=== PATIENT | male | born 1940 | race Caucasian/White ===

== ENCOUNTER → 2016-06-29 | Outpatient (CLI) | payer MEDICARE, OTHER ==
[~2016-06-29] MED LIST: /ADVA50050; /TAMS4CA; ACET65TA; ALBU17IN2; ALBUTEROL INH; ALBUTEROL INHALATION; ANTIV 25 PO; ANUSOLHCSU PR; ASPI81TA45; AVELOX PO; BACT400T OR; BIAXIN500 PO; CLAR5CHW; COLA100C2; COUMADIN5 PO; DARVOCET-N PO; DOXYCYC100 PO; DULCOLAX; FLOMAX 0.4 PO; FLON0.05; LOFIBRA PO; LOPID600 PO; LOVENOX SQ; MILKSUS; MOTRIN6 PO; MUCINEX PO; NEUR300C; NEURONTIN3 PO; NYSTAT100 PO; PERC7.5T8; PREDNISO10 PO; PREDNISO20 PO; PREDNISON5 PO; SING10TA31; SING10TA31 OR; SUDAFED30 PO; TOPI25TA2; VASO2.5T; VASOTEC25 PO; ZINC220T2; ZOCO80TA; ZOCOR80 PO
--- NOTE | 2016-06-29 11:11 | REP ---
Clinical: COPD . Comparison: 04/06/2015 . Technique: PA and lateral. Findings: The mediastinum and cardiac silhouette are normal. The lung nelson are clear and without acute consolidation, effusion, or pneumothorax. Surgical clips in the left apex are again identified. The skeletal structures are intact and normal. Impression: 1. No acute cardiopulmonary process. Signed by Manpreet Dennis MD 06/29/2016 11:02 A
== END ==
LOC: M SMT 10:44
PROVIDERS: ATTEND Internal Medicine Pulmonary Disease
DX: J44.9 Chronic obstructive pulmonary disease, unspecified (principal)

== ENCOUNTER → 2016-07-29 | Outpatient (CLI) | payer MEDICARE, OTHER ==
--- NOTE | 2016-07-29 16:42 | REP ---
Right shoulder: Three views. History: Anterior right shoulder pain. Comparison study April 28, 2005. Findings: There is osteoarthritic narrowing and spur formation at the AC joint. There is moderate to large inferior spurring of the acromion process. This is increased compared to the prior study. No acute erosive changes seen. Minimal glenohumeral spurring is seen. There is diffuse osteopenia. Impression: AC joint and glenohumeral joint osteoarthritis. Inferolateral acromion process spurring. No acute bony abnormality. Signed by Abelardo Wu MD 07/29/2016 04:50 P
== END ==
LOC: M SMT 14:39
PROVIDERS: ATTEND Nurse Practitioner Adult Health
DX: M19.011 Primary osteoarthritis, right shoulder (principal)

== ENCOUNTER 2016-09-26 12:20 | Inpatient (IN) | payer MEDICARE, OTHER ==
[~2016-09-26] VITALS: Ht 182.9 cm; Wt 92.5 kg
[~2016-09-26 12:20] MED LIST changes: +METOPROLOL TART 25 MG TABLET PO SCH
[2016-09-26 12:58] LABS: BASO % 0.4 % (0.0-1.0); EOS % 0.3 % (0.0-3.0); LARGE UNSTAINED CELL # 0.2 K/mm3 (0.0-0.4); LARGE UNSTAINED CELL % 1.3 % (0.0-4.0); LYMPH # 1.3 K/mm3 (1.5-4.5); LYMPH % 8.7 % (24.0-44.0); MEAN CORPUSCULAR HEMOGLOBIN 30.4 pg (27.0-33.0); MEAN CORPUSCULAR HGB CONC 32.1 g/dl (32.0-36.5); MONO # 0.7 K/mm3 (0.0-0.8); MONO % 5.5 % (0.0-5.0); NEUTROPHILS # 10.5 K/mm3 (1.8-7.7); NEUTROPHILS % 83.8 % (36.0-66.0); PLATELET COUNT, AUTOMATED 344 k/mm3 (150-450); RED CELL DISTRIBUTION WIDTH 12.5 % (11.5-14.5); WHITE BLOOD COUNT 12.5 K/mm3 (4.0-10.0)
[2016-09-26 13:21] LABS: ANION GAP 11 MEQ/L (8-16); BLOOD UREA NITROGEN 25 MG/DL (7-18); CALCIUM LEVEL 8.6 MG/DL (8.8-10.2); CARBON DIOXIDE LEVEL 22 MEQ/L (21-32); CHLORIDE LEVEL 102 MEQ/L (98-107); CREATININE FOR GFR 2.08 MG/DL (0.70-1.30); GLOMERULAR FILTRATION RATE 33.1 (>42); GLUCOSE, FASTING 122 MG/DL (83-110); POTASSIUM SERUM 3.8 MEQ/L (3.5-5.1); SODIUM LEVEL 135 MEQ/L (136-145)
[2016-09-26] MEDS ORDERED: LIPI20TA PO (13:38)
[2016-09-26] MEDS ORDERED: LISI10TA4 PO (13:38)
[2016-09-26] MEDS ORDERED: FLON1SPR ×2 (13:38→14:47)
[2016-09-26] MEDS ORDERED: DIGOXIN INJ 0.5 MG/2 ML AMP (J1160) IV ONE (13:45)
[2016-09-26] MEDS ORDERED: APIXABAN 5 MG TAB (ELIQUIS) PO ONE (13:45)
[2016-09-26 14:26] LABS: INR 1.2
--- NOTE | 2016-09-26 14:28 | REP ---
AP PORTABLE CHEST: 09/26/2016. Comparison: CT chest 08/19/2016, chest x-ray 06/29/2016. Clinical history: Chest pain in a 76-year-old male. Two AP portable views were obtained to encompass the entirety of the chest. Lungs are hyperinflated with some flattening of the diaphragms. There are some basilar fibrotic linear changes about both diaphragms. Pulmonary artery hypertension is noted. There is some infrahilar scarring on the right and left side. Bullous emphysematous changes mid and upper lung zones. There are apical clips on the left but not the right upper chest. No cardiomegaly. The aorta is without aneurysm. The heart and mediastinal contours intact. Bones intact without acute finding. There is a mild dextroconvex curvature of the lower thoracic spine. Impression: 1. Some basilar fibrotic change suggesting COPD with some linear fibrotic or atelectatic change above the diaphragms. 2. No cardiomegaly, edema or effusion. 3. No dense consolidation or parenchymal mass. No widening of the mediastinum. Some apical clips on the left. No pneumothorax. Signed by Yemi Farrell MD 09/26/2016 07:33 P
[2016-09-26] MEDS ORDERED: GABA-282 PO (14:47)
[2016-09-26] MEDS ORDERED: GLUC1CAP9 PO (14:47)
[2016-09-26] MEDS ORDERED: BENA25CA4 PO (14:47)
[2016-09-26] MEDS ORDERED: ADV500INH INH (14:47)
[2016-09-26] MEDS ORDERED: FLOM5CAP PO (14:47)
[2016-09-26] MEDS ORDERED: LISI-538 PO (14:47)
[2016-09-26] MEDS ORDERED: ASPI1TAB PO (14:47)
[2016-09-26] MEDS ORDERED: VITMTA PO (14:47)
[2016-09-26] MEDS ORDERED: ATOR40TA PO (14:47)
[2016-09-26] MEDS ORDERED: LORA10TA2 PO (14:47)
[2016-09-26] MEDS ORDERED: XOPEAER INH (14:47)
[2016-09-26] MEDS ORDERED: IPRASOL4 INH (14:47)
[2016-09-26] MEDS ORDERED: MONT10TA2 PO (14:47)
[2016-09-26] MEDS ORDERED: niCARdipine IV 40 MG in APPROPRIATE DILUENT 1 EA IV SCH (15:15)
[2016-09-26] MEDS ORDERED: LEVALBUTEROL 1.25 MG/0.5 ML CONCENTRATE NEB INH PRN (15:30)
[2016-09-26 15:52] VITALS: BP 142/69
[2016-09-26] MEDS ORDERED: diltiaZEM 125 MG in NS 100 ML IV SCH (16:00)
[2016-09-26] MEDS: LEVALBUTEROL 1.25 MG/0.5 ML CONCENTRATE NEB INH SCH ×2 (16:00→20:00)
--- NOTE | 2016-09-26 16:04 | HPE ---
DATE OF ADMISSION: 09/26/2016 PRIMARY CARE PHYSICIAN: Dr. Jonnie Galloway. INPATIENT HOSPITALIST ATTENDING: Dr. Artemio Nichols. CHIEF COMPLAINT: Shortness of breath. HISTORY OF PRESENTING ILLNESS: This is a 76-year-old male with a history of asthma, hypertension, hyperlipidemia, benign prostatic hypertrophy (BPH), allergies, nerve pain, back surgery fusion and laminectomy, knee surgery, elbow surgery, chronic kidney disease stage III, presents to the emergency room with three-week history of cough, cold symptoms, which have worsened in this past , Tuesday, and into Tuesday. The patient has been using [id number]-swepdgt medications, Shanelle-Hume Severe Cold and Flu, Mucinex, Robitussin, with some subjective fevers and chills at home, cough productive of white sputum, and green nasal discharge. He complains of occasional sinus headache without any nausea or vomiting but with some diarrhea 2-3 times a day, small amount, non-watery, non-bloody, non-mucosy, and has had several sick contacts at his restorationist the past three weeks. The patient had ongoing shortness of breath with a prior episode about a week ago, when he developed a feeling of almost passing out, feeling dizzy, and seeing jennings zones at [facility] today. He has had on-and-off episodes throughout the day today, which prompted him to come to the emergency room due to these episodes of feeling like he was going to pass out. He also complains of generalized weakness, but no palpitations. Some lightheadedness, no falls. No syncopal episode. The patient drove himself by car. In the emergency room (ER), he is found systolic pressure of 97, heart rate of 136. He was awake, alert, able to provide a full history. He did receive, due to low blood pressure, an intravenous (IV) dose of digoxin and one dose of apixaban 2.5 mg. Hospitalist service was called for admission for new-onset atrial fibrillation with rapid ventricular rate. The patient admits to drinking about 6-7 caffeinated beverages, at least 4-6 on a regular day, and even more at times. He denies using any other caffeinated beverages. No history of thyroid disease. PAST MEDICAL HISTORY: 1. Hypertension. 2. Asthma. 3. Hyperlipidemia. 4. BPH. 5. Allergies. 6. Nerve pain. 7. Chronic kidney disease stage III, baseline creatinine of 1.35, current creatinine of 2.08. 8. Chronic obstructive pulmonary disease (COPD). PAST SURGICAL HISTORY: 1. Elbow surgery. 2. Clavicular surgery. 3. Appendectomy. 4. Back surgery. 5. Discectomy 1979. 6. Fusion and laminectomy in 2008. 7. Knee surgery. ALLERGIES: 1. CIPRO causing rash. 2. NAPROXEN causing rash. 3. PENICILLIN causing rash and swelling. HOME MEDICATIONS: - ipratropium albuterol inhaled as needed - aspirin 81 daily every second day - atorvastatin 40 at bedtime - Benadryl 25 at bedtime as needed - Flonase one spray twice a day - gabapentin 300 mg twice a day - Xopenex four times a day two puffs inhaled - lisinopril 20 at bedtime - loratadine 10 daily - montelukast 10 at bedtime - multivitamin one tablet daily - salmeterol Advair Diskus one puff twice a day - Flomax 0.4 daily SOCIAL HISTORY: The patient lives with , four kids. History of smoking, quit in 1979, smoked a pack a day for 30 years. Denies alcohol or drug use. Very active in his restorationist. FAMILY HISTORY: Mother of colon cancer. Brother of coronary artery disease (CAD). Sister with diabetes. REVIEW OF SYSTEMS: Per history of present illness (HPI). 12- system otherwise negative. PHYSICAL EXAMINATION: VITAL SIGNS: Blood pressure 137/64, pulse 136 at the bedside, respiratory rate 18, temperature 97.7. Saturating 95% on room air. GENERAL: The patient is awake, alert, and oriented times three, answering questions appropriately. HEENT: The patient has no pallor, icterus or jaundice. Pupils are round, reactive. Extraocular muscles are intact. Normocephalic, atraumatic. NECK: No cervical lymphadenopathy or thyromegaly. LUNGS: Diminished breath sounds but clear to auscultation. Hospital wheezes, rales, or rhonchi. HEART: S1, S2, irregularly irregular. ABDOMEN: Soft, obese, nontender, nondistended. Positive bowel sounds times four quadrants. EXTREMITIES: Trace lower extremity edema. No cyanosis or clubbing. LABORATORY DATA: White count 12.5, hemoglobin 14, hematocrit 44, platelet count 344. Sodium 135, potassium 3.8, chloride 102, bicarbonate 22, BUN 25, creatinine 2.08, baseline creatinine 1.35. Glucose of 122. TSH is within normal limits at 3.15. Cardiac marker troponin less than 0.02, total CK of 120, MB fraction of 3. BNP of 115. IMAGING: Chest x-ray: No acute cardiopulmonary process. The patient has some basilar fibrotic change suggesting COPD with basilar fibrosis. Chest x-ray no cardiomegaly, edema or effusion. No dense consolidation. No widening of the mediastinum. Some apical clips on the left. No pneumothorax. ASSESSMENT AND PLAN: This is a 76-year-old male with a history of chronic obstructive pulmonary disease, asthma, prior history of smoking for 30 pack years, hypertension, hyperlipidemia, osteoarthritis knee, shoulder, ankle and spine, degenerative joint disease of spine, benign prostatic hypertrophy, peripheral vascular disease, allergies, chronic kidney disease stage III, vertigo, hearing loss, rotator tendinitis, presents to the emergency room with a three-week complaint of cough, cold symptoms, worsening since , with feeling of passing out and dizziness today at [facility]. Was found to be in atrial fibrillation with rapid ventricular rate (RVR). Hospitalist service was called for admission. The patient will be admitted to hospitalist service, Dr. Artemio Nichols, as an inpatient for two midnights for the following issues. 1. Atrial fibrillation with rapid ventricular rate. Initial blood pressure was in the 90s. The patient was given a dose of digoxin. Will continue with digoxin every six hours at 0.125 mg dose. Check a digoxin level in the morning. The patient's blood pressure has since improved to 130s currently. Will place on Cardizem drip due to persistent uncontrolled heart rate of 130s to 146 at the bedside during my clinical examination. He currently denies any palpitations or dizziness, lightheadedness. He has been given a dose of Eliquis for cerebrovascular accident (CVA) prophylaxis. Thyroid stimulating hormone (TSH) is within normal. Has had increased use of caffeinated beverages. Rule out acute infectious process as possible exacerbating factor. Therefore, we will check urinalysis (UA), urine culture and sensitivity (C and S), respiratory panel. No current fevers. No empiric antibiotics. 2. History of chronic obstructive pulmonary disease (COPD). Continue nebulizer treatments as needed. No active wheezing at the bedside. No empiric antibiotics. Continue on oxygen, nebulizer treatments. 3. Hypertension. Stable. Currently on Cardizem drip for now until rate is controlled. 4. Hyperlipidemia. Lipid profile in the morning. 5. Chronic kidney disease stage III, worsening creatinine. Hold off on patient's Vasotec for now until normal function. 6. History of benign prostatic hypertrophy (BPH). Continue on Flomax and Avodart. If persistent hypertension, may need to hold for now. 7. History of allergies. Continue on Claritin. 8. History of neuropathy. Continue on Neurontin. 9. Deep venous thrombosis (DVT) prophylaxis. Currently on Eliquis. The patient will be assigned to Dr. Artemio Nichols at 10 p.m. on 09/26/2016, hospitalist service.
[2016-09-26] MEDS: NS 1,000 ML IV SCH (16:21)
[2016-09-26 16:22] VITALS: BP 150/83
[2016-09-26 16:33] VITALS: BP 162/71
[2016-09-26] MEDS: METOPROLOL TART 25 MG TABLET PO SCH ×2 (17:00→22:25)
--- NOTE | 2016-09-26 20:36 | ECGEPIP ---
Stationary ECG Study [facility] Test Date: 2016-09-26 Pat Name: STEVE REID Department: Room: [place] [address] Gender: M Inspector Type: THI : 1940 Requested By: MIKEY Elizabeth Order Number: [id number] Reading MD: Marlene Aldana Measurements Intervals [place] Rate: 87 P: 66 [place]: 160 QRS: -24 QRSD: 100 T: 74 QT: 343 QTc: 415 Interpretive Statements SINUS RHYTHM BORDERLINE LEFT AXIS DEVIATION NONSPECIFIC T-WAVE ABNORMALITY SIMILAR 04/06/15 Electronically Signed On 09-26-2016 20:36:37 EDT by Marlene Aldana
[2016-09-26] MEDS ORDERED: DIGOXIN INJ 0.5 MG/2 ML AMP (J1160) IV SCH (21:00)
[2016-09-26 21:07] VITALS: BP 145/65
[2016-09-26] MEDS: ADVAIR DISKUS 500/50 INH PWD INH SCH (21:10)
[2016-09-26] MEDS: ATORVASTATIN 20 MG TAB PO SCH (22:24)
[2016-09-26] MEDS: MONTELUKAST 10 MG TAB PO SCH (22:25)
[2016-09-26] MEDS: FLUTICASONE PROP 0.05% NASAL SPRAY 16 GM (FLONASE) SCH (22:25)
[2016-09-26] MEDS: GABAPENTIN 300 MG CAP PO SCH (22:25)
[2016-09-26 23:35] VITALS: BP 141/61
[2016-09-27 05:14] LABS: MEAN CORPUSCULAR HEMOGLOBIN 30.4 pg (27.0-33.0); MEAN CORPUSCULAR HGB CONC 32.4 g/dl (32.0-36.5); MEAN CORPUSCULAR VOLUME 93.8 fl (80.0-96.0); RED CELL DISTRIBUTION WIDTH 12.5 % (11.5-14.5); WHITE BLOOD COUNT 13.5 K/mm3 (4.0-10.0)
[2016-09-27 05:15] VITALS: BP 117/54
[2016-09-27 05:34] LABS: CALCIUM LEVEL 7.8 MG/DL (8.8-10.2); CREATININE FOR GFR 1.48 MG/DL (0.70-1.30); GLOMERULAR FILTRATION RATE 49.1 (>42); MAGNESIUM LEVEL 2.2 MG/DL (1.8-2.4)
[2016-09-27 05:44] LABS: DIGOXIN LEVEL 0.6 NG/ML (0.5-2.0)
--- NOTE | 2016-09-27 05:45 | ECGEPIP ---
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
[2016-09-27 05:46] LABS: POTASSIUM SERUM 4.6 MEQ/L (3.5-5.1)
[2016-09-27] MEDS: ADVAIR DISKUS 500/50 INH PWD INH SCH ×2 (07:52→20:39)
[2016-09-27] MEDS: LEVALBUTEROL 1.25 MG/0.5 ML CONCENTRATE NEB INH SCH ×4 (07:52→20:00)
[2016-09-27 08:00] VITALS: BP 119/62
[2016-09-27] MEDS: TAMSULOSIN 0.4 MG CAP PO SCH (09:27)
[2016-09-27] MEDS: LORATADINE 10 MG TAB PO SCH (09:27)
[2016-09-27] MEDS: GABAPENTIN 300 MG CAP PO SCH ×2 (09:27→21:19)
[2016-09-27] MEDS: MULTIVITAMINS/MINERALS THERAP 1 TAB PO SCH (09:27)
[2016-09-27] MEDS: METOPROLOL TART 25 MG TABLET PO SCH ×2 (09:27→21:19)
[2016-09-27] MEDS: FLUTICASONE PROP 0.05% NASAL SPRAY 16 GM (FLONASE) SCH ×2 (09:27→21:18)
[2016-09-27] MEDS: APIXABAN 2.5 MG TAB (ELIQUIS) PO SCH ×2 (09:27→21:19)
[2016-09-27] MEDS: ASPIRIN 81 MG ENTERIC TAB PO SCH (09:27)
[2016-09-27] MEDS: NS 1,000 ML IV SCH (09:28)
[2016-09-27 12:00] VITALS: BP 154/62
[2016-09-27] MEDS ORDERED: ELIQ2.5T PO (14:19)
[2016-09-27] MEDS ORDERED: SLF 3 ML SYR IV PRN (14:30)
--- NOTE | 2016-09-27 14:32 | IPNPDOC ---
Subjective Date Seen The patient was seen on 09/27/16. Subjective Chief Complaint/HPI The patient is a 76-year-old male admitted with a reason for visit of Atrial Fibrillation W/Rapid Ventricular Response. General: Denies: Chills, Night Sweats Constitutional: Denies: Chills, Fever Eyes: Denies: Pain, Vision change ENT: Denies: Ear Pain, Head Aches Skin: Denies: Lesions, Rash Pulmonary: Denies: Cough, Dyspnea Cardiovascular: Denies: Chest Pain, Palpitations Gastrointestinal: Denies: Nausea, Vomiting Hematologic: Denies: Bleeding Excessively, Bruising Musculoskeletal: Denies: Back Pain, Neck Pain Objective Physical Examination General Exam: Positive: Alert, Cooperative, No Acute Distress ENT Exam: Positive: Atraumatic, Mucous membr. moist/pink Chest Exam: Positive: Clear to auscultation, Normal air movement Heart Exam: Positive: Normal S1, Normal S2, Rate Normal Telemetry: Positive: Sinus Abdomen Exam: Positive: Soft, Negative: Tenderness Extremity Exam: Negative: Swelling, Tenderness Assessment /Plan Plan/VTE VTE Prophylaxis Ordered?: Yes Plan New Onset Atrial fibrillation with rapid ventricular rate. Patient received doses of Cardizem, Digoxin in the ER and converted to Sinus Rhythm Repeat EKG noted to be in NSR Troponins within normal limits On Metoprolol 25mg BID On Eliquis for anticoagulation-->Script has been sent to Pharmacy for prior autho Patient remains hemodynamically stable today Possibly related to excessive Caffeine intake? (Drinks 6-7 cups of Coffee Daily) TSH wnl 2D ECHO pending Will continue to monitor on Telemetry History of Chronic Obstructive Pulmonary Disease (COPD) Continue nebulizer treatments. Hypertension, Stable Hyperlipidemia Cont statin Chronic kidney disease stage III Serum Creatinine at baseline Benign prostatic hypertrophy (BPH) Continue on Flomax and Avodart. History of allergies. Continue on Claritin History of neuropathy Continue on Neurontin. Deep venous thrombosis (DVT) prophylaxis On Eliquis at this time Dipso: Follow up on 2D ECHO study, D/C in 24-48hrs if remains stable. VS, I&O, 24H, Fishbone Vital Signs/I&O Vital Signs Date Time Temp Pulse Resp B/P Pulse Ox O2 Delivery O2 Flow Rate FiO2 09/27/16 12:00 97.5 82 18 154/62 95 Room Air I&O- Last 24 Hours up to 6 AM 09/27/16 06:00 Intake Total 1590 ml Output Total 1750 ml Balance -160 ml Laboratory Data 24H LABS Laboratory Tests 2 09/26/16 17:56: Creatine Kinase MB 3.6, Creatine Kinase MB Relative Index 2.95, Total Creatine Kinase 122, Troponin I 0.07# 09/26/16 23:12: Urine Amorphous Sediment , Urine Appearance CLEAR, Urine Color STRAW, Urine pH 6.0, Urine Specific Fifty Six 1.009, Urine Protein NEGATIVE, Urine Glucose (UA) NEGATIVE, Urine Ketones NEGATIVE, Urine Urobilinogen 0.2, Urine Bilirubin NEGATIVE, Urine Leukocyte Esterase NEGATIVE, Urine Bacteria (Auto) NEGATIVE, Urine Blood NEGATIVE, Urine Calcium Carbonate Cryst(Auto) , Urine Calcium Oxalate Cryst (Auto) , Urine Calcium Phosphate Rosalie (Auto) , Urine Cellular Casts , Urine Cystine Crystals , Urine Granular Casts (Auto) , Urine Hyaline Casts (Auto) 0, Urine Leucine Crystals , Urine Mucus (Auto) , Urine Nitrite NEGATIVE, Urine Oval Fat Bodies (Auto) , Urine RBC (Auto) 0, Urine Renal Epithelial Cells , Urine Sperm (Auto) , Urine Squamous Epithelial Cells 0, Urine Transitional Epithelial Cells , Urine Trichomonas (Auto) , Urine Triple Phosphate Cryst (Auto) , Urine Tyrosine Crystals , Urine Uric Acid Crystals ( Auto) , Urine WBC (Auto) 1, Urine Waxy Casts (Auto) , Urine Yeast-Like Cells ( Auto) 09/27/16 00:02: Creatine Kinase MB 2.1, Creatine Kinase MB Relative Index 1.89, Total Creatine Kinase 111, Troponin I 0.08 09/27/16 04:54: Creatine Kinase MB 1.7, Creatine Kinase MB Relative Index 1.80, Total Creatine Kinase 94, Troponin I 0.07, Anion Gap 8, Calcium Level 7.8L, Triglycerides Level 91, Cholesterol Level 99, HDL Cholesterol 42, LDL Cholesterol 38.8, Cholesterol/HDL Ratio 2.357, Digoxin Level 0.6, Glomerular Filtration Rate 49.1 , Magnesium Level 2.2, Non-HDL Cholesterol (LDL + VLDL) 57, Thyroid Stimulating Hormone (TSH) 1.040 CBC/BMP Laboratory Tests 09/27/16 04:54 Red Blood Count 4.13 L, Mean Corpuscular Volume 93.8, Mean Corpuscular Hemoglobin 30.4, Mean Corpuscular Hemoglobin Concent 32.4, Red Cell Distribution Width 12.5 Microbiology Microbiology 4/9/17 Respiratory Virus Panel (PCR) (CARLOS) - Final, Complete 09/26/16 Urine Culture, Received Pending FABIO EAGLE MD Sep 27, 2016 14:32
[2016-09-27 16:00] VITALS: BP 136/60
[2016-09-27] MEDS: ACETAMINOPHEN 500 MG TAB PO PRN ×2 (16:22→21:18)
[2016-09-27 19:31] VITALS: BP 148/67
[2016-09-27] MEDS: ATORVASTATIN 20 MG TAB PO SCH (21:18)
[2016-09-27] MEDS: MONTELUKAST 10 MG TAB PO SCH (21:19)
--- NOTE | 2016-09-27 21:22 | ECHO ---
DATE OF PROCEDURE: 09/27/2016 AGE: 76 GENDER: Female HEIGHT: 72 inches WEIGHT: 205 pounds BODY SURFACE AREA: 2.15 m2 PATIENT LOCATION: Inpatient, PCU, room 3217 REFERRING PHYSICIAN: Ana Cole MD INDICATION: New onset atrial fibrillation. 2-D MEASUREMENTS: RV: 4.2 cm LV: 3.7 cm Septum: 1.1 cm Posterior wall: 1.1 cm Aortic root: 3.6 cm LA: 3.9 cm LVEF: 75% DOPPLER MEASUREMENTS: AV: 1.6 m/s LVOT: 1.1 m/s LVOT diameter: 2.2 cm MV-E: 46, A: 78, EA ratio: 0.6 Early mitral deceleration: 158 ms E prime: 7.1, A prime: 8.5, E/E prime ratio: 6.5 PV: 0.8 m/s Pulmonary artery acceleration time: 67 ms RVSP: 59 mmHg IVC: 2.4 cm COMMENTS: Normal sinus rhythm without intraventricular conduction disturbance. Technically challenging study in light of the patient's body habitus, but diagnostically useful information was still obtained. Left atrial size was upper limits of normal to mildly dilated. Normal left ventricular size. Mildly dilated right heart chambers. LV wall thickness was upper limits of normal. Normal right ventricular free wall thickness. On real-time imaging from the parasternal and apical projections wall motion was symmetrical and normal to hyperkinetic. Slight mitral annular thickening, but normal leaflet thickness and excursion with no posterior systolic buckling. Three equal size aortic cusps with mildly thickened cusp edges, but adequate cusp separation. Aortic root diameter was upper limits of normal. No intracardiac mass or pericardial effusion. Color flow Doppler study taken from the parasternal and apical projections showed very mild mitral, mild tricuspid, but no aortic insufficiency. Guided continuous wave Doppler of his aortic valve showed a normal peak systolic velocity against LV outflow tract obstruction. Pulsed and continuous wave Doppler of his LV inflow tract taken from the apical four-chamber projection showed normal diastolic filling velocities against mitral stenosis. There was more prominent late diastolic atrial dependent filling pattern. A degree of diastolic dysfunction was further confirmed using tissue Doppler of his mitral annulus. However, his current estimated mean left atrial pressure was within normal limits. Pulsed and continuous wave Doppler of his pulmonary trunk showed a normal peak systolic velocity against RV outflow tract obstruction. Pulmonary artery acceleration time was abbreviated consistent with an elevated pulmonary vascular resistance. Guided continuous wave Doppler of his tricuspid valve allowed our estimation of the right ventricular systolic pressure (moderately severely increased). His inferior vena cava was dilated with markedly reduced respiratory collapse suggestive an elevated central venous pressure. CONCLUSIONS: Normal left ventricular size, wall thickness and hyperkinetic wall motion. Borderline left atrial enlargement with Doppler evidence of an impairment of LV diastolic function but currently normal estimated mean left atrial pressure. Mildly dilated right heart chambers and wall motion with Doppler evidence of moderately severe pulmonary hypertension. Mildly dilated IVC with reduced respiratory collapse consistent with an elevated central venous pressure. Mild degenerative changes of the mitral and aortic valvular apparatus without functional valvular abnormality.
[2016-09-27] MEDS: SLF 3 ML SYR IV SCH (22:00)
[2016-09-27] MEDS: diphenhydrAMINE 25 MG CAP PO PRN (23:26)
[2016-09-27 23:32] VITALS: BP 142/67
[2016-09-28 04:46] VITALS: BP 122/57
[2016-09-28] MEDS: SLF 3 ML SYR IV SCH ×3 (05:04→21:57)
[2016-09-28 07:30] VITALS: BP 136/64
[2016-09-28] MEDS: LEVALBUTEROL 1.25 MG/0.5 ML CONCENTRATE NEB INH SCH ×4 (08:00→19:40)
[2016-09-28] MEDS: ADVAIR DISKUS 500/50 INH PWD INH SCH ×2 (08:09→22:10)
[2016-09-28 08:33] LABS: BASO # 0.1 K/mm3 (0.0-0.2); BASO % 0.8 % (0.0-1.0); EOS # 0.2 K/mm3 (0.0-0.50); EOS % 1.9 % (0.0-3.0); LARGE UNSTAINED CELL # 0.2 K/mm3 (0.0-0.4); LARGE UNSTAINED CELL % 1.6 % (0.0-4.0); LYMPH # 1.4 K/mm3 (1.5-4.5); LYMPH % 13.5 % (24.0-44.0); MEAN CORPUSCULAR HEMOGLOBIN 30.8 pg (27.0-33.0); MEAN CORPUSCULAR HGB CONC 33.3 g/dl (32.0-36.5); MEAN CORPUSCULAR VOLUME 92.6 fl (80.0-96.0); MONO # 0.7 K/mm3 (0.0-0.8); MONO % 7.5 % (0.0-5.0); NEUTROPHILS # 6.8 K/mm3 (1.8-7.7); NEUTROPHILS % 74.7 % (36.0-66.0); PLATELET COUNT, AUTOMATED 295 k/mm3 (150-450); RED CELL DISTRIBUTION WIDTH 12.4 % (11.5-14.5); WHITE BLOOD COUNT 9.2 K/mm3 (4.0-10.0)
[2016-09-28 08:48] LABS: ALBUMIN 2.9 GM/DL (3.2-5.2); ALKALINE PHOSPHATASE 84 U/L (45-117); ALT/SGPT 39 U/L (12-78); ANION GAP 8 MEQ/L (8-16); AST/SGOT 27 U/L (15-37); BILIRUBIN,TOTAL 0.6 MG/DL (0.2-1.0); BLOOD UREA NITROGEN 20 MG/DL (7-18); CALCIUM LEVEL 8.3 MG/DL (8.8-10.2); CARBON DIOXIDE LEVEL 25 MEQ/L (21-32); CHLORIDE LEVEL 107 MEQ/L (98-107); CREATININE FOR GFR 1.24 MG/DL (0.70-1.30); GLOMERULAR FILTRATION RATE > 60.0 (>42); GLUCOSE, FASTING 91 MG/DL (83-110); MAGNESIUM LEVEL 2.2 MG/DL (1.8-2.4); POTASSIUM SERUM 4.3 MEQ/L (3.5-5.1); SODIUM LEVEL 140 MEQ/L (136-145); TOTAL PROTEIN 5.8 GM/DL (6.4-8.2)
[2016-09-28] MEDS: TAMSULOSIN 0.4 MG CAP PO SCH (09:16)
[2016-09-28] MEDS: FLUTICASONE PROP 0.05% NASAL SPRAY 16 GM (FLONASE) SCH ×2 (09:16→21:57)
[2016-09-28] MEDS: GABAPENTIN 300 MG CAP PO SCH ×2 (09:17→21:54)
[2016-09-28] MEDS: MULTIVITAMINS/MINERALS THERAP 1 TAB PO SCH (09:17)
[2016-09-28] MEDS: APIXABAN 2.5 MG TAB (ELIQUIS) PO SCH ×2 (09:17→21:54)
[2016-09-28] MEDS: LORATADINE 10 MG TAB PO SCH (09:17)
[2016-09-28] MEDS: METOPROLOL TART 25 MG TABLET PO SCH ×2 (09:17→21:55)
--- NOTE | 2016-09-28 09:36 | REP ---
PORTABLE CHEST: AP portable view of the chest is performed. Comparison is made with prior studies most recently 09/26/2016. There appears to be mild left basilar infiltrate in the retrocardiac region. There is underlying interstitial fibrosis in both lung bases. The heart is normal in size. The mediastinal silhouette is unremarkable and unchanged. Metallic clips are seen in the left apex. IMPRESSION: Mild left basilar infiltrate in the retrocardiac region. Signed by Edgar Garcia MD 09/28/2016 04:21 P
[2016-09-28] MEDS: ACETAMINOPHEN 500 MG TAB PO PRN ×2 (11:54→22:00)
[2016-09-28 12:00] VITALS: BP 152/77
[2016-09-28] MEDS: DOXYCYCLINE HYCLATE 100 MG TAB PO SCH ×2 (13:34→21:54)
--- NOTE | 2016-09-28 14:33 | IPNPDOC ---
Text Note Date of Service The patient was seen on 09/28/16. NOTE Subjective: Patient is a 76 year old male with a PMHx of Asthma, HTN, DLP, CKD3, BPH, Allergies, Nerve pain and back pain, who presented to the ER with cough / cold symptoms. He was found to have sinus congestions and possible pneumonia. In the ER he was found to have a.fib with RVR and he was given IV CCB and digoxin. He spontaneously reverted back to sinus rhythm. Patient was seen and examined at the bedside. He has no complaints today. Objective: Vitals (See below) General: Lying in bed, no acute distress, comfortable, AAOx3 HEENT: NC, AT CVS: RRR, +S1S2 Lungs: Fair air entry b/l, -w/r/r Abdomen: Soft, ND, NT, +BSx4 Extremities: +PPx4, - Edema, - Calf tenderness Assessment and plan: 1. New Onset Atrial fibrillation with rapid ventricular rate - likely 2/2 caffeine use - Clinically patient has been asymptomatic, no complaints - Physical reveals regular rhythm and rate - TSH normal, ECHO without any explanation of a.fib - s/p Cardizem and Digoxin in ER - c/w rate control with Metoprolol 25 BID - c/w anticoagulation with Eliquis 2. Possible pneumonia - Mild leukocytosis, resolving, - Low grade fevers - No evidence of rhonchi on physical - Will start Doxycycline given multiple allergies 3. Hx of COPD - no evidence of exacerbation - c/w inhaled therapy 4. HTN - BP well controlled 5. DLP - c/w atorvastatin 6. CKD3 - Cr at baseline 7. BPH - c/w Tamsulosin 8. Hx of allergies - c/w loratadine 9. 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 - on full anticoagulation with Elqiuis VS,Fishbone, I+O VS, Fishbone, I+O Laboratory Tests 09/28/16 08:07 Calcium Level 8.3 L, Aspartate Amino Transf (AST/SGOT) 27, Alanine Aminotransferase (ALT/SGPT) 39, Alkaline Phosphatase 84, Total Bilirubin 0.6, Total Protein 5.8 L, Albumin 2.9 L, Red Blood Count 4.27 L, Mean Corpuscular Volume 92.6, Mean Corpuscular Hemoglobin 30.8, Mean Corpuscular Hemoglobin Concent 33.3, Red Cell Distribution Width 12.4, Neutrophils (%) (Auto) 74.7 H, Lymphocytes (%) (Auto) 13.5 L, Monocytes (%) (Auto) 7.5 H, Eosinophils (%) (Auto ) 1.9, Basophils (%) (Auto) 0.8, Neutrophils # (Auto) 6.8, Lymphocytes # (Auto) 1.4 L, Monocytes # (Auto) 0.7, Eosinophils # (Auto) 0.2, Basophils # (Auto) 0.1 Vital Signs Date Time Temp Pulse Resp B/P Pulse Ox O2 Delivery O2 Flow Rate FiO2 09/28/16 12:00 98.9 79 20 152/77 94 Room Air I&O- Last 24 Hours up to 6 AM 09/28/16 05:59 Intake Total 1320 ml Output Total 1425 ml Balance -105 ml EH ZUNIGA MD Sep 28, 2016 14:33
[2016-09-28 15:50] VITALS: BP 133/66
[2016-09-28 20:29] VITALS: BP 158/83
[2016-09-28] MEDS: ATORVASTATIN 20 MG TAB PO SCH (21:54)
[2016-09-28] MEDS: MONTELUKAST 10 MG TAB PO SCH (21:55)
[2016-09-28 23:44] VITALS: BP 132/68
[2016-09-28] MEDS: diphenhydrAMINE 25 MG CAP PO PRN (23:48)
[2016-09-29] MEDS: SLF 3 ML SYR IV SCH (05:37)
[2016-09-29 06:05] VITALS: BP 129/62
[2016-09-29 06:27] LABS: BASO % 0.7 % (0.0-1.0); EOS # 0.2 K/mm3 (0.0-0.50); EOS % 3.1 % (0.0-3.0); LARGE UNSTAINED CELL # 0.1 K/mm3 (0.0-0.4); LARGE UNSTAINED CELL % 1.9 % (0.0-4.0); LYMPH # 1.4 K/mm3 (1.5-4.5); LYMPH % 16.7 % (24.0-44.0); MEAN CORPUSCULAR HEMOGLOBIN 30.8 pg (27.0-33.0); MEAN CORPUSCULAR HGB CONC 33.2 g/dl (32.0-36.5); MEAN CORPUSCULAR VOLUME 92.7 fl (80.0-96.0); MONO # 0.6 K/mm3 (0.0-0.8); MONO % 8.6 % (0.0-5.0); NEUTROPHILS # 5.1 K/mm3 (1.8-7.7); NEUTROPHILS % 69.1 % (36.0-66.0); PLATELET COUNT, AUTOMATED 301 k/mm3 (150-450); RED CELL DISTRIBUTION WIDTH 12.2 % (11.5-14.5); WHITE BLOOD COUNT 7.4 K/mm3 (4.0-10.0)
[2016-09-29 06:29] LABS: ALBUMIN 2.7 GM/DL (3.2-5.2); ALBUMIN/GLOBULIN RATIO 0.82 (1.00-1.93); BILIRUBIN,TOTAL 0.6 MG/DL (0.2-1.0); CALCIUM LEVEL 8.5 MG/DL (8.8-10.2); CREATININE FOR GFR 1.29 MG/DL (0.70-1.30); GLOMERULAR FILTRATION RATE 57.5 (>42); MAGNESIUM LEVEL 2.1 MG/DL (1.8-2.4); POTASSIUM SERUM 4.2 MEQ/L (3.5-5.1)
[2016-09-29 07:30] VITALS: BP 187/81
[2016-09-29] MEDS: LEVALBUTEROL 1.25 MG/0.5 ML CONCENTRATE NEB INH SCH (08:00)
[2016-09-29 08:45] VITALS: BP 187/81
[2016-09-29] MEDS: APIXABAN 2.5 MG TAB (ELIQUIS) PO SCH (08:45)
[2016-09-29] MEDS: DOXYCYCLINE HYCLATE 100 MG TAB PO SCH (08:45)
[2016-09-29] MEDS: TAMSULOSIN 0.4 MG CAP PO SCH (08:45)
[2016-09-29] MEDS: ASPIRIN 81 MG ENTERIC TAB PO SCH (08:45)
[2016-09-29] MEDS: METOPROLOL TART 25 MG TABLET PO SCH (08:45)
[2016-09-29] MEDS: MULTIVITAMINS/MINERALS THERAP 1 TAB PO SCH (08:45)
[2016-09-29] MEDS: GABAPENTIN 300 MG CAP PO SCH (08:46)
[2016-09-29] MEDS: FLUTICASONE PROP 0.05% NASAL SPRAY 16 GM (FLONASE) SCH (08:46)
[2016-09-29] MEDS: LORATADINE 10 MG TAB PO SCH (08:49)
[2016-09-29] MEDS: ADVAIR DISKUS 500/50 INH PWD INH SCH (09:00)
[2016-09-29] MEDS ORDERED: METO25TAB PO (09:48)
[2016-09-29] MEDS ORDERED: DOXY10CA PO (09:48)
--- NOTE | 2016-09-29 13:22 | DSES ---
DATE OF ADMISSION: 09/26/2016 DATE OF DISCHARGE: 09/29/2016 ATTENDING PHYSICIANS: MD Artemio Arnold MD DICTATED BY: Govind Short MD PRIMARY CARE PHYSICIAN: Jonnie Galloway MD REFERRING PHYSICIAN: None. CONSULTING PHYSICIAN: None. CONDITION ON DISCHARGE: Stable. FINAL DIAGNOSES: 1. New onset atrial fibrillation with a rapid ventricular rate likely secondary to caffeine use. 2. Possible pneumonia secondary to community acquired pneumonia. PROCEDURES: None. HISTORY OF PRESENT ILLNESS: Patient is a 76-year-old male with a past medical history of asthma, hypertension, dyslipidemia, chronic kidney disease stage III, benign prostatic hypertrophy (BPH), allergies, nerve pain and back pain, who presented to the emergency room with cough and cold symptoms. He was found to have a sinus congestion and possible pneumonia. In the emergency room he was found to have atrial fibrillation with RVR. He was given intravenous calcium channel blockers and digoxin, and he spontaneously reverted back to sinus rhythm. HOSPITAL COURSE: 1. New onset atrial fibrillation with RVR, likely secondary to excess caffeine use. Currently presented with shortness of breath and fatigue, however throughout his hospital course he has been asymptomatic and has no other complaints. Physical exam reveals a regular rate and rhythm. TSH is within normal limits. Echocardiogram revealed no explanation for his atrial fibrillation. He is status post Cardizem and digoxin in the emergency room. He has been rate controlled with metoprolol 25 mg twice a day. He is on anticoagulation with Eliquis. 2. Possible community acquired pneumonia and mild leukocytosis which has been resolving and low grade fever. No evidence on physical exam, but chest x-ray was consistent with a possible infiltrate in the retrocardiac region. He was started on doxycycline given his multiple allergies. 3. History of chronic obstructive pulmonary disease (COPD). No evidence of exacerbation. Continue with inhibitor therapy. 4. Hypertension. Blood pressure has remained well controlled. 5. Dyslipidemia. Continue with atorvastatin. 6. Chronic kidney disease. Creatinine is at baseline. 7. Benign prostatic hypertrophy (BPH). Continue with tamsulosin. 8. History of allergies. Continue with loratadine. 9. Neuropathy. Continue with Neurontin. 10. Deep vein thrombosis (DVT) prophylaxis. On full anticoagulation with Eliquis. DISCHARGE MEDICATIONS: The patient will be discharged home with the following medication list: - albuterol inhaled as needed shortness of breath - aspirin 81 mg by mouth every two days - atorvastatin 40 mg by mouth at bedtime - diphenhydramine 25 mg by mouth at bedtime as needed sleep - Flonase one spray in each nostril twice a day - gabapentin 300 mg by mouth twice a day - glucosamine/chondroitin one capsule by mouth at bedtime - levalbuterol two puffs inhaled four times a day as needed shortness of breath - lisinopril 20 mg by mouth at bedtime - loratadine 10 mg by mouth daily - montelukast 10 mg by mouth at bedtime - multivitamin one tablet by mouth daily - Advair Diskus 500/50 one puff inhaled twice a day - tamsulosin 0.4 mg by mouth daily New medications prescribed include: - Eliquis 2.5 mg by mouth twice a day - doxycycline 100 mg by mouth twice a day for the next six days - metoprolol 25 mg by mouth twice a day DISCHARGE INSTRUCTIONS: The patient has been advised to followup with his primary care provider and cardiology within the next seven days. He has been advised to remain compliant with treatment plan and medications and return to the emergency room if he experiences any problems. Time spent on discharge 35 minutes.
== END 2016-09-29 11:46 | disposition home or self-care (01) | DRG 308 ==
LOC: M ED 13:27 → M ED INP 14:10 → M PCU 15:39
PROVIDERS: ADMIT General Practice; ATTEND Internal Medicine
DX: I48.91 Unspecified atrial fibrillation (principal); J18.9 Pneumonia, unspecified organism; I12.9 Hypertensive chronic kidney disease with stage 1 through stage 4 chronic kidney disease, or unspecified chronic kidney disease; E78.5 Hyperlipidemia, unspecified; N18.3 Chronic kidney disease, stage 3 (moderate); N40.0 Benign prostatic hyperplasia without lower urinary tract symptoms; J44.9 Chronic obstructive pulmonary disease, unspecified; J30.9 Allergic rhinitis, unspecified; G62.9 Polyneuropathy, unspecified; Z79.82 Long term (current) use of aspirin; Z79.899 Other long term (current) drug therapy; Z98.1 Arthrodesis status; Z88.0 Allergy status to penicillin; Z88.1 Allergy status to other antibiotic agents; Z88.6 Allergy status to analgesic agent; Z87.891 Personal history of nicotine dependence; Z82.49 Family history of ischemic heart disease and other diseases of the circulatory system; Z83.3 Family history of diabetes mellitus; Z80.0 Family history of malignant neoplasm of digestive organs; Z79.01 Long term (current) use of anticoagulants

== ENCOUNTER 2016-10-25 10:40 | Inpatient (IN) | payer MEDICARE, OTHER ==
[~2016-10-25] VITALS: Ht 185.4 cm; Wt 94.5 kg
[~2016-10-25 10:40] MED LIST changes: +ADV500INH INH; +ASPI1TAB PO; +ATOR40TA PO; +BENA25CA4 PO; +DOXY10CA PO; +ELIQ2.5T PO; +FLOM5CAP PO; +FLON1SPR; +GABA-282 PO; +GLUC1CAP9 PO; +IPRASOL4 INH; +LIPI20TA PO; +LISI-538 PO; +LISI10TA4 PO; +LORA10TA2 PO; +METO25TAB PO; -METOPROLOL TART 25 MG TABLET PO SCH; +MONT10TA2 PO; +VITMTA PO; +XOPEAER INH
[2016-10-25] MEDS ORDERED: BISO10TA PO (10:52)
[2016-10-25] MEDS ORDERED: PHENAZOPYRIDINE 100 MG TAB PO ONE (11:45)
[2016-10-25] MEDS ORDERED: ACETAMINOPHEN 325 MG TAB PO ONE (11:45)
[2016-10-25] MEDS ORDERED: NITROFURANTOIN (MACROBID) 100 MG CAP PO ONE (11:45)
[2016-10-25] MEDS ORDERED: PYRI200T5 PO (12:21)
[2016-10-25] MEDS ORDERED: MACR100C3 PO (12:21)
[2016-10-25] MEDS ORDERED: ALBUTEROL SULFATE 2.5 MG/0.5 ML INH NEB SOLN NEB ONE (12:30)
[2016-10-25] MEDS ORDERED: IMIPENEM/CILASTATIN 500 MG in D5W MINI-BAG PLUS 100 ML IV ONE (13:30)
[2016-10-25] MEDS ORDERED: NS IV ONE (13:30)
[2016-10-25] MEDS ORDERED: DILUENT IV ONE (13:30)
--- NOTE | 2016-10-25 13:41 | REP ---
CHEST, TWO VIEWS: Two views of the chest are performed and compared to prior studies, the recent of which is 09/28/2016. There is interstitial fibrotic change in the lung bases which is stable. There is no acute infiltrate. The heart is normal in size. The mediastinal silhouette is unchanged. The visualized osseous structures appear unremarkable. IMPRESSION: No acute infiltrate. Mild stable chronic findings. Signed by Edgar Garcia MD 10/26/2016 04:03 P
[2016-10-25] MEDS ORDERED: ASPI81TA7 PO (13:50)
[2016-10-25 13:52] LABS: BASO % 0.2 % (0.0-1.0); EOS # 0.1 K/mm3 (0.0-0.50); EOS % 0.5 % (0.0-3.0); LARGE UNSTAINED CELL # 0.1 K/mm3 (0.0-0.4); LARGE UNSTAINED CELL % 0.5 % (0.0-4.0); LYMPH # 1.1 K/mm3 (1.5-4.5); LYMPH % 5.5 % (24.0-44.0); MEAN CORPUSCULAR HEMOGLOBIN 31.4 pg (27.0-33.0); MEAN CORPUSCULAR HGB CONC 33.2 g/dl (32.0-36.5); MEAN CORPUSCULAR VOLUME 94.8 fl (80.0-96.0); MONO # 0.3 K/mm3 (0.0-0.8); MONO % 1.6 % (0.0-5.0); NEUTROPHILS # 18.7 K/mm3 (1.8-7.7); NEUTROPHILS % 91.7 % (36.0-66.0); PLATELET COUNT, AUTOMATED 223 k/mm3 (150-450); RED CELL DISTRIBUTION WIDTH 12.7 % (11.5-14.5); WHITE BLOOD COUNT 20.3 K/mm3 (4.0-10.0)
[2016-10-25] MEDS ORDERED: BENA25CA4 PO (13:54)
[2016-10-25] MEDS ORDERED: ELIQ2.5T PO (13:54)
[2016-10-25] MEDS ORDERED: ALBU17IN INH (13:54)
[2016-10-25] MEDS ORDERED: BISO5TAB5 PO (13:54)
[2016-10-25 14:01] LABS: INR 1.58
[2016-10-25 14:16] LABS: ALBUMIN 3.3 GM/DL (3.2-5.2); ALBUMIN/GLOBULIN RATIO 1.03 (1.00-1.93); ALKALINE PHOSPHATASE 89 U/L (45-117); ALT/SGPT 25 U/L (12-78); ANION GAP 11 MEQ/L (8-16); AST/SGOT 14 U/L (15-37); BILIRUBIN,DIRECT 0.4 MG/DL (0.0-0.2); BILIRUBIN,TOTAL 1.8 MG/DL (0.2-1.0); BLOOD UREA NITROGEN 23 MG/DL (7-18); CALCIUM LEVEL 8.4 MG/DL (8.8-10.2); CARBON DIOXIDE LEVEL 23 MEQ/L (21-32); CHLORIDE LEVEL 100 MEQ/L (98-107); CREATININE FOR GFR 1.88 MG/DL (0.70-1.30); GLOMERULAR FILTRATION RATE 37.2 (>42); GLUCOSE, FASTING 118 MG/DL (83-110); POTASSIUM SERUM 3.8 MEQ/L (3.5-5.1); SODIUM LEVEL 134 MEQ/L (136-145); TOTAL PROTEIN 6.5 GM/DL (6.4-8.2)
[2016-10-25] MEDS ORDERED: BISACODYL 5 MG TAB PO PRN (15:30)
[2016-10-25] MEDS ORDERED: IPRATROPIUM 0.5MG/ALBUTEROL 2.5MG INH SOL UD 3ML (DUONEB)(J7620) NEB PRN (15:30)
[2016-10-25] MEDS ORDERED: ONDANSETRON 4 MG TAB (S0181) PO PRN (15:30)
[2016-10-25] MEDS ORDERED: HEPARIN SOD (PORCINE) 5000 UNITS/ML VIAL SC SCH (15:30)
[2016-10-25] MEDS ORDERED: ALBUTEROL SULFATE 2.5 MG/0.5 ML INH NEB SOLN NEB PRN (16:00)
--- NOTE | 2016-10-25 17:09 | HPE ---
DATE OF ADMISSION: 10/25/2016 PRIMARY CARE PHYSICIAN: Dr. Jonnie Galloway NETWORK MANAGER: Dr. Ej Ramos CHIEF COMPLAINT: Dysuria. HISTORY OF PRESENT ILLNESS: Mr. Gates is a 76-year-old male with a past medical history significant for hypertension, hyperlipidemia, atrial fibrillation, asthma, benign prostatic hypertrophy, chronic kidney disease stage III, chronic obstructive pulmonary disease (COPD), osteoarthritis, hearing loss, rotator tendonitis, and allergies who was recently admitted into the hospital from 09/26/2016 through 09/29/2016 with atrial fibrillation with rapid ventricular rate and possible pneumonia, who comes in again complaining of dysuria, decreased urinary frequency that started on Tuesday. The patient also admitted to fevers and chills yesterday as well as lightheadedness and dizziness with ambulation. He also reports that this morning he had an episode of diarrhea. He denies any hematuria. No chest pain or pressure. He does report increased shortness of breath especially after receiving IV fluids for his hypotension and acute renal failure. He admits to generalized weakness. No syncopal episode. No abdominal pain, nausea, vomiting, headache, or rash. When he presented to the emergency department, he was initially hypotensive with systolic blood pressure in the 60s that was fluid responsive. He started to complain of increased shortness of breath for which IV fluids were discontinued. He had a urinalysis done which showed cloudy urine, 3+ leukocyte esterase, too numerous to count white blood cell (WBC), 27 red blood cell (RBC), 1+ bacteria. He was given a dose of Primaxin, Pyridium, and nitrofurantoin in the emergency department. He also received albuterol nebulizer treatment. Hospitalist service was subsequently called to admit. PAST MEDICAL HISTORY: 1. Hypertension. 2. Hyperlipidemia. 3. Atrial fibrillation. 4. Chronic kidney disease, stage III, baseline creatinine of 1.3. 5. Benign prostatic hypertrophy. 6. Asthma. 7. Chronic obstructive pulmonary disease (COPD). 8. Osteoarthritis. 9. History of rotator tendonitis. 10. History of hearing loss. 11. Nerve pain. 12. Allergies. PAST SURGICAL HISTORY: 1. Transposition of ulnar nerve bilaterally. 2. Clavicular surgery. 3. Appendectomy. 4. Subclavian artery bypass. 5. L5-S1 discectomy. 6. Fusion and laminectomy of L3-4. 7. Bilateral cataract surgery. 8. Knee surgery. 9. Anterior cruciate ligament (ACL) repair. 10. Colonoscopy. 11. Tympanostomy. HOME MEDICATIONS: - Ventolin inhaler two puffs inhaled every four hours as needed - DuoNeb one solution inhaled as needed - Benadryl 25 mg by mouth at bedtime - Flonase one spray in each nares twice daily - gabapentin 300 mg by mouth twice daily - Xopenex inhaler two puffs inhaled four times a day as needed - lisinopril 20 mg at night - multivitamin one tablet by mouth daily - glucosamine chondroitin one capsule by mouth at night - Eliquis 2.5 mg by mouth twice daily - aspirin 81 mg daily - atorvastatin 40 mg at night - bisoprolol 5 mg by mouth daily - loratadine 10 mg by mouth daily - Singulair 10 mg by mouth at night - Advair Diskus one puff inhaled twice daily - Flomax 0.4 mg by mouth daily ALLERGIES: 1. CIPRO (rash). 2. NAPROXEN (rash). 3. PENICILLIN (rash, throat swelling). 4. CEPHALOSPORINS. 5. SULFA ANTIBIOTICS. SOCIAL HISTORY: The patient lives alone. He is a former smoker. He has a 30 pack-year smoking history. He quit many years ago. He drinks a couple of beers a week. No illicit drug use. No pets in the home. He has three living children. FAMILY HISTORY: Mother at 67, had history of colon cancer. Father at 57, had heart disease, hypertension and history of stroke. His sister has history of diabetes, hypertension, and arthritis. Brother from coronary artery disease, age unknown. REVIEW OF SYSTEMS: GENERAL: The patient admits to fevers and chills. He also admits to generalized weakness. No significant weight changes. HEENT: He reports lightheadedness and dizziness. No headache. No acute changes to vision or hearing. He does have chronic hearing loss. CARDIOVASCULAR: Denies any chest pain or palpitations. He has chronic shortness of breath. No chronic lower extremity edema. PULMONARY: Positive for shortness of breath. No cough or hemoptysis. The patient has a history of asthma. GASTROINTESTINAL: No nausea, vomiting, abdominal pain, or constipation. He did have episode of diarrhea this morning. No blood in the stool. GENITOURINARY: Positive for decreased urination, burning on urination, and dribbling of the urine. Positive for urgency. No hematuria. The patient has history of enlarged prostate. ENDOCRINE: No history of diabetes or thyroid disorder. INTEGUMENT: No unusual rashes or skin lesions. NEUROLOGIC: No paresthesias. No syncope. PHYSICAL EXAMINATION: VITAL SIGNS: Temperature 99.5, pulse 102, respiratory rate 22, blood pressure 127/67, pulse oximetry 97% on nasal cannula. GENERAL: The patient is alert and oriented, in no acute distress. Breathing is labored but he is still able to communicate. HEENT: Normocephalic, atraumatic. Extraocular muscles are intact. Pupils are equally round and reactive to light. No scleral icterus. Moist mucosa. NECK: Supple. No cervical lymphadenopathy. No thyromegaly. HEART: Normal S1, S2, regular, tachycardiac. LUNGS: Diminished breath sounds bilaterally. Occasional wheezing. No rales appreciated. ABDOMEN: Soft, nontender, nondistended. Positive bowel sounds. EXTREMITIES: Trace lower extremity edema. No cyanosis. Positive pedal pulses bilaterally. SKIN: Warm and dry. No rashes noted. NEUROLOGIC: No focal deficits. Cranial nerves II-XII are grossly intact. Motor and sensation intact. LABORATORY DATA: WBC 20.3, hemoglobin 14.9, hematocrit 45.0, platelet count 223. Sodium 134, potassium 3.8, chloride 100, carbon dioxide 23, anion gap 11, BUN 23 , creatinine 1.88, GFR 37.2, fasting glucose 118, lactic acid 3.0, calcium 8.4, total bilirubin 1.8, direct bilirubin 0.4, AST 14, ALT 25, alkaline phosphatase 89, total creatinine kinase 89, CK-MB 1.0, troponin less than 0.02, total protein 6.5, albumin 3.3, PT 19, INR 1.58, aPTT 45.1. Microbiology: Blood culture and urine culture pending. Imaging studies: The patient had a chest x-ray performed which showed chronic interstitial fibrotic changes. No acute infiltrate. ASSESSMENT AND PLAN: 1. Sepsis secondary to UTI. The patient was initially hypotensive which is now fluid responsive. He has a blood pressure of 127/67. We will continue to monitor this. He was given Primaxin in the emergency department. He will be changed over to meropenem for broader coverage including Pseudomonas. He did receive intravenous fluids in the emergency department. This has been discontinued secondary to increased respiratory distress. Lactic acid was elevated at 3.0. This will be repeated in four hours according to sepsis protocol. We will recheck a basic metabolic profile (BMP) later on this evening. 2. Acute kidney injury on chronic kidney disease, stage III. The patient has a baseline creatinine of 1.3. He received some fluids in the emergency department. We will obtain a basic metabolic profile this evening to assess improvement in renal function. We will not continue with fluids at this time given his increased respiratory distress. We will obtain a renal ultrasound. 3. Chronic obstructive pulmonary disease (COPD). This may be complicating his respiratory status. We will continue his home medications of Advair. He also takes Singulair with history of asthma. We will provide DuoNeb breathing treatment scheduled and albuterol nebulizer every two hours as needed. 4. Atrial fibrillation. The patient is currently in sinus rhythm. Continue with Eliquis twice a day. 5. Hypertension. The patient takes lisinopril and bisoprolol at home. Both of these are being held for the time being since he was hypotensive on initial arrival to the emergency department. This can be resumed tomorrow after reevaluation. 6. Benign prostatic hypertrophy. The patient is on Flomax. 7. Hyperlipidemia. The patient is on Lipitor. 8. History of allergies. Continue loratadine daily. 9. Deep vein thrombosis (DVT) prophylaxis. The patient is on Eliquis. 10. Code status. The patient is a full code. No official healthcare proxy but he would like it to be his daughter. The patient will be admitted to the progressive care unit (PCU) as inpatient and expected to stay at least two midnights. My preceptor for this patient encounter was Dr. Konrad Bhagat. The preceptor was physically present in the building during the encounter and was fully available as needed. All aspects of the patient interview, examination, medical decision making process, and medical care plan development were reviewed and approved by the preceptor. The preceptor is aware and concurs with the plan as stated in the body of this note and will attest to such by his/her co-signature. LAMBERT
[2016-10-25 17:30] VITALS: BP 92/50
--- NOTE | 2016-10-25 17:35 | REP ---
RENAL ULTRASOUND COMPLETE: 10/25/2016: Clinical history: Acute kidney injury, UTI. Findings: Sonographic evaluation of the kidneys shows the right 11.5 x 5.3 x 5.3 cm. The left is 11 x 4.6 x 6 cm. 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 I do not see that finding on CT in 2010 however. There is a below an interpolar region cyst 2.5 x 2 x 3 x 2.1 cm laterally in the left. Right kidney shows some calcified vessels. There is increased renal sinus fat or sinus lipomatosis. Cortical echogenicity is very mildly increased suggesting some medical renal disease. Bladder only partially filled. Prostate is somewhat enlarged. Impression: 1. Evidence of mild hyperechogenicity in the renal cortex bilaterally suggesting there may be early medical renal disease. No hydronephrosis, hydroureter, stone or solid mass. 2. There is a cortical cyst, exophytic, interpolar region left kidney and above that is an echogenic focus 7 x 6 x 5 mm. 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 This was present on the prior study and is stable. 3. The prostate is enlarged. Bladder grossly intact. Signed by Yemi Farrell MD 10/27/2016 05:09 P
[2016-10-25] MEDS ORDERED: NS 1,000 ML IV SCH (18:15)
--- NOTE | 2016-10-25 18:28 | ECGEPIP ---
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
[2016-10-25 18:45] LABS: CREATININE FOR GFR 1.87 MG/DL (0.70-1.30); GLOMERULAR FILTRATION RATE 37.5 (>42); POTASSIUM SERUM 3.8 MEQ/L (3.5-5.1)
[2016-10-25 19:41] VITALS: BP 105/51
[2016-10-25] MEDS: IPRATROPIUM 0.5MG/ALBUTEROL 2.5MG INH SOL UD 3ML (DUONEB)(J7620) NEB SCH ×2 (20:00→23:35)
[2016-10-25] MEDS: ATORVASTATIN 20 MG TAB PO SCH (20:44)
[2016-10-25] MEDS: MONTELUKAST 10 MG TAB PO SCH (20:44)
[2016-10-25] MEDS: APIXABAN 2.5 MG TAB (ELIQUIS) PO SCH (20:44)
[2016-10-25] MEDS: MEROPENEM INJ 1 GM in D5W MINI-BAG PLUS 100 ML IV SCH (20:44)
[2016-10-25] MEDS: ADVAIR DISKUS 500/50 INH PWD INH SCH (21:07)
[2016-10-25] MEDS: ACETAMINOPHEN TAB 650MG DOSE (2X325MG) PO PRN (21:57)
[2016-10-26] VITALS (10 sets, daily range): BP systolic 108–127; BP diastolic 55–72
[2016-10-26] MEDS: IPRATROPIUM 0.5MG/ALBUTEROL 2.5MG INH SOL UD 3ML (DUONEB)(J7620) NEB SCH ×5 (04:00→19:21)
[2016-10-26 05:52] LABS: BASO # 0.1 K/mm3 (0.0-0.2); BASO % 0.3 % (0.0-1.0); EOS % 0.1 % (0.0-3.0); LARGE UNSTAINED CELL # 0.4 K/mm3 (0.0-0.4); LARGE UNSTAINED CELL % 1.6 % (0.0-4.0); LYMPH # 1.5 K/mm3 (1.5-4.5); LYMPH % 6.1 % (24.0-44.0); MEAN CORPUSCULAR HEMOGLOBIN 31.1 pg (27.0-33.0); MEAN CORPUSCULAR HGB CONC 33.1 g/dl (32.0-36.5); MONO # 1.4 K/mm3 (0.0-0.8); NEUTROPHILS # 20.5 K/mm3 (1.8-7.7); NEUTROPHILS % 85.9 % (36.0-66.0); PLATELET COUNT, AUTOMATED 173 k/mm3 (150-450); RED CELL DISTRIBUTION WIDTH 12.6 % (11.5-14.5); WHITE BLOOD COUNT 23.9 K/mm3 (4.0-10.0)
[2016-10-26 06:13] LABS: CALCIUM LEVEL 7.4 MG/DL (8.8-10.2); CREATININE FOR GFR 1.75 MG/DL (0.70-1.30); GLOMERULAR FILTRATION RATE 40.4 (>42); POTASSIUM SERUM 3.9 MEQ/L (3.5-5.1)
[2016-10-26] MEDS: MEROPENEM INJ 1 GM in D5W MINI-BAG PLUS 100 ML IV SCH ×2 (08:22→20:35)
[2016-10-26] MEDS: APIXABAN 2.5 MG TAB (ELIQUIS) PO SCH ×2 (08:23→20:33)
[2016-10-26] MEDS: LORATADINE 10 MG TAB PO SCH (08:23)
[2016-10-26] MEDS: ASPIRIN 81 MG ENTERIC TAB PO SCH (08:23)
[2016-10-26] MEDS: ADVAIR DISKUS 500/50 INH PWD INH SCH ×2 (08:46→20:40)
[2016-10-26] MEDS ORDERED: TAMSULOSIN 0.4 MG CAP PO SCH (09:00)
[2016-10-26] MEDS ORDERED: BISOPROLOL FUMARATE 5 MG TAB PO SCH (09:00)
--- NOTE | 2016-10-26 16:10 | IPNPDOC ---
Text Note Date of Service The patient was seen on 10/26/16. NOTE Subjective: Patient is a 76 year old male with a PMHx of HTN, DLP, A.fib, Asthma, BPH, CKD3, COPD, and OA who presented to the ER with dysuria and urinary difficulty. He had a recent admission for new onset atrial fibrillation from 09/26 - 09/29/2016. He was found to be hypotesnive (SBP of 60s), elevated lactic acid and a UA consistent with infection. He was responsive to IV fluid hydration and he was admitted to telemetry for sepsis 2/2 UTI. Patient was seen and examined at the bedside. He notes that his difficulty with urination has resolved and that his dysuria no longer occurs. Objective: Vitals (See below) General: Lying in bed, no acute distress, comfortable, AAOx3 HEENT: NC, AT CVS: RRR, +S1S2 Lungs: Fair air entry b/l, -w/r/r Abdomen: Soft, ND, NT, +BSx4 Extremities: +PPx4, - Edema, - Calf tenderness Assessment and plan: 1. Sepsis - 2/2 Urinary tract infection - Clinically presented with burning with urination that has resolved - Physical unrevealing - Hypotensive in the ER, but has responded to IV fluid hydration - Elevated lactic acid has normalized - UA consistent with infection - Urine culture and blood cultures pending - c/w Meropenem (Day #2) 2. Acute kidney injury on CKD 3 - Baseline Cr of 1.3 - Cr on admission has been 1.87, has improved to 1.75 today - Renal US 10/25: no hydronephrosis, cortical cyst at left kidney, enlarged prostate - will c/w IV fluid hydration 3. BPH - c/w Tamsulosin - will increase to 0.8 4. COPD - no evidence of exacerbation - c/w Advair, Duoneb 5. Atrial fibrillation - Will restart bisoprolol now - c/w Eliquis 6. HTN - BP remains well controlled - c/w Lisinopril and Bisoprolol with holding parameters (restarting now) 7. DLP - c/w Atorvastatin 8. Allergies - c/w loratadine 9. DVT prophylaxis - on full anticoagulation with Eliquis VS,Fishbone, I+O VS, Fishbone, I+O Laboratory Tests 10/25/16 18:11 Calcium Level 8.0 L 10/26/16 05:26 Calcium Level 7.4 L, Red Blood Count 4.02 L, Mean Corpuscular Volume 94.0, Mean Corpuscular Hemoglobin 31.1, Mean Corpuscular Hemoglobin Concent 33.1, Red Cell Distribution Width 12.6, Neutrophils (%) (Auto) 85.9 H, Lymphocytes (%) (Auto) 6.1 L, Monocytes (%) (Auto) 6.0 H, Eosinophils (%) (Auto) 0.1, Basophils (%) ( Auto) 0.3, Neutrophils # (Auto) 20.5 H, Lymphocytes # (Auto) 1.5, Monocytes # ( Auto) 1.4 H, Eosinophils # (Auto) 0.0, Basophils # (Auto) 0.1 Vital Signs Date Time Temp Pulse Resp B/P (MAP) Pulse Ox O2 Delivery O2 Flow Rate FiO2 10/26/16 15:47 98.1 92 18 126/72 (90) 97 Nasal Cannula 2.0 I&O- Last 24 Hours up to 6 AM 10/26/16 06:00 Intake Total 1300 ml Output Total 90 ml Balance 1210 ml EH ZUNIGA MD October 26, 2016 16:10
[2016-10-26] MEDS ORDERED: NS 1,000 ML IV SCH (16:15)
[2016-10-26] MEDS: BISOPROLOL FUMARATE 5 MG TAB PO SCH (16:41)
[2016-10-26] MEDS: ACETAMINOPHEN TAB 650MG DOSE (2X325MG) PO PRN (16:45)
[2016-10-26] MEDS ORDERED: METOPROLOL 5 MG/5 ML VIAL IV STA ×2 (16:58→17:12)
[2016-10-26] MEDS ORDERED: SODIUM CHLORIDE 0.9% 1000 ML IV ONE (17:30)
--- NOTE | 2016-10-26 19:13 | ECGEPIP ---
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
[2016-10-26] MEDS: MONTELUKAST 10 MG TAB PO SCH (20:33)
[2016-10-26] MEDS: ATORVASTATIN 20 MG TAB PO SCH (20:33)
[2016-10-26] MEDS ORDERED: LISINOPRIL 20 MG TAB PO SCH (21:00)
[2016-10-27] VITALS (10 sets, daily range): BP systolic 101–142; BP diastolic 46–85
[2016-10-27] MEDS: IPRATROPIUM 0.5MG/ALBUTEROL 2.5MG INH SOL UD 3ML (DUONEB)(J7620) NEB SCH ×7 (00:22→23:22)
[2016-10-27] MEDS ORDERED: METOPROLOL 5 MG/5 ML VIAL IV ONE ×2 (00:45→02:00)
[2016-10-27] MEDS: BISOPROLOL FUMARATE 5 MG TAB PO SCH (05:51)
[2016-10-27 06:32] LABS: BASO % 0.3 % (0.0-1.0); EOS # 0.1 K/mm3 (0.0-0.50); EOS % 0.4 % (0.0-3.0); LARGE UNSTAINED CELL # 0.3 K/mm3 (0.0-0.4); LARGE UNSTAINED CELL % 1.5 % (0.0-4.0); LYMPH # 1.5 K/mm3 (1.5-4.5); LYMPH % 6.6 % (24.0-44.0); MEAN CORPUSCULAR HEMOGLOBIN 30.9 pg (27.0-33.0); MEAN CORPUSCULAR HGB CONC 33.5 g/dl (32.0-36.5); MEAN CORPUSCULAR VOLUME 92.1 fl (80.0-96.0); NEUTROPHILS # 16.3 K/mm3 (1.8-7.7); NEUTROPHILS % 86.2 % (36.0-66.0); PLATELET COUNT, AUTOMATED 187 k/mm3 (150-450); RED CELL DISTRIBUTION WIDTH 12.7 % (11.5-14.5); WHITE BLOOD COUNT 18.8 K/mm3 (4.0-10.0)
[2016-10-27 07:00] LABS: CREATININE FOR GFR 1.38 MG/DL (0.70-1.30); GLOMERULAR FILTRATION RATE 53.2 (>42); POTASSIUM SERUM 3.9 MEQ/L (3.5-5.1)
[2016-10-27] MEDS: ADVAIR DISKUS 500/50 INH PWD INH SCH ×2 (08:47→20:43)
[2016-10-27] MEDS: APIXABAN 2.5 MG TAB (ELIQUIS) PO SCH ×2 (08:52→21:34)
[2016-10-27] MEDS: TAMSULOSIN 0.4 MG CAP PO SCH (08:52)
[2016-10-27] MEDS: ASPIRIN 81 MG ENTERIC TAB PO SCH (08:52)
[2016-10-27] MEDS: LORATADINE 10 MG TAB PO SCH (08:52)
[2016-10-27] MEDS: NITROFURANTOIN (MACROBID) 100 MG CAP PO SCH ×2 (10:12→21:34)
[2016-10-27] MEDS ORDERED: METOPROLOL 5 MG/5 ML VIAL IV STA (12:31)
--- NOTE | 2016-10-27 12:55 | IPNPDOC ---
Text Note Date of Service The patient was seen on 10/27/16. NOTE Subjective: Patient is a 76 year old male with a PMHx of HTN, DLP, A.fib, Asthma, BPH, CKD3, COPD, and OA who presented to the ER with dysuria and urinary difficulty. He had a recent admission for new onset atrial fibrillation from 09/26 - 09/29/2016. He was found to be hypotesnive (SBP of 60s), elevated lactic acid and a UA consistent with infection. He was responsive to IV fluid hydration and he was admitted to telemetry for sepsis 2/2 UTI. Patient was seen and examined at the bedside. Yesterday patient had an episode of a.fib with RVR and had dizziness. He was given metoprolol 5mg IV and it resolved his symptoms, but his HR remains in 120s. He had another episode at night and was given an additional Metoprolol 5mg IV. Today he did not have any events this morning. Objective: Vitals (See below) General: Lying in bed, no acute distress, comfortable, AAOx3 HEENT: NC, AT CVS: RRR, +S1S2 Lungs: Fair air entry b/l, -w/r/r Abdomen: Soft, ND, NT, +BSx4 Extremities: +PPx4, - Edema, - Calf tenderness Assessment and plan: 1. Sepsis - 2/2 Urinary tract infection - Clinically presented with burning with urination that has resolved - Physical unrevealing - Hypotensive in the ER, but has responded to IV fluid hydration - Elevated lactic acid has normalized - UA consistent with infection; Urine culture positive for E. coli - Will change to Nitrofurantoin based on susceptibilities; s/p Meropenem ( Antibiotic day #3) 2. Acute kidney injury on CKD 3 - Baseline Cr of 1.3 - Cr on admission has been 1.87, continues to improve; currently at 1.38 ( approaching baseline) - Renal US 10/25: no hydronephrosis, cortical cyst at left kidney, enlarged prostate - will c/w IV fluid hydration 3. BPH - c/w adjusted dose Tamsulosin 4. COPD - no evidence of exacerbation - c/w Advair, Duoneb 5. Atrial fibrillation - Episode of a.fib with RVR - Will d/c Bisoprolol; will start Metoprolol succinate 50 BID - c/w Eliquis 6. HTN - BP remains well controlled - c/w Lisinopril and Metoprolol with holding parameters (restarting now) 7. DLP - c/w Atorvastatin 8. Allergies - c/w loratadine 9. DVT prophylaxis - on full anticoagulation with Eliquis VS,Fishbone, I+O VS, Fishbone, I+O Laboratory Tests 10/27/16 05:45 Red Blood Count 4.13 L, Mean Corpuscular Volume 92.1, Mean Corpuscular Hemoglobin 30.9, Mean Corpuscular Hemoglobin Concent 33.5, Red Cell Distribution Width 12.7, Neutrophils (%) (Auto) 86.2 H, Lymphocytes (%) (Auto) 6.6 L, Monocytes (%) (Auto) 5.0, Eosinophils (%) (Auto) 0.4, Basophils (%) (Auto ) 0.3, Neutrophils # (Auto) 16.3 H, Lymphocytes # (Auto) 1.5, Monocytes # (Auto ) 1.0 H, Eosinophils # (Auto) 0.1, Basophils # (Auto) 0.0, Calcium Level 8.0 L Vital Signs Date Time Temp Pulse Resp B/P (MAP) Pulse Ox O2 Delivery O2 Flow Rate FiO2 10/27/16 11:48 Nasal Cannula 2.0 10/27/16 08:00 98.6 75 18 115/69 (84) 96 I&O- Last 24 Hours up to 6 AM 10/27/16 06:00 Intake Total 2130 ml Output Total 1920 ml Balance 210 ml EH ZUNIGA MD October 27, 2016 12:55
[2016-10-27] MEDS: METOPROLOL SUCC (TopROL XL) 50MG **XL** TAB PO SCH ×2 (13:07→21:35)
[2016-10-27] MEDS ORDERED: METOPROLOL SUCC *XL* 25MG TAB (TopROL *XL*) PO SCH (21:00)
[2016-10-27] MEDS: MONTELUKAST 10 MG TAB PO SCH (21:34)
[2016-10-27] MEDS: ATORVASTATIN 20 MG TAB PO SCH (21:35)
[2016-10-28] VITALS (8 sets, daily range): BP systolic 108–136; BP diastolic 53–67
[2016-10-28] MEDS ORDERED: METOPROLOL 5 MG/5 ML VIAL IV STA (00:17)
[2016-10-28] MEDS: IPRATROPIUM 0.5MG/ALBUTEROL 2.5MG INH SOL UD 3ML (DUONEB)(J7620) NEB SCH ×3 (03:44→12:00)
[2016-10-28 06:03] LABS: BASO % 0.4 % (0.0-1.0); EOS # 0.1 K/mm3 (0.0-0.50); EOS % 0.9 % (0.0-3.0); LARGE UNSTAINED CELL # 0.3 K/mm3 (0.0-0.4); LARGE UNSTAINED CELL % 2.2 % (0.0-4.0); LYMPH # 1.2 K/mm3 (1.5-4.5); LYMPH % 9.2 % (24.0-44.0); MEAN CORPUSCULAR HEMOGLOBIN 31.4 pg (27.0-33.0); MEAN CORPUSCULAR VOLUME 95.1 fl (80.0-96.0); MONO # 0.8 K/mm3 (0.0-0.8); MONO % 6.7 % (0.0-5.0); NEUTROPHILS # 10.1 K/mm3 (1.8-7.7); NEUTROPHILS % 80.6 % (36.0-66.0); PLATELET COUNT, AUTOMATED 196 k/mm3 (150-450); RED CELL DISTRIBUTION WIDTH 12.8 % (11.5-14.5); WHITE BLOOD COUNT 12.5 K/mm3 (4.0-10.0)
[2016-10-28 06:28] LABS: ANION GAP 6 MEQ/L (8-16); BLOOD UREA NITROGEN 22 MG/DL (7-18); CALCIUM LEVEL 7.6 MG/DL (8.8-10.2); CARBON DIOXIDE LEVEL 23 MEQ/L (21-32); CHLORIDE LEVEL 109 MEQ/L (98-107); CREATININE FOR GFR 1.15 MG/DL (0.70-1.30); GLOMERULAR FILTRATION RATE > 60.0 (>42); GLUCOSE, FASTING 91 MG/DL (83-110); POTASSIUM SERUM 4.2 MEQ/L (3.5-5.1); SODIUM LEVEL 138 MEQ/L (136-145)
[2016-10-28] MEDS: ADVAIR DISKUS 500/50 INH PWD INH SCH (07:49)
[2016-10-28] MEDS: ASPIRIN 81 MG ENTERIC TAB PO SCH (08:43)
[2016-10-28] MEDS: TAMSULOSIN 0.4 MG CAP PO SCH (08:43)
[2016-10-28] MEDS: APIXABAN 2.5 MG TAB (ELIQUIS) PO SCH (08:44)
[2016-10-28] MEDS: METOPROLOL SUCC (TopROL XL) 50MG **XL** TAB PO SCH (08:44)
[2016-10-28] MEDS: LORATADINE 10 MG TAB PO SCH (08:44)
[2016-10-28] MEDS: NITROFURANTOIN (MACROBID) 100 MG CAP PO SCH (08:44)
[2016-10-28] MEDS ORDERED: METO-207 PO (11:04)
[2016-10-28] MEDS ORDERED: NITR100C2 PO (11:04)
--- NOTE | 2016-10-28 19:51 | ECGEPIP ---
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
--- NOTE | 2016-10-28 19:55 | ECGEPIP ---
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
--- NOTE | 2016-10-29 13:07 | DSES ---
DATE OF ADMISSION: 10/25/2016 DATE OF DISCHARGE: 10/28/2016 PRIMARY CARE PROVIDER: Dr. Jonnie Galloway REFERRING PHYSICIAN: None. CONSULTING PHYSICIAN: None. CONDITION ON DISCHARGE: Stable. FINAL DIAGNOSIS: Sepsis secondary to urinary tract infection. PROCEDURES: None. HISTORY OF PRESENT ILLNESS: The patient is a 76-year-old male with a past medical history of hypertension, dyslipidemia, atrial fibrillation, asthma, benign prostatic hypertrophy (BPH), chronic kidney disease (CKD) stage III, chronic obstructive pulmonary disease (COPD), and osteoarthritis who presented to the emergency room with dysuria and urinary difficulty. He had a recent admission for new onset atrial fibrillation from 09/26/2016 through 09/29/2016. He was found to be hypotensive in the emergency room with a sytolic blood pressure in the 60s. He had an elevated lactic acid and a urinalysis consistent with infection. He was responsive to IV fluid hydration and he was admitted to telemetry for sepsis secondary to urinary tract infection. HOSPITAL COURSE: 1. Sepsis secondary to urinary tract infection. He clinically presented with burning on urination that has resolved. Physical was unrevealing. Hypotensive in the emergency room but had responded to IV fluid hydration. Elevated lactic acid has normalized. Urinalysis was consistent with infection and urine culture was positive for Escherichia (E) coli. The patient was initially started on meropenem and then subsequently changed to nitrofurantoin based on susceptibilities. This has been day four of antibiotics and he will be discharged with a prescription for nitrofurantoin to complete the course of antibiotics. 2. Atrial fibrillation. He had an episode of atrial fibrillation with rapid ventricular response (RVR). The patient was initially put on bisoprolol as an outpatient, was stopped initially because he was hypotensive but was restarted during his hospital course. The patient had a few episodes of atrial fibrillation with RVR throughout the hospital course and his medication was changed to metoprolol succinate 50 twice a day. The patient was continued with anticoagulation with Eliquis. 3. Acute kidney injury on chronic kidney disease (CKD). Baseline creatinine of 1.3, creatinine on admission 1.87 and has trended down to baseline. Renal ultrasound on 10/25/2016 revealed no hydronephrosis, cortical cyst in the left kidney and enlarged prostate. He was continued with IV fluid hydration. 4. Benign prostatic hypertrophy (BPH). Continue with adjusted dose of tamsulosin. 5. Chronic obstructive pulmonary disease (COPD). No evidence of exacerbation. Continue with Advair and DuoNeb. 6. Hypertension. Blood pressure remains well-controlled. Continue with metoprolol with holding parameters. Lisinopril has been discontinued. 7. Dyslipidemia. Continue with atorvastatin. 8. Allergies. Continue with loratadine. 9. Deep vein thrombosis (DVT) prophylaxis. He has been continued on anticoagulation with Eliquis. DISCHARGE MEDICATIONS: The patient will be discharged home with the following medication list: - albuterol two puffs inhaled every four hours as needed for shortness of breath - Eliquis 2.5 mg by mouth twice a day - aspirin 81 mg by mouth daily - atorvastatin 40 mg by mouth at bedtime - Benadryl 25 mg by mouth at bedtime - Flonase one spray in each nostril twice a day - gabapentin 300 mg by mouth twice a day - glucosamine chondroitin one capsule by mouth at bedtime - levalbuterol two puffs inhaled four times a day as needed for shortness of breath - loratadine 10 mg by mouth daily - montelukast 10 mg by mouth at bedtime - multivitamin one tablet by mouth daily - Advair 500/50 one puff inhaled twice a day - tamsulosin 0.4 mg by mouth daily Medications which were stopped include: Bisoprolol 5 mg by mouth daily. Medications started include: - metoprolol 50 mg by mouth twice a day - nitrofurantoin 100 mg by mouth twice a day for six capsules DISCHARGE INSTRUCTIONS: The patient has been advised to followup with his primary care provider within the next seven days. He has been advised to remain compliant with treatment plan and medications and return to the emergency room if he experiences any problems. TIME SPENT ON DISCHARGE: 35 minutes.
== END 2016-10-28 13:06 | disposition home or self-care (01) | DRG 872 ==
LOC: M ED 11:18 → M ED INP 15:29 → M PCU 17:25
PROVIDERS: ADMIT Internal Medicine; ATTEND Internal Medicine
DX: A41.9 Sepsis, unspecified organism (principal); N39.0 Urinary tract infection, site not specified; N17.9 Acute kidney failure, unspecified; N18.3 Chronic kidney disease, stage 3 (moderate); I12.9 Hypertensive chronic kidney disease with stage 1 through stage 4 chronic kidney disease, or unspecified chronic kidney disease; E78.5 Hyperlipidemia, unspecified; I48.91 Unspecified atrial fibrillation; J45.909 Unspecified asthma, uncomplicated; N40.0 Benign prostatic hyperplasia without lower urinary tract symptoms; J44.9 Chronic obstructive pulmonary disease, unspecified; M19.90 Unspecified osteoarthritis, unspecified site; B96.20 Unspecified Escherichia coli [E. coli] as the cause of diseases classified elsewhere; Z79.01 Long term (current) use of anticoagulants; Z79.82 Long term (current) use of aspirin; Z95.9 Presence of cardiac and vascular implant and graft, unspecified; Z98.890 Other specified postprocedural states; Z88.0 Allergy status to penicillin; Z88.2 Allergy status to sulfonamides; Z88.1 Allergy status to other antibiotic agents; Z88.8 Allergy status to other drugs, medicaments and biological substances; Z87.891 Personal history of nicotine dependence; Z82.49 Family history of ischemic heart disease and other diseases of the circulatory system; Z82.3 Family history of stroke; Z83.3 Family history of diabetes mellitus; Z82.61 Family history of arthritis

== ENCOUNTER → 2016-11-09 | Outpatient (CLI) | payer MEDICARE, OTHER ==
[~2016-11-09] MED LIST changes: +ALBU17IN INH; +ASPI81TA7 PO; +BISO10TA PO; +BISO5TAB5 PO; +MACR100C3 PO; +METO-207 PO; +NITR100C2 PO; +PYRI200T5 PO
--- NOTE | 2016-11-09 15:02 | REP ---
Chest x-ray: Two views. History: Community-acquired pneumonia. Comparison study: October 25, 2016. Findings: There are surgical clips in the left apex. There is an orthopedic anchor in the left humeral head. No other postsurgical finding. The lungs are symmetrically aerated and clear. No infiltrate is seen. Pleural angles are sharp. Heart size is normal. Pulmonary vasculature is not increased. There is mild vascular calcification in the aorta. Impression: No infiltrate seen. Surgical clips in the left apex. Signed by Abelardo Wu MD 11/09/2016 05:08 P
== END ==
LOC: M SMT 13:12
PROVIDERS: ATTEND Internal Medicine
DX: J18.9 Pneumonia, unspecified organism (principal)

== ENCOUNTER → 2016-12-01 | Day surgery (SDC) | payer MEDICARE, OTHER ==
[~2016-12-01] VITALS: Ht 185.4 cm; Wt 91.6 kg
[~2016-12-01] MED LIST changes: +CLINDAMYCIN 600 MG in APPROPRIATE DILUENT 1 EA IV ONE; +EPINEPHrine 1MG/ML INJ 30ML MD-VIAL As Ordered ONE; +GLYCOPYRROLATE INJ 0.2 MG/ML 2 ML VIAL As Ordered ONE; +LIDOCAINE 1% MDV 20ML VIAL ONE; +LIDOCAINE 2% INJ 100 MG/5 ML SDV (FOR ANES.) As Ordered ONE; +LR 1,000 ML IV ONE; +LR 1,000 ML IV SCH; +MIDAZOLAM INJ 2 MG/2 ML VIAL (J2250) As Ordered ONE; +MIDAZOLAM INJ 2 MG/2 ML VIAL (J2250) IV PRN; +MORPHINE 4 MG/ML 1ML SYRINGE IV PRN; +NEOSTIGMINE 1MG/ML 5 ML SYRINGE (J2710) As Ordered ONE; +NORCO, ANEXSIA 5/325MG TABLET (HYDROcodone/ACETAMINOPHEN) PO PRN; +ONDANSETRON 4MG/2ML VIAL (J2405) As Ordered ONE; +ONDANSETRON 4MG/2ML VIAL (J2405) IV PRN; +PHENYLEPHRINE INJ 10MG/ML VIAL (J2370) As Ordered ONE; +PHENYLephrine HCL 500 MCG/5 ML (100MCG/ML) SYRINGE (J2370) As Ordered ONE; +PROPOFOL 200 MG/20 ML VIAL As Ordered ONE; +ROCURONIUM BROMIDE 50 MG/5 ML VIAL As Ordered ONE; +ROPIvacaine 0.5% 30 ML INJECTION (J2795) ONE; +dexameTHASONE 10 MG/1 ML VIAL PRES.FREE (J1100) ONE; +ePHEDrine SULFATE 25 MG/5 ML(5MG/ML) SYRINGE As Ordered ONE; +fentaNYL 100 MCG/2 ML INJECTION (J3010) As Ordered ONE; +fentaNYL 100 MCG/2 ML INJECTION (J3010) IV PRN
[2016-12-01 13:00] VITALS: BP 141/79
--- NOTE | 2016-12-02 17:41 | RO ---
DATE OF PROCEDURE: 12/01/2016 PREOPERATIVE DIAGNOSES: 1. Right shoulder rotator cuff tear. 2. Right shoulder biceps tendinitis. 3. Right shoulder acromioclavicular (AC) joint arthritis. POSTOPERATIVE DIAGNOSES: 1. Right shoulder rotator cuff tear. 2. Right shoulder biceps tendinitis. 3. Right shoulder acromioclavicular (AC) joint arthritis. PROCEDURE: 1. Right shoulder arthroscopic rotator cuff repair using a SpeedBridge double-row technique. 2. Right shoulder arthroscopic biceps tenotomy. 3. Right shoulder arthroscopic distal clavicle excision. SURGEON: Jacob Quinones MD HOSPITALITY COORDINATOR: MARTINEZ Palomino ANESTHESIA: General endotracheal tube anesthesia with right interscalene nerve block. COMPLICATIONS: None. ESTIMATED BLOOD LOSS: FINDINGS: He had a large supraspinatus rotator cuff tear; it was nonretracted, significant biceps tenosynovitis was noted, and AC joint was markedly arthritic. DESCRIPTION OF PROCEDURE: Antibiotics were given intravenously preoperatively and a successful general endotracheal tube and right interscalene nerve block was established, and he was placed in a semi beach chair position. A spider shoulder black was utilized. The right shoulder was then prepped and draped in the usual sterile fashion. Then, after appropriate time-out, routine diagnostic arthroscopy was performed through a posterior portal, revealing the hyperemia and tendinitis of the biceps tendon. The rotator cuff tear on the supraspinatus tendon above was readily apparent. The infraspinatus was intact. There was some glenohumeral degenerative arthritis in the posterior aspect of the glenohumeral articulation. We released the biceps tendon because of the tendinitis and then debrided the footprint of the supraspinatus tendon from the articular side, as well as debriding the torn and frayed edges of the supraspinatus rotator cuff tendon, and then we placed the scope in the subacromial space. We had excellent visualization. We performed a bursectomy from a lateral portal using the ablator wand and the shaver and then continued to debride the footprint of the supraspinatus tendon and debride the torn edges back to good healthy tissue. The ring curette and the shaver were used to make sure we had good bleeding bone for repair. The coracoacromial (CA) ligament anteriorly and laterally was thinned but not completely released. I was then able to dissect over to the distal clavicle, and it was noted to be very arthritic and highly unstable with large spurs and torn meniscoid tissue within the depths of the AC joint. So, we planned to do a distal clavicle excision at the end of the procedure. Once the footprint of the supraspinatus rotator cuff tendon tear had been debrided, a lateral cannula was established, 8.25 x 7 cm, and then I placed two medial row anchors, basically SwiveLock anchors with FiberTapes were placed medially using the punch to pre-drill. I then passed both limbs of the retention sutures up through the rotator cuff in a horizontal mattress fashion; and once those had been passed, I then passed the FiberTapes individually up just medial to the previously-passed retention sutures to use this such that the retention sutures were used ripstops. Once all the sutures had been passed, I tied the retention sutures with [place] slider knot backed up by several alternating post half hitches. This nicely brought the rotator cuff tendon down to the medial row anchors. The tails were left long for the lateral row fixation. I then docked all the sutures outside the joint and then grabbed one limb from each retention suture pair and then one limb from the FiberTapes from both the anterior and medial posterior row and then brought them up through the lateral cannula and loaded them onto a third SwiveLock to be used as the anterior lateral row. Once I established the position, I used the punch, then inserted the SwiveLock anchor after making sure all four limbs of the sutures were equally tensioned, providing nice watertight closure. The limbs were then cut short with the FiberTape cutter. I then grabbed the remaining four limbs and used those to load into a SwiveLock anchor outside the joint again to be used as the posterior lateral row. The punch was then used to make the hole, followed by the anchor. All limbs were tensioned appropriately, and then the SwiveLock anchor was inserted, and then the limbs cut short. This provided an excellent complete nice repair of the rotator cuff. I then addressed the distal clavicle by establishing a direct anterior portal to the AC joint using the combination of the ablator wand and a shaver and then the bur to debride the distal end of the clavicle back and remove all the bone spurs. Adequate decompression was noted and documented photographically. Finding no other pathology, I copiously irrigated out the shoulder. The biceps tendon was released the ablator wand initially. The arthroscopy wounds were closed with interrupted nylon sutures covered by Adaptic dry sterile bulky dressed. He was placed on abduction pillow, brace, and sling, and then awakened from general endotracheal anesthesia after having tolerated the procedure well and transferred to the recovery room in stable condition. There were no intraoperative complications. Mrs. Ana Rosa Neely, my PA, was the school psychologist assistant, helping with the surgery with helping to close the wound, helping to manipulate the shoulder, helping to hold the camera, and manipulate the instruments as needed so I could perform the operation smoothly and efficiently.
== END | disposition home or self-care (01) ==
LOC: M SDC 05:33
PROVIDERS: ATTEND Orthopaedic Surgery
DX: M75.101 Unspecified rotator cuff tear or rupture of right shoulder, not specified as traumatic (principal); M19.011 Primary osteoarthritis, right shoulder; M25.511 Pain in right shoulder; I48.91 Unspecified atrial fibrillation; Z79.02 Long term (current) use of antithrombotics/antiplatelets; I10 Essential (primary) hypertension; J45.909 Unspecified asthma, uncomplicated; E78.00 Pure hypercholesterolemia, unspecified; Z79.899 Other long term (current) drug therapy; Z79.82 Long term (current) use of aspirin; Z87.891 Personal history of nicotine dependence; Z88.0 Allergy status to penicillin; Z88.2 Allergy status to sulfonamides; Z88.8 Allergy status to other drugs, medicaments and biological substances; G47.30 Sleep apnea, unspecified; N40.0 Benign prostatic hyperplasia without lower urinary tract symptoms
CPT/HCPCS: 29824; 29827; 29828; 64415; A4649; J1100; J2250; J2370; J2405; J2710; J2795; J3010

== ENCOUNTER → 2017-02-22 | Outpatient (REF) | payer MEDICARE, OTHER ==
[~2017-02-22] MED LIST changes: +ASPI1TAB15 PO; -ASPI81TA7 PO; -ATOR40TA PO; +ATOR40TA75 PO; -CLINDAMYCIN 600 MG in APPROPRIATE DILUENT 1 EA IV ONE; +DOXY100T2 PO; -DOXY10CA PO; -EPINEPHrine 1MG/ML INJ 30ML MD-VIAL As Ordered ONE; -GLYCOPYRROLATE INJ 0.2 MG/ML 2 ML VIAL As Ordered ONE; +LEVAINH INH; -LIDOCAINE 1% MDV 20ML VIAL ONE; -LIDOCAINE 2% INJ 100 MG/5 ML SDV (FOR ANES.) As Ordered ONE; -LR 1,000 ML IV ONE; -LR 1,000 ML IV SCH; -MACR100C3 PO; +MACR100C43 PO; -METO-207 PO; +METO1TAB7 PO; +METO25TA4 PO; -METO25TAB PO; -MIDAZOLAM INJ 2 MG/2 ML VIAL (J2250) As Ordered ONE; -MIDAZOLAM INJ 2 MG/2 ML VIAL (J2250) IV PRN; -MORPHINE 4 MG/ML 1ML SYRINGE IV PRN; -NEOSTIGMINE 1MG/ML 5 ML SYRINGE (J2710) As Ordered ONE; -NORCO, ANEXSIA 5/325MG TABLET (HYDROcodone/ACETAMINOPHEN) PO PRN; -ONDANSETRON 4MG/2ML VIAL (J2405) As Ordered ONE; -ONDANSETRON 4MG/2ML VIAL (J2405) IV PRN; -PHENYLEPHRINE INJ 10MG/ML VIAL (J2370) As Ordered ONE; -PHENYLephrine HCL 500 MCG/5 ML (100MCG/ML) SYRINGE (J2370) As Ordered ONE; -PROPOFOL 200 MG/20 ML VIAL As Ordered ONE; +PYRI1TAB5 PO; -PYRI200T5 PO; -ROCURONIUM BROMIDE 50 MG/5 ML VIAL As Ordered ONE; -ROPIvacaine 0.5% 30 ML INJECTION (J2795) ONE; -XOPEAER INH; -dexameTHASONE 10 MG/1 ML VIAL PRES.FREE (J1100) ONE; -ePHEDrine SULFATE 25 MG/5 ML(5MG/ML) SYRINGE As Ordered ONE; -fentaNYL 100 MCG/2 ML INJECTION (J3010) As Ordered ONE; -fentaNYL 100 MCG/2 ML INJECTION (J3010) IV PRN
[2017-02-22 12:46] LABS: MEAN CORPUSCULAR HEMOGLOBIN 31.7 pg (27.0-33.0); MEAN CORPUSCULAR HGB CONC 34.5 g/dl (32.0-36.5); RED CELL DISTRIBUTION WIDTH 13.5 % (11.5-14.5); WHITE BLOOD COUNT 6.4 K/mm3 (4.0-10.0)
[2017-02-22 12:49] LABS: ALBUMIN 3.7 GM/DL (3.2-5.2); ALBUMIN/GLOBULIN RATIO 1.32 (1.00-1.93); BILIRUBIN,TOTAL 0.6 MG/DL (0.2-1.0); CALCIUM LEVEL 9.1 MG/DL (8.8-10.2); CREATININE FOR GFR 1.33 MG/DL (0.70-1.30); GLOMERULAR FILTRATION RATE 55.5 (>42); MAGNESIUM LEVEL 2.1 MG/DL (1.8-2.4); POTASSIUM SERUM 4.8 MEQ/L (3.5-5.1); TOTAL PROTEIN 6.5 GM/DL (6.4-8.2)
== END ==
LOC: M SFHCPLAZ 08:57
PROVIDERS: ATTEND Internal Medicine
DX: N18.3 Chronic kidney disease, stage 3 (moderate) (principal); I12.9 Hypertensive chronic kidney disease with stage 1 through stage 4 chronic kidney disease, or unspecified chronic kidney disease; E78.00 Pure hypercholesterolemia, unspecified

== ENCOUNTER 2017-03-11 06:31 | Outpatient (CLI) | payer MEDICARE, OTHER ==
[~2017-03-11] VITALS: Ht 185.4 cm; Wt 90.7 kg
[2017-03-11] MEDS ORDERED: NS 1,000 ML IV ONE (07:15)
[2017-03-11] MEDS ORDERED: LIDOCAINE 2% INJ 100 MG/5 ML SDV (FOR ANES.) As Ordered ONE (07:43)
[2017-03-11] MEDS ORDERED: PROPOFOL 200 MG/20 ML VIAL As Ordered ONE ×2 (07:43→07:49)
--- NOTE | 2017-03-11 08:07 | ROOR ---
Patient Name: Claire Gates Procedure Date: 03/11/2017 7:29 AM Date of : 1940 Age: 76 Room: [facility], [facility] Gender: Male Note Status: Finalized Procedure: Colonoscopy Indications: High risk colon cancer surveillance: Personal history of colonic polyps Providers: Jose CANAS MD Referring MD: Jonnie Galloway MD Requesting Provider: Medicines: Monitored Anesthesia Care Complications: No immediate complications. Procedure: Pre-Anesthesia Assessment: - The heart rate, respiratory rate, oxygen saturations, blood pressure, adequacy of pulmonary ventilation, and response to care were monitored throughout the procedure. The Colonoscope was introduced through the anus and advanced to the cecum, identified by appendiceal orifice and ileocecal valve. The colonoscopy was performed without difficulty. The patient tolerated the procedure well. The quality of the bowel preparation was good. Findings: The perianal and digital rectal examinations were normal. A 15 mm polyp was found in the proximal descending colon. The polyp was carpet-like. The polyp was removed with a hot snare. The polyp was removed with a piecemeal technique using a hot snare. Resection was complete, but the polyp tissue was only partially retrieved. To prevent bleeding after the polypectomy, seven hemostatic clips were successfully placed (MR conditional). There was no bleeding at the end of the procedure. Area was successfully injected with 5 mL Rachael ink for tattooing. A 4 mm polyp was found in the cecum. The polyp was sessile. The polyp was removed with a cold snare. Resection and retrieval were complete. Internal hemorrhoids were found during retroflexion. The hemorrhoids were medium-sized. The exam was otherwise without abnormality. Impression: - One 15 mm polyp in the proximal descending colon, removed with a hot snare and removed piecemeal using a hot snare. Complete resection. Partial retrieval. Clips (MR conditional) were placed. Injected. - One 4 mm polyp in the cecum, removed with a cold snare. Resected and retrieved. - Internal hemorrhoids. - The examination was otherwise normal. Recommendation: - Repeat colonoscopy in 3 years for surveillance. - Resume Baby Aspirin today. - Resume Eliquis (apixaban) at prior dose in 5 days. - No ibuprofen, naproxen, or other non-steroidal anti-inflammatory drugs for 10 days after polyp removal. - resume all other medications today. Jose Canas MD Jose CANAS MD 03/11/2017 8:07:48 AM This report has been signed electronically. Number of Addenda: 0 Note Initiated On: 03/11/2017 7:29 AM Estimated Blood Loss: Estimated blood loss: none.
[2017-03-11 08:34] VITALS: BP 121/57
== END 2017-03-11 08:39 | disposition home or self-care (01) ==
LOC: M OPP 06:31
PROVIDERS: ATTEND Internal Medicine Gastroenterology
DX: Z12.11 Encounter for screening for malignant neoplasm of colon (principal); Z86.010 Personal history of colon polyps; D12.4 Benign neoplasm of descending colon; D12.0 Benign neoplasm of cecum; K64.8 Other hemorrhoids; I48.91 Unspecified atrial fibrillation; I10 Essential (primary) hypertension; E78.5 Hyperlipidemia, unspecified; R23.3 Spontaneous ecchymoses; L30.9 Dermatitis, unspecified; J45.909 Unspecified asthma, uncomplicated; J44.9 Chronic obstructive pulmonary disease, unspecified; N40.1 Benign prostatic hyperplasia with lower urinary tract symptoms; Z87.440 Personal history of urinary (tract) infections; Z95.1 Presence of aortocoronary bypass graft; Z87.891 Personal history of nicotine dependence; Z88.8 Allergy status to other drugs, medicaments and biological substances; Z88.1 Allergy status to other antibiotic agents; Z91.011 Allergy to milk products; Z88.0 Allergy status to penicillin; Z88.2 Allergy status to sulfonamides; Z79.82 Long term (current) use of aspirin; Z79.01 Long term (current) use of anticoagulants; Z79.899 Other long term (current) drug therapy; Z80.0 Family history of malignant neoplasm of digestive organs; Z83.71 Family history of colonic polyps

== ENCOUNTER 2017-07-12 10:12 | Inpatient (IN) | payer MEDICARE, OTHER ==
[2017-07-12] MEDS: NS 1,000 ML IV ×2 (12:45→21:22)
[2017-07-12] MEDS: methylPREDNISolone INJ 125 MG/2 ML VIAL (J2930) IV (12:45)
[2017-07-12 13:09] LABS: BASO # 0.1 10^3/uL (0.0-0.2); BASO % 0.4 % (0.0-1.0); HEMATOCRIT 45.1 % (42.0-52.0); HEMOGLOBIN 14.8 g/dl (14.0-18.0); IMMATURE GRANULOCYTE # 0.3 10^3/uL (0-0); IMMATURE GRANULOCYTE % 1.1 % (0-0); LYMPH # 1.5 10^3/uL (1.5-4.5); LYMPH % 5.9 % (24.0-44.0); MEAN CORPUSCULAR HEMOGLOBIN 30.5 pg (27.0-33.0); MEAN CORPUSCULAR HGB CONC 32.8 g/dl (32.0-36.5); MONO # 1.9 10^3/uL (0.0-0.8); MONO % 7.7 % (0.0-5.0); NEUTROPHILS # 20.8 10^3/uL (1.8-7.7); NEUTROPHILS % 84.9 % (36.0-66.0); PLATELET COUNT, AUTOMATED 255 10^3/uL (150-450); RED BLOOD COUNT 4.85 10^6/uL (4.30-6.10); RED CELL DISTRIBUTION WIDTH 13.1 % (11.5-14.5); WHITE BLOOD COUNT 24.5 10^3/uL (4.0-10.0)
[2017-07-12] MEDS: IPRATROPIUM 0.5MG/ALBUTEROL 2.5MG INH SOL UD 3ML (DUONEB)(J7620) NEB ×2 (13:22→21:19)
[2017-07-12 13:28] LABS: LACTIC ACID SEPSIS PROTOCOL 2.9 MMOL/L (0.4-2.0)
[2017-07-12 16:18] LABS: ALBUMIN 3.2 GM/DL (3.2-5.2); ALBUMIN/GLOBULIN RATIO 1.03 (1.00-1.93); ALKALINE PHOSPHATASE 85 U/L (45-117); ALT/SGPT 62 U/L (12-78); ANION GAP 9 MEQ/L (8-16); AST/SGOT 34 U/L (7-37); BILIRUBIN,TOTAL 1.1 MG/DL (0.2-1.0); BLOOD UREA NITROGEN 32 MG/DL (7-18); CALCIUM LEVEL 8.5 MG/DL (8.8-10.2); CARBON DIOXIDE LEVEL 27 MEQ/L (21-32); CHLORIDE LEVEL 100 MEQ/L (98-107); CK-MB VALUE MASS 1.2 NG/ML (0.0-3.6); CPK CREATINE PHOSPHOKINASE 79 U/L (39-308); CREATININE FOR GFR 1.92 MG/DL (0.70-1.30); GLOMERULAR FILTRATION RATE 36.2 (>42); GLUCOSE, FASTING 126 MG/DL (70-100); MB/CK RELATIVE INDEX 1.51 (< OR =4); POTASSIUM SERUM 4.8 MEQ/L (3.5-5.1); SODIUM LEVEL 136 MEQ/L (136-145); TOTAL PROTEIN 6.3 GM/DL (6.4-8.2); TROPONIN I < 0.02 NG/ML (< 0.10)
[2017-07-12] MEDS ORDERED: ONDANSETRON 4MG/2ML VIAL (J2405) IV (16:30)
[2017-07-12] MEDS ORDERED: BISACODYL 10 MG SUPP PR (16:30)
[2017-07-12 16:35] LABS: INR 1.56; PROTHROMBIN TIME 19.1 SECONDS (12.4-14.5)
[2017-07-12 16:36] LABS: PARTIAL THROMBOPLASTIN TIME 45.4 SECONDS (26.8-37.9)
[2017-07-12] MEDS: CEFTRIAXONE SOD 1 GM in APPROPRIATE DILUENT 1 EA IV (17:30)
[2017-07-12] MEDS: SENOKOT S TAB PO (19:16)
[2017-07-12] MEDS: FORMOTEROL FUMARATE 20 MCG/2 ML INHALATION SOLUTION (PERFOROMIST) INH (20:00)
[2017-07-12] MEDS: BUDESONIDE 0.5 MG/2 ML INHALATION SUSPENSION INH (21:19)
[2017-07-12] MEDS: diphenhydrAMINE 25 MG CAP PO (21:22)
[2017-07-12] MEDS: GABAPENTIN 300 MG CAP PO (21:23)
[2017-07-12] MEDS: MONTELUKAST 10 MG TAB PO (21:24)
[2017-07-12] MEDS: APIXABAN 2.5 MG TAB (ELIQUIS) PO (21:24)
[2017-07-12] MEDS: ATORVASTATIN 20 MG TAB PO (21:24)
[2017-07-12 22:34] LABS: LACTIC ACID SEPSIS PROTOCOL 3.5 MMOL/L (0.4-2.0)
[2017-07-13] MEDS: IPRATROPIUM 0.5MG/ALBUTEROL 2.5MG INH SOL UD 3ML (DUONEB)(J7620) NEB ×4 (01:37→20:00)
[2017-07-13] MEDS: CEFTRIAXONE SOD 1 GM in APPROPRIATE DILUENT 1 EA IV ×2 (06:47→17:16)
[2017-07-13] MEDS: NS 1,000 ML IV (06:48)
[2017-07-13] MEDS: FORMOTEROL FUMARATE 20 MCG/2 ML INHALATION SOLUTION (PERFOROMIST) INH ×2 (08:00→20:22)
[2017-07-13] MEDS: GABAPENTIN 300 MG CAP PO ×3 (08:23→20:07)
[2017-07-13] MEDS: SENOKOT S TAB PO ×2 (08:23→20:07)
[2017-07-13] MEDS: TAMSULOSIN 0.4 MG CAP PO (08:23)
[2017-07-13] MEDS: ASPIRIN 81 MG ENTERIC TAB PO (08:23)
[2017-07-13] MEDS: predniSONE 20 MG TAB PO (08:23)
[2017-07-13] MEDS: BISOPROLOL FUMARATE 5 MG TAB PO (08:23)
[2017-07-13] MEDS: APIXABAN 2.5 MG TAB (ELIQUIS) PO ×2 (08:23→20:06)
[2017-07-13] MEDS: LORATADINE 10 MG TAB PO (08:24)
[2017-07-13] MEDS: BUDESONIDE 0.5 MG/2 ML INHALATION SUSPENSION INH ×2 (08:38→20:22)
[2017-07-13 12:19] LABS: HEMATOCRIT 39.2 % (42.0-52.0); HEMOGLOBIN 13.2 g/dl (14.0-18.0); MEAN CORPUSCULAR HEMOGLOBIN 30.7 pg (27.0-33.0); MEAN CORPUSCULAR HGB CONC 33.7 g/dl (32.0-36.5); MEAN CORPUSCULAR VOLUME 91.2 fl (80.0-96.0); PLATELET COUNT, AUTOMATED 237 10^3/uL (150-450); RED CELL DISTRIBUTION WIDTH 13.1 % (11.5-14.5); WHITE BLOOD COUNT 26.4 10^3/uL (4.0-10.0)
[2017-07-13 12:52] LABS: ANION GAP 9 MEQ/L (8-16); BLOOD UREA NITROGEN 29 MG/DL (7-18); CALCIUM LEVEL 8.2 MG/DL (8.8-10.2); CARBON DIOXIDE LEVEL 21 MEQ/L (21-32); CHLORIDE LEVEL 107 MEQ/L (98-107); CREATININE FOR GFR 1.36 MG/DL (0.70-1.30); GLUCOSE, FASTING 138 MG/DL (70-100); POTASSIUM SERUM 4.4 MEQ/L (3.5-5.1); SODIUM LEVEL 137 MEQ/L (136-145)
[2017-07-13] MEDS: ACETAMINOPHEN 500 MG TAB PO (16:28)
[2017-07-13] MEDS ORDERED: CEFTRIAXONE SOD 1 GM in APPROPRIATE DILUENT 1 EA IV (18:00)
[2017-07-13] MEDS: ATORVASTATIN 20 MG TAB PO (20:07)
[2017-07-13] MEDS: diphenhydrAMINE 25 MG CAP PO (20:07)
[2017-07-13] MEDS: MONTELUKAST 10 MG TAB PO (20:07)
[2017-07-14] MEDS: IPRATROPIUM 0.5MG/ALBUTEROL 2.5MG INH SOL UD 3ML (DUONEB)(J7620) NEB ×4 (00:38→20:00)
[2017-07-14] MEDS: CEFTRIAXONE SOD 1 GM in APPROPRIATE DILUENT 1 EA IV ×2 (05:27→18:09)
[2017-07-14 06:47] LABS: HEMATOCRIT 38.7 % (42.0-52.0); HEMOGLOBIN 12.8 g/dl (14.0-18.0); MEAN CORPUSCULAR HEMOGLOBIN 30.3 pg (27.0-33.0); MEAN CORPUSCULAR HGB CONC 33.1 g/dl (32.0-36.5); MEAN CORPUSCULAR VOLUME 91.5 fl (80.0-96.0); PLATELET COUNT, AUTOMATED 261 10^3/uL (150-450); RED BLOOD COUNT 4.23 10^6/uL (4.30-6.10); RED CELL DISTRIBUTION WIDTH 13.1 % (11.5-14.5); WHITE BLOOD COUNT 20.1 10^3/uL (4.0-10.0)
[2017-07-14 07:05] LABS: ANION GAP 8 MEQ/L (8-16); BLOOD UREA NITROGEN 27 MG/DL (7-18); CALCIUM LEVEL 8.2 MG/DL (8.8-10.2); CARBON DIOXIDE LEVEL 23 MEQ/L (21-32); CHLORIDE LEVEL 108 MEQ/L (98-107); CREATININE FOR GFR 1.28 MG/DL (0.70-1.30); GLOMERULAR FILTRATION RATE 57.9 (>42); GLUCOSE, FASTING 102 MG/DL (70-100); POTASSIUM SERUM 4.1 MEQ/L (3.5-5.1); SODIUM LEVEL 139 MEQ/L (136-145)
[2017-07-14] MEDS: LORATADINE 10 MG TAB PO (08:16)
[2017-07-14] MEDS: SENOKOT S TAB PO ×2 (08:16→20:39)
[2017-07-14] MEDS: predniSONE 20 MG TAB PO (08:16)
[2017-07-14] MEDS: APIXABAN 2.5 MG TAB (ELIQUIS) PO ×2 (08:17→20:38)
[2017-07-14] MEDS: TAMSULOSIN 0.4 MG CAP PO (08:17)
[2017-07-14] MEDS: BISOPROLOL FUMARATE 5 MG TAB PO (08:17)
[2017-07-14] MEDS: GABAPENTIN 300 MG CAP PO ×3 (08:17→20:38)
[2017-07-14] MEDS: PNEUMOCOCCAL VACCINE 0.5ML SYRINGE(90732) PNEUMOVAX 23 IM (08:18)
[2017-07-14] MEDS: BUDESONIDE 0.5 MG/2 ML INHALATION SUSPENSION INH ×2 (09:46→20:07)
[2017-07-14] MEDS: FORMOTEROL FUMARATE 20 MCG/2 ML INHALATION SOLUTION (PERFOROMIST) INH ×2 (09:46→20:07)
[2017-07-14] MEDS: guaiFENesin ER 600 MG TAB PO ×2 (10:44→20:38)
[2017-07-14] MEDS: ALBUTEROL SULFATE 2.5 MG/0.5 ML INH NEB SOLN NEB (16:45)
[2017-07-14] MEDS: BENZONATATE 100 MG CAP PO (18:13)
[2017-07-14] MEDS: MONTELUKAST 10 MG TAB PO (20:38)
[2017-07-14] MEDS: diphenhydrAMINE 25 MG CAP PO (20:38)
[2017-07-14] MEDS: ATORVASTATIN 20 MG TAB PO (20:38)
[2017-07-15] MEDS: IPRATROPIUM 0.5MG/ALBUTEROL 2.5MG INH SOL UD 3ML (DUONEB)(J7620) NEB ×2 (02:00→06:57)
[2017-07-15] MEDS: CEFTRIAXONE SOD 1 GM in APPROPRIATE DILUENT 1 EA IV (05:42)
[2017-07-15] MEDS: BUDESONIDE 0.5 MG/2 ML INHALATION SUSPENSION INH (06:56)
[2017-07-15] MEDS: FORMOTEROL FUMARATE 20 MCG/2 ML INHALATION SOLUTION (PERFOROMIST) INH (06:56)
[2017-07-15 07:04] LABS: HEMATOCRIT 37.8 % (42.0-52.0); HEMOGLOBIN 12.6 g/dl (14.0-18.0); MEAN CORPUSCULAR HEMOGLOBIN 30.6 pg (27.0-33.0); MEAN CORPUSCULAR HGB CONC 33.3 g/dl (32.0-36.5); MEAN CORPUSCULAR VOLUME 91.7 fl (80.0-96.0); PLATELET COUNT, AUTOMATED 255 10^3/uL (150-450); RED BLOOD COUNT 4.12 10^6/uL (4.30-6.10); RED CELL DISTRIBUTION WIDTH 13.1 % (11.5-14.5)
[2017-07-15 07:27] LABS: ANION GAP 5 MEQ/L (8-16); BLOOD UREA NITROGEN 28 MG/DL (7-18); CALCIUM LEVEL 8.3 MG/DL (8.8-10.2); CARBON DIOXIDE LEVEL 28 MEQ/L (21-32); CHLORIDE LEVEL 106 MEQ/L (98-107); CREATININE FOR GFR 1.26 MG/DL (0.70-1.30); GLOMERULAR FILTRATION RATE 58.9 (>42); GLUCOSE, FASTING 84 MG/DL (70-100); POTASSIUM SERUM 4.4 MEQ/L (3.5-5.1); SODIUM LEVEL 139 MEQ/L (136-145)
[2017-07-15] MEDS: SENOKOT S TAB PO (09:31)
[2017-07-15] MEDS: guaiFENesin ER 600 MG TAB PO (09:32)
[2017-07-15] MEDS: ASPIRIN 81 MG ENTERIC TAB PO (09:32)
[2017-07-15] MEDS: predniSONE 20 MG TAB PO (09:32)
[2017-07-15] MEDS: LORATADINE 10 MG TAB PO (09:32)
[2017-07-15] MEDS: BISOPROLOL FUMARATE 5 MG TAB PO (09:32)
[2017-07-15] MEDS: APIXABAN 2.5 MG TAB (ELIQUIS) PO (09:32)
[2017-07-15] MEDS: GABAPENTIN 300 MG CAP PO (09:32)
[2017-07-15] MEDS: TAMSULOSIN 0.4 MG CAP PO (09:32)
== END 2017-07-15 12:55 | disposition home or self-care (01) | DRG 190 ==
LOC: M MS5PR 07-13 14:15 → M ED 10:12 → M ED INP 16:37
DX: J44.1 Chronic obstructive pulmonary disease with (acute) exacerbation (principal); J12.1 Respiratory syncytial virus pneumonia; E87.2 Acidosis; J44.0 Chronic obstructive pulmonary disease with (acute) lower respiratory infection; E78.5 Hyperlipidemia, unspecified; N40.0 Benign prostatic hyperplasia without lower urinary tract symptoms; I12.9 Hypertensive chronic kidney disease with stage 1 through stage 4 chronic kidney disease, or unspecified chronic kidney disease; I48.91 Unspecified atrial fibrillation; I73.9 Peripheral vascular disease, unspecified; G89.29 Other chronic pain; Z79.52 Long term (current) use of systemic steroids; R91.1 Solitary pulmonary nodule; N18.3 Chronic kidney disease, stage 3 (moderate); M19.90 Unspecified osteoarthritis, unspecified site; Z88.0 Allergy status to penicillin; Z88.2 Allergy status to sulfonamides; Z88.8 Allergy status to other drugs, medicaments and biological substances; Z87.891 Personal history of nicotine dependence; Z79.82 Long term (current) use of aspirin; D72.829 Elevated white blood cell count, unspecified; I67.1 Cerebral aneurysm, nonruptured

== ENCOUNTER → 2017-08-02 | Outpatient (REF) | payer MEDICARE, OTHER | LOC: M LAB REF 14:40 | DX: D48.5 Neoplasm of uncertain behavior of skin (principal) | CPT/HCPCS: 88305 ==

== ENCOUNTER → 2017-08-22 | Outpatient (REF) | payer MEDICARE, OTHER ==
[2017-08-22 11:56] LABS: HEMATOCRIT 41.4 % (42.0-52.0); HEMOGLOBIN 13.8 g/dl (14.0-18.0); MEAN CORPUSCULAR HEMOGLOBIN 30.7 pg (27.0-33.0); MEAN CORPUSCULAR HGB CONC 33.3 g/dl (32.0-36.5); PLATELET COUNT, AUTOMATED 246 10^3/uL (150-450); RED CELL DISTRIBUTION WIDTH 13.1 % (11.5-14.5); WHITE BLOOD COUNT 7.3 10^3/uL (4.0-10.0)
[2017-08-22 12:21] LABS: ALBUMIN 3.5 GM/DL (3.2-5.2); ALBUMIN/GLOBULIN RATIO 1.25 (1.00-1.93); ALKALINE PHOSPHATASE 77 U/L (45-117); ALT/SGPT 24 U/L (12-78); ANION GAP 7 MEQ/L (8-16); AST/SGOT 13 U/L (7-37); BILIRUBIN,TOTAL 0.5 MG/DL (0.2-1.0); BLOOD UREA NITROGEN 21 MG/DL (7-18); CALCIUM LEVEL 8.8 MG/DL (8.8-10.2); CARBON DIOXIDE LEVEL 29 MEQ/L (21-32); CHLORIDE LEVEL 105 MEQ/L (98-107); CREATININE FOR GFR 1.45 MG/DL (0.70-1.30); GLOMERULAR FILTRATION RATE 50.1 (>42); GLUCOSE, FASTING 100 MG/DL (70-100); MAGNESIUM LEVEL 2.2 MG/DL (1.8-2.4); POTASSIUM SERUM 4.3 MEQ/L (3.5-5.1); SODIUM LEVEL 141 MEQ/L (136-145); TOTAL PROTEIN 6.3 GM/DL (6.4-8.2)
== END ==
LOC: M SFHCPLAZ 09:36
DX: I10 Essential (primary) hypertension (principal); N18.3 Chronic kidney disease, stage 3 (moderate); J44.9 Chronic obstructive pulmonary disease, unspecified
CPT/HCPCS: 83735

== ENCOUNTER 2017-09-30 06:29 | Day surgery (SDC) | payer MEDICARE, OTHER ==
[2017-09-30] MEDS ORDERED: LR 1,000 ML IV (06:45)
[2017-09-30] MEDS ORDERED: PROPOFOL 200 MG/20 ML VIAL As Ordered (07:04)
[2017-09-30] MEDS ORDERED: LIDOCAINE 2% INJ 100 MG/5 ML SDV (FOR ANES.) As Ordered (07:04)
[2017-09-30] MEDS ORDERED: ROCURONIUM BROMIDE 50 MG/5 ML VIAL As Ordered (07:04)
[2017-09-30] MEDS ORDERED: fentaNYL 100 MCG/2 ML INJECTION (J3010) As Ordered (07:06)
[2017-09-30] MEDS ORDERED: MIDAZOLAM INJ 2 MG/2 ML VIAL (J2250) As Ordered (07:06)
[2017-09-30] MEDS: LIDOCAINE 1% MDV 20ML VIAL As Ordered (07:14)
[2017-09-30] MEDS: CLINDAMYCIN 600 MG in APPROPRIATE DILUENT 1 EA IV (07:44)
[2017-09-30] MEDS: LIDOCAINE W/EPINEPHRINE 1% 20ML VIAL As Ordered (07:54)
[2017-09-30] MEDS: BUPIVACAINE HCL 0.25% 30 ML VIAL As Ordered (07:54)
== END 2017-09-30 09:05 | disposition home or self-care (01) ==
LOC: M SDC 06:29
DX: C44.619 Basal cell carcinoma of skin of left upper limb, including shoulder (principal); L82.1 Other seborrheic keratosis; I12.9 Hypertensive chronic kidney disease with stage 1 through stage 4 chronic kidney disease, or unspecified chronic kidney disease; N18.3 Chronic kidney disease, stage 3 (moderate); J44.9 Chronic obstructive pulmonary disease, unspecified; I73.9 Peripheral vascular disease, unspecified; E78.00 Pure hypercholesterolemia, unspecified; J45.909 Unspecified asthma, uncomplicated; G60.9 Hereditary and idiopathic neuropathy, unspecified; N40.0 Benign prostatic hyperplasia without lower urinary tract symptoms; R91.1 Solitary pulmonary nodule; R05 Cough; I48.91 Unspecified atrial fibrillation; Z86.718 Personal history of other venous thrombosis and embolism; M17.9 Osteoarthritis of knee, unspecified; M19.019 Primary osteoarthritis, unspecified shoulder; M19.079 Primary osteoarthritis, unspecified ankle and foot; M47.9 Spondylosis, unspecified; M51.9 Unspecified thoracic, thoracolumbar and lumbosacral intervertebral disc disorder; Z88.0 Allergy status to penicillin; Z88.1 Allergy status to other antibiotic agents; Z88.2 Allergy status to sulfonamides; Z91.011 Allergy to milk products; Z79.899 Other long term (current) drug therapy; Z79.82 Long term (current) use of aspirin; Z79.51 Long term (current) use of inhaled steroids; Z79.01 Long term (current) use of anticoagulants; Z87.891 Personal history of nicotine dependence
CPT/HCPCS: 11606

== ENCOUNTER 2017-10-09 09:07 | Emergency (ER) | payer MEDICARE, OTHER ==
[2017-10-09 10:23] LABS: BASO # 0.1 10^3/uL (0.0-0.2); BASO % 0.4 % (0.0-1.0); EOS # 0.1 10^3/uL (0.0-0.50); EOS % 0.5 % (0.0-3.0); HEMATOCRIT 39.1 % (42.0-52.0); HEMOGLOBIN 13.1 g/dl (13.5-17.5); IMMATURE GRANULOCYTE % 0.6 % (0-3.0); LYMPH # 0.7 10^3/uL (1.5-4.5); LYMPH % 4.3 % (24.0-44.0); MEAN CORPUSCULAR HEMOGLOBIN 30.8 pg (27.0-33.0); MEAN CORPUSCULAR HGB CONC 33.5 g/dl (32.0-36.5); MEAN CORPUSCULAR VOLUME 91.8 fl (80.0-96.0); MONO # 0.5 10^3/uL (0.0-0.8); MONO % 2.8 % (0.0-5.0); NEUTROPHILS # 14.5 10^3/uL (1.8-7.7); NEUTROPHILS % 91.4 % (36.0-66.0); PLATELET COUNT, AUTOMATED 229 10^3/uL (150-450); RED BLOOD COUNT 4.26 10^6/uL (4.30-6.10); RED CELL DISTRIBUTION WIDTH 13.1 % (11.5-14.5); WHITE BLOOD COUNT 15.8 10^3/uL (4.0-10.0)
[2017-10-09 10:49] LABS: ALBUMIN 3.3 GM/DL (3.2-5.2); ALBUMIN/GLOBULIN RATIO 1.03 (1.00-1.93); ALKALINE PHOSPHATASE 75 U/L (45-117); ALT/SGPT 21 U/L (12-78); ANION GAP 7 MEQ/L (8-16); AST/SGOT 15 U/L (7-37); BILIRUBIN,DIRECT 0.2 MG/DL (0.0-0.2); BILIRUBIN,TOTAL 0.9 MG/DL (0.2-1.0); BLOOD UREA NITROGEN 24 MG/DL (7-18); CALCIUM LEVEL 8.3 MG/DL (8.8-10.2); CARBON DIOXIDE LEVEL 26 MEQ/L (21-32); CHLORIDE LEVEL 103 MEQ/L (98-107); CK-MB VALUE MASS 2.3 NG/ML (<3.6); CPK CREATINE PHOSPHOKINASE 86 U/L (39-308); CREATININE FOR GFR 1.66 MG/DL (0.70-1.30); GLOMERULAR FILTRATION RATE 42.9 (>42); GLUCOSE, FASTING 113 MG/DL (70-100); MB/CK RELATIVE INDEX 2.67 (< OR =4); NT-PRO BNP 434 PG/ML (<450); SODIUM LEVEL 136 MEQ/L (136-145); TOTAL PROTEIN 6.5 GM/DL (6.4-8.2); TROPONIN I < 0.02 NG/ML (< 0.10)
[2017-10-09 10:58] LABS: LACTIC ACID SEPSIS PROTOCOL 2.4 MMOL/L (0.4-2.0)
[2017-10-09] MEDS ORDERED: ISOVUE-370 76% 100ML VIAL (Q9967) As Ordered (11:12)
[2017-10-09] MEDS: NS 500 ML IV ×2 (11:53→12:55)
[2017-10-09 11:54] LABS: APPEARANCE, URINE CLOUDY (CLEAR); BACTERIA, URINE AUTO 1+ (NEGATIVE); BILIRUBIN, URINE AUTO NEGATIVE (NEGATIVE); BLOOD, URINE BLOOD NEGATIVE (NEGATIVE); COLOR, URINE AMBER (YELLOW); GLUCOSE, URINE (UA) AUTO NEGATIVE (NEGATIVE); KETONE, URINE AUTO NEGATIVE (NEGATIVE); LEUKOCYTE ESTERASE, URINE AUTO 3+ (NEGATIVE); MUCUS, URINE SMALL (NEGATIVE); NITRITE, URINE AUTO NEGATIVE (NEGATIVE); PROTEIN, URINE AUTO 1+ mg/dL (NEGATIVE); RBC, URINE AUTO 8 /HPF (0-3); SPECIFIC GRAVITY URINE AUTO 1.015 (1.002-1.035); SQUAMOUS EPITHELIAL CELL UR AU 0 /HPF (0-6); UROBILINOGEN, URINE AUTO 0.2 mg/dL (0.0-2.0); WBC, URINE AUTO TNTC /HPF (0-3)
[2017-10-09] MEDS: methylPREDNISolone INJ 125 MG/2 ML VIAL (J2930) IV (12:18)
[2017-10-09] MEDS: IPRATROPIUM 0.5MG/ALBUTEROL 2.5MG INH SOL UD 3ML (DUONEB)(J7620) NEB (12:26)
[2017-10-09] MEDS: NITROFURANTOIN (MACROBID) 100 MG CAP PO (12:45)
[2017-10-09 14:33] LABS: LACTIC ACID SEPSIS PROTOCOL 1.7 MMOL/L (0.4-2.0)
== END 2017-10-09 15:12 | disposition home or self-care (01) ==
LOC: M ED 09:07
DX: N39.0 Urinary tract infection, site not specified (principal); R06.02 Shortness of breath; J44.9 Chronic obstructive pulmonary disease, unspecified; I48.91 Unspecified atrial fibrillation; I10 Essential (primary) hypertension; J45.909 Unspecified asthma, uncomplicated; E78.5 Hyperlipidemia, unspecified; Z79.01 Long term (current) use of anticoagulants; Z79.899 Other long term (current) drug therapy; Z79.82 Long term (current) use of aspirin; Z88.8 Allergy status to other drugs, medicaments and biological substances; Z88.1 Allergy status to other antibiotic agents; Z88.0 Allergy status to penicillin; Z88.2 Allergy status to sulfonamides; Z91.011 Allergy to milk products; Z87.891 Personal history of nicotine dependence; Z98.890 Other specified postprocedural states

== ENCOUNTER 2017-10-11 09:45 | Inpatient (IN) | payer MEDICARE, OTHER ==
[2017-10-11 11:04] LABS: BASO % 0.2 % (0.0-1.0); EOS # 0.1 10^3/uL (0.0-0.50); EOS % 0.3 % (0.0-3.0); HEMATOCRIT 39.1 % (42.0-52.0); HEMOGLOBIN 13.1 g/dl (13.5-17.5); IMMATURE GRANULOCYTE % 0.9 % (0-3.0); KETONE, URINE AUTO RFX NEGATIVE (NEGATIVE); LYMPH # 1.6 10^3/uL (1.5-4.5); LYMPH % 8.8 % (24.0-44.0); MEAN CORPUSCULAR HEMOGLOBIN 31.3 pg (27.0-33.0); MEAN CORPUSCULAR HGB CONC 33.5 g/dl (32.0-36.5); MEAN CORPUSCULAR VOLUME 93.5 fl (80.0-96.0); MONO # 1.3 10^3/uL (0.0-0.8); MONO % 6.9 % (0.0-5.0); NEUTROPHILS # 15.4 10^3/uL (1.8-7.7); NEUTROPHILS % 82.9 % (36.0-66.0); NITRITE, URINE AUTO RFX NEGATIVE (NEGATIVE); PLATELET COUNT, AUTOMATED 230 10^3/uL (150-450); RBC, URINE AUTO RFX 76 /HPF (0-3); RED BLOOD COUNT 4.18 10^6/uL (4.30-6.10); RED CELL DISTRIBUTION WIDTH 13.6 % (11.5-14.5); SPECIFIC GRAVITY UR AUTO RFX 1.014 (1.002-1.035); SQUAM EPITHELIAL CELL UR AURFX 0 /HPF (0-6); WHITE BLOOD COUNT 18.5 10^3/uL (4.0-10.0)
[2017-10-11 11:28] LABS: ANION GAP 8 MEQ/L (8-16); BLOOD UREA NITROGEN 24 MG/DL (7-18); CALCIUM LEVEL 8.7 MG/DL (8.8-10.2); CARBON DIOXIDE LEVEL 25 MEQ/L (21-32); CHLORIDE LEVEL 104 MEQ/L (98-107); CREATININE FOR GFR 1.59 MG/DL (0.70-1.30); GLOMERULAR FILTRATION RATE 45.1 (>42); GLUCOSE, FASTING 104 MG/DL (70-100); SODIUM LEVEL 137 MEQ/L (136-145)
[2017-10-11 11:29] LABS: LEUKOCYTE ESTERASE UR AUTO RFX 3+ (NEGATIVE); WBC, URINE AUTO RFX TNTC /HPF (0-3)
[2017-10-11] MEDS: cefTRIAXone SOD 1 GM in D5W MINI-BAG PLUS 50 ML IV (12:55)
[2017-10-11] MEDS ORDERED: IPRATROPIUM 0.5MG/ALBUTEROL 2.5MG INH SOL UD 3ML (DUONEB)(J7620) NEB (14:15)
[2017-10-11 15:53] LABS: FERRITIN 165 NG/ML (26-388); IRON (FE) 23 UG/DL (65-175); PERCENT SATURATION 9.1 % (19.7-50.0); TOTAL IRON BINDING CAPACITY 252 UG/DL (250-450)
[2017-10-11 16:02] LABS: FOLATE > 24.0 NG/ML (>5.4); VITAMIN B12 LEVEL 487 PG/ML (247-911)
[2017-10-11 16:36] LABS: LACTIC ACID SEPSIS PROTOCOL 1.5 MMOL/L (0.4-2.0)
[2017-10-11] MEDS: GABAPENTIN 300 MG CAP PO ×2 (17:14→20:40)
[2017-10-11] MEDS: MONTELUKAST 10 MG TAB PO (20:40)
[2017-10-11] MEDS: ATORVASTATIN 20 MG TAB PO (20:40)
[2017-10-11] MEDS: APIXABAN 2.5 MG TAB (ELIQUIS) PO (20:40)
[2017-10-11] MEDS: FLUTICASONE PROP 0.05% NASAL SPRAY 16 GM (FLONASE) (20:40)
[2017-10-11] MEDS: ADVAIR HFA 230/21MCG INHALER INH (21:00)
[2017-10-12 07:34] LABS: BASO # 0.1 10^3/uL (0.0-0.2); BASO % 0.4 % (0.0-1.0); EOS # 0.1 10^3/uL (0.0-0.50); EOS % 0.4 % (0.0-3.0); HEMATOCRIT 34.3 % (42.0-52.0); HEMOGLOBIN 11.6 g/dl (13.5-17.5); IMMATURE GRANULOCYTE % 0.7 % (0-3.0); LYMPH # 1.7 10^3/uL (1.5-4.5); MEAN CORPUSCULAR HEMOGLOBIN 30.7 pg (27.0-33.0); MEAN CORPUSCULAR HGB CONC 33.8 g/dl (32.0-36.5); MEAN CORPUSCULAR VOLUME 90.7 fl (80.0-96.0); MONO % 11.7 % (0.0-5.0); NEUTROPHILS # 12.8 10^3/uL (1.8-7.7); NEUTROPHILS % 76.8 % (36.0-66.0); PLATELET COUNT, AUTOMATED 235 10^3/uL (150-450); RED BLOOD COUNT 3.78 10^6/uL (4.30-6.10); RED CELL DISTRIBUTION WIDTH 13.4 % (11.5-14.5); WHITE BLOOD COUNT 16.7 10^3/uL (4.0-10.0)
[2017-10-12] MEDS: ADVAIR HFA 230/21MCG INHALER INH ×2 (07:48→21:22)
[2017-10-12 08:05] LABS: ALBUMIN 2.4 GM/DL (3.2-5.2); ALBUMIN/GLOBULIN RATIO 0.73 (1.00-1.93); ALKALINE PHOSPHATASE 67 U/L (45-117); ALT/SGPT 40 U/L (12-78); ANION GAP 6 MEQ/L (8-16); AST/SGOT 29 U/L (7-37); BILIRUBIN,TOTAL 0.6 MG/DL (0.2-1.0); BLOOD UREA NITROGEN 23 MG/DL (7-18); CALCIUM LEVEL 8.1 MG/DL (8.8-10.2); CARBON DIOXIDE LEVEL 24 MEQ/L (21-32); CHLORIDE LEVEL 107 MEQ/L (98-107); CREATININE FOR GFR 1.39 MG/DL (0.70-1.30); GLOMERULAR FILTRATION RATE 52.6 (>42); GLUCOSE, FASTING 106 MG/DL (70-100); POTASSIUM SERUM 4.2 MEQ/L (3.5-5.1); SODIUM LEVEL 137 MEQ/L (136-145); TOTAL PROTEIN 5.7 GM/DL (6.4-8.2)
[2017-10-12] MEDS ORDERED: FUROSEMIDE 40 MG TAB PO (09:00)
[2017-10-12] MEDS: BISOPROLOL FUMARATE 5 MG TAB PO (09:45)
[2017-10-12] MEDS: TAMSULOSIN 0.4 MG CAP PO (09:46)
[2017-10-12] MEDS: LORATADINE 10 MG TAB PO (09:46)
[2017-10-12] MEDS: APIXABAN 2.5 MG TAB (ELIQUIS) PO ×2 (09:46→22:10)
[2017-10-12] MEDS: ASPIRIN 81 MG ENTERIC TAB PO (09:46)
[2017-10-12] MEDS: GABAPENTIN 300 MG CAP PO ×3 (09:46→22:10)
[2017-10-12] MEDS: MULTIVITAMINS/MINERALS THERAP 1 TAB PO (09:46)
[2017-10-12] MEDS: FLUTICASONE PROP 0.05% NASAL SPRAY 16 GM (FLONASE) ×2 (09:47→22:12)
[2017-10-12] MEDS: cefTRIAXone SOD 1 GM in D5W MINI-BAG PLUS 50 ML IV (13:00)
[2017-10-12] MEDS: MONTELUKAST 10 MG TAB PO (22:10)
[2017-10-12] MEDS: ATORVASTATIN 20 MG TAB PO (22:11)
[2017-10-13 06:20] LABS: BASO # 0.1 10^3/uL (0.0-0.2); BASO % 0.8 % (0.0-1.0); EOS # 0.3 10^3/uL (0.0-0.50); EOS % 2.5 % (0.0-3.0); HEMATOCRIT 36.6 % (42.0-52.0); HEMOGLOBIN 12.2 g/dl (13.5-17.5); IMMATURE GRANULOCYTE % 2.2 % (0-3.0); LYMPH # 1.3 10^3/uL (1.5-4.5); LYMPH % 11.9 % (24.0-44.0); MEAN CORPUSCULAR HEMOGLOBIN 30.7 pg (27.0-33.0); MEAN CORPUSCULAR HGB CONC 33.3 g/dl (32.0-36.5); MONO # 1.1 10^3/uL (0.0-0.8); MONO % 9.9 % (0.0-5.0); NEUTROPHILS # 7.8 10^3/uL (1.8-7.7); NEUTROPHILS % 72.7 % (36.0-66.0); PLATELET COUNT, AUTOMATED 231 10^3/uL (150-450); RED BLOOD COUNT 3.98 10^6/uL (4.30-6.10); RED CELL DISTRIBUTION WIDTH 13.3 % (11.5-14.5); WHITE BLOOD COUNT 10.7 10^3/uL (4.0-10.0)
[2017-10-13 06:40] LABS: ALBUMIN 2.4 GM/DL (3.2-5.2); ALBUMIN/GLOBULIN RATIO 0.73 (1.00-1.93); ALKALINE PHOSPHATASE 68 U/L (45-117); ALT/SGPT 40 U/L (12-78); ANION GAP 4 MEQ/L (8-16); AST/SGOT 24 U/L (7-37); BILIRUBIN,TOTAL 0.4 MG/DL (0.2-1.0); BLOOD UREA NITROGEN 20 MG/DL (7-18); CALCIUM LEVEL 8.2 MG/DL (8.8-10.2); CARBON DIOXIDE LEVEL 25 MEQ/L (21-32); CHLORIDE LEVEL 109 MEQ/L (98-107); GLOMERULAR FILTRATION RATE 56.8 (>42); GLUCOSE, FASTING 105 MG/DL (70-100); POTASSIUM SERUM 4.1 MEQ/L (3.5-5.1); SODIUM LEVEL 138 MEQ/L (136-145); TOTAL PROTEIN 5.7 GM/DL (6.4-8.2)
[2017-10-13] MEDS: ADVAIR HFA 230/21MCG INHALER INH (07:40)
[2017-10-13] MEDS: BISOPROLOL FUMARATE 5 MG TAB PO (09:00)
[2017-10-13] MEDS: MULTIVITAMINS/MINERALS THERAP 1 TAB PO (09:26)
[2017-10-13] MEDS: GABAPENTIN 300 MG CAP PO (09:26)
[2017-10-13] MEDS: ASPIRIN 81 MG ENTERIC TAB PO (09:27)
[2017-10-13] MEDS: FLUTICASONE PROP 0.05% NASAL SPRAY 16 GM (FLONASE) (09:27)
[2017-10-13] MEDS: APIXABAN 2.5 MG TAB (ELIQUIS) PO (09:27)
[2017-10-13] MEDS: LORATADINE 10 MG TAB PO (09:27)
[2017-10-13] MEDS: TAMSULOSIN 0.4 MG CAP PO (09:31)
== END 2017-10-13 12:37 | disposition home or self-care (01) | DRG 690 ==
LOC: M ED 09:45 → M ED INP 14:39 → M MSPAV 16:17
DX: N39.0 Urinary tract infection, site not specified (principal); J96.11 Chronic respiratory failure with hypoxia; J44.9 Chronic obstructive pulmonary disease, unspecified; I48.2 Chronic atrial fibrillation; I13.10 Hypertensive heart and chronic kidney disease without heart failure, with stage 1 through stage 4 chronic kidney disease, or unspecified chronic kidney disease; N18.3 Chronic kidney disease, stage 3 (moderate); I71.4 Abdominal aortic aneurysm, without rupture; N40.0 Benign prostatic hyperplasia without lower urinary tract symptoms; E78.5 Hyperlipidemia, unspecified; Z79.01 Long term (current) use of anticoagulants; Z79.899 Other long term (current) drug therapy; Z79.82 Long term (current) use of aspirin; Z88.8 Allergy status to other drugs, medicaments and biological substances; Z88.1 Allergy status to other antibiotic agents; Z88.0 Allergy status to penicillin; Z88.2 Allergy status to sulfonamides; Z91.011 Allergy to milk products; Z95.5 Presence of coronary angioplasty implant and graft; Z98.1 Arthrodesis status; Z98.41 Cataract extraction status, right eye; Z98.42 Cataract extraction status, left eye; Z87.891 Personal history of nicotine dependence

== ENCOUNTER → 2017-10-24 | Outpatient (REF) | payer MEDICARE, OTHER ==
[2017-10-24 16:35] LABS: APPEARANCE, URINE CLEAR (CLEAR); BACTERIA, URINE AUTO NEGATIVE (NEGATIVE); BILIRUBIN, URINE AUTO NEGATIVE (NEGATIVE); BLOOD, URINE BLOOD NEGATIVE (NEGATIVE); COLOR, URINE YELLOW (YELLOW); GLUCOSE, URINE (UA) AUTO NEGATIVE (NEGATIVE); KETONE, URINE AUTO NEGATIVE (NEGATIVE); LEUKOCYTE ESTERASE, URINE AUTO TRACE (NEGATIVE); NITRITE, URINE AUTO NEGATIVE (NEGATIVE); PROTEIN, URINE AUTO NEGATIVE (NEGATIVE); RBC, URINE AUTO 1 /HPF (0-3); SPECIFIC GRAVITY URINE AUTO 1.015 (1.002-1.035); SQUAMOUS EPITHELIAL CELL UR AU 1 /HPF (0-6); UROBILINOGEN, URINE AUTO 0.2 mg/dL (0.0-2.0); WBC, URINE AUTO 2 /HPF (0-3)
== END ==
LOC: M SFHCPLAZ 13:50
DX: N40.0 Benign prostatic hyperplasia without lower urinary tract symptoms (principal); N18.3 Chronic kidney disease, stage 3 (moderate); Z87.440 Personal history of urinary (tract) infections
CPT/HCPCS: 81001

== ENCOUNTER → 2017-11-30 | Outpatient (CLI) | payer MEDICARE, OTHER | LOC: M RAD 10:30 | DX: J43.9 Emphysema, unspecified (principal) | CPT/HCPCS: 71250 ==

== ENCOUNTER 2017-12-07 09:17 | Emergency (ER) | payer MEDICARE, OTHER ==
[2017-12-07] MEDS: FAMOTIDINE IV BAG 20 MG in APPROPRIATE DILUENT 1 EA IV (09:49)
[2017-12-07] MEDS: methylPREDNISolone INJ 125 MG/2 ML VIAL (J2930) IV (09:49)
[2017-12-07] MEDS: diphenhydrAMINE INJ 50MG/ML VIAL (J1200) IV (10:21)
[2017-12-07] MEDS: DOXYCYCLINE HYCLATE 100 MG TAB PO (10:45)
[2017-12-07] MEDS: IPRATROPIUM 0.5MG/ALBUTEROL 2.5MG INH SOL UD 3ML (DUONEB)(J7620) NEB (10:47)
== END 2017-12-07 12:24 | disposition home or self-care (01) ==
LOC: M ED 09:17
DX: L50.0 Allergic urticaria (principal); R06.02 Shortness of breath; T36.1X5A Adverse effect of cephalosporins and other beta-lactam antibiotics, initial encounter; J06.9 Acute upper respiratory infection, unspecified; I10 Essential (primary) hypertension; J44.9 Chronic obstructive pulmonary disease, unspecified; E78.5 Hyperlipidemia, unspecified; K21.9 Gastro-esophageal reflux disease without esophagitis; N40.0 Benign prostatic hyperplasia without lower urinary tract symptoms; Z86.718 Personal history of other venous thrombosis and embolism; Z87.891 Personal history of nicotine dependence; Z88.1 Allergy status to other antibiotic agents; Z88.0 Allergy status to penicillin; Z88.2 Allergy status to sulfonamides; Z91.011 Allergy to milk products; Z88.8 Allergy status to other drugs, medicaments and biological substances; Z79.899 Other long term (current) drug therapy; Z79.01 Long term (current) use of anticoagulants; Z79.51 Long term (current) use of inhaled steroids; Z79.82 Long term (current) use of aspirin; Z79.2 Long term (current) use of antibiotics
CPT/HCPCS: J1200

== ENCOUNTER → 2018-06-02 | Outpatient (REF) | payer MEDICARE, OTHER ==
[~2018-06-02] MED LIST changes: +ANUSHCSU PR; +ATORVASTATIN; +CEFD1CAP8 PO; +CEFU1TAB20; +DOXY-350 PO; +DOXY100C37 PO; +FLOM0.4C39 PO; -FLOM5CAP PO; +FURO40TA2 PO; -GABA-282 PO; +GABA-843 PO; +INCR1INH; +IPRA0.00 INH; -IPRASOL4 INH; +LORA-243 PO; -LORA10TA2 PO; +MUCI600T37 PO; +PRED10TA2 PO; +PRED20TA PO; +PROAAER10 INH
--- NOTE | 2018-06-02 10:35 | REP ---
ULTRASOUND ABDOMINAL AORTA: Real-time sonographic evaluation of the abdominal aorta performed. Infrarenal abdominal aortic aneurysm is seen, fusiform in shape and extending for a length of about 10 cm. Maximum AP diameter is 4.7 cm and transverse 4.6 cm. There is intraluminal plaque. More proximally maximum AP diameter is 2.8 cm. Common iliac arteries are ectatic, right measuring 2.1 x 2.2 cm and left 2.2 x 2.2 cm. IMPRESSION: Fusiform aneurysmal dilatation of the infrarenal abdominal aorta as discussed above. Electronically Signed by Edgar Garcia MD 06/02/2018 12:16 P
== END ==
LOC: M RAD 08:00 → EDSTATUS 08:00
PROVIDERS: ATTEND Surgery Vascular Surgery
DX: I71.4 Abdominal aortic aneurysm, without rupture (principal)

== ENCOUNTER → 2018-08-22 | Outpatient (REF) | payer MEDICARE, OTHER ==
[2018-08-22 12:47] LABS: HEMATOCRIT 42.3 % (42.0-52.0); HEMOGLOBIN 13.8 g/dl (13.5-17.5); MEAN CORPUSCULAR HEMOGLOBIN 30.3 pg (27.0-33.0); MEAN CORPUSCULAR HGB CONC 32.6 g/dl (32.0-36.5); PLATELET COUNT, AUTOMATED 260 10^3/uL (150-450); RED BLOOD COUNT 4.55 10^6/uL (4.30-6.10); WHITE BLOOD COUNT 6.2 10^3/uL (4.0-10.0)
[2018-08-22 13:05] LABS: ALBUMIN 3.4 GM/DL (3.2-5.2); BILIRUBIN,TOTAL 0.5 MG/DL (0.2-1.0); CREATININE FOR GFR 1.47 MG/DL (0.70-1.30); GLOMERULAR FILTRATION RATE 49.2 (>42); POTASSIUM SERUM 4.5 MEQ/L (3.5-5.1); PTH INTACT 69.9 PG/ML (18.5-88.0); TOTAL PROTEIN 6.2 GM/DL (6.4-8.2)
== END ==
LOC: M SFHCPLAZ 09:53
PROVIDERS: ATTEND Internal Medicine
DX: N18.3 Chronic kidney disease, stage 3 (moderate) (principal); J44.9 Chronic obstructive pulmonary disease, unspecified; Z86.010 Personal history of colon polyps; I12.9 Hypertensive chronic kidney disease with stage 1 through stage 4 chronic kidney disease, or unspecified chronic kidney disease; N40.0 Benign prostatic hyperplasia without lower urinary tract symptoms; Z12.5 Encounter for screening for malignant neoplasm of prostate
CPT/HCPCS: 36415; 80053; 83970; 85027; G0103

== ENCOUNTER → 2019-03-05 | Outpatient (REF) | payer MEDICARE, OTHER ==
[~2019-03-05] MED LIST changes: -/ADVA50050; -/TAMS4CA; +ADVA1AER2; -ASPI1TAB PO; +ASPI81TA26 PO; -BISO10TA PO; +BISO10TA13 PO; -BISO5TAB5 PO; +BISO5TAB9 PO; +FLOM0.4C39
[2019-03-05 14:28] LABS: ALBUMIN 3.3 GM/DL (3.2-5.2); BILIRUBIN,TOTAL 0.4 MG/DL (0.2-1.0); CHOLESTEROL RISK RATIO 3.131 (<5); CREATININE FOR GFR 1.45 MG/DL (0.70-1.30); MAGNESIUM LEVEL 2.2 MG/DL (1.8-2.4); POTASSIUM SERUM 4.9 MEQ/L (3.5-5.1); TOTAL PROTEIN 6.2 GM/DL (6.4-8.2)
[2019-03-05 14:29] LABS: PTH INTACT 36.7 PG/ML (18.5-88.0)
== END ==
LOC: M SFHCPLAZ 11:27
PROVIDERS: ATTEND Internal Medicine
DX: I12.9 Hypertensive chronic kidney disease with stage 1 through stage 4 chronic kidney disease, or unspecified chronic kidney disease (principal); E78.00 Pure hypercholesterolemia, unspecified; N18.3 Chronic kidney disease, stage 3 (moderate)
CPT/HCPCS: 36415; 80053; 80061; 83735; 83970; G0463

== ENCOUNTER → 2019-09-04 | Outpatient (REF) | payer MEDICARE, OTHER ==
[~2019-09-04] MED LIST changes: +BISO5TAB14 PO; -BISO5TAB9 PO; -MONT10TA2 PO; +MONT10TA4 PO
[2019-09-04 14:02] LABS: HEMATOCRIT 43.5 % (42.0-52.0); HEMOGLOBIN 14.1 g/dl (13.5-17.5); MEAN CORPUSCULAR HEMOGLOBIN 31.1 pg (27.0-33.0); MEAN CORPUSCULAR HGB CONC 32.4 g/dl (32.0-36.5); PLATELET COUNT, AUTOMATED 247 10^3/uL (150-450); RED BLOOD COUNT 4.53 10^6/uL (4.30-6.10); WHITE BLOOD COUNT 8.1 10^3/uL (4.0-10.0)
[2019-09-04 14:04] LABS: ALBUMIN 3.1 GM/DL (3.2-5.2); BILIRUBIN,TOTAL 0.7 MG/DL (0.2-1.0); CALCIUM LEVEL 8.8 MG/DL (8.8-10.2); CREATININE FOR GFR 1.66 MG/DL (0.70-1.30); GLOMERULAR FILTRATION RATE 42.6 (>35); MAGNESIUM LEVEL 2.3 MG/DL (1.8-2.4); POTASSIUM SERUM 4.3 MEQ/L (3.5-5.1); TOTAL PROTEIN 6.1 GM/DL (6.4-8.2)
[2019-09-04 14:12] LABS: PTH INTACT 54.6 PG/ML (18.5-88.0)
== END ==
LOC: M SFHCPLAZ 10:53
PROVIDERS: ATTEND Internal Medicine
DX: J44.9 Chronic obstructive pulmonary disease, unspecified (principal); I12.9 Hypertensive chronic kidney disease with stage 1 through stage 4 chronic kidney disease, or unspecified chronic kidney disease; N18.3 Chronic kidney disease, stage 3 (moderate); Z23 Encounter for immunization
CPT/HCPCS: 36415; 80053; 83735; 83970; 85027; 90471; 90715; G0463

== ENCOUNTER → 2020-03-05 | Outpatient (CLI) | payer MEDICARE, OTHER ==
[~2020-03-05] MED LIST changes: +ASPI-546 PO; -ASPI1TAB15 PO
[2020-03-05 13:39] LABS: HEMOGLOBIN 12.8 g/dl (13.5-17.5); MEAN CORPUSCULAR HEMOGLOBIN 32.5 pg (27.0-33.0); MEAN CORPUSCULAR HGB CONC 33.7 g/dl (32.0-36.5); MEAN CORPUSCULAR VOLUME 96.4 fl (80.0-96.0); PLATELET COUNT, AUTOMATED 240 10^3/uL (150-450); RED BLOOD COUNT 3.94 10^6/uL (4.30-6.10); WHITE BLOOD COUNT 7.4 10^3/uL (4.0-10.0)
[2020-03-05 13:57] LABS: ALBUMIN 3.4 GM/DL (3.2-5.2); BILIRUBIN,TOTAL 0.3 MG/DL (0.2-1.0); CALCIUM LEVEL 9.2 MG/DL (8.8-10.2); CHOLESTEROL RISK RATIO 2.464 (<5); CREATININE FOR GFR 1.51 MG/DL (0.70-1.30); GLOMERULAR FILTRATION RATE 47.6 (>35); MAGNESIUM LEVEL 2.1 MG/DL (1.8-2.4); POTASSIUM SERUM 4.2 MEQ/L (3.5-5.1); PTH INTACT 52.6 PG/ML (18.5-88.0); TOTAL PROTEIN 6.4 GM/DL (6.4-8.2)
== END ==
LOC: M PLALAB 11:25
PROVIDERS: ATTEND Internal Medicine
DX: I12.9 Hypertensive chronic kidney disease with stage 1 through stage 4 chronic kidney disease, or unspecified chronic kidney disease (principal); N18.3 Chronic kidney disease, stage 3 (moderate); J44.9 Chronic obstructive pulmonary disease, unspecified; E78.00 Pure hypercholesterolemia, unspecified

== ENCOUNTER → 2020-03-19 | Outpatient (CLI) | payer MEDICARE, OTHER ==
--- NOTE | 2020-03-26 14:19 | REP ---
ABDOMINAL AORTIC SONOGRAPHY HISTORY: Abdominal aortic ultrasound. COMPARISON: Aortic sonography 06/02/2018. CT study 10/11/2017. SONOGRAPHIC FINDINGS: The abdominal aorta is ectatic at the diaphragmatic hiatus measuring 3.1 cm in AP dimension x 2.8 cm in right to left dimension. There is a proximal abdominal aortic aneurysm arising at or immediately inferiorly adjacent to the origin of the renal arteries as seen on CT. At the level of the renal artery origins, the aortic dimensions are 3.0 x 2.6 cm AP x transverse. The aortic aneurysm measures 4.2 x 5.6 cm in greatest AP x transverse dimension. The distal aorta tapers to a normal caliber 2.2 x 2.8 cm. Right and left common iliac arteries are normal in caliber, 0.9 and 0.8 cm respectively on the right and left. The aortic aneurysm measures approximately 4.3 cm in length as observed on CT. This feature of the aneurysm is best observed on CT and is felt to be unchanged. IMPRESSION: 4.2 x 5.6 cm abdominal aortic aneurysm arising at or immediately inferior to the origin of the renal artery. It is felt to be essentially unchanged in AP dimension. MTDD
== END ==
LOC: M RAD 09:06
PROVIDERS: ATTEND Internal Medicine
DX: I71.4 Abdominal aortic aneurysm, without rupture (principal)

== ENCOUNTER → 2020-05-06 | Outpatient (CLI) | payer MEDICARE, OTHER ==
--- NOTE | 2020-05-06 16:33 | REP ---
INDICATION: PAIN IN LEGS BILATERAL COMPARISON: None. TECHNIQUE: Real time garcia scale and Duplex Doppler evaluation of the bilateral lower extremity arterial vasculature using linear high frequency transducer. FINDINGS: Garcia scale and duplex doppler images demonstrate [id number] diffuse plaquing bilaterally. Incidental note is made of soft tissue edema at the ankles. There are diffuse triphasic and biphasic waveforms bilaterally, with monophasic waveform in the right popliteal artery and tibioperoneal trunk. There appears to be mild stenosis of the left tibioperoneal trunk. MARIZOL bilaterally is 1.0. Peak systolic velocities (cm/sec) Common femoral artery: Right 154; Left 123 Profunda femoris: Right 194; Left 145 SFA (proximal): Right 175; Left 155 SFA (mid): Right 139; Left in 112 SFA (distal): Right 189; Left in 100 Popliteal artery: Right 88; Left 68 ANAIS (prox.): Right 68; Left 64 Tibioperoneal trunk: Right 110; Left 140 MARKETING CONTENT COORDINATOR (prox.): Right 104; Left 77 MARKETING CONTENT COORDINATOR (distal): Right 66; Left is 104 ANAIS (distal): Right 65; Left 19 IMPRESSION: Mild to moderate scattered plaquing bilaterally. Mild stenosis left tibioperoneal trunk. No other evidence of significant stenosis or occlusion bilaterally. <Electronically signed by Edgar Garcia > 05/06/20 [id number]
== END ==
LOC: M RAD 12:50
PROVIDERS: ATTEND Physician Assistant
DX: M79.605 Pain in left leg (principal); M79.604 Pain in right leg; R09.89 Other specified symptoms and signs involving the circulatory and respiratory systems

== ENCOUNTER 2020-05-19 06:52 | Emergency (ER) | payer MEDICARE, OTHER ==
[~2020-05-19] VITALS: Ht 185.4 cm; Wt 96.9 kg
[~2020-05-19 06:52] MED LIST changes: -MONT10TA4 PO; +MONT5TAB2 PO
[2020-05-19] MEDS ORDERED: LIDOCAINE W/EPINEPHRINE 1% 20ML VIAL SC ONE (07:15)
[2020-05-19 08:35] VITALS: BP 135/72
[2020-05-27] MEDS ORDERED: FINA5TAB2 PO (14:04)
== END 2020-05-19 08:37 | disposition home or self-care (01) ==
LOC: M ED 06:52
DX: S81.012A Laceration without foreign body, left knee, initial encounter (principal); W01.198A Fall on same level from slipping, tripping and stumbling with subsequent striking against other object, initial encounter; Y92.099 Unspecified place in other non-institutional residence as the place of occurrence of the external cause; Y93.9 Activity, unspecified; Y99.9 Unspecified external cause status; I48.91 Unspecified atrial fibrillation; I10 Essential (primary) hypertension; J44.9 Chronic obstructive pulmonary disease, unspecified; E78.5 Hyperlipidemia, unspecified; K21.9 Gastro-esophageal reflux disease without esophagitis; N40.0 Benign prostatic hyperplasia without lower urinary tract symptoms

== ENCOUNTER → 2020-05-31 | Outpatient (CLI) | payer MEDICARE, OTHER ==
[~2020-05-31] MED LIST changes: +FINA5TAB2 PO
== END ==
LOC: M LABSMTC 09:23
PROVIDERS: ATTEND Anesthesiology
DX: Z01.818 Encounter for other preprocedural examination (principal); Z20.828 Contact with and (suspected) exposure to other viral communicable diseases

== ENCOUNTER 2020-06-05 09:05 | Day surgery (SDC) | payer MEDICARE, OTHER ==
[~2020-06-05] VITALS: Ht 185.4 cm; Wt 92.3 kg
[~2020-06-05 09:05] MED LIST changes: +NS 1,000 ML IV ONE
[2020-06-05] MEDS ORDERED: LIDOCAINE 2% 100MG/5ML SDV (FOR ANES.) As Ordered ONE (09:08)
[2020-06-05] MEDS ORDERED: propofoL 200 MG/20 ML VIAL As Ordered ONE ×2 (09:08→10:11)
--- NOTE | 2020-06-05 10:36 | ROOR ---
Patient Name: Claire Gates Procedure Date: 06/05/2020 9:56 AM Date of : 1940 Age: 80 Room: [facility] Gender: Male Note Status: Finalized Procedure: Colonoscopy Indications: High risk colon cancer surveillance: Personal history of colonic polyps Providers: Jose CANAS MD Referring MD: Jonnie Galloway MD Requesting Provider: Medicines: Monitored Anesthesia Care Complications: No immediate complications. Procedure: Pre-Anesthesia Assessment: - The heart rate, respiratory rate, oxygen saturations, blood pressure, adequacy of pulmonary ventilation, and response to care were monitored throughout the procedure. The Colonoscope was introduced through the anus and advanced to the terminal ileum, with identification of the appendiceal orifice and IC valve. The colonoscopy was performed without difficulty. The patient tolerated the procedure well. The quality of the bowel preparation was good. Findings: The perianal and digital rectal examinations were normal. A tattoo was seen in the proximal descending colon. The tattoo site appeared normal. A 10 mm polyp was found in the splenic flexure. The polyp was carpet-like. The polyp was removed with a piecemeal technique using a cold snare. Resection and retrieval were complete. To prevent bleeding after the polypectomy, four hemostatic clips were successfully placed. Three sessile polyps were found in the hepatic flexure. The polyps were diminutive in size. These polyps were removed with a cold snare. Resection and retrieval were complete. Mild sigmoid diverticulosis and small internal hemorrhoids. The exam was otherwise without abnormality on direct and retroflexion views. Impression: - A tattoo was seen in the proximal descending colon. The tattoo site appeared normal. - One 10 mm polyp at the splenic flexure, removed piecemeal using a cold snare. Resected and retrieved. Clips were placed. - Three diminutive polyps at the hepatic flexure, removed with a cold snare. Resected and retrieved. - Mild sigmoid diverticulosis and small internal hemorrhoids. - The examination was otherwise normal on direct and retroflexion views. Recommendation: - Repeat colonoscopy in 3 years for surveillance. - Resume Eliquis (apixaban) at prior dose in 2 days. (resume 06/07/20) Procedure Code(s): --- Professional --- 42275, Colonoscopy, flexible; with removal of tumor(s), polyp(s), or other lesion(s) by snare technique Diagnosis Code(s): --- Professional --- Z86.010, Personal history of colonic polyps K63.5, Polyp of colon CPT copyright 2019 [employer]. All rights reserved. The codes documented in this report are preliminary and upon pre coder review may be revised to meet current compliance requirements. Jose Canas MD Jose CANAS MD 06/05/2020 10:36:02 AM Electronically signed by Jose CANAS MD Number of Addenda: 0 Note Initiated On: 06/05/2020 9:56 AM Estimated Blood Loss: Estimated blood loss: none.
[2020-06-05 10:50] VITALS: BP 104/69
== END 2020-06-05 11:02 | disposition home or self-care (01) ==
LOC: M OPP 09:05
PROVIDERS: ATTEND Internal Medicine Gastroenterology
DX: Z12.11 Encounter for screening for malignant neoplasm of colon (principal); Z86.010 Personal history of colon polyps; K63.5 Polyp of colon; K57.30 Diverticulosis of large intestine without perforation or abscess without bleeding; K64.8 Other hemorrhoids

== ENCOUNTER 2020-07-13 12:52 | Inpatient (IN) | payer MEDICARE, OTHER ==
[~2020-07-13] VITALS: Ht 185.4 cm; Wt 92.0 kg
[2020-07-13] VITALS (10 sets, daily range): BP systolic 140–163; BP diastolic 67–107
[~2020-07-13 12:52] MED LIST changes: +GABA-282 PO; -GABA-843 PO; -LISI-538 PO; +LISI10TA22 PO; -LISI10TA4 PO; +LISI20TA33 PO; +MONT10TA10 PO; -MONT5TAB2 PO; -NS 1,000 ML IV ONE
[2020-07-13] MEDS ORDERED: DIGOXIN INJ 0.5 MG/2 ML AMP (J1160) IV STA (13:28)
[2020-07-13] MEDS: FUROSEMIDE 40MG/4ML VIAL (J1940) IV ONE ×2 (13:30→13:40)
[2020-07-13 13:31] LABS: BASO % 0.2 % (0.0-1.0); HEMATOCRIT 42.9 % (42.0-52.0); HEMOGLOBIN 13.8 g/dl (13.5-17.5); LYMPH # 0.8 10^3/uL (1.5-5.0); LYMPH % 8.9 % (24.0-44.0); MEAN CORPUSCULAR HEMOGLOBIN 30.5 pg (27.0-33.0); MEAN CORPUSCULAR HGB CONC 32.2 g/dl (32.0-36.5); MEAN CORPUSCULAR VOLUME 94.7 fl (80.0-96.0); MONO # 0.5 10^3/uL (0.0-0.8); MONO % 5.2 % (0.0-5.0); NEUTROPHILS # 7.3 10^3/uL (1.5-8.5); NEUTROPHILS % 84.4 % (36.0-66.0); PLATELET COUNT, AUTOMATED 294 10^3/uL (150-450); RED BLOOD COUNT 4.53 10^6/uL (4.30-6.10); WHITE BLOOD COUNT 8.6 10^3/uL (4.0-10.0)
[2020-07-13 13:42] LABS: INR 1.12; PROTHROMBIN TIME 14.6 SECONDS (12.5-14.3)
--- NOTE | 2020-07-13 13:52 | REP ---
INDICATION: CHEST PAIN. COMPARISON: 10/09/2017 the latest prior and a two view exam TECHNIQUE: Portable FINDINGS: The technique utilized in obtaining the radiograph has magnified the cardiac silhouette and accentuated the interstitial markings. The superior mediastinal structures are midline. The cardiac silhouette is unremarkable in size, shape, and position. The diaphragmatic surfaces of the lungs are regular, and the costophrenic angles are clear. The pulmonary nelson are unchanged allowing for the differences in technical factors between the exams. Fibrotic changes are noted status quo. The imaged osseous structures are intact. IMPRESSION: Stable appearing chronic changes <Electronically signed by Lawson Gates > 07/13/20 [id number]
[2020-07-13 13:59] LABS: ALBUMIN 3.2 GM/DL (3.2-5.2); ALT/SGPT 30 U/L (12-78); BILIRUBIN,DIRECT 0.1 MG/DL (0.0-0.2); BILIRUBIN,TOTAL 0.3 MG/DL (0.2-1.0); BLOOD UREA NITROGEN 39 MG/DL (7-18); CALCIUM LEVEL 8.6 MG/DL (8.8-10.2); CARBON DIOXIDE LEVEL 22 MEQ/L (21-32); CHLORIDE LEVEL 98 MEQ/L (98-107); CK-MB VALUE MASS 2.4 NG/ML (<3.6); CPK CREATINE PHOSPHOKINASE 79 U/L (39-308); CREATININE FOR GFR 2.31 MG/DL (0.70-1.30); GLOMERULAR FILTRATION RATE 29.1 (>35); GLUCOSE, FASTING 177 MG/DL (70-100); LIPASE 118 U/L (73-393); MB/CK RELATIVE INDEX 3.04 (< OR =4); NT-PRO BNP 8340 PG/ML (<450); POTASSIUM SERUM 4.5 MEQ/L (3.5-5.1); SODIUM LEVEL 132 MEQ/L (136-145); TOTAL PROTEIN 6.5 GM/DL (6.4-8.2); TROPONIN I < 0.02 NG/ML (< 0.10)
[2020-07-13] MEDS ORDERED: NS 500 ML IV ONE (15:15)
[2020-07-13] MEDS ORDERED: TAMS1CAP17 PO (15:37)
[2020-07-13] MEDS ORDERED: LISI10TA22 PO (15:37)
[2020-07-13 15:52] LABS: VENOUS BASE EXCESS -0.2 (-2.0-2.0); VENOUS HCO3 25.7 MEQ/L (23.0-27.0); VENOUS O2 SATURATION 72.5 % (60.0-80.0); VENOUS PARTIAL PRESSURE CO2 46.5 mmHg (38.0-50.0); VENOUS PARTIAL PRESSURE O2 38.8 mmHg (30.0-50.0); VENOUS STANDARD HCO3 23.7 MEQ/L; VENOUS TOTAL CO2 27.1 MEQ/L (24.0-28.0)
[2020-07-13 16:28] LABS: C REACTIVE PROTEIN QUANTITATIV 1.51 MG/DL (0.00-0.30)
[2020-07-13] MEDS ORDERED: IPRATROPIUM 0.5MG/ALBUTEROL 2.5MG INH SOL UD 3ML (DUONEB) NEB PRN (16:30)
[2020-07-13] MEDS ORDERED: AZIT500T5 PO (16:41)
[2020-07-13] MEDS ORDERED: GLUC500C37 PO (16:41)
[2020-07-13] MEDS ORDERED: PRED10TA2 PO (16:41)
--- NOTE | 2020-07-13 17:42 | REPVR ---
PROCEDURE INFORMATION: Exam: CT Chest Without Contrast; Diagnostic Exam date and time: 07/13/2020 5:13 PM Age: 80 years old Clinical indication: Shortness of breath; Additional info: SOB TECHNIQUE: Imaging protocol: Diagnostic computed tomography of the chest without contrast. 3D rendering (Not supervised by radiologist): MIP and/or 3D reconstructed images were created by the technologist. Radiation optimization: All CT scans at this facility use at least one of these dose optimization techniques: automated exposure control; mA and/or kV adjustment per patient size (includes targeted exams where dose is matched to clinical indication); or iterative reconstruction. COMPARISON: CT Chest without contrast 11/30/2017 10:35 AM FINDINGS: Lungs: Pulmonary vascular/interstitial pattern does not suggest active pulmonary edema. No focal air space process. No central endobronchial lesion. Apical predominant centrilobular emphysema, moderately severe. Right apical noncalcified 6 mm nodule, axial image 16. This was not present on the prior CT from 2018. No other focal lung lesion. Mild subpleural pulmonary fibrosis most significant in the posterior right lung base. Pleural space: No pleural effusion or pneumothorax. Heart: No overt cardiac enlargement or abnormal volume of pericardial fluid. Aorta: No abnormal dilatation of the thoracic aorta. Mild ectasia and atherosclerotic change Great vessels off aortic arch: Atherosclerotic calcifications in the coronary vessels. Lymph nodes: No enlarged mediastinal lymph nodes. Liver: 13 mm left lobe hepatic cyst with peripheral calcification, likely benign. Adrenals: Adrenal glands are normal in appearance. Bones/joints: Bony structures show no acute fracture or destructive process. Soft tissues: No asymmetric abnormality of the extrathoracic soft tissues. Other findings: Limited evaluation without IV contrast. IMPRESSION: 1. No explanation for acute shortness of breath in a patient with moderately severe diffuse centrilobular emphysema. 2. Noncalcified 6 mm right apical lung nodule not present in November 2017. This could represent an early neoplasm or a postinflammatory nodule. Fleischner society recommendations for followup and management of nodules smaller than 8 mm detected incidentally on screening CT: Less than or equal to 4 mm: Low risk patients- no followup needed. High risk patients- followup in 12 months. If no change, no further imaging needed. 4-6 mm nodule: Low risk patients- followup in 12 months. If no change, no further imaging needed. High risk patients- initial followup CT at 6-12 months and then at 18-24 months if no change. Electronically signed by: Danyel Perez On 07/13/2020 17:42:30 PM
[2020-07-13 18:12] LABS: PARTIAL THROMBOPLASTIN TIME 40.6 SECONDS (24.2-38.5)
[2020-07-13 18:15] LABS: D-DIMER QUANT 784.21 ng/ml (<500)
[2020-07-13] MEDS ORDERED: REMDESIVIR 200 MG in NS 250 ML IV ONE (19:00)
[2020-07-13] MEDS: dexameTHASONE 4 MG/ML 1ML VIAL (J1100 PER 1MG) IV SCH (19:03)
[2020-07-13] MEDS ORDERED: IPRATROPIUM 0.5MG/ALBUTEROL 2.5MG INH SOL UD 3ML (DUONEB) NEB SCH (20:00)
--- NOTE | 2020-07-13 20:01 | ECGEPIP ---
[facility] - ED Test Date: 2020-07-13 Pat Name: STEVE REID Department: Room: [place] [address] Gender: Male [employer]: tyrell : 1940 Requested By: JASWANT Gruebr Order Number: [id number] Reading MD: Benjamin Connelly Measurements Intervals [place] Rate: 125 P: [place]: 0 QRS: -59 QRSD: 109 T: 109 QT: 308 QTc: 445 Interpretive Statements ATRIAL FIBRILLATION WITH RAPID VENTRICULAR RESPONSE LEFT AXIS DEVIATION POOR R WAVE PROGRESSION LEFT ANTERIOR FASCICULAR BLOCK MINIMAL VOLTAGE CRITERIA FOR LVH, CONSIDER NORMAL VARIANT RHYTHM/RATE CHANGE COMPARED TO 12/07/17 Electronically Signed on 07-13-2020 20:01:22 EST by Benjamin Connelly
[2020-07-13] MEDS: COMBIVENT RESPIMAT 100-20MCG INHALER 4GM INH SCH (20:06)
[2020-07-13] MEDS ORDERED: COMBIVENT RESPIMAT 100-20MCG INHALER 4GM INH PRN (20:15)
[2020-07-13] MEDS: GABAPENTIN 300 MG CAP PO SCH (20:31)
[2020-07-13] MEDS: APIXABAN 2.5 MG TAB (ELIQUIS) PO SCH (20:32)
[2020-07-13] MEDS: TAMSULOSIN 0.4 MG CAP PO SCH (20:32)
[2020-07-13] MEDS ORDERED: ATORVASTATIN 20 MG TAB PO SCH (21:00)
[2020-07-13] MEDS ORDERED: MONTELUKAST 10 MG TAB PO SCH (21:00)
[2020-07-13] MEDS ORDERED: SODIUM CHLORIDE 0.9% INJ 10 ML SYR IV ONE (21:00)
[2020-07-14] VITALS: BP 150/65
[2020-07-14] MEDS: COMBIVENT RESPIMAT 100-20MCG INHALER 4GM INH SCH ×2 (01:48→07:47)
[2020-07-14 02:00] VITALS: BP 147/73
[2020-07-14 04:00] VITALS: BP 159/71
[2020-07-14 04:28] LABS: BASO % 0.5 % (0.0-1.0); HEMATOCRIT 37.6 % (42.0-52.0); HEMOGLOBIN 12.5 g/dl (13.5-17.5); LYMPH # 0.5 10^3/uL (1.5-5.0); LYMPH % 11.7 % (24.0-44.0); MEAN CORPUSCULAR HEMOGLOBIN 30.9 pg (27.0-33.0); MEAN CORPUSCULAR HGB CONC 33.2 g/dl (32.0-36.5); MEAN CORPUSCULAR VOLUME 93.1 fl (80.0-96.0); MONO # 0.4 10^3/uL (0.0-0.8); MONO % 10.3 % (0.0-5.0); NEUTROPHILS # 3.1 10^3/uL (1.5-8.5); NEUTROPHILS % 75.8 % (36.0-66.0); PLATELET COUNT, AUTOMATED 250 10^3/uL (150-450); RED BLOOD COUNT 4.04 10^6/uL (4.30-6.10); WHITE BLOOD COUNT 4.1 10^3/uL (4.0-10.0)
[2020-07-14 04:56] LABS: ALBUMIN 2.6 GM/DL (3.2-5.2); ALT/SGPT 31 U/L (12-78); BILIRUBIN,DIRECT 0.1 MG/DL (0.0-0.2); BILIRUBIN,TOTAL 0.1 MG/DL (0.2-1.0); BLOOD UREA NITROGEN 32 MG/DL (7-18); CALCIUM LEVEL 8.1 MG/DL (8.8-10.2); CARBON DIOXIDE LEVEL 25 MEQ/L (21-32); CHLORIDE LEVEL 104 MEQ/L (98-107); CREATININE FOR GFR 1.65 MG/DL (0.70-1.30); GLOMERULAR FILTRATION RATE 42.8 (>35); GLUCOSE, FASTING 151 MG/DL (70-100); MAGNESIUM LEVEL 2.4 MG/DL (1.8-2.4); SODIUM LEVEL 134 MEQ/L (136-145); TOTAL PROTEIN 5.7 GM/DL (6.4-8.2)
[2020-07-14 06:00] VITALS: BP 158/76
[2020-07-14 08:00] VITALS: BP 160/83
[2020-07-14] MEDS: dexameTHASONE 4 MG/ML 1ML VIAL (J1100 PER 1MG) IV SCH (08:39)
[2020-07-14] MEDS: APIXABAN 2.5 MG TAB (ELIQUIS) PO SCH (08:40)
[2020-07-14] MEDS: TAMSULOSIN 0.4 MG CAP PO SCH (08:40)
[2020-07-14] MEDS: GABAPENTIN 300 MG CAP PO SCH (08:40)
[2020-07-14] MEDS ORDERED: ASPIRIN 81 MG ENTERIC TAB PO SCH (09:00)
[2020-07-14] MEDS ORDERED: FINASTERIDE 5 MG TAB PO SCH (09:00)
[2020-07-14] MEDS ORDERED: MULTIVITAMINS/MINERALS THERAP 1 TAB PO SCH (09:00)
[2020-07-14] MEDS ORDERED: bisoproloL fumarate 5 MG TAB PO SCH (10:00)
[2020-07-14] MEDS ORDERED: PILL CUTTER 1 EACH XX PRN (10:00)
[2020-07-14 10:17] VITALS: BP 149/74
[2020-07-14] MEDS ORDERED: PRED20TA PO (10:25)
[2020-07-14] MEDS ORDERED: COMBAER6 INH (10:25)
[2020-07-14] MEDS ORDERED: BISO5TAB14 PO (10:25)
--- NOTE | 2020-07-14 10:37 | DS.PDOC ---
Discharge Summary General Date of Admission Jul 13, 2020 at 16:25 Date of Discharge 07/14/19 Discharge Summary PROCEDURES PERFORMED DURING STAY: [None]. ADMITTING DIAGNOSES: atrial fibrillation with RVR TOMMY on CKD III Covid-19 infection DISCHARGE DIAGNOSES: atrial fibrillation with RVR TOMMY on CKD III Covid-19 infection COMPLICATIONS/CHIEF COMPLAINT: Covid-19. HISTORY OF PRESENT ILLNESS: Claire Gates is an 80-year-old patient of Dr. España. He said he was treated by [facility] with erythromycin and prednisone this week for increasing shortness of breath, presented to the emergency room with worsening shortness of breath, was found to be COVID positive. He also was in atrial fibrillation with rapid ventricular response and [id number]-er-[id number] renal failure. He is being admitted for the treatment of this. He has COPD and is followed by [facility]. He also sees [facility] for paroxysmal atrial fibrillation. The last note from [facility] we have in our office chart is from 08/13/2019. At that time, he had an FEV of 101.72 and FEV1/FVC ratio of 58%, no change from previous spirometry noted. His other past medical history shows hypertensive heart disease, chronic kidney disease, stage 3, peripheral arterial disease, hyperlipidemia, history of carotid artery aneurysm for a history of neuropathy listed as "hereditary and idiopathic," history of adenomatous colon polyps, abdominal aortic aneurysm for which he is followed by cardiology. He had a pulmonary nodule that was being followed for a while as well. HOSPITAL COURSE: Patient converted to sinus rhythm after administration of digoxin. He continued to saturate above 95% on RA and did not drop below 93% on ambulation with RA by physical therapy. His bisoprolol was increased to 7.5 mg PO daily. TOMMY resolved with IVF and his Cr was at baseline. 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 A 7 day course of predisone was prescribed on DC. DISCHARGE MEDICATIONS: Please see below. ALLERGIES: Please see below. PHYSICAL EXAMINATION ON DISCHARGE: VITAL SIGNS: Please see below. General: NAD, comfortable HEENT: PERRLA, EOMI, sclerae clear Neck: supple, normal ROM, no JVD Respiratory: lungs CTAB, no wheeze, no rales, no crackles CVS: RRR, normal S1, S2, no murmurs Abdo: soft, no masses, no hepatosplenomegaly, BS+, no rebound tenderness Extremities: no edema, pulses 2+ MSK: no joint deformities, normal ROM Neuro: no focal neuro deficits, moving all 4 extremities, CN2-12 intact. Strength 5/5 in all 4 extremities. No nystagmus. Psych: calm, cooperative, AAO x 3 LABORATORY DATA: Please see below. IMAGING: CXR (07/13/20): The technique utilized in obtaining the radiograph has magnified the cardiac silhouette and accentuated the interstitial markings. The superior mediastinal structures are midline. The cardiac silhouette is unremarkable in size, shape, and position. The diaphragmatic surfaces of the lungs are regular, and the costophrenic angles are clear. The pulmonary nelson are unchanged allowing for the differences in technical factors between the exams. Fibrotic changes are noted status quo. The imaged osseous structures are intact. IMPRESSION: Stable appearing chronic changes CT chest wo contrast (07/13/20): Lungs: Pulmonary vascular/interstitial pattern does not suggest active pulmonary edema. No focal air space process. No central endobronchial lesion. Apical predominant centrilobular emphysema, moderately severe. Right apical noncalcified 6 mm nodule, axial image 16. This was not present on the prior CT from 2018. No other focal lung lesion. Mild subpleural pulmonary fibrosis most significant in the posterior right lung base. Pleural space: No pleural effusion or pneumothorax. Heart: No overt cardiac enlargement or abnormal volume of pericardial fluid. Aorta: No abnormal dilatation of the thoracic aorta. Mild ectasia and atherosclerotic change Great vessels off aortic arch: Atherosclerotic calcifications in the coronary vessels. Lymph nodes: No enlarged mediastinal lymph nodes. Liver: 13 mm left lobe hepatic cyst with peripheral calcification, likely benign. Adrenals: Adrenal glands are normal in appearance. Bones/joints: Bony structures show no acute fracture or destructive process. Soft tissues: No asymmetric abnormality of the extrathoracic soft tissues. Other findings: Limited evaluation without IV contrast. IMPRESSION: 1. No explanation for acute shortness of breath in a patient with moderately severe diffuse centrilobular emphysema. 2. Noncalcified 6 mm right apical lung nodule not present in November 2017. This could represent an early neoplasm or a postinflammatory nodule. Fleischner society recommendations for followup and management of nodules smaller than 8 mm detected incidentally on screening CT: Less than or equal to 4 mm: Low risk patients- no followup needed. High risk patients- followup in 12 months. If no change, no further imaging needed. 4-6 mm nodule: Low risk patients- followup in 12 months. If no change, no further imaging needed. High risk patients- initial followup CT at 6-12 months and then at 18-24 months if no change. PROGNOSIS: good ACTIVITY: [As tolerated]. DIET: 2g sodium DISCHARGE PLAN: DC home with 7 day course of prednisone. No abx as no co nsolidation seen on imaging, no fever, no WBC and no cough. Follow up with PCP 3-5 days. Follow up with cardiology 1-2 weeks. Increased bisoprolol to 7./5 mg daily. Hold lisinopril given TOMMY on admission. Resume inhalers, given Rx for combivent. Daughter lives nearby. DISPOSITION: Home DISCHARGE INSTRUCTIONS: . Please follow-up with your primary care doctor within 3-5 days . Please follow-up with cardiology within 1-2 weeks . Please follow-up with pulmonology within 1-2 weeks . Please taking medications as prescribed. . If you develop bleeding, chest pain, shortness of breath, seizures, nausea, fevers, or otherwise worsening of your symptoms, please call 911 or return to the nearest emergency room ITEMS TO FOLLOWUP ON ON OUTPATIENT: Repeat CT chest in 6-12 months to assess 6 mm R apical lung nodule, new from Nov 2017. Recommend repeat ECHO on outpatient basis. DISCHARGE CONDITION: [Stable]. TIME SPENT ON DISCHARGE: 35 minutes Vital Signs/I&Os Vital Signs Date Time Temp Pulse Resp B/P (MAP) Pulse Ox O2 Delivery O2 Flow Rate FiO2 07/14/20 10:17 77 149/74 07/14/20 08:00 97.3 20 98 Nasal Cannula 1.0 I&O- Last 24 Hours up to 6 AM 07/14/20 06:00 Intake Total 1970 ml Output Total 750 ml Balance 1220 ml Laboratory Data Labs 24H Laboratory Tests 2 07/13/20 13:06: Immature Granulocyte % (Auto) 1.3, Neutrophils (%) (Auto) 84.4H, Lymphocytes (%) (Auto) 8.9L, Monocytes (%) (Auto) 5.2H, Eosinophils (%) (Auto) 0.0, Basophils (%) (Auto) 0.2, Neutrophils # (Auto) 7.3, Lymphocytes # (Auto) 0.8L, Monocytes # (Auto) 0.5, Eosinophils # (Auto) 0.0, Basophils # (Auto) 0.0, Nucleated Red Blood Cells % (auto) 0.0, Prothrombin Time 14.6H, Prothromb Time International Ratio 1.12, Activated Partial Thromboplast Time 40.6H, Fibrinogen 394, D-Dimer, Quantitative 784.21H, Anion Gap 12, Glomerular Filtration Rate 29.1L, Calcium Level 8.6L, Total Bilirubin 0.3, Direct Bilirubin 0.1, Aspartate Amino Transf (AST/SGOT) 19, Alanine Aminotransferase (ALT/SGPT) 30, Alkaline Phosphatase 81, Total Creatine Kinase 79, Creatine Kinase MB 2.4, Creatine Kinase MB Relative Index 3.04, Troponin I < 0.02, IT-Leu-P-Type Natriuretic Peptide 8340H, Total Protein 6.5, Albumin 3.2, Albumin/Globulin Ratio 1.0, Lipase 118 07/13/20 15:39: Erythrocyte Sedimentation Rate 13, Lactic Acid Level 2.3*H, Ferritin 122, Lactate Dehydrogenase 156, C-Reactive Protein, Quantitative 1.51H 07/13/20 15:40: Blood Gas Bicarbonate Standard 23.7, Venous Blood pH 7.360, Venous Blood Partial Pressure CO2 46.5, Venous Blood Partial Pressure O2 38.8, Venous Blood Total Carbon Dioxide 27.1, Venous Blood HCO3 25.7, Venous Blood Oxygen Saturation 72.5, Venous Blood Base Excess -0.2 07/13/20 20:05: Lactic Acid Followup at 4 Hours 3.8*H 07/14/20 04:09: Immature Granulocyte % (Auto) 1.7, Neutrophils (%) (Auto) 75.8H, Lymphocytes (%) (Auto) 11.7L, Monocytes (%) (Auto) 10.3H, Eosinophils (%) (Auto) 0.0, Basophils (%) (Auto) 0.5, Neutrophils # (Auto) 3.1, Lymphocytes # (Auto) 0.5L, Monocytes # (Auto) 0.4, Eosinophils # (Auto) 0.0, Basophils # (Auto) 0.0, Nucleated Red Blood Cells % (auto) 0.0, Anion Gap 5L, Glomerular Filtration Rate 42.8, Calcium Level 8.1L, Magnesium Level 2.4, Total Bilirubin 0.1#L, Direct Bilirubin 0.1, Aspartate Amino Transf (AST/SGOT) 15, Alanine Aminotransferase (ALT/SGPT) 31, Alkaline Phosphatase 68, Total Protein 5.7L, Albumin 2.6L, Albumin/Globulin Ratio 0.8 07/14/20 08:27: Lactic Acid Level 1.8 CBC/BMP Laboratory Tests 07/13/20 13:06 07/14/20 04:09 Microbiology Microbiology 07/13/20 Blood Culture, Received Pending 07/13/20 Blood Culture, Received Pending 07/13/20 Respiratory Virus Panel (PCR) ([facility]) - Final, Complete SARS-CoV-2 (COVID 19) Discharge Medications Scheduled Apixaban (Eliquis) 2.5 Mg Tab, 2.5 MG PO BID, (Reported) Aspirin (Aspirin EC) 81 Mg Tab, 81 MG PO Q2D, (Reported) Atorvastatin Calcium (Atorvastatin Calcium) 40 Mg Tab, 40 MG PO QHS, (Reported) Bisoprolol Fumarate (Bisoprolol Fumarate) 5 Mg Tablet, 7.5 MG PO DAILY Finasteride (Finasteride) 5 Mg Tablet, 5 MG PO DAILY, (Reported) Furosemide (Furosemide) 40 Mg Tab, 40 MG PO DAILY, (Reported) TAKES @ 1400 Gabapentin (Gabapentin) 300 Mg Cap, 300 MG PO BID, (Reported) Glucosa Martinez 2Kcl/Chondroitin Martinez (Glucosamine & Chondroitin Cap) 1 Each Capsule, 1 EACH PO QHS, (Reported) Loratadine (Loratadine) 10 Mg Tab, 10 MG PO DAILY, (Reported) Montelukast Sodium (Montelukast Sodium) 10 Mg Tab, 10 MG PO QHS, (Reported) Multivitamins (Thera M Plus Tablet) 1 Tab Tab, 1 TAB PO DAILY, (Reported) Prednisone (Prednisone) 20 Mg Tablet, 1 TAB PO DAILY Salmeterol/Fluticasone (Advair 500-50 Diskus) 28 Puff/Inhaler Aerp, 1 PUFF INH BID, (Reported) Tamsulosin Hcl (Tamsulosin HCl) 0.4 Mg Capsule, 0.4 MG PO BID, (Reported) Scheduled PRN Diphenhydramine HCl (Benadryl) 25 Mg Cap, 25 MG PO QHS PRN for SLEEP, (Reported) Fluticasone Propionate (Flonase Allergy Relief) 50 Mcg/Act Spr, 1 SPRAY NA BID PRN for CONGESTION, (Reported) Ipratropium/Albuterol Sulfate (Iprat-Albut 0.5-3(2.5) mg/3 ml) 1 Elena Elena, 1 ELENA INH Q4H PRN for SHORTNESS OF BREATH, (Reported) Ipratropium/Albuterol Sulfate (Combivent Respimat 20-100 Mcg) 4 Gm Mist.inhal, 1 PUFF INH QID PRN for DYSPNEA Allergies Coded Allergies: Penicillins (Verified Allergy, Mild, RASH, THROAT CLOSES, 05/27/20) Sulfa (Sulfonamide Antibiotics) (Verified Allergy, Mild, HIVES, 05/27/20) cefoxitin (Verified Allergy, Mild, HIVES, 05/27/20) naproxen (Verified Allergy, Mild, RASH, 05/27/20) ciprofloxacin (Verified Allergy, Unknown, HIVES, 05/27/20) milk (Unverified Allergy, Unknown, 05/27/20) JAN GONSALEZ MD Jul 14, 2020 10:37
[2020-07-14] MEDS ORDERED: MIRALAX *UNIT DOSE* 17GM PACKET PO ONE (11:00)
[2020-07-14 11:15] LABS: TROPONIN I < 0.02 NG/ML (< 0.10)
--- NOTE | 2020-07-14 13:46 | HPE ---
HISTORY AND PHYSICAL DATE OF ADMISSION: 07/13/2020 PRIMARY CARE PROVIDER: Jonnie Galloway MD PLATE CUTTER: Parag Lu MD CHIEF COMPLAINT: Shortness of breath. HISTORY: Claire Gates is an 80-year-old patient of Dr. España. He said he was treated by [facility] with erythromycin and prednisone this week for increasing shortness of breath, presented to the emergency room with worsening shortness of breath, was found to be COVID positive. He also was in atrial fibrillation with rapid ventricular response and [id number] renal failure. He is being admitted for the treatment of this. He has COPD and is followed by [facility]. He also sees [facility] for paroxysmal atrial fibrillation. The last note from [facility] we have in our office chart is from 08/13/2019. At that time, he had an FEV of 101.72 and FEV1/FVC ratio of 58%, no change from previous spirometry noted. His other past medical history shows hypertensive heart disease, chronic kidney disease, stage 3, peripheral arterial disease, hyperlipidemia, history of carotid artery aneurysm for a history of neuropathy listed as "hereditary and idiopathic," history of adenomatous colon polyps, abdominal aortic aneurysm for which he is followed by cardiology. He had a pulmonary nodule that was being followed for a while as well. SURGICAL HISTORY: 1. Discectomy, L5-S1. 2. Appendectomy. 3. ACL repair. 4. Ulnar nerve transposition bilaterally. 5. Subclavian artery bypass. 6. L3-4 fusion, laminectomy. 7. Colonoscopy in 2009. 8. Rotator cuff surgery on the left. 9. Bilateral cataract extractions in 2014. 10. Myringotomy, 2014. 11. Right rotator cuff repair, 2016. FAMILY HISTORY: Father of heart disease and stroke. Mother had colon cancer. Sister has type 2 diabetes and hypertension. Son of alcoholism at 51. REVIEW OF SYSTEMS: No epistaxis, rectal bleeding or urinary bleeding. He is increasingly short of breath with cough, chest congestion and dyspnea on exertion. MEDICATIONS: Home medicines are: 1. Flonase spray. 2. Albuterol inhaler. 3. Aspirin 81 mg daily. 4. Advair 500/50 inhalation q.12 hours. 5. Claritin 10 mg daily. 6. Tylenol as needed. 7. DuoNeb as needed. 8. O2 two liters at bedtime. 9. Neurontin 300 mg t.i.d. 10. Bisoprolol 5 mg daily. 11. Eliquis 2.5 mg b.i.d. 12. Finasteride 5 mg daily. 13. Tamsulosin 0.4 mg daily. 14. Atorvastatin 40 mg daily. 15. Lisinopril 10 mg daily. 16. Singulair 10 mg daily. 17. Lasix 40 mg daily. ALLERGIES: PENICILLIN CAUSED RASH AND SHORTNESS OF BREATH, MEFOXIN CAUSED A RASH, CIPRO CAUSED A RASH, CEFTIN CAUSED A RASH, INCRUSE ELLIPTA CAUSED FULLNESS OF HIS UPPER CHEST LEADING TO ITS DISCONTINUATION. PHYSICAL EXAMINATION: Vital signs: Blood pressure 99/57, pulse of 120, O2 saturation 93% on two liters, afebrile, 97.2 degrees. General Appearance: Alert, conversant, no distress. He is complaining of dyspnea but looking in no distress. HEENT: Unremarkable. Lungs: Decreased breath sounds. Heart: Regular rate and rhythm, tachycardic. Abdomen: Soft, distended, good bowel sounds (no bowel movements for several days). No ascites. Extremities: 1+ peripheral edema, no clubbing or cyanosis. JVD is present. Decreased pulses, both feet but still palpable. He moves arms and legs with equal strength. Chest x-ray showed fibrosis, no acute changes. LABORATORY DATA: Sodium 132, potassium 4.5, BUN 39, creatinine 2.3 (baseline creatinine is around 1.5). Blood sugar was 177. Troponin undetectable. BNP 8340. White count 8.6, hemoglobin 13.8, platelets 294. IMPRESSION: 1. COVID infection with shortness of breath. He will be admitted to the ICU bed. Case was discussed with Dr. Angel, pulmonary consultation placed. Begin Decadron and remdesivir, supplemental oxygen as needed. 2. Atrial fibrillation, rapid ventricular response. His blood pressure is under 100 systolic. He has received on dose of digoxin and I have ordered another dose of digoxin. He received some gentle hydration in the emergency room which we will discontinue. 3. Hypertensive heart disease. His blood pressure is low and we are holding his antihypertensives. 4. Hyperlipidemia. He continues the current dose of atorvastatin. 5. BPH. Continue finasteride and tamsulosin, early ambulation to avoid urinary retention advised. 6. Neuropathy. Continue his Neurontin 300 mg t.i.d. 7. Peripheral arterial disease. Continue his statin and aspirin 81 mg daily. 8. DVT prophylaxis will be provided by the Eliquis which we will continue.
[2020-07-14] MEDS ORDERED: REMDESIVIR 100 MG in NS 250 ML IV SCH (18:00)
[2020-07-14] MEDS ORDERED: SODIUM CHLORIDE 0.9% INJ 10 ML SYR IV SCH (19:00)
== END 2020-07-14 13:27 | disposition home health service (06) | DRG 308 ==
LOC: M ED 12:52 → M ED INP 16:25 → M ICU 18:07
PROVIDERS: ADMIT Family Medicine; ATTEND Family Medicine
DX: I48.0 Paroxysmal atrial fibrillation (principal); U07.1 COVID-19; N17.9 Acute kidney failure, unspecified; N18.30 Chronic kidney disease, stage 3 unspecified; R91.1 Solitary pulmonary nodule; Z79.82 Long term (current) use of aspirin; Z79.899 Other long term (current) drug therapy; Z88.0 Allergy status to penicillin; Z88.2 Allergy status to sulfonamides; Z88.8 Allergy status to other drugs, medicaments and biological substances; Z91.011 Allergy to milk products; E11.40 Type 2 diabetes mellitus with diabetic neuropathy, unspecified; E78.5 Hyperlipidemia, unspecified; Z79.01 Long term (current) use of anticoagulants

== ENCOUNTER → 2020-07-29 | Outpatient (CLI) | payer MEDICARE, OTHER ==
[~2020-07-29] MED LIST changes: +AZIT500T5 PO; +COMBAER6 INH; +GLUC500C37 PO; +TAMS1CAP17 PO
--- NOTE | 2020-07-29 16:46 | REPPI ---
INDICATION: COPD COMPARISON: Radiographs 07/13/2020 and 10/09/2017. CT 07/13/2020. TECHNIQUE: PA/Lateral FINDINGS: Lungs: There is mild stable chronic fibrotic change in the lung bases. There is mild elevation of left hemidiaphragm. Vague subcentimeter nodular density in the right apex likely corresponds to the subcentimeter nodular density seen on the recent CT scan. Metallic clips again project over the left apex. Heart: Normal in size. Mediastinum: Mediastinal silhouette unremarkable. Pleural angles: Unremarkable.. Bones and soft tissues: Unremarkable. IMPRESSION: No acute pulmonary disease. Stable chronic changes. <Electronically signed by Edgar Garcia > 07/29/20 [id number]
== END ==
LOC: M PLAIMG 13:55
PROVIDERS: ATTEND Internal Medicine
DX: J44.9 Chronic obstructive pulmonary disease, unspecified (principal)
CPT/HCPCS: 71046; G0463

== ENCOUNTER → 2020-08-06 | Outpatient (REF) | payer MEDICARE, OTHER ==
[2020-08-06 11:29] LABS: CALCIUM LEVEL 8.4 MG/DL (8.8-10.2); CREATININE FOR GFR 1.67 MG/DL (0.70-1.30); GLOMERULAR FILTRATION RATE 42.2 (>35); POTASSIUM SERUM 4.2 MEQ/L (3.5-5.1)
== END ==
LOC: M SHH 09:51
PROVIDERS: ATTEND Physician Assistant
DX: R06.02 Shortness of breath (principal)

== ENCOUNTER → 2020-09-04 | Outpatient (CLI) | payer MEDICARE, OTHER ==
--- NOTE | 2020-09-04 17:59 | REP ---
INDICATION: AAA W/O RUPTURE COMPARISON: Comparison CT study abdomen and pelvis October 11, 2017. TECHNIQUE: Helical scanning is acquired in 4 mm axial images were reformatted. Coronal and sagittal MPR images were generated and reviewed. 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 Bowel gas pattern is unremarkable. On axial CT images, the lung bases are essentially clear. Mild linear fibrosis is noted in the left lower lobe. There is no evidence of pleural effusion or upper abdominal ascites. The liver and the spleen are normal in size homogeneous in texture. There is no abnormality noted in the gallbladder. There is a partially calcified cyst in the left lobe of the liver. This is unchanged although the calcification is new. No hepatic mass lesion is seen. Normal adrenal glands are observed. No abnormality is noted in the pancreas. Kidneys are somewhat atrophic as before without hydronephrosis or mass. Vascular calcifications noted. The distal thoracic descending aorta measures 3.2 cm AP x 3.3 cm right to left. Just below the takeoff of the SMA, aortic dimensions are 2.4 x 2.7 cm AP by transverse respectively. There is an abdominal aortic aneurysm arising at the takeoff of the renal arteries. This measures 4.2 cm in anteroposterior dimension by 5.1 cm right to left. It has a somewhat saccular configuration and 4.2 cm craniocaudal length. Vascular calcification is seen in the normal caliber distal aorta. The common iliac arteries and internal and external iliac arteries are not aneurysmal. There are fairly heavily calcified. No evidence of retroperitoneal hematoma. There is left colonic diverticulosis without CT evidence of diverticulitis. No abdominal wall defect is seen. Bone window settings show no bony destructive lesion. Screw linh fixation is seen bilaterally in place at L4-5. IMPRESSION: Abdominal aortic aneurysm arising at the takeoff of the renal arteries measuring 5.1 cm in greatest transverse by 4.2 cm in greatest anteroposterior dimension. The aneurysm is felt to be unchanged from the October 11, 2017 prior study <Electronically signed by Michael Wu > 09/04/20 [id number]
== END ==
LOC: M RAD 17:00
PROVIDERS: ATTEND Surgery Vascular Surgery
DX: I71.4 Abdominal aortic aneurysm, without rupture (principal)

== ENCOUNTER 2020-09-21 14:02 | Emergency (ER) | payer MEDICARE, OTHER ==
[~2020-09-21] VITALS: Ht 185.4 cm; Wt 97.3 kg
[2020-09-21 15:28] LABS: HEMATOCRIT 37.8 % (42.0-52.0); HEMOGLOBIN 12.3 g/dl (13.5-17.5); MEAN CORPUSCULAR HEMOGLOBIN 31.6 pg (27.0-33.0); MEAN CORPUSCULAR HGB CONC 32.5 g/dl (32.0-36.5); MEAN CORPUSCULAR VOLUME 97.2 fl (80.0-96.0); PLATELET COUNT, AUTOMATED 233 10^3/uL (150-450); RED BLOOD COUNT 3.89 10^6/uL (4.30-6.10); WHITE BLOOD COUNT 12.2 10^3/uL (4.0-10.0)
[2020-09-21 15:51] LABS: CALCIUM LEVEL 8.2 MG/DL (8.8-10.2); CREATININE FOR GFR 1.98 MG/DL (0.70-1.30); GLOMERULAR FILTRATION RATE 34.7 (>35); POTASSIUM SERUM 4.6 MEQ/L (3.5-5.1)
[2020-09-21] MEDS ORDERED: cefTRIAXone SOD 1 GM in D5W MINI-BAG PLUS 50 ML IV ONE (16:20)
[2020-09-21] MEDS ORDERED: LIDOCAINE 1% SDV 5ML VIAL DILUENT ONE (16:25)
[2020-09-21] MEDS ORDERED: cefTRIAXone SOD 1GM VIAL (J0696 PER 250MG) IM ONE (16:25)
[2020-09-21] MEDS ORDERED: CEPH500C PO (16:35)
[2020-09-21 17:16] VITALS: BP 160/82
== END 2020-09-21 17:24 | disposition home or self-care (01) ==
LOC: M ED 14:02
DX: N39.0 Urinary tract infection, site not specified (principal); H66.90 Otitis media, unspecified, unspecified ear; I51.9 Heart disease, unspecified; I10 Essential (primary) hypertension; Z79.01 Long term (current) use of anticoagulants; Z79.82 Long term (current) use of aspirin; Z79.899 Other long term (current) drug therapy; Z91.011 Allergy to milk products; Z88.0 Allergy status to penicillin; Z88.2 Allergy status to sulfonamides; Z88.1 Allergy status to other antibiotic agents; Z88.6 Allergy status to analgesic agent
CPT/HCPCS: 36415; 80048; 81001; 85027; 87088; 87186; 96372; 99284; J0696

== ENCOUNTER → 2020-11-26 | Outpatient (REF) | payer MEDICARE, OTHER ==
[~2020-11-26] MED LIST changes: +CEPH500C PO
[2020-11-26 15:27] LABS: BASO # 0.1 10^3/uL (0.0-0.2); EOS # 0.1 10^3/uL (0.0-0.5); LYMPH # 1.6 10^3/uL (1.5-5.0); LYMPH % 19.7 % (24.0-44.0); MEAN CORPUSCULAR HEMOGLOBIN 30.4 pg (27.0-33.0); MEAN CORPUSCULAR HGB CONC 32.6 g/dl (32.0-36.5); MEAN CORPUSCULAR VOLUME 93.3 fl (80.0-96.0); MONO # 0.9 10^3/uL (0.0-0.8); MONO % 11.2 % (2.0-8.0); NEUTROPHILS # 5.2 10^3/uL (1.5-8.5); NEUTROPHILS % 66.7 % (36.0-66.0); PLATELET COUNT, AUTOMATED 249 10^3/uL (150-450); RED BLOOD COUNT 4.61 10^6/uL (4.30-6.10); WHITE BLOOD COUNT 7.9 10^3/uL (4.0-10.0)
[2020-11-26 19:01] LABS: ALBUMIN 3.3 GM/DL (3.2-5.2); ALT/SGPT 29 U/L (12-78); BILIRUBIN,TOTAL 0.3 MG/DL (0.2-1.0); BLOOD UREA NITROGEN 26 MG/DL (7-18); CALCIUM LEVEL 9.2 MG/DL (8.8-10.2); CARBON DIOXIDE LEVEL 28 MEQ/L (21-32); CHLORIDE LEVEL 104 MEQ/L (98-107); CHOLESTEROL LEVEL 142 MG/DL (<200); CHOLESTEROL RISK RATIO 2.679 (<5); CREATININE FOR GFR 1.64 MG/DL (0.70-1.30); GLOMERULAR FILTRATION RATE 43.1 (>35); GLUCOSE, FASTING 105 MG/DL (70-100); HDL CHOLESTEROL 53 MG/DL (>40); LDL CHOLESTEROL 62 MG/DL (<100); MAGNESIUM LEVEL 2.4 MG/DL (1.8-2.4); NON-HDL-C 89 MG/DL; POTASSIUM SERUM 4.1 MEQ/L (3.5-5.1); PTH INTACT 55.4 PG/ML (18.5-88.0); SODIUM LEVEL 142 MEQ/L (136-145); TOTAL PROTEIN 6.3 GM/DL (6.4-8.2); TRIGLYCERIDES LEVEL 135 MG/DL (<150)
== END ==
LOC: M PLALAB 12:35
PROVIDERS: ATTEND Internal Medicine
DX: J44.9 Chronic obstructive pulmonary disease, unspecified (principal); I12.9 Hypertensive chronic kidney disease with stage 1 through stage 4 chronic kidney disease, or unspecified chronic kidney disease; E78.00 Pure hypercholesterolemia, unspecified; N18.30 Chronic kidney disease, stage 3 unspecified; Z11.59 Encounter for screening for other viral diseases
CPT/HCPCS: 36415; 80053; 80061; 83735; 83970; 85025; G0472

== ENCOUNTER → 2021-03-14 | Outpatient (CLI) | payer MEDICARE, OTHER ==
[~2021-03-14] MED LIST changes: -DOXY100C37 PO; +DOXY1CAP62 PO
== END ==
LOC: M LABSMTC 09:46
PROVIDERS: ATTEND Pediatrics
DX: Z20.822 Contact with and (suspected) exposure to COVID-19 (principal)
CPT/HCPCS: C9803; U0003

== ENCOUNTER → 2021-05-12 | Outpatient (CLI) | payer MEDICARE, OTHER ==
[~2021-05-12] MED LIST changes: +DOXY-443 PO; -DOXY1CAP62 PO
[2021-05-12 13:47] LABS: BASO # 0.1 10^3/uL (0.0-0.2); BASO % 1.1 % (0.0-1.0); EOS # 0.1 10^3/uL (0.0-0.5); EOS % 1.6 % (0.0-3.0); HEMATOCRIT 42.7 % (42.0-52.0); HEMOGLOBIN 13.9 g/dl (13.5-17.5); LYMPH # 1.4 10^3/uL (1.5-5.0); LYMPH % 21.9 % (24.0-44.0); MEAN CORPUSCULAR HGB CONC 32.6 g/dl (32.0-36.5); MEAN CORPUSCULAR VOLUME 95.3 fl (80.0-96.0); MONO # 0.8 10^3/uL (0.0-0.8); MONO % 13.3 % (2.0-8.0); NEUTROPHILS # 3.8 10^3/uL (1.5-8.5); NEUTROPHILS % 61.5 % (36.0-66.0); PLATELET COUNT, AUTOMATED 222 10^3/uL (150-450); RED BLOOD COUNT 4.48 10^6/uL (4.30-6.10); WHITE BLOOD COUNT 6.2 10^3/uL (4.0-10.0)
[2021-05-12 14:13] LABS: ALBUMIN 3.4 GM/DL (3.2-5.2); BILIRUBIN,TOTAL 0.6 MG/DL (0.2-1.0); CALCIUM LEVEL 8.8 MG/DL (8.8-10.2); CREATININE FOR GFR 1.67 MG/DL (0.70-1.30); GLOMERULAR FILTRATION RATE 42.1 (>35); MAGNESIUM LEVEL 2.5 MG/DL (1.8-2.4); POTASSIUM SERUM 4.4 MEQ/L (3.5-5.1); TOTAL PROTEIN 6.5 GM/DL (6.4-8.2)
[2021-05-12 14:33] LABS: PTH INTACT 127.5 PG/ML (18.5-88.0)
== END ==
LOC: M PLALAB 09:58
PROVIDERS: ATTEND Internal Medicine
DX: I12.9 Hypertensive chronic kidney disease with stage 1 through stage 4 chronic kidney disease, or unspecified chronic kidney disease (principal); J45.909 Unspecified asthma, uncomplicated

== ENCOUNTER → 2021-05-28 | Outpatient (CLI) | payer MEDICARE, OTHER ==
--- NOTE | 2021-05-28 09:57 | REP ---
INDICATION: AAA COMPARISON: None. TECHNIQUE: Real time jennings scale ultrasound examination using curved array transducer. FINDINGS: Evaluation is limited by body habitus as well as overlying bowel gas and associated technical factors. There appears to be a mid to distal abdominal aortic aneurysm measuring roughly 4.8 x 5.8 cm diameter and approximately 6 cm in craniocaudal length. Proximal aorta: 3.0 x 3.0 cm Aorta at renal arteries: Incompletely visualized Mid aorta: 4.8 x 5.8 cm Distal aorta: Incompletely visualized Right common iliac artery: Not visualized Left common iliac artery: Not visualized IMPRESSION: Limited examination incompletely demonstrating abdominal aortic aneurysm. Consider contrast-enhanced CT of the abdomen and pelvis for further more definitive evaluation if necessary. <Electronically signed by Manpreet Dennis > 05/28/21 [id number]
== END ==
LOC: M RAD 09:00
PROVIDERS: ATTEND Internal Medicine
DX: I71.4 Abdominal aortic aneurysm, without rupture (principal)

== ENCOUNTER → 2021-11-18 | Outpatient (CLI) | payer MEDICARE, OTHER ==
[~2021-11-18] MED LIST changes: -CEFD1CAP8 PO; +CEFD300C41 PO; -MONT10TA10 PO; +MONT10TA97 PO
[2021-11-18 13:40] LABS: BASO # 0.1 10^3/uL (0.0-0.2); EOS # 0.1 10^3/uL (0.0-0.5); EOS % 1.2 % (0.0-3.0); HEMATOCRIT 43.9 % (42.0-52.0); HEMOGLOBIN 14.1 g/dl (13.5-17.5); LYMPH # 1.5 10^3/uL (1.5-5.0); LYMPH % 24.5 % (24.0-44.0); MEAN CORPUSCULAR HEMOGLOBIN 30.9 pg (27.0-33.0); MEAN CORPUSCULAR HGB CONC 32.1 g/dl (32.0-36.5); MEAN CORPUSCULAR VOLUME 96.3 fl (80.0-96.0); MONO # 0.8 10^3/uL (0.0-0.8); MONO % 13.2 % (2.0-8.0); NEUTROPHILS # 3.6 10^3/uL (1.5-8.5); NEUTROPHILS % 59.4 % (36.0-66.0); PLATELET COUNT, AUTOMATED 231 10^3/uL (150-450); RED BLOOD COUNT 4.56 10^6/uL (4.30-6.10); WHITE BLOOD COUNT 6.1 10^3/uL (4.0-10.0)
[2021-11-18 14:09] LABS: ALBUMIN 3.3 GM/DL (3.2-5.2); BILIRUBIN,TOTAL 0.6 MG/DL (0.2-1.0); CALCIUM LEVEL 8.7 MG/DL (8.8-10.2); CHOLESTEROL RISK RATIO 2.72 (<5); CREATININE FOR GFR 1.83 MG/DL (0.70-1.30); GLOMERULAR FILTRATION RATE 37.9 (>35); MAGNESIUM LEVEL 3.1 MG/DL (1.8-2.4); POTASSIUM SERUM 4.3 MEQ/L (3.5-5.1); PTH INTACT 80.1 PG/ML (18.5-88.0); TOTAL PROTEIN 6.1 GM/DL (6.4-8.2)
== END ==
LOC: M PLALAB 09:59
PROVIDERS: ATTEND Internal Medicine
DX: E78.00 Pure hypercholesterolemia, unspecified (principal); Z86.2 Personal history of diseases of the blood and blood-forming organs and certain disorders involving the immune mechanism; N18.30 Chronic kidney disease, stage 3 unspecified; I12.9 Hypertensive chronic kidney disease with stage 1 through stage 4 chronic kidney disease, or unspecified chronic kidney disease

== ENCOUNTER 2022-01-20 21:38 | Emergency (ER) | payer MEDICARE, OTHER ==
[~2022-01-20] VITALS: Ht 188 cm; Wt 93.2 kg
[2022-01-20] MEDS ORDERED: BUPIVACAINE HCL 0.5% 30ML VIAL SC ONE (22:10)
[2022-01-20] MEDS ORDERED: LIDOCAINE W/EPINEPHRINE 1% 20ML VIAL SC ONE (22:10)
[2022-01-20] MEDS ORDERED: DERMABOND TOPICAL SKIN ADHESIVE TOP ONE (22:35)
[2022-01-20 22:38] LABS: INR 1.04
[2022-01-20 22:39] LABS: PARTIAL THROMBOPLASTIN TIME 48.5 SECONDS (25.9-37.0)
[2022-01-20 22:55] LABS: BASO # 0.1 10^3/uL (0.0-0.2); BASO % 0.6 % (0.0-1.0); EOS # 0.2 10^3/uL (0.0-0.5); HEMATOCRIT 40.7 % (42.0-52.0); HEMOGLOBIN 13.5 g/dl (13.5-17.5); LYMPH # 1.8 10^3/uL (1.5-5.0); MEAN CORPUSCULAR HEMOGLOBIN 32.1 pg (27.0-33.0); MEAN CORPUSCULAR HGB CONC 33.2 g/dl (32.0-36.5); MEAN CORPUSCULAR VOLUME 96.7 fl (80.0-96.0); MONO # 1.2 10^3/uL (0.0-0.8); NEUTROPHILS # 6.6 10^3/uL (1.5-8.5); NEUTROPHILS % 66.6 % (36.0-66.0); PLATELET COUNT, AUTOMATED 205 10^3/uL (150-450); RED BLOOD COUNT 4.21 10^6/uL (4.30-6.10); WHITE BLOOD COUNT 9.8 10^3/uL (4.0-10.0)
[2022-01-20 22:56] LABS: CALCIUM LEVEL 8.7 MG/DL (8.8-10.2); CREATININE FOR GFR 1.73 MG/DL (0.70-1.30); ETHYL ALCOHOL (ETHANOL) 0.147 % (0.000-0.010); GLOMERULAR FILTRATION RATE 40.5 (>35); POTASSIUM SERUM 3.6 MEQ/L (3.5-5.1)
[2022-01-21] VITALS: BP 140/74
[2022-01-21] MEDS ORDERED: DERMABOND TOPICAL SKIN ADHESIVE TOP ONE
[2022-01-21] MEDS ORDERED: BOOSTRIX/ADACEL VACCINE (DIPHTH/PERTUSS/ACELL/TETANUS) 0.5ML SYR IM ONE (00:10)
== END 2022-01-21 01:09 | disposition home or self-care (01) ==
LOC: M ED 21:38
DX: S01.112A Laceration without foreign body of left eyelid and periocular area, initial encounter (principal); S81.012A Laceration without foreign body, left knee, initial encounter; S51.019A Laceration without foreign body of unspecified elbow, initial encounter; S61.411A Laceration without foreign body of right hand, initial encounter; W19.XXXA Unspecified fall, initial encounter; F10.10 Alcohol abuse, uncomplicated; I48.91 Unspecified atrial fibrillation; I10 Essential (primary) hypertension; J44.9 Chronic obstructive pulmonary disease, unspecified; R91.1 Solitary pulmonary nodule; M48.02 Spinal stenosis, cervical region; Z79.82 Long term (current) use of aspirin; Z79.01 Long term (current) use of anticoagulants; Z79.899 Other long term (current) drug therapy; Z88.0 Allergy status to penicillin; Z88.2 Allergy status to sulfonamides; Z88.1 Allergy status to other antibiotic agents; Z88.6 Allergy status to analgesic agent; Z88.8 Allergy status to other drugs, medicaments and biological substances

== ENCOUNTER → 2022-02-18 | Outpatient (CLI) | payer MEDICARE, OTHER | LOC: M RAD 10:48 | PROVIDERS: ATTEND Physician Assistant | DX: R55 Syncope and collapse (principal) ==

== ENCOUNTER → 2022-03-09 | Outpatient (CLI) | payer MEDICARE, OTHER | LOC: M CARPUL 12:10 | PROVIDERS: ATTEND Physician Assistant | DX: R55 Syncope and collapse (principal); I08.3 Combined rheumatic disorders of mitral, aortic and tricuspid valves ==

== ENCOUNTER 2022-06-05 23:14 | Inpatient (IN) | payer MEDICARE, OTHER ==
[~2022-06-05] VITALS: Ht 188 cm; Wt 90.9 kg
[~2022-06-05 23:14] MED LIST changes: -DOXY-350 PO; +DOXY-444 PO
[2022-06-05] MEDS ORDERED: IPRATROPIUM 0.5MG/ALBUTEROL 2.5MG INH SOL UD 3ML (DUONEB) NEB ONE (23:50)
[2022-06-06 00:31] LABS: BASO # 0.1 10^3/uL (0.0-0.2); BASO % 0.7 % (0.0-1.0); EOS # 0.1 10^3/uL (0.0-0.5); EOS % 1.1 % (0.0-3.0); HEMATOCRIT 40.5 % (42.0-52.0); HEMOGLOBIN 13.2 g/dl (13.5-17.5); LYMPH # 2.2 10^3/uL (1.5-5.0); LYMPH % 21.5 % (24.0-44.0); MEAN CORPUSCULAR HEMOGLOBIN 30.6 pg (27.0-33.0); MEAN CORPUSCULAR HGB CONC 32.6 g/dl (32.0-36.5); MEAN CORPUSCULAR VOLUME 93.8 fl (80.0-96.0); NEUTROPHILS # 6.8 10^3/uL (1.5-8.5); NEUTROPHILS % 65.7 % (36.0-66.0); PLATELET COUNT, AUTOMATED 233 10^3/uL (150-450); RED BLOOD COUNT 4.32 10^6/uL (4.30-6.10); WHITE BLOOD COUNT 10.4 10^3/uL (4.0-10.0)
[2022-06-06 00:35] LABS: CALCIUM LEVEL 8.2 MG/DL (8.3-10.6); CK-MB VALUE MASS 1.5 NG/ML (<3.6); CREATININE FOR GFR 1.68 MG/DL (0.70-1.30); GLOMERULAR FILTRATION RATE 41.7 (>35); MB/CK RELATIVE INDEX 1.87 (< OR =4); POTASSIUM SERUM 3.5 MMOL/L (3.5-5.1)
[2022-06-06 00:39] LABS: FREE T4 1.45 NG/DL (0.89-1.76); THYROID STIMULATING HORMONE 10.175 uIU/ML (0.55-4.78)
[2022-06-06] MEDS ORDERED: BISO5TAB14 PO (02:06)
[2022-06-06] MEDS ORDERED: HOME MED LIST COMPLETE! XX SCH (02:10)
[2022-06-06 02:35] LABS: RSV AMPLIFICATION NEGATIVE (NEGATIVE)
[2022-06-06] MEDS ORDERED: COMBIVENT RESPIMAT 100-20MCG INHALER 4GM INH PRN (03:00)
[2022-06-06] MEDS ORDERED: FLUTICASONE PROP 0.05% NASAL SPRAY 16 GM (FLONASE) PRN (03:00)
[2022-06-06 03:12] LABS: ETHYL ALCOHOL (ETHANOL) 0.255 % (0.000-0.010)
[2022-06-06] MEDS: ADVAIR HFA 230/21MCG INHALER INH SCH ×2 (08:00→19:44)
[2022-06-06] MEDS: FINASTERIDE 5MG TAB PO SCH (09:27)
[2022-06-06] MEDS: MULTIVITAMINS/MINERALS THERAP 1 TAB PO SCH (09:27)
[2022-06-06] MEDS: LORATADINE 10 MG TAB PO SCH (09:27)
[2022-06-06] MEDS: TAMSULOSIN 0.4 MG CAP PO SCH ×2 (09:27→20:59)
[2022-06-06] MEDS: APIXABAN 2.5 MG TAB (ELIQUIS) PO SCH ×2 (09:27→20:59)
[2022-06-06 10:38] LABS: BASO # 0.1 10^3/uL (0.0-0.2); BASO % 0.6 % (0.0-1.0); EOS # 0.1 10^3/uL (0.0-0.5); HEMATOCRIT 42.9 % (42.0-52.0); HEMOGLOBIN 14.2 g/dl (13.5-17.5); LYMPH # 1.2 10^3/uL (1.5-5.0); LYMPH % 14.4 % (24.0-44.0); MEAN CORPUSCULAR HEMOGLOBIN 30.5 pg (27.0-33.0); MEAN CORPUSCULAR HGB CONC 33.1 g/dl (32.0-36.5); MEAN CORPUSCULAR VOLUME 92.3 fl (80.0-96.0); MONO # 0.7 10^3/uL (0.0-0.8); MONO % 8.9 % (2.0-8.0); NEUTROPHILS % 74.6 % (36.0-66.0); PLATELET COUNT, AUTOMATED 223 10^3/uL (150-450); RED BLOOD COUNT 4.65 10^6/uL (4.30-6.10); WHITE BLOOD COUNT 8.1 10^3/uL (4.0-10.0)
[2022-06-06 11:05] LABS: MAGNESIUM LEVEL 1.8 MG/DL (1.8-2.4)
[2022-06-06 11:07] LABS: CALCIUM LEVEL 8.7 MG/DL (8.3-10.6); CREATININE FOR GFR 1.44 MG/DL (0.70-1.30); GLOMERULAR FILTRATION RATE 49.9 (>35); POTASSIUM SERUM 3.4 MMOL/L (3.5-5.1)
[2022-06-06] MEDS: ATORVASTATIN 20 MG TAB PO SCH (11:57)
[2022-06-06] MEDS: BISOPROLOL FUM 2.5 MG PER 1/2TAB PO SCH (11:58)
[2022-06-06 16:24] LABS: CK-MB VALUE MASS 5.5 NG/ML (<3.6)
[2022-06-06 16:27] LABS: MB/CK RELATIVE INDEX 1.91 (< OR =4)
[2022-06-06] MEDS ORDERED: MONTELUKAST 10 MG TAB PO SCH (21:00)
[2022-06-06 23:37] LABS: MB/CK RELATIVE INDEX 1.59 (< OR =4)
[2022-06-07 06:20] LABS: HEMATOCRIT 39.8 % (42.0-52.0); HEMOGLOBIN 13.6 g/dl (13.5-17.5); MEAN CORPUSCULAR HEMOGLOBIN 31.3 pg (27.0-33.0); MEAN CORPUSCULAR HGB CONC 34.2 g/dl (32.0-36.5); MEAN CORPUSCULAR VOLUME 91.7 fl (80.0-96.0); PLATELET COUNT, AUTOMATED 212 10^3/uL (150-450); RED BLOOD COUNT 4.34 10^6/uL (4.30-6.10); WHITE BLOOD COUNT 7.9 10^3/uL (4.0-10.0)
[2022-06-07 06:55] LABS: FREE T4 1.4 NG/DL (0.89-1.76); THYROID STIMULATING HORMONE 6.058 uIU/ML (0.55-4.78)
[2022-06-07 07:02] LABS: CALCIUM LEVEL 8.4 MG/DL (8.3-10.6); CREATININE FOR GFR 1.31 MG/DL (0.70-1.30); GLOMERULAR FILTRATION RATE 55.6 (>35)
[2022-06-07 07:05] LABS: CK-MB VALUE MASS 2.1 NG/ML (<3.6)
[2022-06-07 07:37] LABS: MB/CK RELATIVE INDEX 1.07 (< OR =4)
[2022-06-07 07:57] VITALS: BP 127/60
[2022-06-07] MEDS: ADVAIR HFA 230/21MCG INHALER INH SCH (08:20)
[2022-06-07] MEDS: FINASTERIDE 5MG TAB PO SCH (09:15)
[2022-06-07] MEDS: TAMSULOSIN 0.4 MG CAP PO SCH (09:15)
[2022-06-07] MEDS: LORATADINE 10 MG TAB PO SCH (09:15)
[2022-06-07] MEDS: APIXABAN 2.5 MG TAB (ELIQUIS) PO SCH (09:15)
[2022-06-07] MEDS: ATORVASTATIN 20 MG TAB PO SCH (09:15)
[2022-06-07] MEDS: MULTIVITAMINS/MINERALS THERAP 1 TAB PO SCH (09:15)
[2022-06-07 09:20] VITALS: BP_SYST 137; BP_SYST 147; BP_SYST 154; BP_DIAS 62; BP_DIAS 63; BP_DIAS 72
[2022-06-07 11:24] VITALS: BP 154/90
[2022-06-07] MEDS: BISOPROLOL FUM 2.5 MG PER 1/2TAB PO SCH (11:24)
[2022-06-07] MEDS ORDERED: ATOR1TAB21 PO (11:46)
== END 2022-06-07 12:31 | disposition home or self-care (01) | DRG 309 ==
LOC: EDBD 23:14 → M ED 23:14 → M ED INP 06-06 09:41
PROVIDERS: ADMIT Family Medicine; ATTEND Family Medicine
DX: I48.0 Paroxysmal atrial fibrillation (principal); E87.1 Hypo-osmolality and hyponatremia; I13.10 Hypertensive heart and chronic kidney disease without heart failure, with stage 1 through stage 4 chronic kidney disease, or unspecified chronic kidney disease; J44.9 Chronic obstructive pulmonary disease, unspecified; N40.0 Benign prostatic hyperplasia without lower urinary tract symptoms; N18.30 Chronic kidney disease, stage 3 unspecified; I73.9 Peripheral vascular disease, unspecified; E78.5 Hyperlipidemia, unspecified; R91.1 Solitary pulmonary nodule; E04.1 Nontoxic single thyroid nodule; I71.40 Abdominal aortic aneurysm, without rupture, unspecified; Z90.49 Acquired absence of other specified parts of digestive tract; Z98.41 Cataract extraction status, right eye; Z98.42 Cataract extraction status, left eye; Z79.01 Long term (current) use of anticoagulants; Z79.899 Other long term (current) drug therapy; Z88.0 Allergy status to penicillin; Z88.1 Allergy status to other antibiotic agents; Z88.2 Allergy status to sulfonamides; Z91.011 Allergy to milk products; S00.03XA Contusion of scalp, initial encounter; W01.0XXA Fall on same level from slipping, tripping and stumbling without subsequent striking against object, initial encounter; Y92.9 Unspecified place or not applicable; I27.20 Pulmonary hypertension, unspecified; Z20.822 Contact with and (suspected) exposure to COVID-19

== ENCOUNTER → 2022-10-25 | Outpatient (CLI) | payer MEDICARE, OTHER ==
[~2022-10-25] MED LIST changes: +ATOR1TAB21 PO
[2022-10-25 18:00] LABS: HEMATOCRIT 42.8 % (42.0-52.0); HEMOGLOBIN 13.9 g/dl (13.5-17.5); MEAN CORPUSCULAR HEMOGLOBIN 30.5 pg (27.0-33.0); MEAN CORPUSCULAR HGB CONC 32.5 g/dl (32.0-36.5); MEAN CORPUSCULAR VOLUME 93.9 fl (80.0-96.0); PLATELET COUNT, AUTOMATED 223 10^3/uL (150-450); RED BLOOD COUNT 4.56 10^6/uL (4.30-6.10); WHITE BLOOD COUNT 6.3 10^3/uL (4.0-10.0)
[2022-10-25 18:25] LABS: CREATININE, URINE 21.4 MG/DL
[2022-10-25 18:31] LABS: FREE T4 1.25 NG/DL (0.89-1.76); HEMOGLOBIN A1c 5.6 % (4.0-6.0); THYROID STIMULATING HORMONE 3.023 uIU/ML (0.55-4.78); TOTAL 25(OH) VITAMIN D 37.5 NG/ML (20.0-100.0)
[2022-10-25 18:32] LABS: ALBUMIN 3.2 G/DL (3.2-5.2); BILIRUBIN,TOTAL 0.5 MG/DL (0.3-1.2); CALCIUM LEVEL 8.5 MG/DL (8.3-10.6); CHOLESTEROL RISK RATIO 2.6 (<5); CREATININE FOR GFR 1.77 MG/DL (0.70-1.30); GLOMERULAR FILTRATION RATE 39.3 (>35); HDL CHOLESTEROL 46.1 MG/DL (>40); LDL CHOLESTEROL 48.9 MG/DL (<100); NON-HDL-C 73.9 MG/DL; PERCENT SATURATION 10.3 % (19.7-50.0); POTASSIUM SERUM 4.9 MMOL/L (3.5-5.1)
[2022-10-25 18:37] LABS: C REACTIVE PROTEIN QUANTITATIV 2.1 MG/DL (<1.0)
== END ==
LOC: M PLAIMG 15:08
PROVIDERS: ATTEND Internal Medicine Hematology
DX: I48.0 Paroxysmal atrial fibrillation (principal); M89.8X1 Other specified disorders of bone, shoulder; Z86.2 Personal history of diseases of the blood and blood-forming organs and certain disorders involving the immune mechanism; Z79.899 Other long term (current) drug therapy

== ENCOUNTER → 2022-10-29 | Outpatient (CLI) | payer MEDICARE, OTHER ==
[~2022-10-29] MED LIST changes: +ISOVUE-370 76% 100ML VIAL As Ordered ONE
== END ==
LOC: M RAD 07:48
PROVIDERS: ATTEND Internal Medicine Hematology
DX: I71.40 Abdominal aortic aneurysm, without rupture, unspecified (principal); I70.0 Atherosclerosis of aorta; K76.89 Other specified diseases of liver; N28.1 Cyst of kidney, acquired; N40.0 Benign prostatic hyperplasia without lower urinary tract symptoms
CPT/HCPCS: 74160; Q9967

== ENCOUNTER 2023-01-11 13:40 | Inpatient (IN) | payer MEDICARE, OTHER ==
[~2023-01-11] VITALS: Ht 185.4 cm; Wt 91.5 kg
[~2023-01-11 13:40] MED LIST changes: -ISOVUE-370 76% 100ML VIAL As Ordered ONE
[2023-01-11] MEDS ORDERED: BOOSTRIX VACCINE (TETANUS/DIPHTH/ACEL. PERTUSSIS) 0.5ML SYR IM.IMMUN ONE (14:25)
[2023-01-11] MEDS ORDERED: FERR325T3 PO (14:28)
[2023-01-11] MEDS ORDERED: BENA25CA4 PO (14:28)
[2023-01-11] MEDS ORDERED: NEUR300C PO (14:28)
[2023-01-11] MEDS ORDERED: MONT-5 PO (14:28)
[2023-01-11] MEDS ORDERED: TORS20TA2 PO (14:28)
[2023-01-11] MEDS ORDERED: CIDA500T2 PO (14:28)
[2023-01-11] MEDS ORDERED: CLAR10CA3 PO (14:28)
[2023-01-11] MEDS ORDERED: VITA500C24 PO (14:28)
[2023-01-11 15:07] LABS: BASO # 0.1 10^3/uL (0.0-0.2); BASO % 0.6 % (0.0-1.0); EOS # 0.1 10^3/uL (0.0-0.5); EOS % 0.7 % (0.0-3.0); HEMATOCRIT 41.5 % (42.0-52.0); HEMOGLOBIN 13.5 g/dl (13.5-17.5); LYMPH # 0.9 10^3/uL (1.5-5.0); LYMPH % 10.5 % (24.0-44.0); MEAN CORPUSCULAR HEMOGLOBIN 31.3 pg (27.0-33.0); MEAN CORPUSCULAR HGB CONC 32.5 g/dl (32.0-36.5); MEAN CORPUSCULAR VOLUME 96.1 fl (80.0-96.0); MONO # 0.8 10^3/uL (0.0-0.8); MONO % 9.7 % (2.0-8.0); NEUTROPHILS # 6.5 10^3/uL (1.5-8.5); NEUTROPHILS % 77.9 % (36.0-66.0); PLATELET COUNT, AUTOMATED 292 10^3/uL (150-450); RED BLOOD COUNT 4.32 10^6/uL (4.30-6.10); WHITE BLOOD COUNT 8.3 10^3/uL (4.0-10.0)
[2023-01-11 15:21] LABS: INR 1.32; PARTIAL THROMBOPLASTIN TIME 38.3 SECONDS (24.8-34.2); PROTHROMBIN TIME 16.6 SECONDS (12.5-14.5)
[2023-01-11 15:28] LABS: AMPHETAMINES LEVEL URINE NEGATIVE (NEGATIVE); BARBITURATES URINE NEGATIVE (NEGATIVE); BENZODIAZEPINES URINE NEGATIVE (NEGATIVE); COCAINE METABOLITE URINE NEGATIVE (NEGATIVE); METHADONE URINE NEGATIVE (NEGATIVE)
[2023-01-11 15:29] LABS: CANNABINOIDS URINE NEGATIVE (NEGATIVE); OPIATES URINE NEGATIVE (NEGATIVE); PHENCYCLIDINE URINE NEGATIVE (NEGATIVE)
[2023-01-11 15:38] LABS: ETHYL ALCOHOL (ETHANOL) 0.004 % (0.000-0.010)
[2023-01-11 15:39] LABS: MB/CK RELATIVE INDEX 2.77 (< OR =4)
[2023-01-11 15:42] LABS: FREE T4 1.27 NG/DL (0.89-1.76)
[2023-01-11 15:49] LABS: CALCIUM LEVEL 8.8 MG/DL (8.3-10.6); CREATININE FOR GFR 1.59 MG/DL (0.70-1.30); GLOMERULAR FILTRATION RATE 44.5 (>35); MAGNESIUM LEVEL 2.2 MG/DL (1.8-2.4); POTASSIUM SERUM 4.5 MMOL/L (3.5-5.1); THYROID STIMULATING HORMONE 4.217 uIU/ML (0.55-4.78)
[2023-01-11 17:29] LABS: CK-MB VALUE MASS 1.9 NG/ML (<3.6); MB/CK RELATIVE INDEX 2.26 (< OR =4)
[2023-01-11] MEDS ORDERED: ACETAMINOPHEN 500 MG TAB PO SCH (18:00)
[2023-01-11] MEDS ORDERED: DERMABOND TOPICAL SKIN ADHESIVE TOP ONE (18:05)
[2023-01-11] MEDS ORDERED: traMADol 50 MG TAB PO PRN (18:10)
[2023-01-11] MEDS ORDERED: NORCO, ANEXSIA 5/325MG TABLET (HYDROcodone/ACETAMINOPHEN) PO PRN (18:35)
[2023-01-11] MEDS ORDERED: SENOKOT S TAB PO PRN (18:35)
[2023-01-11] MEDS ORDERED: MIRALAX *UNIT DOSE* 17GM PACKET PO PRN (18:35)
[2023-01-11] MEDS ORDERED: MOM 30ML SUSPENSION UDC PO PRN (18:35)
[2023-01-11] MEDS ORDERED: NORCO, ANEXSIA 5/325MG TABLET (HYDROcodone/ACETAMINOPHEN) PO ONE (18:35)
[2023-01-11] MEDS ORDERED: MED REC IN PROGRESS XX SCH (19:05)
[2023-01-11] MEDS ORDERED: ATOR80TA59 PO (19:35)
[2023-01-11] MEDS ORDERED: HOME MED LIST COMPLETE! XX SCH (19:40)
[2023-01-11] MEDS ORDERED: diphenhydrAMINE 25MG CAP PO PRN (20:00)
[2023-01-11] MEDS ORDERED: FLUTICASONE PROP 0.05% NASAL SPRAY 16 GM (FLONASE) PRN (20:00)
[2023-01-11] MEDS ORDERED: COMBIVENT RESPIMAT 100-20MCG INHALER 4GM INH PRN (20:00)
[2023-01-11 20:21] VITALS: BP 143/81; TEMP 97.7; O2SAT 93
[2023-01-11] MEDS: TAMSULOSIN 0.4 MG CAP PO SCH (20:54)
[2023-01-11] MEDS: APIXABAN 2.5 MG TAB (ELIQUIS) PO SCH (20:55)
[2023-01-11] MEDS: GABAPENTIN 300 MG CAP PO SCH (20:55)
[2023-01-11] MEDS ORDERED: ATORVASTATIN 20 MG TAB PO SCH (21:00)
[2023-01-12 04:00] VITALS: BP 138/77; TEMP 98.1; O2SAT 96
[2023-01-12 05:54] LABS: HEMATOCRIT 37.8 % (42.0-52.0); HEMOGLOBIN 12.4 g/dl (13.5-17.5); MEAN CORPUSCULAR HEMOGLOBIN 30.9 pg (27.0-33.0); MEAN CORPUSCULAR HGB CONC 32.8 g/dl (32.0-36.5); MEAN CORPUSCULAR VOLUME 94.3 fl (80.0-96.0); PLATELET COUNT, AUTOMATED 267 10^3/uL (150-450); RED BLOOD COUNT 4.01 10^6/uL (4.30-6.10); WHITE BLOOD COUNT 8.1 10^3/uL (4.0-10.0)
[2023-01-12 06:15] LABS: CALCIUM LEVEL 8.2 MG/DL (8.3-10.6); CREATININE FOR GFR 1.46 MG/DL (0.70-1.30); GLOMERULAR FILTRATION RATE 49.1 (>35); POTASSIUM SERUM 4.2 MMOL/L (3.5-5.1)
[2023-01-12] MEDS ORDERED: ACETAMINOPHEN 500 MG TAB PO ONE (07:00)
[2023-01-12] MEDS ORDERED: MULTIVITAMINS/MINERALS THERAP 1 TAB PO SCH (09:00)
[2023-01-12] MEDS ORDERED: LORATADINE 10 MG TAB PO SCH (09:00)
[2023-01-12] MEDS ORDERED: MONTELUKAST 10 MG TAB PO SCH (09:00)
[2023-01-12] MEDS ORDERED: FERROUS SULFATE 325MG TAB PO SCH (09:00)
[2023-01-12] MEDS ORDERED: ASCORBIC ACID 500 MG TAB PO SCH (09:00)
[2023-01-12] MEDS ORDERED: bisoproloL fumarate 5 MG TAB PO SCH (09:00)
[2023-01-12] MEDS ORDERED: FINASTERIDE 5MG TAB PO SCH (09:00)
[2023-01-12] MEDS ORDERED: TORSEMIDE 20 MG TAB PO SCH (09:00)
[2023-01-12] MEDS: GABAPENTIN 300 MG CAP PO SCH (09:32)
[2023-01-12] MEDS: APIXABAN 2.5 MG TAB (ELIQUIS) PO SCH (09:32)
[2023-01-12] MEDS: TAMSULOSIN 0.4 MG CAP PO SCH (09:32)
[2023-01-12 09:33] VITALS: BP 138/82
[2023-01-12] MEDS ORDERED: MIRA1POW3 PO (10:54)
[2023-01-12] MEDS ORDERED: HYDR-3715 PO (10:54)
[2023-01-12] MEDS ORDERED: SENN-52 PO (10:54)
[2023-01-12 14:00] VITALS: BP 128/62; TEMP 97.9; O2SAT 96
== END 2023-01-12 14:30 | DRG 563 ==
LOC: M ED 13:40 → EDBD 13:40 → M ED INP 18:06 → M MSPAV 20:22
PROVIDERS: ADMIT General Practice; ATTEND General Practice
PROC: 2W3QX1Z Immobilization of Right Lower Leg using Splint (ICD-10-PCS; principal; 2023-01-11)
DX: S82.831A Other fracture of upper and lower end of right fibula, initial encounter for closed fracture (principal); R55 Syncope and collapse; J44.9 Chronic obstructive pulmonary disease, unspecified; I12.9 Hypertensive chronic kidney disease with stage 1 through stage 4 chronic kidney disease, or unspecified chronic kidney disease; I48.0 Paroxysmal atrial fibrillation; I27.20 Pulmonary hypertension, unspecified; S51.011A Laceration without foreign body of right elbow, initial encounter; R91.8 Other nonspecific abnormal finding of lung field; I71.40 Abdominal aortic aneurysm, without rupture, unspecified; E78.00 Pure hypercholesterolemia, unspecified; I73.9 Peripheral vascular disease, unspecified; N18.9 Chronic kidney disease, unspecified; N40.0 Benign prostatic hyperplasia without lower urinary tract symptoms; E04.1 Nontoxic single thyroid nodule; W01.0XXA Fall on same level from slipping, tripping and stumbling without subsequent striking against object, initial encounter; Y92.512 Supermarket, store or market as the place of occurrence of the external cause; Z79.01 Long term (current) use of anticoagulants; Z79.899 Other long term (current) drug therapy; Z88.0 Allergy status to penicillin; Z88.1 Allergy status to other antibiotic agents; Z88.2 Allergy status to sulfonamides; Z91.011 Allergy to milk products; Z20.822 Contact with and (suspected) exposure to COVID-19; Z99.81 Dependence on supplemental oxygen; Z90.49 Acquired absence of other specified parts of digestive tract; Z87.891 Personal history of nicotine dependence

== ENCOUNTER 2023-01-12 12:24 | Inpatient (IN) | payer MEDICARE, OTHER ==
[~2023-01-12] VITALS: Ht 185.4 cm; Wt 94.7 kg
[~2023-01-12 12:24] MED LIST changes: +ATOR80TA59 PO; +CIDA500T2 PO; +CLAR10CA3 PO; +FERR325T3 PO; +HYDR-3715 PO; +MIRA1POW3 PO; +MONT-5 PO; +NEUR300C PO; +SENN-52 PO; +TORS20TA2 PO; +VITA500C24 PO
[2023-01-12 14:00] VITALS: BP 133/63; TEMP 97.4; O2SAT 90
[2023-01-12] MEDS ORDERED: BISACODYL 10MG SUPP PR PRN (16:50)
[2023-01-12] MEDS ORDERED: ONDANSETRON 4MG TAB PO PRN (16:50)
[2023-01-12] MEDS ORDERED: PILL CUTTER 1 EACH XX PRN (17:15)
[2023-01-12] MEDS: oxyCODONE 5MG TAB PO PRN (18:29)
[2023-01-12 20:00] VITALS: BP 137/58; TEMP 98.3; O2SAT 96
[2023-01-12] MEDS: COMBIVENT RESPIMAT 100-20MCG INHALER 4GM INH SCH (20:25)
[2023-01-12] MEDS: GABAPENTIN 300 MG CAP PO SCH (20:41)
[2023-01-12] MEDS: ATORVASTATIN 20 MG TAB PO SCH (20:41)
[2023-01-12] MEDS: PANTOPRAZOLE 40MG TAB (PROTONIX) PO SCH (20:41)
[2023-01-12] MEDS: REMEDY PHYTOPLEX Z-GUARD PASTE 113GM TUBE (FROM STOREROOM PRODUCT) TOP SCH (20:42)
[2023-01-12] MEDS: DOCUSATE SODIUM 100MG CAPSULE PO SCH (20:42)
[2023-01-12] MEDS: ACETAMINOPHEN 500 MG TAB PO SCH (20:42)
[2023-01-12] MEDS: SENNA 8.6 MG TAB (SENOKOT) PO SCH (20:42)
[2023-01-12] MEDS: APIXABAN 2.5 MG TAB (ELIQUIS) PO SCH (20:42)
[2023-01-12] MEDS: TAMSULOSIN 0.4 MG CAP PO SCH (20:42)
[2023-01-12 22:00] VITALS: BP 134/74; TEMP 98.3; O2SAT 95
[2023-01-13 06:00] VITALS: BP_SYST 125; BP_SYST 142; BP_DIAS 57; BP_DIAS 72; TEMP 96.2; TEMP 97.6; O2SAT 95; O2SAT 97
[2023-01-13 06:38] LABS: BASO # 0.1 10^3/uL (0.0-0.2); BASO % 0.8 % (0.0-1.0); EOS # 0.3 10^3/uL (0.0-0.5); EOS % 4.6 % (0.0-3.0); HEMATOCRIT 37.8 % (42.0-52.0); HEMOGLOBIN 12.4 g/dl (13.5-17.5); LYMPH # 1.3 10^3/uL (1.5-5.0); LYMPH % 18.4 % (24.0-44.0); MEAN CORPUSCULAR HEMOGLOBIN 31.1 pg (27.0-33.0); MEAN CORPUSCULAR HGB CONC 32.8 g/dl (32.0-36.5); MEAN CORPUSCULAR VOLUME 94.7 fl (80.0-96.0); MONO # 0.9 10^3/uL (0.0-0.8); MONO % 13.1 % (2.0-8.0); NEUTROPHILS # 4.5 10^3/uL (1.5-8.5); NEUTROPHILS % 62.5 % (36.0-66.0); PLATELET COUNT, AUTOMATED 256 10^3/uL (150-450); RED BLOOD COUNT 3.99 10^6/uL (4.30-6.10); WHITE BLOOD COUNT 7.2 10^3/uL (4.0-10.0)
[2023-01-13] MEDS: COMBIVENT RESPIMAT 100-20MCG INHALER 4GM INH SCH ×3 (07:05→19:37)
[2023-01-13 07:06] LABS: ALBUMIN 2.6 G/DL (3.2-5.2); CALCIUM LEVEL 8.2 MG/DL (8.3-10.6); CREATININE FOR GFR 1.58 MG/DL (0.70-1.30); GLOMERULAR FILTRATION RATE 44.8 (>35); TOTAL PROTEIN 5.3 G/DL (5.7-8.2)
[2023-01-13] MEDS ORDERED: HOME MED LIST COMPLETE! XX SCH (07:25)
[2023-01-13] MEDS: oxyCODONE 5MG TAB PO PRN (07:37)
[2023-01-13] MEDS: BUDESONIDE 0.25 MG/2 ML INHALATION SUSPENSION INH SCH ×2 (08:00→19:37)
[2023-01-13] MEDS ORDERED: FINASTERIDE 5MG TAB PO SCH (09:00)
[2023-01-13] MEDS: ACETAMINOPHEN 500 MG TAB PO SCH ×3 (09:00→20:53)
[2023-01-13] MEDS: bisoproloL fumarate 5 MG TAB PO SCH (09:00)
[2023-01-13] MEDS: REMEDY PHYTOPLEX Z-GUARD PASTE 113GM TUBE (FROM STOREROOM PRODUCT) TOP SCH ×3 (09:00→20:54)
[2023-01-13] MEDS: TORSEMIDE 20 MG TAB PO SCH (09:00)
[2023-01-13] MEDS: GABAPENTIN 300 MG CAP PO SCH (09:21)
[2023-01-13] MEDS: ASCORBIC ACID 500 MG TAB PO SCH (09:21)
[2023-01-13] MEDS: FERROUS SULFATE 325MG TAB PO SCH (09:21)
[2023-01-13] MEDS: MONTELUKAST 10 MG TAB PO SCH (09:21)
[2023-01-13] MEDS: MULTIVITAMINS/MINERALS THERAP 1 TAB PO SCH (09:21)
[2023-01-13] MEDS: PANTOPRAZOLE 40MG TAB (PROTONIX) PO SCH ×2 (09:21→20:53)
[2023-01-13] MEDS: LORATADINE 10 MG TAB PO SCH (09:22)
[2023-01-13] MEDS: APIXABAN 2.5 MG TAB (ELIQUIS) PO SCH ×2 (09:22→20:53)
[2023-01-13] MEDS: TAMSULOSIN 0.4 MG CAP PO SCH ×2 (09:22→20:52)
[2023-01-13] MEDS: DOCUSATE SODIUM 100MG CAPSULE PO SCH ×2 (09:22→20:53)
[2023-01-13] MEDS ORDERED: oxyCODONE 5MG TAB PO PRN (11:35)
[2023-01-13] MEDS: LIDOCAINE 5% (LIDODERM) PATCH TD SCH (12:45)
[2023-01-13 14:40] VITALS: BP 98/62; TEMP 97.1; O2SAT 98
[2023-01-13] MEDS: GABAPENTIN 100 MG CAP PO SCH ×2 (17:21→20:53)
[2023-01-13] MEDS: guaiFENesin 200 MG TAB PO SCH ×2 (17:22→20:53)
[2023-01-13 20:00] VITALS: BP 114/55; TEMP 97.3; O2SAT 93
[2023-01-13] MEDS: ATORVASTATIN 20 MG TAB PO SCH (20:52)
[2023-01-13] MEDS: SENNA 8.6 MG TAB (SENOKOT) PO SCH (20:53)
[2023-01-14 06:00] VITALS: BP 118/68; TEMP 97.2; O2SAT 95
[2023-01-14] MEDS: BUDESONIDE 0.25 MG/2 ML INHALATION SUSPENSION INH SCH ×2 (06:50→19:01)
[2023-01-14] MEDS: COMBIVENT RESPIMAT 100-20MCG INHALER 4GM INH SCH ×3 (06:50→19:01)
[2023-01-14] MEDS: TORSEMIDE 20 MG TAB PO SCH (07:41)
[2023-01-14 07:42] VITALS: BP 105/66
[2023-01-14] MEDS: bisoproloL fumarate 5 MG TAB PO SCH (08:53)
[2023-01-14] MEDS: REMEDY PHYTOPLEX Z-GUARD PASTE 113GM TUBE (FROM STOREROOM PRODUCT) TOP SCH ×3 (09:00→19:16)
[2023-01-14] MEDS: LIDOCAINE 5% (LIDODERM) PATCH TD SCH (09:02)
[2023-01-14] MEDS: guaiFENesin 200 MG TAB PO SCH ×3 (09:15→20:42)
[2023-01-14] MEDS: MULTIVITAMINS/MINERALS THERAP 1 TAB PO SCH (09:15)
[2023-01-14] MEDS: APIXABAN 2.5 MG TAB (ELIQUIS) PO SCH ×2 (09:16→20:43)
[2023-01-14] MEDS: GABAPENTIN 100 MG CAP PO SCH ×3 (09:16→20:43)
[2023-01-14] MEDS: FERROUS SULFATE 325MG TAB PO SCH (09:16)
[2023-01-14] MEDS: LORATADINE 10 MG TAB PO SCH (09:16)
[2023-01-14] MEDS: DOCUSATE SODIUM 100MG CAPSULE PO SCH ×2 (09:16→20:42)
[2023-01-14] MEDS: ACETAMINOPHEN 500 MG TAB PO SCH ×3 (09:16→20:43)
[2023-01-14] MEDS: PANTOPRAZOLE 40MG TAB (PROTONIX) PO SCH ×2 (09:16→20:43)
[2023-01-14] MEDS: MONTELUKAST 10 MG TAB PO SCH (09:16)
[2023-01-14] MEDS: ASCORBIC ACID 500 MG TAB PO SCH (09:21)
[2023-01-14 14:00] VITALS: BP 129/59; TEMP 96.2; O2SAT 95
[2023-01-14 20:00] VITALS: BP 132/62; TEMP 97.9; O2SAT 96
[2023-01-14] MEDS: TAMSULOSIN 0.4 MG CAP PO SCH (20:42)
[2023-01-14] MEDS: SENNA 8.6 MG TAB (SENOKOT) PO SCH (20:43)
[2023-01-14] MEDS: ATORVASTATIN 20 MG TAB PO SCH (20:43)
[2023-01-14] MEDS: FINASTERIDE 5MG TAB PO SCH (20:43)
[2023-01-15 06:00] VITALS: BP 126/66; TEMP 97.6; O2SAT 96
[2023-01-15 08:00] VITALS: BP 108/68
[2023-01-15] MEDS: REMEDY PHYTOPLEX Z-GUARD PASTE 113GM TUBE (FROM STOREROOM PRODUCT) TOP SCH ×3 (08:42→18:56)
[2023-01-15] MEDS: bisoproloL fumarate 5 MG TAB PO SCH (08:42)
[2023-01-15] MEDS: TORSEMIDE 20 MG TAB PO SCH (08:42)
[2023-01-15] MEDS: GABAPENTIN 100 MG CAP PO SCH ×3 (08:50→20:20)
[2023-01-15] MEDS: ASCORBIC ACID 500 MG TAB PO SCH (08:50)
[2023-01-15] MEDS: FERROUS SULFATE 325MG TAB PO SCH (08:50)
[2023-01-15] MEDS: DOCUSATE SODIUM 100MG CAPSULE PO SCH ×2 (08:50→20:20)
[2023-01-15] MEDS: PANTOPRAZOLE 40MG TAB (PROTONIX) PO SCH ×2 (08:50→20:21)
[2023-01-15] MEDS: MULTIVITAMINS/MINERALS THERAP 1 TAB PO SCH (08:50)
[2023-01-15] MEDS: ACETAMINOPHEN 500 MG TAB PO SCH ×3 (08:50→20:21)
[2023-01-15] MEDS: APIXABAN 2.5 MG TAB (ELIQUIS) PO SCH ×2 (08:50→20:21)
[2023-01-15] MEDS: LORATADINE 10 MG TAB PO SCH (08:50)
[2023-01-15] MEDS: MONTELUKAST 10 MG TAB PO SCH (08:50)
[2023-01-15] MEDS: guaiFENesin 200 MG TAB PO SCH ×3 (08:50→20:21)
[2023-01-15] MEDS: LIDOCAINE 5% (LIDODERM) PATCH TD SCH (08:51)
[2023-01-15] MEDS: COMBIVENT RESPIMAT 100-20MCG INHALER 4GM INH SCH ×3 (09:34→21:16)
[2023-01-15] MEDS: BUDESONIDE 0.25 MG/2 ML INHALATION SUSPENSION INH SCH ×2 (09:34→21:16)
[2023-01-15 14:00] VITALS: BP 139/63; TEMP 97; O2SAT 97
[2023-01-15 20:00] VITALS: TEMP 98; O2SAT 95
[2023-01-15] MEDS: FINASTERIDE 5MG TAB PO SCH (20:20)
[2023-01-15] MEDS: SENNA 8.6 MG TAB (SENOKOT) PO SCH (20:21)
[2023-01-15] MEDS: TAMSULOSIN 0.4 MG CAP PO SCH (20:21)
[2023-01-15] MEDS: ATORVASTATIN 20 MG TAB PO SCH (20:21)
[2023-01-16 06:00] VITALS: BP 144/66; TEMP 98; O2SAT 98
[2023-01-16] MEDS: BUDESONIDE 0.25 MG/2 ML INHALATION SUSPENSION INH SCH ×2 (07:21→20:02)
[2023-01-16] MEDS: COMBIVENT RESPIMAT 100-20MCG INHALER 4GM INH SCH ×3 (07:21→20:02)
[2023-01-16 08:33] VITALS: BP 114/62
[2023-01-16] MEDS: MULTIVITAMINS/MINERALS THERAP 1 TAB PO SCH (08:34)
[2023-01-16] MEDS: GABAPENTIN 100 MG CAP PO SCH ×3 (08:34→20:42)
[2023-01-16] MEDS: guaiFENesin 200 MG TAB PO SCH ×3 (08:34→20:42)
[2023-01-16] MEDS: ACETAMINOPHEN 500 MG TAB PO SCH ×3 (08:34→20:43)
[2023-01-16] MEDS: FERROUS SULFATE 325MG TAB PO SCH (08:34)
[2023-01-16] MEDS: LIDOCAINE 5% (LIDODERM) PATCH TD SCH (08:34)
[2023-01-16] MEDS: DOCUSATE SODIUM 100MG CAPSULE PO SCH ×2 (08:35→20:42)
[2023-01-16] MEDS: bisoproloL fumarate 5 MG TAB PO SCH (08:35)
[2023-01-16] MEDS: PANTOPRAZOLE 40MG TAB (PROTONIX) PO SCH ×2 (08:35→20:42)
[2023-01-16] MEDS: ASCORBIC ACID 500 MG TAB PO SCH (08:35)
[2023-01-16] MEDS: LORATADINE 10 MG TAB PO SCH (08:35)
[2023-01-16] MEDS: TORSEMIDE 20 MG TAB PO SCH (08:35)
[2023-01-16] MEDS: MONTELUKAST 10 MG TAB PO SCH (08:35)
[2023-01-16] MEDS: APIXABAN 2.5 MG TAB (ELIQUIS) PO SCH ×2 (08:35→20:42)
[2023-01-16] MEDS: REMEDY PHYTOPLEX Z-GUARD PASTE 113GM TUBE (FROM STOREROOM PRODUCT) TOP SCH ×3 (08:47→20:43)
[2023-01-16 14:00] VITALS: BP 132/60; TEMP 97.7; O2SAT 97
[2023-01-16] MEDS: SENNA 8.6 MG TAB (SENOKOT) PO SCH (20:42)
[2023-01-16] MEDS: ATORVASTATIN 20 MG TAB PO SCH (20:42)
[2023-01-16] MEDS: TAMSULOSIN 0.4 MG CAP PO SCH (20:42)
[2023-01-16] MEDS: FINASTERIDE 5MG TAB PO SCH (20:42)
[2023-01-16 20:48] VITALS: BP 146/69; TEMP 98.1
[2023-01-16 20:59] VITALS: O2SAT 95
[2023-01-17 06:00] VITALS: BP 115/56; TEMP 97.3; O2SAT 96
[2023-01-17] MEDS: COMBIVENT RESPIMAT 100-20MCG INHALER 4GM INH SCH ×3 (07:29→20:19)
[2023-01-17] MEDS: BUDESONIDE 0.25 MG/2 ML INHALATION SUSPENSION INH SCH ×2 (07:29→20:19)
[2023-01-17] MEDS: PANTOPRAZOLE 40MG TAB (PROTONIX) PO SCH ×2 (07:40→21:01)
[2023-01-17] MEDS: GABAPENTIN 100 MG CAP PO SCH ×3 (07:40→21:00)
[2023-01-17] MEDS: APIXABAN 2.5 MG TAB (ELIQUIS) PO SCH ×2 (07:40→21:01)
[2023-01-17] MEDS: FERROUS SULFATE 325MG TAB PO SCH (07:40)
[2023-01-17] MEDS: ACETAMINOPHEN 500 MG TAB PO SCH ×3 (07:40→21:00)
[2023-01-17] MEDS: MULTIVITAMINS/MINERALS THERAP 1 TAB PO SCH (07:40)
[2023-01-17] MEDS: guaiFENesin 200 MG TAB PO SCH ×3 (07:40→20:59)
[2023-01-17] MEDS: ASCORBIC ACID 500 MG TAB PO SCH (07:40)
[2023-01-17] MEDS: MONTELUKAST 10 MG TAB PO SCH (07:41)
[2023-01-17] MEDS: LORATADINE 10 MG TAB PO SCH (07:41)
[2023-01-17] MEDS: DOCUSATE SODIUM 100MG CAPSULE PO SCH ×2 (07:41→21:00)
[2023-01-17] MEDS: TORSEMIDE 20 MG TAB PO SCH (07:41)
[2023-01-17] MEDS: bisoproloL fumarate 5 MG TAB PO SCH (07:42)
[2023-01-17] MEDS: LIDOCAINE 5% (LIDODERM) PATCH TD SCH (07:42)
[2023-01-17] MEDS: REMEDY PHYTOPLEX Z-GUARD PASTE 113GM TUBE (FROM STOREROOM PRODUCT) TOP SCH ×3 (07:43→21:00)
[2023-01-17 07:58] LABS: BASO # 0.1 10^3/uL (0.0-0.2); BASO % 1.1 % (0.0-1.0); EOS # 0.2 10^3/uL (0.0-0.5); HEMATOCRIT 40.8 % (42.0-52.0); HEMOGLOBIN 13.1 g/dl (13.5-17.5); LYMPH % 16.4 % (24.0-44.0); MEAN CORPUSCULAR HGB CONC 32.1 g/dl (32.0-36.5); MEAN CORPUSCULAR VOLUME 96.7 fl (80.0-96.0); MONO # 0.6 10^3/uL (0.0-0.8); NEUTROPHILS # 4.4 10^3/uL (1.5-8.5); NEUTROPHILS % 70.2 % (36.0-66.0); PLATELET COUNT, AUTOMATED 292 10^3/uL (150-450); RED BLOOD COUNT 4.22 10^6/uL (4.30-6.10); WHITE BLOOD COUNT 6.3 10^3/uL (4.0-10.0)
[2023-01-17 08:29] LABS: CALCIUM LEVEL 8.4 MG/DL (8.3-10.6); CREATININE FOR GFR 1.59 MG/DL (0.70-1.30); GLOMERULAR FILTRATION RATE 44.5 (>35); POTASSIUM SERUM 4.5 MMOL/L (3.5-5.1)
[2023-01-17 14:00] VITALS: BP 136/64; TEMP 96.8; O2SAT 99
[2023-01-17 20:00] VITALS: BP 162/74; TEMP 96.3; O2SAT 94
[2023-01-17] MEDS: TAMSULOSIN 0.4 MG CAP PO SCH (21:00)
[2023-01-17] MEDS: ATORVASTATIN 20 MG TAB PO SCH (21:00)
[2023-01-17] MEDS: FINASTERIDE 5MG TAB PO SCH (21:00)
[2023-01-17] MEDS: SENNA 8.6 MG TAB (SENOKOT) PO SCH (21:00)
[2023-01-18 06:00] VITALS: BP 130/61; TEMP 97.4; O2SAT 97
[2023-01-18] MEDS: COMBIVENT RESPIMAT 100-20MCG INHALER 4GM INH SCH ×3 (07:30→19:56)
[2023-01-18] MEDS: BUDESONIDE 0.25 MG/2 ML INHALATION SUSPENSION INH SCH ×2 (07:30→19:56)
[2023-01-18] MEDS: FERROUS SULFATE 325MG TAB PO SCH (07:35)
[2023-01-18] MEDS: GABAPENTIN 100 MG CAP PO SCH ×3 (07:36→20:40)
[2023-01-18] MEDS: LORATADINE 10 MG TAB PO SCH (07:36)
[2023-01-18] MEDS: ASCORBIC ACID 500 MG TAB PO SCH (07:36)
[2023-01-18] MEDS: APIXABAN 2.5 MG TAB (ELIQUIS) PO SCH ×2 (07:36→20:40)
[2023-01-18] MEDS: PANTOPRAZOLE 40MG TAB (PROTONIX) PO SCH ×2 (07:36→20:40)
[2023-01-18] MEDS: TORSEMIDE 20 MG TAB PO SCH (07:36)
[2023-01-18] MEDS: MULTIVITAMINS/MINERALS THERAP 1 TAB PO SCH (07:36)
[2023-01-18] MEDS: DOCUSATE SODIUM 100MG CAPSULE PO SCH ×2 (07:36→20:40)
[2023-01-18] MEDS: guaiFENesin 200 MG TAB PO SCH ×3 (07:36→20:40)
[2023-01-18] MEDS: MONTELUKAST 10 MG TAB PO SCH (07:37)
[2023-01-18] MEDS: bisoproloL fumarate 5 MG TAB PO SCH (07:37)
[2023-01-18] MEDS: ACETAMINOPHEN 500 MG TAB PO SCH ×3 (07:37→20:40)
[2023-01-18] MEDS: LIDOCAINE 5% (LIDODERM) PATCH TD SCH (07:37)
[2023-01-18] MEDS: REMEDY PHYTOPLEX Z-GUARD PASTE 113GM TUBE (FROM STOREROOM PRODUCT) TOP SCH ×3 (07:38→20:41)
[2023-01-18 13:13] VITALS: BP 160/78; TEMP 97.1; O2SAT 96
[2023-01-18 16:08] VITALS: BP 143/67; TEMP 97; O2SAT 94
[2023-01-18 20:25] VITALS: BP 112/64; TEMP 97.7; O2SAT 94
[2023-01-18] MEDS: SENNA 8.6 MG TAB (SENOKOT) PO SCH (20:40)
[2023-01-18] MEDS: ATORVASTATIN 20 MG TAB PO SCH (20:40)
[2023-01-18] MEDS: FINASTERIDE 5MG TAB PO SCH (20:40)
[2023-01-18] MEDS: TAMSULOSIN 0.4 MG CAP PO SCH (20:40)
[2023-01-19 06:00] VITALS: BP 122/56; TEMP 97.2; O2SAT 98
[2023-01-19] MEDS: BUDESONIDE 0.25 MG/2 ML INHALATION SUSPENSION INH SCH ×2 (07:35→19:26)
[2023-01-19] MEDS: COMBIVENT RESPIMAT 100-20MCG INHALER 4GM INH SCH ×3 (07:35→19:26)
[2023-01-19] MEDS: MONTELUKAST 10 MG TAB PO SCH (07:51)
[2023-01-19] MEDS: TORSEMIDE 20 MG TAB PO SCH (07:51)
[2023-01-19] MEDS: PANTOPRAZOLE 40MG TAB (PROTONIX) PO SCH ×2 (07:51→20:27)
[2023-01-19] MEDS: APIXABAN 2.5 MG TAB (ELIQUIS) PO SCH ×2 (07:51→20:28)
[2023-01-19] MEDS: MULTIVITAMINS/MINERALS THERAP 1 TAB PO SCH (07:52)
[2023-01-19] MEDS: GABAPENTIN 100 MG CAP PO SCH ×3 (07:52→20:27)
[2023-01-19] MEDS: DOCUSATE SODIUM 100MG CAPSULE PO SCH ×2 (07:52→20:28)
[2023-01-19] MEDS: bisoproloL fumarate 5 MG TAB PO SCH (07:52)
[2023-01-19] MEDS: FERROUS SULFATE 325MG TAB PO SCH (07:52)
[2023-01-19] MEDS: ASCORBIC ACID 500 MG TAB PO SCH (07:52)
[2023-01-19] MEDS: LORATADINE 10 MG TAB PO SCH (07:52)
[2023-01-19] MEDS: guaiFENesin 200 MG TAB PO SCH ×3 (07:53→20:28)
[2023-01-19] MEDS: REMEDY PHYTOPLEX Z-GUARD PASTE 113GM TUBE (FROM STOREROOM PRODUCT) TOP SCH ×3 (07:53→20:09)
[2023-01-19] MEDS: LIDOCAINE 5% (LIDODERM) PATCH TD SCH ×2 (07:53→07:57)
[2023-01-19] MEDS: ACETAMINOPHEN 500 MG TAB PO SCH ×3 (07:53→20:28)
[2023-01-19 14:00] VITALS: BP 103/69; TEMP 98.2; O2SAT 94
[2023-01-19 20:00] VITALS: BP 122/59; TEMP 97.2; O2SAT 93
[2023-01-19] MEDS: SENNA 8.6 MG TAB (SENOKOT) PO SCH (20:28)
[2023-01-19] MEDS: FINASTERIDE 5MG TAB PO SCH (20:28)
[2023-01-19] MEDS: ATORVASTATIN 20 MG TAB PO SCH (20:28)
[2023-01-19] MEDS: TAMSULOSIN 0.4 MG CAP PO SCH (20:28)
[2023-01-20 06:00] VITALS: BP 108/56; TEMP 97.7; O2SAT 97
[2023-01-20] MEDS: FERROUS SULFATE 325MG TAB PO SCH (07:13)
[2023-01-20] MEDS: PANTOPRAZOLE 40MG TAB (PROTONIX) PO SCH (07:13)
[2023-01-20] MEDS: MULTIVITAMINS/MINERALS THERAP 1 TAB PO SCH (07:13)
[2023-01-20] MEDS: ASCORBIC ACID 500 MG TAB PO SCH (07:13)
[2023-01-20] MEDS: guaiFENesin 200 MG TAB PO SCH (07:13)
[2023-01-20] MEDS: GABAPENTIN 100 MG CAP PO SCH (07:13)
[2023-01-20] MEDS: TORSEMIDE 20 MG TAB PO SCH (07:13)
[2023-01-20] MEDS: DOCUSATE SODIUM 100MG CAPSULE PO SCH (07:14)
[2023-01-20] MEDS: ACETAMINOPHEN 500 MG TAB PO SCH (07:14)
[2023-01-20] MEDS: LORATADINE 10 MG TAB PO SCH (07:14)
[2023-01-20] MEDS: APIXABAN 2.5 MG TAB (ELIQUIS) PO SCH (07:14)
[2023-01-20] MEDS: MONTELUKAST 10 MG TAB PO SCH (07:14)
[2023-01-20 07:17] VITALS: BP 113/66
[2023-01-20] MEDS: LIDOCAINE 5% (LIDODERM) PATCH TD SCH (07:17)
[2023-01-20] MEDS: bisoproloL fumarate 5 MG TAB PO SCH (07:17)
[2023-01-20] MEDS: REMEDY PHYTOPLEX Z-GUARD PASTE 113GM TUBE (FROM STOREROOM PRODUCT) TOP SCH (07:18)
[2023-01-20] MEDS: BUDESONIDE 0.25 MG/2 ML INHALATION SUSPENSION INH SCH (07:38)
[2023-01-20] MEDS: COMBIVENT RESPIMAT 100-20MCG INHALER 4GM INH SCH (07:38)
[2023-01-20] MEDS ORDERED: TAMS1CAP17 PO (09:34)
[2023-01-20] MEDS ORDERED: ADV500INH INH (09:34)
[2023-01-20] MEDS ORDERED: FINA5TAB2 PO (09:34)
[2023-01-20] MEDS ORDERED: ELIQ2.5T PO (09:34)
[2023-01-20] MEDS ORDERED: NEUR300C PO (09:35)
[2023-01-20] MEDS ORDERED: BISO5TAB14 PO (09:35)
[2023-01-20] MEDS ORDERED: ATRO0.063 INH ×2 (09:35→09:48)
[2023-01-20] MEDS ORDERED: MONT-5 PO (09:35)
[2023-01-20] MEDS ORDERED: ATOR80TA59 PO (09:35)
[2023-01-20] MEDS ORDERED: ALBU6.7H6 INH (09:35)
[2023-01-20] MEDS ORDERED: TORS20TA2 PO (09:35)
[2023-01-20] MEDS ORDERED: CLAR10CA3 PO (09:35)
== END 2023-01-20 12:30 | disposition home health service (06) | DRG 560 ==
LOC: M PM&R 15:00
PROVIDERS: ADMIT Physical Medicine & Rehabilitation; ATTEND Physical Medicine & Rehabilitation
DX: S82.831D Other fracture of upper and lower end of right fibula, subsequent encounter for closed fracture with routine healing (principal); I50.32 Chronic diastolic (congestive) heart failure; N18.9 Chronic kidney disease, unspecified; J44.9 Chronic obstructive pulmonary disease, unspecified; I73.9 Peripheral vascular disease, unspecified; I48.91 Unspecified atrial fibrillation; I71.40 Abdominal aortic aneurysm, without rupture, unspecified; E04.1 Nontoxic single thyroid nodule; Z74.09 Other reduced mobility; Z74.1 Need for assistance with personal care; K59.00 Constipation, unspecified; R53.1 Weakness; Z87.891 Personal history of nicotine dependence; Z79.01 Long term (current) use of anticoagulants; Z79.899 Other long term (current) drug therapy; Z88.0 Allergy status to penicillin; Z88.2 Allergy status to sulfonamides; Z88.1 Allergy status to other antibiotic agents; Z88.6 Allergy status to analgesic agent; Z91.011 Allergy to milk products; R91.1 Solitary pulmonary nodule; E04.2 Nontoxic multinodular goiter; I48.0 Paroxysmal atrial fibrillation; E78.00 Pure hypercholesterolemia, unspecified; Z98.41 Cataract extraction status, right eye; Z98.42 Cataract extraction status, left eye

== ENCOUNTER → 2023-01-25 | Outpatient (CLI) | payer MEDICARE, OTHER ==
[~2023-01-25] MED LIST changes: +ALBU6.7H6 INH; +ATRO0.063 INH
[2023-01-25 14:12] LABS: HEMATOCRIT 41.3 % (42.0-52.0); HEMOGLOBIN 13.2 g/dl (13.5-17.5); MEAN CORPUSCULAR HEMOGLOBIN 30.8 pg (27.0-33.0); MEAN CORPUSCULAR VOLUME 96.5 fl (80.0-96.0); PLATELET COUNT, AUTOMATED 290 10^3/uL (150-450); RED BLOOD COUNT 4.28 10^6/uL (4.30-6.10); WHITE BLOOD COUNT 8.6 10^3/uL (4.0-10.0)
[2023-01-25 14:24] LABS: FERRITIN 171.3 NG/ML (10.5-307.3)
[2023-01-25 14:26] LABS: TOTAL IRON BINDING CAPACITY 252 UG/DL (250-425); VITAMIN B12 LEVEL 504 PG/ML (211-911)
[2023-01-25 14:27] LABS: FOLATE > 24.00 NG/ML (>5.4); IRON (FE) 53 UG/DL (65-175)
[2023-01-25 14:29] LABS: FREE T4 1.27 NG/DL (0.89-1.76)
== END ==
LOC: M PLALAB 10:26
PROVIDERS: ATTEND Nurse Practitioner Family
DX: Z86.2 Personal history of diseases of the blood and blood-forming organs and certain disorders involving the immune mechanism (principal)

== ENCOUNTER → 2023-01-28 | Outpatient (CLI) | payer MEDICARE, OTHER | LOC: M SOG 01-27 10:56 | PROVIDERS: ATTEND Orthopaedic Surgery | DX: S82.434A Nondisplaced oblique fracture of shaft of right fibula, initial encounter for closed fracture (principal); Y93.9 Activity, unspecified; Y92.9 Unspecified place or not applicable ==

== ENCOUNTER → 2023-02-11 | Outpatient (CLI) | payer MEDICARE, OTHER ==
[~2023-02-11] MED LIST changes: +METO1TAB32 PO
== END ==
LOC: M SOG 07:52
PROVIDERS: ATTEND Orthopaedic Surgery
DX: S82.831D Other fracture of upper and lower end of right fibula, subsequent encounter for closed fracture with routine healing (principal)

== ENCOUNTER 2023-02-14 12:52 | Emergency (ER) | payer MEDICARE, OTHER ==
[~2023-02-14] VITALS: Ht 185.4 cm; Wt 92.0 kg
[~2023-02-14 12:52] MED LIST changes: -METO1TAB32 PO
[2023-02-14 13:41] LABS: BASO # 0.1 10^3/uL (0.0-0.2); BASO % 0.6 % (0.0-1.0); EOS # 0.1 10^3/uL (0.0-0.5); EOS % 0.8 % (0.0-3.0); HEMATOCRIT 39.6 % (42.0-52.0); HEMOGLOBIN 12.9 g/dl (13.5-17.5); LYMPH # 1.2 10^3/uL (1.5-5.0); LYMPH % 12.6 % (24.0-44.0); MEAN CORPUSCULAR HEMOGLOBIN 30.6 pg (27.0-33.0); MEAN CORPUSCULAR HGB CONC 32.6 g/dl (32.0-36.5); MEAN CORPUSCULAR VOLUME 94.1 fl (80.0-96.0); MONO # 1.1 10^3/uL (0.0-0.8); NEUTROPHILS # 7.3 10^3/uL (1.5-8.5); NEUTROPHILS % 74.7 % (36.0-66.0); PLATELET COUNT, AUTOMATED 319 10^3/uL (150-450); RED BLOOD COUNT 4.21 10^6/uL (4.30-6.10); WHITE BLOOD COUNT 9.7 10^3/uL (4.0-10.0)
[2023-02-14 13:55] LABS: INR 1.44; PROTHROMBIN TIME 17.1 SECONDS (12.5-14.5)
[2023-02-14 13:56] LABS: PARTIAL THROMBOPLASTIN TIME 42.2 SECONDS (24.8-34.2)
[2023-02-14 14:08] LABS: CK-MB VALUE MASS 1.2 NG/ML (<3.6)
[2023-02-14 14:09] LABS: ALBUMIN 2.9 G/DL (3.2-5.2); BILIRUBIN,DIRECT 0.3 MG/DL (<0.4); BILIRUBIN,TOTAL 0.7 MG/DL (0.3-1.2); CALCIUM LEVEL 8.6 MG/DL (8.3-10.6); CREATININE FOR GFR 1.49 MG/DL (0.70-1.30); GLOMERULAR FILTRATION RATE 47.9 (>35); MB/CK RELATIVE INDEX 3.15 (< OR =4); POTASSIUM SERUM 4.1 MMOL/L (3.5-5.1); TOTAL PROTEIN 5.8 G/DL (5.7-8.2)
[2023-02-14 14:11] LABS: THYROID STIMULATING HORMONE 3.779 uIU/ML (0.55-4.78)
[2023-02-14 14:12] LABS: FREE T4 1.26 NG/DL (0.89-1.76)
[2023-02-14 14:13] LABS: RSV AMPLIFICATION NEGATIVE (NEGATIVE)
[2023-02-14] MEDS ORDERED: METOPROLOL 5 MG/5 ML VIAL IV STA (15:17)
[2023-02-14] MEDS ORDERED: METOPROLOL TART 25 MG TABLET PO ONE (15:20)
[2023-02-14 15:25] LABS: MB/CK RELATIVE INDEX 2.5 (< OR =4)
[2023-02-14 15:48] VITALS: BP 150/64
[2023-02-14] MEDS ORDERED: METO1TAB32 PO (18:30)
[2023-02-14 18:42] VITALS: BP 139/82; TEMP 97.2; O2SAT 96
== END 2023-02-14 19:02 | disposition home or self-care (01) ==
LOC: EDBD 12:52 → M ED 12:52
DX: R42 Dizziness and giddiness (principal); R53.1 Weakness; I48.91 Unspecified atrial fibrillation; I44.5 Left posterior fascicular block; I10 Essential (primary) hypertension; E78.5 Hyperlipidemia, unspecified; J44.9 Chronic obstructive pulmonary disease, unspecified; F41.9 Anxiety disorder, unspecified; G47.30 Sleep apnea, unspecified; F17.200 Nicotine dependence, unspecified, uncomplicated; F10.10 Alcohol abuse, uncomplicated; Z88.0 Allergy status to penicillin; Z88.2 Allergy status to sulfonamides; Z88.8 Allergy status to other drugs, medicaments and biological substances; Z91.011 Allergy to milk products; Z79.52 Long term (current) use of systemic steroids; Z79.01 Long term (current) use of anticoagulants; Z79.899 Other long term (current) drug therapy

== ENCOUNTER → 2023-02-25 | Outpatient (CLI) | payer MEDICARE, OTHER ==
[~2023-02-25] MED LIST changes: +METO1TAB32 PO
== END ==
LOC: M SOG 07:57
PROVIDERS: ATTEND Orthopaedic Surgery
DX: S82.831D Other fracture of upper and lower end of right fibula, subsequent encounter for closed fracture with routine healing (principal); X58.XXXD Exposure to other specified factors, subsequent encounter

== ENCOUNTER → 2023-03-09 | Outpatient (REF) | payer MEDICARE, OTHER | LOC: M LAB REF 08:54 | PROVIDERS: ATTEND Surgery | DX: L72.0 Epidermal cyst (principal) ==

== ENCOUNTER → 2023-04-05 | Outpatient (CLI) | payer MEDICARE, OTHER ==
[~2023-04-05] MED LIST changes: -CEFD300C41 PO; +CEFD300C42 PO
[2023-04-05 16:09] LABS: HEMATOCRIT 41.8 % (42.0-52.0); HEMOGLOBIN 13.8 g/dl (13.5-17.5); MEAN CORPUSCULAR HEMOGLOBIN 30.8 pg (27.0-33.0); MEAN CORPUSCULAR VOLUME 93.3 fl (80.0-96.0); PLATELET COUNT, AUTOMATED 225 10^3/uL (150-450); RED BLOOD COUNT 4.48 10^6/uL (4.30-6.10); WHITE BLOOD COUNT 5.5 10^3/uL (4.0-10.0)
[2023-04-05 16:34] LABS: ALBUMIN 3.2 G/DL (3.2-5.2); BILIRUBIN,TOTAL 0.5 MG/DL (0.3-1.2); CALCIUM LEVEL 8.7 MG/DL (8.3-10.6); CREATININE FOR GFR 1.37 MG/DL (0.70-1.30); DIGOXIN LEVEL 1.1 NG/ML (0.8-2.0); GLOMERULAR FILTRATION RATE 52.7 (>35); POTASSIUM SERUM 3.8 MMOL/L (3.5-5.1)
== END ==
LOC: M PLALAB 11:06
PROVIDERS: ATTEND Internal Medicine Hematology
DX: I48.19 Other persistent atrial fibrillation (principal); N40.0 Benign prostatic hyperplasia without lower urinary tract symptoms; J44.9 Chronic obstructive pulmonary disease, unspecified

== ENCOUNTER → 2023-04-26 | Outpatient (CLI) | payer MEDICARE, OTHER | LOC: M SLEEP HO 10:50 | PROVIDERS: ATTEND Internal Medicine Cardiovascular Disease | DX: I27.81 Cor pulmonale (chronic) (principal); R06.83 Snoring ==

== ENCOUNTER → 2023-07-25 | Outpatient (CLI) | payer MEDICARE, OTHER ==
[~2023-07-25] MED LIST changes: +CEFD1CAP9 PO; -CEFD300C42 PO
[2023-07-25 13:25] LABS: HEMATOCRIT 41.1 % (42.0-52.0); HEMOGLOBIN 13.2 g/dl (13.5-17.5); MEAN CORPUSCULAR HEMOGLOBIN 30.5 pg (27.0-33.0); MEAN CORPUSCULAR HGB CONC 32.1 g/dl (32.0-36.5); MEAN CORPUSCULAR VOLUME 94.9 fl (80.0-96.0); PLATELET COUNT, AUTOMATED 321 10^3/uL (150-450); RED BLOOD COUNT 4.33 10^6/uL (4.30-6.10); WHITE BLOOD COUNT 7.2 10^3/uL (4.0-10.0)
[2023-07-25 13:40] LABS: HEMOGLOBIN A1c 5.7 % (4.0-6.0)
[2023-07-25 14:02] LABS: CREATININE, URINE 57.9 MG/DL; MAU/CREAT RATIO 91.5 MCG/MG (0.0-30.0)
[2023-07-25 14:05] LABS: C REACTIVE PROTEIN QUANTITATIV 2.7 MG/DL (<1.0); THYROID STIMULATING HORMONE 6.377 uIU/ML (0.55-4.78); TOTAL 25(OH) VITAMIN D 40.2 NG/ML (20.0-100.0)
[2023-07-25 14:07] LABS: ALBUMIN 2.9 G/DL (3.2-5.2); CALCIUM LEVEL 8.8 MG/DL (8.3-10.6); CHOLESTEROL RISK RATIO 3.25 (<5); CREATININE FOR GFR 1.37 MG/DL (0.70-1.30); DIGOXIN LEVEL 1.3 NG/ML (0.8-2.0); FREE T4 1.18 NG/DL (0.89-1.76); GLOMERULAR FILTRATION RATE 52.7 (>35); HDL CHOLESTEROL 33.5 MG/DL (>40); LDL CHOLESTEROL 49.9 MG/DL (<100); NON-HDL-C 75.5 MG/DL; POTASSIUM SERUM 4.5 MMOL/L (3.5-5.1); TOTAL PROTEIN 5.8 G/DL (5.7-8.2)
== END ==
LOC: M PLALAB 10:37
PROVIDERS: ATTEND Internal Medicine Hematology
DX: I12.9 Hypertensive chronic kidney disease with stage 1 through stage 4 chronic kidney disease, or unspecified chronic kidney disease (principal); I48.0 Paroxysmal atrial fibrillation; N18.30 Chronic kidney disease, stage 3 unspecified; Z79.899 Other long term (current) drug therapy

== ENCOUNTER 2023-08-17 12:39 | Emergency (ER) | payer MEDICARE, OTHER ==
[~2023-08-17] VITALS: Ht 185.4 cm; Wt 83.6 kg
[~2023-08-17 12:39] MED LIST changes: -MIRA1POW3 PO; +MIRA33506 PO
[2023-08-17] MEDS ORDERED: DIGO0.123 PO (12:51)
[2023-08-17 14:42] LABS: BASO # 0.1 10^3/uL (0.0-0.2); BASO % 0.7 % (0.0-1.0); EOS # 0.2 10^3/uL (0.0-0.5); EOS % 2.4 % (0.0-3.0); HEMATOCRIT 42.8 % (42.0-52.0); HEMOGLOBIN 14.1 g/dl (13.5-17.5); LYMPH % 11.3 % (24.0-44.0); MEAN CORPUSCULAR HGB CONC 32.9 g/dl (32.0-36.5); MEAN CORPUSCULAR VOLUME 94.1 fl (80.0-96.0); MONO # 1.1 10^3/uL (0.0-0.8); MONO % 11.7 % (2.0-8.0); NEUTROPHILS # 6.7 10^3/uL (1.5-8.5); NEUTROPHILS % 73.4 % (36.0-66.0); PLATELET COUNT, AUTOMATED 255 10^3/uL (150-450); RED BLOOD COUNT 4.55 10^6/uL (4.30-6.10); WHITE BLOOD COUNT 9.1 10^3/uL (4.0-10.0)
[2023-08-17 14:50] LABS: CK-MB VALUE MASS 1.9 NG/ML (<3.6)
[2023-08-17 14:53] LABS: CALCIUM LEVEL 8.5 MG/DL (8.3-10.6); THYROID STIMULATING HORMONE 4.257 uIU/ML (0.55-4.78); THYROXINE (T4) 8.5 UG/DL (4.5-10.9)
[2023-08-17 14:54] LABS: MB/CK RELATIVE INDEX 1.61 (< OR =4)
[2023-08-17 14:55] LABS: BILIRUBIN,DIRECT 0.3 MG/DL (<0.4); BILIRUBIN,TOTAL 0.8 MG/DL (0.3-1.2); CREATININE FOR GFR 1.59 MG/DL (0.70-1.30); DIGOXIN LEVEL 1.4 NG/ML (0.8-2.0); GLOMERULAR FILTRATION RATE 44.4 (>35); TOTAL PROTEIN 6.1 G/DL (5.7-8.2)
[2023-08-17] MEDS: NS 500 ML IV ONE (15:24)
[2023-08-17 16:41] LABS: MB/CK RELATIVE INDEX 1.72 (< OR =4)
[2023-08-17] MEDS: NS 1,000 ML IV SCH (16:49)
[2023-08-17] MEDS ORDERED: GUAI400T9 PO (17:24)
[2023-08-17 17:43] VITALS: O2SAT 94
[2023-08-17 17:44] VITALS: BP 121/74; TEMP 97.6; O2SAT 96
== END 2023-08-17 17:56 | disposition home or self-care (01) ==
LOC: M ED 12:39
DX: E86.0 Dehydration (principal); R09.89 Other specified symptoms and signs involving the circulatory and respiratory systems; I48.91 Unspecified atrial fibrillation; I10 Essential (primary) hypertension; J45.909 Unspecified asthma, uncomplicated; J44.9 Chronic obstructive pulmonary disease, unspecified; E78.5 Hyperlipidemia, unspecified; N40.0 Benign prostatic hyperplasia without lower urinary tract symptoms; E04.1 Nontoxic single thyroid nodule; Z79.899 Other long term (current) drug therapy; Z87.891 Personal history of nicotine dependence; Z88.0 Allergy status to penicillin; Z88.2 Allergy status to sulfonamides; Z88.1 Allergy status to other antibiotic agents; Z88.6 Allergy status to analgesic agent; Z91.011 Allergy to milk products

== ENCOUNTER 2023-10-24 06:40 | Day surgery (SDC) | payer MEDICARE, OTHER ==
[~2023-10-24] VITALS: Ht 185.4 cm; Wt 60.3 kg
[~2023-10-24 06:40] MED LIST changes: +ASPI-531 PO; +COMBAER6; +DIGO0.123 PO; +DOXY-323 PO; +DOXY-440 PO; -DOXY-443 PO; -DOXY-444 PO; +FERR325T19 PO; +FLUT1BLS3; +FLUTISP; +GUAI400T9 PO; +LORA-930 PO; +THERTAB52 PO; +TOPR25TA PO
[2023-10-24] MEDS: NS 1,000 ML IV ONE (07:17)
[2023-10-24] MEDS ORDERED: GLUCAGON INJ 1MG VIAL As Ordered ONE (08:07)
[2023-10-24] MEDS ORDERED: propofoL 500 MG/50 ML VIAL As Ordered ONE (08:30)
[2023-10-24 08:37] VITALS: TEMP 96.8
[2023-10-24 09:00] VITALS: BP 133/66; O2SAT 93
== END 2023-10-24 09:10 | disposition home or self-care (01) ==
LOC: M OPP 06:40
PROVIDERS: ATTEND Internal Medicine Gastroenterology
DX: Z12.11 Encounter for screening for malignant neoplasm of colon (principal); D12.3 Benign neoplasm of transverse colon; D12.4 Benign neoplasm of descending colon; D12.5 Benign neoplasm of sigmoid colon; D12.0 Benign neoplasm of cecum; D12.2 Benign neoplasm of ascending colon; Z86.010 Personal history of colon polyps; Z80.0 Family history of malignant neoplasm of digestive organs; Z90.49 Acquired absence of other specified parts of digestive tract; I48.91 Unspecified atrial fibrillation; I12.9 Hypertensive chronic kidney disease with stage 1 through stage 4 chronic kidney disease, or unspecified chronic kidney disease; I71.40 Abdominal aortic aneurysm, without rupture, unspecified; E78.00 Pure hypercholesterolemia, unspecified; Z79.899 Other long term (current) drug therapy; Z79.01 Long term (current) use of anticoagulants; Z79.51 Long term (current) use of inhaled steroids; J44.9 Chronic obstructive pulmonary disease, unspecified; N40.0 Benign prostatic hyperplasia without lower urinary tract symptoms; N18.9 Chronic kidney disease, unspecified; Z88.2 Allergy status to sulfonamides; Z88.1 Allergy status to other antibiotic agents; Z88.0 Allergy status to penicillin; Z91.011 Allergy to milk products
CPT/HCPCS: 45385; 88305; J1610

== ENCOUNTER 2023-11-18 01:18 | Inpatient (IN) | payer MEDICARE, OTHER ==
[~2023-11-18] VITALS: Ht 185.4 cm; Wt 87.0 kg
[~2023-11-18 01:18] MED LIST changes: -COMBAER6; -FLUTISP; +FLUTISP INH
[2023-11-18 01:43] LABS: BASO # 0.1 10^3/uL (0.0-0.2); BASO % 0.5 % (0.0-1.0); EOS # 0.1 10^3/uL (0.0-0.5); EOS % 0.5 % (0.0-3.0); HEMOGLOBIN 14.7 g/dl (13.5-17.5); LYMPH # 1.4 10^3/uL (1.5-5.0); LYMPH % 8.2 % (24.0-44.0); MEAN CORPUSCULAR HEMOGLOBIN 30.6 pg (27.0-33.0); MEAN CORPUSCULAR HGB CONC 32.7 g/dl (32.0-36.5); MEAN CORPUSCULAR VOLUME 93.6 fl (80.0-96.0); MONO # 1.6 10^3/uL (0.0-0.8); MONO % 9.1 % (2.0-8.0); NEUTROPHILS # 13.8 10^3/uL (1.5-8.5); NEUTROPHILS % 81.1 % (36.0-66.0); PLATELET COUNT, AUTOMATED 276 10^3/uL (150-450); RED BLOOD COUNT 4.81 10^6/uL (4.30-6.10)
[2023-11-18 02:13] LABS: ALBUMIN 3.4 G/DL (3.2-5.2); BILIRUBIN,DIRECT 0.3 MG/DL (<0.4); BILIRUBIN,TOTAL 0.9 MG/DL (0.3-1.2); CK-MB VALUE MASS 2.8 NG/ML (<3.6); CREATININE FOR GFR 1.43 MG/DL (0.70-1.30); GLOMERULAR FILTRATION RATE 50.2 (>35); MB/CK RELATIVE INDEX 4.59 (< OR =4); POTASSIUM SERUM 3.7 MMOL/L (3.5-5.1); TOTAL PROTEIN 6.4 G/DL (5.7-8.2)
[2023-11-18] MEDS ORDERED: ISOVUE-370 76% 100ML VIAL As Ordered ONE (03:38)
[2023-11-18 03:52] LABS: CK-MB VALUE MASS 2.1 NG/ML (<3.6)
[2023-11-18 03:54] LABS: MB/CK RELATIVE INDEX 4.2 (< OR =4)
[2023-11-18 04:05] LABS: BILIRUBIN,DIRECT 0.4 MG/DL (<0.4); BILIRUBIN,TOTAL 0.9 MG/DL (0.3-1.2)
[2023-11-18] MEDS: ONDANSETRON 4MG 2ML VIAL IV ONE (04:22)
[2023-11-18] MEDS: MORPHINE 4 MG/ML 1ML VIAL IV PRN (04:22)
[2023-11-18] MEDS: ADVAIR HFA 230/21MCG INHALER INH SCH (08:00)
[2023-11-18] MEDS: TIOTROPIUM INHALER/CAPSULE (SPIRIVA) INH SCH (08:00)
[2023-11-18 08:46] LABS: C REACTIVE PROTEIN QUANTITATIV 2.7 MG/DL (<1.0)
[2023-11-18] MEDS: IPRATROPIUM 0.5MG/ALBUTEROL 2.5MG INH SOL UD 3ML (DUONEB) NEB ONE ×2 (08:50)
[2023-11-18 08:59] LABS: PROCALCITONIN 0.22 ng/ml
[2023-11-18] MEDS: methylPREDNISolone 125MG 2ML VIAL IV ONE (09:01)
[2023-11-18] MEDS: MEROPENEM INJ 1 GM in IV 1 EA IV ONE (09:02)
[2023-11-18] MEDS ORDERED: ACET-683 PO (10:15)
[2023-11-18] MEDS ORDERED: IPRA0.00 INH (10:16)
[2023-11-18] MEDS ORDERED: HOME MED LIST COMPLETE! XX SCH (10:20)
[2023-11-18] MEDS: IPRATROPIUM 0.02% SOLN 0.5MG 2.5ML NEB INH SCH (11:28)
[2023-11-18] MEDS: LEVALBUTEROL 1.25MG 0.5ML CONCENTRATE NEB INH SCH (11:28)
[2023-11-18] MEDS ORDERED: diphenhydrAMINE 25MG CAP PO PRN (11:35)
[2023-11-18] MEDS ORDERED: COMBIVENT RESPIMAT 100-20MCG INHALER 4GM INH PRN (11:35)
[2023-11-18 12:15] VITALS: BP 150/89; TEMP 97.3; O2SAT 100
[2023-11-18] MEDS: APIXABAN 2.5 MG TAB (ELIQUIS) PO SCH (12:28)
[2023-11-18] MEDS: ATORVASTATIN 20 MG TAB PO SCH (12:28)
[2023-11-18] MEDS: FINASTERIDE 5MG TAB PO SCH (12:28)
[2023-11-18] MEDS: TORSEMIDE 20 MG TAB PO SCH (12:28)
[2023-11-18] MEDS: DOXYCYCLINE HYCLATE 100MG TABLET PO SCH (12:28)
[2023-11-18] MEDS: METOPROLOL SUCC *XL* 25MG TAB (TopROL *XL*) PO SCH (12:29)
[2023-11-18] MEDS: LORATADINE 10 MG TAB PO SCH (12:29)
[2023-11-18] MEDS: DIGOXIN 0.125 MG TAB PO SCH (12:29)
[2023-11-18] MEDS: methylPREDNISolone 125MG 2ML VIAL IV SCH (12:30)
[2023-11-18] MEDS: MONTELUKAST 10 MG TAB PO SCH (12:30)
[2023-11-18] MEDS: GABAPENTIN 300 MG CAP PO SCH (12:30)
[2023-11-18] MEDS: guaiFENesin ER TABLET 600 MG TAB PO SCH (12:30)
[2023-11-18 14:00] VITALS: BP 131/91; TEMP 97.7; O2SAT 95
[2023-11-18] MEDS: FLUTICASONE PROP 0.05% NASAL SPRAY 16 GM (FLONASE) SCH (17:10)
[2023-11-18 20:11] LABS: MB/CK RELATIVE INDEX 0.93 (< OR =4)
[2023-11-18] MEDS: TAMSULOSIN 0.4 MG CAP PO SCH (20:57)
[2023-11-18 21:00] VITALS: BP 135/83; TEMP 97.5; O2SAT 94
[2023-11-19 01:02] LABS: CK-MB VALUE MASS 3.8 NG/ML (<3.6)
[2023-11-19 01:03] LABS: ALBUMIN 3.5 G/DL (3.2-5.2); BILIRUBIN,TOTAL 1.1 MG/DL (0.3-1.2); CALCIUM LEVEL 9.1 MG/DL (8.3-10.6); CREATININE FOR GFR 1.67 MG/DL (0.70-1.30); GLOMERULAR FILTRATION RATE 41.9 (>35); MAGNESIUM LEVEL 2.3 MG/DL (1.8-2.4); MB/CK RELATIVE INDEX 0.91 (< OR =4); POTASSIUM SERUM 4.9 MMOL/L (3.5-5.1); TOTAL PROTEIN 7.2 G/DL (5.7-8.2)
[2023-11-19 04:50] VITALS: BP 130/63; TEMP 98.1; O2SAT 94
[2023-11-19 06:08] LABS: BASO % 0.1 % (0.0-1.0); HEMATOCRIT 42.4 % (42.0-52.0); HEMOGLOBIN 14.3 g/dl (13.5-17.5); LYMPH # 0.4 10^3/uL (1.5-5.0); LYMPH % 2.4 % (24.0-44.0); MEAN CORPUSCULAR HEMOGLOBIN 31.2 pg (27.0-33.0); MEAN CORPUSCULAR HGB CONC 33.7 g/dl (32.0-36.5); MEAN CORPUSCULAR VOLUME 92.6 fl (80.0-96.0); MONO # 1.1 10^3/uL (0.0-0.8); MONO % 6.7 % (2.0-8.0); NEUTROPHILS # 15.2 10^3/uL (1.5-8.5); NEUTROPHILS % 90.1 % (36.0-66.0); PLATELET COUNT, AUTOMATED 228 10^3/uL (150-450); RED BLOOD COUNT 4.58 10^6/uL (4.30-6.10); WHITE BLOOD COUNT 16.8 10^3/uL (4.0-10.0)
[2023-11-19 06:36] LABS: CREATININE FOR GFR 1.63 MG/DL (0.70-1.30); GLOMERULAR FILTRATION RATE 43.1 (>35); POTASSIUM SERUM 4.6 MMOL/L (3.5-5.1)
[2023-11-19] MEDS: MIRALAX *UNIT DOSE* 17GM PACKET PO SCH (09:00)
[2023-11-19] MEDS ORDERED: METOPROLOL 5 MG/5 ML VIAL IV SCH (09:10)
[2023-11-19 09:27] LABS: DIGOXIN LEVEL 1.7 NG/ML (0.8-2.0)
[2023-11-19 10:00] VITALS: BP 143/72; TEMP 97.3; O2SAT 98
[2023-11-19] MEDS: DIGOXIN INJ 0.5 MG/2 ML AMP IV STA (10:06)
[2023-11-19] MEDS ORDERED: METOPROLOL 5 MG/5 ML VIAL IV PRN (10:20)
[2023-11-19 11:55] VITALS: BP 138/74; TEMP 97.8; O2SAT 96
[2023-11-19] MEDS: METOPROLOL TART 25 MG TABLET PO SCH (12:26)
[2023-11-19] MEDS: methylPREDNISolone 40MG 1ML VIAL IV SCH (15:01)
[2023-11-19 15:28] VITALS: BP 134/78; TEMP 97.2; O2SAT 95
[2023-11-19] MEDS ORDERED: DIGOXIN INJ 0.5 MG/2 ML AMP IV ONE (16:00)
[2023-11-19] MEDS: ACETAMINOPHEN 500 MG TAB PO ONE (16:56)
[2023-11-19 19:50] VITALS: BP 120/63; TEMP 97.3; O2SAT 95
[2023-11-19 23:26] VITALS: BP 126/61; TEMP 97.1; O2SAT 97
[2023-11-20] VITALS (8 sets, daily range): BP systolic 103–128; BP diastolic 53–78; TEMP 97–97.7; O2SAT 91–97
[2023-11-20 05:36] LABS: BASO % 0.1 % (0.0-1.0); HEMATOCRIT 37.3 % (42.0-52.0); HEMOGLOBIN 12.9 g/dl (13.5-17.5); LYMPH # 0.3 10^3/uL (1.5-5.0); LYMPH % 1.6 % (24.0-44.0); MEAN CORPUSCULAR HEMOGLOBIN 30.9 pg (27.0-33.0); MEAN CORPUSCULAR HGB CONC 34.6 g/dl (32.0-36.5); MEAN CORPUSCULAR VOLUME 89.2 fl (80.0-96.0); MONO # 1.2 10^3/uL (0.0-0.8); NEUTROPHILS # 15.3 10^3/uL (1.5-8.5); NEUTROPHILS % 90.4 % (36.0-66.0); PLATELET COUNT, AUTOMATED 222 10^3/uL (150-450); RED BLOOD COUNT 4.18 10^6/uL (4.30-6.10)
[2023-11-20 05:58] LABS: CALCIUM LEVEL 8.6 MG/DL (8.3-10.6); CREATININE FOR GFR 1.62 MG/DL (0.70-1.30); GLOMERULAR FILTRATION RATE 43.4 (>35)
[2023-11-20] MEDS: MOM 30ML SUSPENSION UDC PO PRN (09:05)
[2023-11-20] MEDS: SENOKOT S TAB PO ONE (11:14)
[2023-11-20] MEDS: MIDODRINE 5 MG TAB PO ONE (11:14)
[2023-11-20] MEDS: METOPROLOL TART 50 MG TAB PO SCH (11:15)
[2023-11-20] MEDS: FLEET ENEMA PR ONE (11:17)
[2023-11-20 16:27] LABS: HEMOGLOBIN A1c 6.1 % (4.0-6.0)
[2023-11-20] MEDS ORDERED: GLUCAGON INJ 1MG VIAL SC PRN (16:35)
[2023-11-20] MEDS ORDERED: GLUCOSE 4 GM CHEW PO PRN (16:35)
[2023-11-20] MEDS ORDERED: DEXTROSE 50% 50ML SYRINGE IV PRN (16:35)
[2023-11-20] MEDS: LEVEMIR (INSULIN DETEMIR) 1 UNITS/0.01ML SC ONE (18:00)
[2023-11-20] MEDS: INSULIN LISPRO (NovoLOG) PER UNIT SC SCH ×2 (18:01→21:33)
[2023-11-21 04:25] VITALS: BP 103/55; TEMP 97.3; O2SAT 96
[2023-11-21 05:49] LABS: BASO % 0.1 % (0.0-1.0); HEMATOCRIT 37.6 % (42.0-52.0); HEMOGLOBIN 12.8 g/dl (13.5-17.5); LYMPH # 0.3 10^3/uL (1.5-5.0); MEAN CORPUSCULAR HEMOGLOBIN 30.2 pg (27.0-33.0); MEAN CORPUSCULAR VOLUME 88.7 fl (80.0-96.0); MONO # 0.8 10^3/uL (0.0-0.8); MONO % 5.8 % (2.0-8.0); NEUTROPHILS % 91.3 % (36.0-66.0); PLATELET COUNT, AUTOMATED 238 10^3/uL (150-450); RED BLOOD COUNT 4.24 10^6/uL (4.30-6.10); WHITE BLOOD COUNT 14.2 10^3/uL (4.0-10.0)
[2023-11-21 06:15] LABS: CALCIUM LEVEL 8.3 MG/DL (8.3-10.6); CREATININE FOR GFR 1.88 MG/DL (0.70-1.30); DIGOXIN LEVEL 2.3 NG/ML (0.8-2.0); GLOMERULAR FILTRATION RATE 36.6 (>35); POTASSIUM SERUM 4.6 MMOL/L (3.5-5.1)
[2023-11-21 07:23] VITALS: O2SAT 98
[2023-11-21 07:49] VITALS: BP 145/70; TEMP 97.1; O2SAT 97
[2023-11-21] MEDS: SENOKOT S TAB PO ONE (09:43)
[2023-11-21] MEDS: LEVEMIR (INSULIN DETEMIR) 1 UNITS/0.01ML SC ONE (09:44)
[2023-11-21] MEDS: BISACODYL 10MG SUPP PR ONE (09:46)
[2023-11-21] MEDS: METOPROLOL TART 25 MG TABLET PO SCH (09:46)
[2023-11-21 11:33] VITALS: BP 135/60; TEMP 97; O2SAT 94
[2023-11-21] MEDS: FUROSEMIDE 100MG/10ML VIAL IV ONE ×2 (12:41→23:11)
[2023-11-21 16:30] VITALS: BP 128/58; TEMP 97.1; O2SAT 96
[2023-11-21] MEDS: CEPACOL LOZENGE PO ONE (16:59)
[2023-11-21] MEDS: SALIVA SUBSTITUTE(MOUTHKOTE) BTL MT ONE (17:08)
[2023-11-21] MEDS ORDERED: CEPACOL LOZENGE PO PRN (18:00)
[2023-11-21 20:00] VITALS: BP 145/61; TEMP 96.7; O2SAT 95
[2023-11-21] MEDS: SALIVA SUBSTITUTE(MOUTHKOTE) BTL MT SCH (21:01)
[2023-11-22] VITALS (8 sets, daily range): BP systolic 120–164; BP diastolic 61–84; TEMP 97.1–97.8; O2SAT 95–98
[2023-11-22 06:03] LABS: BASO % 0.1 % (0.0-1.0); HEMOGLOBIN 13.1 g/dl (13.5-17.5); LYMPH # 0.7 10^3/uL (1.5-5.0); MEAN CORPUSCULAR HGB CONC 34.5 g/dl (32.0-36.5); MONO # 1.5 10^3/uL (0.0-0.8); MONO % 12.8 % (2.0-8.0); NEUTROPHILS # 9.3 10^3/uL (1.5-8.5); NEUTROPHILS % 80.3 % (36.0-66.0); PLATELET COUNT, AUTOMATED 227 10^3/uL (150-450); RED BLOOD COUNT 4.22 10^6/uL (4.30-6.10); WHITE BLOOD COUNT 11.6 10^3/uL (4.0-10.0)
[2023-11-22 06:27] LABS: CALCIUM LEVEL 8.6 MG/DL (8.3-10.6); CREATININE FOR GFR 1.86 MG/DL (0.70-1.30); DIGOXIN LEVEL 1.8 NG/ML (0.8-2.0); POTASSIUM SERUM 4.4 MMOL/L (3.5-5.1)
[2023-11-22] MEDS: predniSONE 20 MG TAB PO SCH (09:26)
[2023-11-22] MEDS: SENOKOT S TAB PO PRN (09:39)
[2023-11-22] MEDS ORDERED: NITROGLYCERIN 0.4MG SUBL TABLET SL PRN (18:00)
[2023-11-22 18:03] LABS: CK-MB VALUE MASS 3.8 NG/ML (<3.6); MB/CK RELATIVE INDEX 1.98 (< OR =4)
[2023-11-22 19:20] LABS: CK-MB VALUE MASS 4.1 NG/ML (<3.6)
[2023-11-22 19:29] LABS: MB/CK RELATIVE INDEX 1.88 (< OR =4)
[2023-11-23] VITALS (9 sets, daily range): BP systolic 111–172; BP diastolic 56–89; TEMP 96–97.9; O2SAT 92–98
[2023-11-23 00:23] LABS: CK-MB VALUE MASS 3.6 NG/ML (<3.6)
[2023-11-23 00:28] LABS: MB/CK RELATIVE INDEX 1.93 (< OR =4)
[2023-11-23 05:44] LABS: BASO % 0.2 % (0.0-1.0); HEMOGLOBIN 13.2 g/dl (13.5-17.5); LYMPH # 0.9 10^3/uL (1.5-5.0); LYMPH % 8.4 % (24.0-44.0); MEAN CORPUSCULAR HEMOGLOBIN 30.2 pg (27.0-33.0); MEAN CORPUSCULAR HGB CONC 33.8 g/dl (32.0-36.5); MEAN CORPUSCULAR VOLUME 89.2 fl (80.0-96.0); MONO # 1.7 10^3/uL (0.0-0.8); MONO % 15.3 % (2.0-8.0); NEUTROPHILS # 8.1 10^3/uL (1.5-8.5); PLATELET COUNT, AUTOMATED 211 10^3/uL (150-450); RED BLOOD COUNT 4.37 10^6/uL (4.30-6.10); WHITE BLOOD COUNT 10.8 10^3/uL (4.0-10.0)
[2023-11-23 06:14] LABS: CK-MB VALUE MASS 3.7 NG/ML (<3.6)
[2023-11-23 06:15] LABS: CALCIUM LEVEL 8.4 MG/DL (8.3-10.6); CREATININE FOR GFR 1.42 MG/DL (0.70-1.30); DIGOXIN LEVEL 1.2 NG/ML (0.8-2.0); GLOMERULAR FILTRATION RATE 50.6 (>35); MB/CK RELATIVE INDEX 2.24 (< OR =4)
[2023-11-23] MEDS: METOPROLOL TARTRATE 100MG TAB PO SCH (09:49)
[2023-11-23] MEDS: DIGOXIN INJ 0.5 MG/2 ML AMP IV STA (09:52)
[2023-11-23] MEDS: dilTIAZem 30 MG TAB PO SCH (14:00)
[2023-11-23] MEDS: TORSEMIDE 20 MG TAB PO SCH (14:04)
[2023-11-23] MEDS ORDERED: ALBU8.5H INH (14:27)
[2023-11-23] MEDS ORDERED: PRED10TA2 PO (14:27)
[2023-11-23] MEDS ORDERED: PRED20TA PO (14:27)
[2023-11-23] MEDS ORDERED: DOXY100C3 PO (14:27)
[2023-11-23] MEDS ORDERED: LOPR1TAB7 PO (14:27)
[2023-11-24 04:32] VITALS: BP 170/84; TEMP 97.7; O2SAT 97
[2023-11-24 05:59] LABS: BASO # 0.1 10^3/uL (0.0-0.2); BASO % 0.4 % (0.0-1.0); EOS % 0.2 % (0.0-3.0); HEMATOCRIT 41.3 % (42.0-52.0); HEMOGLOBIN 13.7 g/dl (13.5-17.5); LYMPH # 1.1 10^3/uL (1.5-5.0); LYMPH % 8.6 % (24.0-44.0); MEAN CORPUSCULAR HEMOGLOBIN 30.2 pg (27.0-33.0); MEAN CORPUSCULAR HGB CONC 33.2 g/dl (32.0-36.5); MONO # 1.4 10^3/uL (0.0-0.8); MONO % 11.2 % (2.0-8.0); NEUTROPHILS # 9.5 10^3/uL (1.5-8.5); NEUTROPHILS % 77.8 % (36.0-66.0); PLATELET COUNT, AUTOMATED 217 10^3/uL (150-450); RED BLOOD COUNT 4.54 10^6/uL (4.30-6.10); WHITE BLOOD COUNT 12.2 10^3/uL (4.0-10.0)
[2023-11-24 06:24] LABS: CALCIUM LEVEL 8.6 MG/DL (8.3-10.6); CREATININE FOR GFR 1.37 MG/DL (0.70-1.30); DIGOXIN LEVEL 1.4 NG/ML (0.8-2.0); GLOMERULAR FILTRATION RATE 52.7 (>35); POTASSIUM SERUM 4.6 MMOL/L (3.5-5.1)
[2023-11-24] MEDS: TORSEMIDE 20 MG TAB PO STA (07:43)
[2023-11-24 07:45] VITALS: BP 158/96
[2023-11-24] MEDS: METOPROLOL TARTRATE 100MG TAB PO ONE (07:45)
[2023-11-24 09:04] VITALS: BP 120/58
[2023-11-24] MEDS: DIGOXIN 0.125 MG TAB PO SCH (09:22)
[2023-11-24] MEDS ORDERED: METOPROLOL TARTRATE 100MG TAB PO SCH (17:00)
[2023-11-25] MEDS ORDERED: TORSEMIDE 20 MG TAB PO SCH (09:00)
== END 2023-11-24 10:46 | disposition home health service (06) | DRG 191 ==
LOC: EDBD 01:18 → M ED 01:18 → M ED INP 09:28 → M MSPAV 12:02 → M PCU 11-19 09:44 → M MSPAV 11-23 21:16
PROVIDERS: ADMIT General Practice; ATTEND General Practice
DX: J44.1 Chronic obstructive pulmonary disease with (acute) exacerbation (principal); J96.11 Chronic respiratory failure with hypoxia; J98.11 Atelectasis; I48.19 Other persistent atrial fibrillation; E87.1 Hypo-osmolality and hyponatremia; N17.9 Acute kidney failure, unspecified; N18.9 Chronic kidney disease, unspecified; I71.40 Abdominal aortic aneurysm, without rupture, unspecified; I48.0 Paroxysmal atrial fibrillation; I73.9 Peripheral vascular disease, unspecified; R33.9 Retention of urine, unspecified; K59.09 Other constipation; R73.9 Hyperglycemia, unspecified; Z79.01 Long term (current) use of anticoagulants; Z79.899 Other long term (current) drug therapy; Z88.0 Allergy status to penicillin; Z88.2 Allergy status to sulfonamides; Z88.8 Allergy status to other drugs, medicaments and biological substances; Z91.011 Allergy to milk products; Z99.81 Dependence on supplemental oxygen; R91.8 Other nonspecific abnormal finding of lung field; Z87.891 Personal history of nicotine dependence

== ENCOUNTER → 2023-11-28 | Outpatient (CLI) | payer MEDICARE, OTHER ==
[~2023-11-28] MED LIST changes: +ACET-683 PO; +ALBU8.5H INH; +DOXY100C3 PO; +LOPR1TAB7 PO
== END ==
LOC: M RAD 08:44
PROVIDERS: ATTEND Physician Assistant
DX: I71.40 Abdominal aortic aneurysm, without rupture, unspecified (principal); I72.3 Aneurysm of iliac artery

== ENCOUNTER 2023-12-15 15:39 | Emergency (ER) | payer MEDICARE, OTHER ==
[~2023-12-15] VITALS: Ht 185.4 cm; Wt 79.5 kg
[2023-12-15 16:31] LABS: BASO # 0.1 10^3/uL (0.0-0.2); BASO % 0.8 % (0.0-1.0); EOS # 0.2 10^3/uL (0.0-0.5); EOS % 3.3 % (0.0-3.0); HEMATOCRIT 45.9 % (42.0-52.0); LYMPH # 1.2 10^3/uL (1.5-5.0); LYMPH % 17.8 % (24.0-44.0); MEAN CORPUSCULAR HEMOGLOBIN 29.5 pg (27.0-33.0); MEAN CORPUSCULAR HGB CONC 32.7 g/dl (32.0-36.5); MEAN CORPUSCULAR VOLUME 90.4 fl (80.0-96.0); MONO # 0.9 10^3/uL (0.0-0.8); MONO % 13.2 % (2.0-8.0); NEUTROPHILS # 4.2 10^3/uL (1.5-8.5); NEUTROPHILS % 63.7 % (36.0-66.0); PLATELET COUNT, AUTOMATED 307 10^3/uL (150-450); RED BLOOD COUNT 5.08 10^6/uL (4.30-6.10); WHITE BLOOD COUNT 6.6 10^3/uL (4.0-10.0)
[2023-12-15 16:49] LABS: ALBUMIN 3.2 G/DL (3.2-5.2); BILIRUBIN,DIRECT 0.5 MG/DL (<0.4); BILIRUBIN,TOTAL 1.5 MG/DL (0.3-1.2); CALCIUM LEVEL 9.6 MG/DL (8.3-10.6); CREATININE FOR GFR 1.53 MG/DL (0.70-1.30); GLOMERULAR FILTRATION RATE 46.4 (>35); TOTAL PROTEIN 6.4 G/DL (5.7-8.2)
[2023-12-15 16:52] LABS: THYROID STIMULATING HORMONE 4.232 uIU/ML (0.55-4.78)
[2023-12-15 17:53] LABS: DIGOXIN LEVEL 1.6 NG/ML (0.8-2.0)
[2023-12-15 18:01] VITALS: BP 159/72; TEMP 97.1; O2SAT 93
[2023-12-15] MEDS ORDERED: LOPR1TAB6 PO (18:15)
== END 2023-12-15 18:23 | disposition home or self-care (01) ==
LOC: M ED 15:39
DX: R42 Dizziness and giddiness (principal); I49.1 Atrial premature depolarization; I44.4 Left anterior fascicular block; I10 Essential (primary) hypertension; J45.909 Unspecified asthma, uncomplicated; E78.5 Hyperlipidemia, unspecified; N18.9 Chronic kidney disease, unspecified; J44.9 Chronic obstructive pulmonary disease, unspecified; I71.40 Abdominal aortic aneurysm, without rupture, unspecified; Z87.891 Personal history of nicotine dependence; Z88.0 Allergy status to penicillin; Z88.1 Allergy status to other antibiotic agents; Z88.2 Allergy status to sulfonamides; Z88.6 Allergy status to analgesic agent; Z86.718 Personal history of other venous thrombosis and embolism; Z79.52 Long term (current) use of systemic steroids; Z79.01 Long term (current) use of anticoagulants; Z79.02 Long term (current) use of antithrombotics/antiplatelets; Z79.811 Long term (current) use of aromatase inhibitors; Z79.899 Other long term (current) drug therapy

== ENCOUNTER 2024-01-26 11:04 | Inpatient (IN) | payer MEDICARE, OTHER ==
[~2024-01-26] VITALS: Ht 185.4 cm; Wt 77.3 kg
[~2024-01-26 11:04] MED LIST changes: +LOPR1TAB6 PO
[2024-01-26 11:44] LABS: BASO # 0.1 10^3/uL (0.0-0.2); BASO % 0.4 % (0.0-1.0); HEMOGLOBIN 13.8 g/dl (13.5-17.5); LYMPH # 1.1 10^3/uL (1.5-5.0); LYMPH % 4.8 % (24.0-44.0); MEAN CORPUSCULAR HEMOGLOBIN 30.3 pg (27.0-33.0); MEAN CORPUSCULAR HGB CONC 32.9 g/dl (32.0-36.5); MEAN CORPUSCULAR VOLUME 92.1 fl (80.0-96.0); MONO # 1.9 10^3/uL (0.0-0.8); MONO % 8.2 % (2.0-8.0); NEUTROPHILS % 85.7 % (36.0-66.0); PLATELET COUNT, AUTOMATED 286 10^3/uL (150-450); RED BLOOD COUNT 4.56 10^6/uL (4.30-6.10); WHITE BLOOD COUNT 23.4 10^3/uL (4.0-10.0)
[2024-01-26 11:45] LABS: VENOUS BASE EXCESS -2.8 (-2.0-2.0); VENOUS HCO3 23.6 MMOL/L (23.0-27.0); VENOUS O2 SATURATION 40.6 % (60.0-80.0); VENOUS PARTIAL PRESSURE CO2 46.7 mmHg (38.0-50.0); VENOUS PARTIAL PRESSURE O2 24.2 mmHg (30.0-50.0); VENOUS PH 7.321 UNITS (7.330-7.430); VENOUS STANDARD HCO3 20.8 MMOL/L
[2024-01-26 12:24] LABS: PROCALCITONIN 0.24 ng/ml
[2024-01-26 12:27] LABS: ALBUMIN 2.9 G/DL (3.2-5.2); BILIRUBIN,TOTAL 2.5 MG/DL (0.3-1.2); CALCIUM LEVEL 8.5 MG/DL (8.3-10.6); CREATININE FOR GFR 1.5 MG/DL (0.70-1.30); GLOMERULAR FILTRATION RATE 47.5 (>35)
[2024-01-26 12:43] LABS: INR 1.94; PARTIAL THROMBOPLASTIN TIME 45.5 SECONDS (24.8-34.2); PROTHROMBIN TIME 21.5 SECONDS (12.5-14.5)
[2024-01-26] MEDS ORDERED: ISOVUE-370 76% 100ML VIAL As Ordered ONE (14:04)
[2024-01-26 14:50] LABS: APPEARANCE, URINE CLOUDY (CLEAR); BACTERIA, URINE AUTO 3+ (NEGATIVE); BILIRUBIN, URINE AUTO NEGATIVE (NEGATIVE); BLOOD, URINE BLOOD NEGATIVE (NEGATIVE); COLOR, URINE AMBER (YELLOW); GLUCOSE, URINE (UA) AUTO NEGATIVE (NEGATIVE); KETONE, URINE AUTO NEGATIVE (NEGATIVE); LEUKOCYTE ESTERASE, URINE AUTO 3+ (NEGATIVE); NITRITE, URINE AUTO NEGATIVE (NEGATIVE); PROTEIN, URINE AUTO 1+ mg/dL (NEGATIVE); RBC, URINE AUTO 2 /HPF (0-3); SQUAMOUS EPITHELIAL CELL UR AU 1 /HPF (0-6); UROBILINOGEN, URINE AUTO 0.2 mg/dL (0.0-2.0); WBC, URINE AUTO TNTC /HPF (0-3)
[2024-01-26] MEDS: CEFEPIME HCL 2 GM in D5W MINI-BAG PLUS 50 ML IV ONE (15:57)
[2024-01-26] MEDS ORDERED: ACETAMINOPHEN TAB 650MG DOSE (2X325MG) PO PRN (16:50)
[2024-01-26 18:29] LABS: DIGOXIN LEVEL 1.5 NG/ML (0.8-2.0)
[2024-01-26] MEDS ORDERED: VENTAER INH (18:31)
[2024-01-26] MEDS ORDERED: FLON1SPR NARES (18:31)
[2024-01-26] MEDS ORDERED: METO1TAB32 PO (18:31)
[2024-01-26] MEDS ORDERED: CENT1TAB PO (18:31)
[2024-01-26] MEDS ORDERED: HOME MED LIST COMPLETE! XX SCH (18:35)
[2024-01-26] MEDS ORDERED: COMBIVENT RESPIMAT 100-20MCG INHALER 4GM INH PRN (18:45)
[2024-01-26] MEDS ORDERED: IPRATROPIUM 0.5MG/ALBUTEROL 2.5MG INH SOL UD 3ML (DUONEB) INH PRN (18:45)
[2024-01-26] MEDS ORDERED: ALBUTEROL 90 MCG/ACT 8GM HFA INHALER INH PRN (18:45)
[2024-01-26] MEDS: TAMSULOSIN 0.4 MG CAP PO SCH (20:52)
[2024-01-26] MEDS: ATORVASTATIN 20 MG TAB PO SCH (20:53)
[2024-01-26] MEDS: MONTELUKAST 10 MG TAB PO SCH (20:53)
[2024-01-26] MEDS: APIXABAN 2.5 MG TAB (ELIQUIS) PO SCH (20:53)
[2024-01-26] MEDS: DOXYCYCLINE HYCLATE 100MG TABLET PO SCH (20:53)
[2024-01-26] MEDS: FINASTERIDE 5MG TAB PO SCH (20:53)
[2024-01-26] MEDS: diphenhydrAMINE 25MG CAP PO SCH (20:53)
[2024-01-26] MEDS ORDERED: APIXABAN 2.5 MG TAB (ELIQUIS) PO SCH (21:00)
[2024-01-26] MEDS: ADVAIR HFA 230/21MCG INHALER INH SCH (21:10)
[2024-01-26 22:51] VITALS: BP 122/78; TEMP 97.8; O2SAT 94
[2024-01-27 04:00] VITALS: BP 113/56; TEMP 97.1; O2SAT 93
[2024-01-27] MEDS: CEFEPIME HCL 2 GM in D5W MINI-BAG PLUS 50 ML IV SCH (04:28)
[2024-01-27 06:55] LABS: HEMATOCRIT 39.9 % (42.0-52.0); HEMOGLOBIN 13.2 g/dl (13.5-17.5); MEAN CORPUSCULAR HEMOGLOBIN 30.1 pg (27.0-33.0); MEAN CORPUSCULAR HGB CONC 33.1 g/dl (32.0-36.5); MEAN CORPUSCULAR VOLUME 90.9 fl (80.0-96.0); PLATELET COUNT, AUTOMATED 274 10^3/uL (150-450); RED BLOOD COUNT 4.39 10^6/uL (4.30-6.10); WHITE BLOOD COUNT 15.6 10^3/uL (4.0-10.0)
[2024-01-27 07:29] LABS: ALBUMIN 2.5 G/DL (3.2-5.2); BILIRUBIN,TOTAL 1.6 MG/DL (0.3-1.2); CALCIUM LEVEL 8.5 MG/DL (8.3-10.6); CREATININE FOR GFR 1.54 MG/DL (0.70-1.30); POTASSIUM SERUM 4.1 MMOL/L (3.5-5.1); TOTAL PROTEIN 5.5 G/DL (5.7-8.2)
[2024-01-27 07:59] VITALS: BP 109/58; TEMP 97.6; O2SAT 97
[2024-01-27] MEDS: TORSEMIDE 20 MG TAB PO SCH (08:47)
[2024-01-27] MEDS: MULTIVITAMINS/MINERALS THERAP 1 TAB PO SCH (08:47)
[2024-01-27] MEDS: FLUTICASONE PROP 0.05% NASAL SPRAY 16 GM (FLONASE) NARES SCH (08:48)
[2024-01-27] MEDS: DIGOXIN 0.125 MG TAB PO SCH (08:48)
[2024-01-27] MEDS: LORATADINE 10 MG TAB PO SCH (08:48)
[2024-01-27] MEDS: METOPROLOL SUCC *XL* 25MG TAB (TopROL *XL*) PO SCH (08:48)
[2024-01-27 12:55] VITALS: BP 124/56; TEMP 97.3; O2SAT 97
[2024-01-27 16:08] VITALS: BP 113/56; TEMP 98; O2SAT 96
[2024-01-27 19:25] VITALS: BP 122/59; TEMP 98; O2SAT 95
[2024-01-28 03:21] VITALS: BP 116/54; TEMP 98.1; O2SAT 96
[2024-01-28 04:23] LABS: BASO # 0.1 10^3/uL (0.0-0.2); BASO % 0.6 % (0.0-1.0); EOS # 0.2 10^3/uL (0.0-0.5); EOS % 1.3 % (0.0-3.0); HEMATOCRIT 37.6 % (42.0-52.0); HEMOGLOBIN 12.5 g/dl (13.5-17.5); LYMPH # 1.1 10^3/uL (1.5-5.0); LYMPH % 9.6 % (24.0-44.0); MEAN CORPUSCULAR HEMOGLOBIN 30.2 pg (27.0-33.0); MEAN CORPUSCULAR HGB CONC 33.2 g/dl (32.0-36.5); MEAN CORPUSCULAR VOLUME 90.8 fl (80.0-96.0); MONO # 0.9 10^3/uL (0.0-0.8); MONO % 7.4 % (2.0-8.0); NEUTROPHILS # 9.4 10^3/uL (1.5-8.5); NEUTROPHILS % 80.4 % (36.0-66.0); PLATELET COUNT, AUTOMATED 289 10^3/uL (150-450); RED BLOOD COUNT 4.14 10^6/uL (4.30-6.10); WHITE BLOOD COUNT 11.7 10^3/uL (4.0-10.0)
[2024-01-28 04:45] LABS: C REACTIVE PROTEIN QUANTITATIV 10.5 MG/DL (<1.0)
[2024-01-28 04:48] LABS: ALBUMIN 2.4 G/DL (3.2-5.2); BILIRUBIN,TOTAL 0.7 MG/DL (0.3-1.2); CALCIUM LEVEL 8.5 MG/DL (8.3-10.6); CREATININE FOR GFR 1.5 MG/DL (0.70-1.30); GLOMERULAR FILTRATION RATE 47.5 (>35); POTASSIUM SERUM 3.9 MMOL/L (3.5-5.1); TOTAL PROTEIN 5.5 G/DL (5.7-8.2)
[2024-01-28 08:16] VITALS: BP 119/60; TEMP 97; O2SAT 97
[2024-01-28 09:17] VITALS: BP 119/60
[2024-01-28] MEDS ORDERED: DOXY-440 PO (11:32)
[2024-01-28] MEDS ORDERED: CEFD1CAP9 PO (11:32)
[2024-01-28 12:00] VITALS: BP 134/67; TEMP 96.5; O2SAT 97
== END 2024-01-28 13:37 | disposition home health service (06) | DRG 872 ==
LOC: M ED 11:04 → EDBD 11:04 → M ED INP 16:46 → M PCU 22:51
PROVIDERS: ADMIT Hospitalist; ATTEND Hospitalist
DX: A41.9 Sepsis, unspecified organism (principal); N39.0 Urinary tract infection, site not specified; I13.0 Hypertensive heart and chronic kidney disease with heart failure and stage 1 through stage 4 chronic kidney disease, or unspecified chronic kidney disease; I48.91 Unspecified atrial fibrillation; N18.9 Chronic kidney disease, unspecified; J44.9 Chronic obstructive pulmonary disease, unspecified; I50.9 Heart failure, unspecified; E78.5 Hyperlipidemia, unspecified; Z79.01 Long term (current) use of anticoagulants; Z79.899 Other long term (current) drug therapy; Z88.0 Allergy status to penicillin; Z88.1 Allergy status to other antibiotic agents; Z88.2 Allergy status to sulfonamides; Z88.8 Allergy status to other drugs, medicaments and biological substances; Z91.011 Allergy to milk products; Z99.81 Dependence on supplemental oxygen; B96.1 Klebsiella pneumoniae [K. pneumoniae] as the cause of diseases classified elsewhere; R91.1 Solitary pulmonary nodule; R59.0 Localized enlarged lymph nodes

== ENCOUNTER → 2024-02-27 | Outpatient (CLI) | payer MEDICARE, OTHER ==
[~2024-02-27] MED LIST changes: +CENT1TAB PO; +FLON1SPR NARES; +VENTAER INH
== END ==
LOC: M PLARAD 14:04
PROVIDERS: ATTEND Internal Medicine Pulmonary Disease
DX: R91.1 Solitary pulmonary nodule (principal)
CPT/HCPCS: 78815; A9552

== ENCOUNTER → 2024-03-08 | Outpatient (CLI) | payer MEDICARE, OTHER ==
[~2024-03-08] MED LIST changes: +AZIT-10 GT; +FLUT1BLS3 INH; +METO50TA7 PO
== END ==
LOC: M PLAIMG 07:37
PROVIDERS: ATTEND Internal Medicine Cardiovascular Disease
DX: I50.32 Chronic diastolic (congestive) heart failure (principal); I27.29 Other secondary pulmonary hypertension; R94.31 Abnormal electrocardiogram [ECG] [EKG]; I08.3 Combined rheumatic disorders of mitral, aortic and tricuspid valves

== ENCOUNTER → 2024-03-08 | Outpatient (CLI) | payer MEDICARE, OTHER | LOC: M EKG 13:51 | PROVIDERS: ATTEND Internal Medicine Cardiovascular Disease | DX: I48.21 Permanent atrial fibrillation (principal) ==

== ENCOUNTER → 2024-03-08 | Outpatient (CLI) | payer MEDICARE, OTHER | LOC: M PLAIMG 07:42 | PROVIDERS: ATTEND Internal Medicine Pulmonary Disease | DX: R91.1 Solitary pulmonary nodule (principal); I70.0 Atherosclerosis of aorta; I25.10 Atherosclerotic heart disease of native coronary artery without angina pectoris; J44.9 Chronic obstructive pulmonary disease, unspecified; R91.8 Other nonspecific abnormal finding of lung field; R59.0 Localized enlarged lymph nodes; I48.21 Permanent atrial fibrillation; I50.32 Chronic diastolic (congestive) heart failure; I27.29 Other secondary pulmonary hypertension; R94.31 Abnormal electrocardiogram [ECG] [EKG]; I08.3 Combined rheumatic disorders of mitral, aortic and tricuspid valves ==

== ENCOUNTER 2024-03-12 22:57 | Inpatient (IN) | payer MEDICARE, OTHER ==
[~2024-03-12] VITALS: Ht 185.4 cm; Wt 81.2 kg
[~2024-03-12 22:57] MED LIST changes: -AZIT-10 GT; -FLUT1BLS3 INH; -METO50TA7 PO
[2024-03-12] MEDS: methylPREDNISolone 125MG 2ML VIAL IV ONE (23:39)
[2024-03-12] MEDS: ACETAMINOPHEN *IV* 1,000 MG in IV 1 EA IV ONE (23:40)
[2024-03-13 00:11] LABS: BASO # 0.1 10^3/uL (0.0-0.2); BASO % 0.4 % (0.0-1.0); EOS % 0.3 % (0.0-3.0); HEMATOCRIT 44.7 % (42.0-52.0); LYMPH # 1.2 10^3/uL (1.5-5.0); LYMPH % 7.9 % (24.0-44.0); MEAN CORPUSCULAR HGB CONC 33.6 g/dl (32.0-36.5); MEAN CORPUSCULAR VOLUME 92.4 fl (80.0-96.0); MONO # 0.8 10^3/uL (0.0-0.8); MONO % 5.2 % (2.0-8.0); NEUTROPHILS # 12.7 10^3/uL (1.5-8.5); NEUTROPHILS % 83.5 % (36.0-66.0); PLATELET COUNT, AUTOMATED 269 10^3/uL (150-450); RED BLOOD COUNT 4.84 10^6/uL (4.30-6.10); WHITE BLOOD COUNT 15.2 10^3/uL (4.0-10.0)
[2024-03-13] MEDS: LEVALBUTEROL 1.25MG 0.5ML CONCENTRATE NEB NEB ONE ×3 (00:16→00:17)
[2024-03-13 00:17] LABS: ALBUMIN 3.5 G/DL (3.2-5.2); ALKALINE PHOSPHATASE 133 U/L (46-116); ALT/SGPT 29 U/L (7.0-40); AST/SGOT 15 U/L (<34); BILIRUBIN,TOTAL 0.8 MG/DL (0.3-1.2); BLOOD UREA NITROGEN 31 MG/DL (9-23); CALCIUM LEVEL 8.8 MG/DL (8.3-10.6); CARBON DIOXIDE LEVEL 26 MMOL/L (20-31); CHLORIDE LEVEL 100 MMOL/L (98-107); CREATININE FOR GFR 1.59 MG/DL (0.70-1.30); GLOMERULAR FILTRATION RATE 44.4 (>35); GLUCOSE, FASTING 147 MG/DL (74-106); MAGNESIUM LEVEL 1.9 MG/DL (1.8-2.4); POTASSIUM SERUM 4.1 MMOL/L (3.5-5.1); SODIUM LEVEL 134 MMOL/L (136-145); TOTAL PROTEIN 6.9 G/DL (5.7-8.2)
[2024-03-13 01:06] LABS: PROCALCITONIN 0.16 ng/ml
[2024-03-13 01:16] LABS: CK-MB VALUE MASS < 1.0 NG/ML (<3.6)
[2024-03-13 01:17] LABS: CPK CREATINE PHOSPHOKINASE 46 U/L (46-171); MB/CK RELATIVE INDEX 2.17 (< OR =4)
[2024-03-13] MEDS: METOPROLOL 5 MG/5 ML VIAL IV STA (01:21)
[2024-03-13] MEDS ORDERED: ACETAMINOPHEN TAB 650MG DOSE (2X325MG) PO PRN (02:10)
[2024-03-13] MEDS: AZITHROMYCIN INJ 500 MG, VIAL MATE ADAPTER 1 EACH in NS 250 ML IV SCH (03:10)
[2024-03-13] MEDS: MEROPENEM INJ 1 GM in IV 1 EA IV SCH (04:17)
[2024-03-13 07:07] LABS: HEMATOCRIT 41.6 % (42.0-52.0); HEMOGLOBIN 13.9 g/dl (13.5-17.5); MEAN CORPUSCULAR HEMOGLOBIN 30.8 pg (27.0-33.0); MEAN CORPUSCULAR HGB CONC 33.4 g/dl (32.0-36.5); PLATELET COUNT, AUTOMATED 211 10^3/uL (150-450); RED BLOOD COUNT 4.52 10^6/uL (4.30-6.10); WHITE BLOOD COUNT 19.2 10^3/uL (4.0-10.0)
[2024-03-13 07:36] LABS: CALCIUM LEVEL 8.4 MG/DL (8.3-10.6); CREATININE FOR GFR 1.53 MG/DL (0.70-1.30); GLOMERULAR FILTRATION RATE 46.4 (>35); POTASSIUM SERUM 4.1 MMOL/L (3.5-5.1)
[2024-03-13] MEDS: methylPREDNISolone 40MG 1ML VIAL IV SCH (07:37)
[2024-03-13] MEDS: IPRATROPIUM 0.5MG/ALBUTEROL 2.5MG INH SOL UD 3ML (DUONEB) NEB SCH (07:45)
[2024-03-13] MEDS ORDERED: FLUT1BLS3 INH (08:22)
[2024-03-13] MEDS ORDERED: HOME MED LIST COMPLETE! XX SCH (08:25)
[2024-03-13] MEDS: PANTOPRAZOLE 40MG TAB (PROTONIX) PO SCH (10:36)
[2024-03-13] MEDS: APIXABAN 2.5 MG TAB (ELIQUIS) PO SCH (10:37)
[2024-03-13] MEDS: guaiFENesin ER TABLET 600 MG TAB PO SCH (10:37)
[2024-03-13] MEDS: METOPROLOL SUCC *XL* 25MG TAB (TopROL *XL*) PO SCH (10:42)
[2024-03-13] MEDS ORDERED: METOPROLOL TART 25 MG TABLET PO ONE (11:20)
[2024-03-13] MEDS: METOPROLOL TART 25 MG TABLET PO SCH (12:00)
[2024-03-13] MEDS: DIGOXIN INJ 0.5 MG/2 ML AMP IV ONE (14:29)
[2024-03-13 15:30] VITALS: BP 120/72; TEMP 97.3; O2SAT 98
[2024-03-13 16:00] VITALS: BP 125/69; TEMP 97.2; O2SAT 97
[2024-03-13 18:28] VITALS: BP 130/80
[2024-03-13] MEDS: cefTRIAXone SOD 2 GM in D5W MINI-BAG PLUS 50 ML IV SCH (18:49)
[2024-03-13 19:36] VITALS: BP 135/75; TEMP 97.5; O2SAT 96
[2024-03-13] MEDS: FLUTICASONE PROP 0.05% NASAL SPRAY 16 GM (FLONASE) NARES SCH (20:00)
[2024-03-13] MEDS: ADVAIR HFA 230/21MCG INHALER INH SCH (20:23)
[2024-03-13] MEDS: TAMSULOSIN 0.4 MG CAP PO SCH (20:55)
[2024-03-13] MEDS: FINASTERIDE 5MG TAB PO SCH (20:55)
[2024-03-13] MEDS: MONTELUKAST 10 MG TAB PO SCH (20:55)
[2024-03-13] MEDS: ATORVASTATIN 20 MG TAB PO SCH (20:56)
[2024-03-14 00:02] VITALS: BP 140/63; TEMP 98; O2SAT 99
[2024-03-14 04:42] VITALS: BP 131/62; TEMP 97.4; O2SAT 97
[2024-03-14] MEDS: TIOTROPIUM INHALER/CAPSULE (SPIRIVA) INH SCH (08:14)
[2024-03-14 08:29] VITALS: BP 123/76; TEMP 97.7; O2SAT 99
[2024-03-14] MEDS: AZITHROMYCIN 250MG TABLET PO SCH (08:43)
[2024-03-14] MEDS: LORATADINE 10 MG TAB PO SCH (08:44)
[2024-03-14] MEDS: TORSEMIDE 20 MG TAB PO SCH (08:44)
[2024-03-14] MEDS: predniSONE 20 MG TAB PO SCH (08:44)
[2024-03-14 12:10] VITALS: BP 130/60; TEMP 96.6; O2SAT 96
[2024-03-14 13:54] LABS: HEMATOCRIT 41.2 % (42.0-52.0); HEMOGLOBIN 13.4 g/dl (13.5-17.5); MEAN CORPUSCULAR HEMOGLOBIN 30.2 pg (27.0-33.0); MEAN CORPUSCULAR HGB CONC 32.5 g/dl (32.0-36.5); MEAN CORPUSCULAR VOLUME 92.8 fl (80.0-96.0); PLATELET COUNT, AUTOMATED 249 10^3/uL (150-450); RED BLOOD COUNT 4.44 10^6/uL (4.30-6.10); WHITE BLOOD COUNT 15.5 10^3/uL (4.0-10.0)
[2024-03-14 14:32] LABS: CREATININE FOR GFR 1.43 MG/DL (0.70-1.30); GLOMERULAR FILTRATION RATE 50.2 (>35); POTASSIUM SERUM 4.5 MMOL/L (3.5-5.1)
[2024-03-14 16:15] VITALS: BP 147/95; TEMP 97.1; O2SAT 96
[2024-03-14 19:28] VITALS: BP 148/74; O2SAT 94
[2024-03-14] MEDS: traZODone 25MG PER 1/2 TABLET PO ONE (21:51)
[2024-03-15 00:10] VITALS: BP 143/81; TEMP 97.4; O2SAT 97
[2024-03-15 04:55] VITALS: BP 131/72; TEMP 99.1; O2SAT 97
[2024-03-15 08:26] VITALS: BP 149/80; TEMP 97.3; O2SAT 96
[2024-03-15] MEDS: MOM 30ML SUSPENSION UDC PO PRN (08:58)
[2024-03-15] MEDS: SODIUM CHLORIDE HYPERTONIC 3% 4ML NEB SOL INH SCH (11:11)
[2024-03-15 13:53] VITALS: BP 110/57; TEMP 97.1; O2SAT 96
[2024-03-15] MEDS: CEPACOL LOZENGE PO PRN (14:12)
[2024-03-15] MEDS: IPRATROPIUM 0.5MG/ALBUTEROL 2.5MG INH SOL UD 3ML (DUONEB) NEB SCH (16:03)
[2024-03-15 17:27] VITALS: BP 158/80; TEMP 97.3; O2SAT 95
[2024-03-15 20:28] VITALS: BP 162/77; TEMP 97.1; O2SAT 99
[2024-03-16 00:17] VITALS: BP 164/84; TEMP 97.1; O2SAT 98
[2024-03-16 04:43] VITALS: BP 120/60; TEMP 98.1; O2SAT 97
[2024-03-16 08:27] VITALS: BP 168/76; TEMP 97.2; O2SAT 97
[2024-03-16] MEDS ORDERED: PRED10TA2 PO (12:13)
[2024-03-16] MEDS ORDERED: AZIT-10 GT (12:13)
[2024-03-16] MEDS ORDERED: CEFD1CAP9 PO (12:13)
[2024-03-16] MEDS ORDERED: METO50TA7 PO (12:13)
[2024-03-16 12:25] VITALS: BP 119/81; TEMP 97.6; O2SAT 97
[2024-03-16 12:37] VITALS: BP 119/81
[2024-03-17 18:13] LABS: URINE STREP PNEUMONIAE ANTIGEN NOT DETECTED (NOT DETECT)
== END 2024-03-16 14:33 | disposition home health service (06) | DRG 177 ==
LOC: M ED 22:57 → M ED INP 03-13 02:06 → M PCU 03-13 15:24
PROVIDERS: ADMIT Preventive Medicine Undersea and Hyperbaric Medicine; ATTEND Preventive Medicine Undersea and Hyperbaric Medicine
DX: J15.69 Pneumonia due to other Gram-negative bacteria (principal); J96.21 Acute and chronic respiratory failure with hypoxia; J44.1 Chronic obstructive pulmonary disease with (acute) exacerbation; I48.20 Chronic atrial fibrillation, unspecified; J44.0 Chronic obstructive pulmonary disease with (acute) lower respiratory infection; I50.30 Unspecified diastolic (congestive) heart failure; I13.0 Hypertensive heart and chronic kidney disease with heart failure and stage 1 through stage 4 chronic kidney disease, or unspecified chronic kidney disease; E78.5 Hyperlipidemia, unspecified; N18.30 Chronic kidney disease, stage 3 unspecified; Z87.891 Personal history of nicotine dependence; Z79.01 Long term (current) use of anticoagulants; N40.0 Benign prostatic hyperplasia without lower urinary tract symptoms; Z79.899 Other long term (current) drug therapy; R91.1 Solitary pulmonary nodule

== ENCOUNTER 2024-04-04 07:11 | Day surgery (SDC) | payer MEDICARE, OTHER ==
[~2024-04-04] VITALS: Ht 185.4 cm; Wt 83.0 kg
[~2024-04-04 07:11] MED LIST changes: +AZIT-10 GT; -DOXY-323 PO; +DOXY-441 PO; +FLUT1BLS3 INH; +GABA-1172 PO; -GABA-282 PO; +METO50TA7 PO
[2024-04-04] MEDS ORDERED: LR 1,000 ML IV SCH ×2 (07:50→10:45)
[2024-04-04] MEDS ORDERED: propofoL 200 MG/20 ML VIAL As Ordered ONE (08:09)
[2024-04-04] MEDS ORDERED: fentaNYL 100 MCG/2 ML INJECTION As Ordered ONE (08:09)
[2024-04-04] MEDS ORDERED: ROCURONIUM BROMIDE 50MG/5ML VIAL As Ordered ONE (08:09)
[2024-04-04] MEDS ORDERED: ONDANSETRON 4MG 2ML VIAL As Ordered ONE (08:09)
[2024-04-04] MEDS ORDERED: LIDOCAINE 2% 100MG/5ML SDV (FOR ANES.) As Ordered ONE (08:09)
[2024-04-04] MEDS ORDERED: dexmedeTOMIDine (4MCG/ML)200MCG/50ML BTL (PRECEDEX) As Ordered ONE (08:40)
[2024-04-04] MEDS: CETACAINE SPRAY 5GM As Ordered ONE (10:00)
[2024-04-04] MEDS: EPINEPHrine 1MG/10ML SYRINGE 1.5IN As Ordered ONE (10:00)
[2024-04-04] MEDS ORDERED: SUGAMMADEX SODIUM 500 MG/5 ML VIAL (BRIDION) As Ordered ONE (10:06)
[2024-04-04] MEDS ORDERED: PHENYLephrine 500MCG 5ML (100MCG/ML) SYRINGE As Ordered ONE (10:10)
[2024-04-04] MEDS ORDERED: HYDROMORPHONE HCL 0.5 MG/ 0.5 ML SYRINGE IV PRN (10:45)
[2024-04-04] MEDS ORDERED: fentaNYL 100 MCG/2 ML INJECTION IV PRN (10:45)
[2024-04-04] MEDS ORDERED: ONDANSETRON 4MG 2ML VIAL IV PRN (10:45)
[2024-04-04] MEDS ORDERED: oxyCODONE 5MG TAB PO PRN (10:45)
[2024-04-04 11:15] VITALS: BP 138/82; TEMP 97.2; O2SAT 97
== END 2024-04-04 11:40 | disposition home or self-care (01) ==
LOC: M SDC 07:11
PROVIDERS: ATTEND Internal Medicine Pulmonary Disease
DX: C34.32 Malignant neoplasm of lower lobe, left bronchus or lung (principal); I10 Essential (primary) hypertension; E78.5 Hyperlipidemia, unspecified; J44.9 Chronic obstructive pulmonary disease, unspecified; N18.9 Chronic kidney disease, unspecified; I71.40 Abdominal aortic aneurysm, without rupture, unspecified; I48.91 Unspecified atrial fibrillation; I73.9 Peripheral vascular disease, unspecified; Z79.01 Long term (current) use of anticoagulants; N40.0 Benign prostatic hyperplasia without lower urinary tract symptoms; Z87.891 Personal history of nicotine dependence; Z91.011 Allergy to milk products; Z88.0 Allergy status to penicillin; Z88.2 Allergy status to sulfonamides; Z88.1 Allergy status to other antibiotic agents
CPT/HCPCS: 31652; 71045; 88173; 88305; C1601; J0171; J1100; J2371; J2405; J3010

== ENCOUNTER → 2024-04-09 | Outpatient (CLI) | payer MEDICARE, OTHER ==
[2024-04-09 13:39] LABS: BASO # 0.1 10^3/uL (0.0-0.2); BASO % 0.8 % (0.0-1.0); EOS # 0.1 10^3/uL (0.0-0.5); EOS % 1.7 % (0.0-3.0); HEMATOCRIT 41.7 % (42.0-52.0); HEMOGLOBIN 13.8 g/dl (13.5-17.5); LYMPH # 1.4 10^3/uL (1.5-5.0); MEAN CORPUSCULAR HEMOGLOBIN 31.2 pg (27.0-33.0); MEAN CORPUSCULAR HGB CONC 33.1 g/dl (32.0-36.5); MEAN CORPUSCULAR VOLUME 94.1 fl (80.0-96.0); MONO % 12.6 % (2.0-8.0); NEUTROPHILS # 4.9 10^3/uL (1.5-8.5); NEUTROPHILS % 64.7 % (36.0-66.0); PLATELET COUNT, AUTOMATED 200 10^3/uL (150-450); RED BLOOD COUNT 4.43 10^6/uL (4.30-6.10); WHITE BLOOD COUNT 7.6 10^3/uL (4.0-10.0)
[2024-04-09 14:06] LABS: THYROID STIMULATING HORMONE 6.448 uIU/ML (0.55-4.78)
[2024-04-09 14:15] LABS: ALBUMIN 2.9 G/DL (3.2-5.2); BILIRUBIN,TOTAL 0.5 MG/DL (0.3-1.2); CALCIUM LEVEL 9.2 MG/DL (8.3-10.6); CREATININE FOR GFR 1.49 MG/DL (0.70-1.30); GLOMERULAR FILTRATION RATE 47.7 (>35); POTASSIUM SERUM 4.1 MMOL/L (3.5-5.1); TOTAL PROTEIN 6.1 G/DL (5.7-8.2)
== END ==
LOC: M PLALAB 09:45
PROVIDERS: ATTEND Internal Medicine Cardiovascular Disease
DX: I48.0 Paroxysmal atrial fibrillation (principal); I50.32 Chronic diastolic (congestive) heart failure; I11.0 Hypertensive heart disease with heart failure

== ENCOUNTER → 2024-05-04 | Outpatient (CLI) | payer MEDICARE, OTHER ==
[~2024-05-04] MED LIST changes: +LEVA15HF2 INH; -LEVAINH INH; +POTA10CA70 PO
== END ==
LOC: M ONCR 14:09
PROVIDERS: ATTEND General Practice
DX: C34.32 Malignant neoplasm of lower lobe, left bronchus or lung (principal); Z87.891 Personal history of nicotine dependence; Z79.01 Long term (current) use of anticoagulants; Z79.51 Long term (current) use of inhaled steroids; Z79.899 Other long term (current) drug therapy; Z88.0 Allergy status to penicillin; Z88.1 Allergy status to other antibiotic agents; Z88.2 Allergy status to sulfonamides; Z88.6 Allergy status to analgesic agent; Z91.011 Allergy to milk products

== ENCOUNTER 2024-06-18 14:56 | Outpatient (RCR) | payer MEDICARE, OTHER ==
[~2024-06-18 14:56] MED LIST changes: -ADV500INH INH; +ADVA1AER10 INH
== END 2024-06-19 ==
LOC: M ONCR 14:56
PROVIDERS: ATTEND General Practice
DX: Z51.0 Encounter for antineoplastic radiation therapy (principal); C34.32 Malignant neoplasm of lower lobe, left bronchus or lung

== ENCOUNTER → 2024-07-11 | Outpatient (CLI) | payer MEDICARE, OTHER ==
[~2024-07-11] MED LIST changes: +AZIT-10 PO; +PRED50TA PO
[2024-07-11 18:51] LABS: HEMATOCRIT 43.8 % (42.0-52.0); HEMOGLOBIN 14.2 g/dl (13.5-17.5); MEAN CORPUSCULAR HEMOGLOBIN 30.7 pg (27.0-33.0); MEAN CORPUSCULAR HGB CONC 32.4 g/dl (32.0-36.5); MEAN CORPUSCULAR VOLUME 94.8 fl (80.0-96.0); PLATELET COUNT, AUTOMATED 319 10^3/uL (150-450); RED BLOOD COUNT 4.62 10^6/uL (4.30-6.10); WHITE BLOOD COUNT 13.5 10^3/uL (4.0-10.0)
[2024-07-11 18:57] LABS: BILIRUBIN,TOTAL 0.4 MG/DL (0.3-1.2); CALCIUM LEVEL 9.1 MG/DL (8.3-10.6); CREATININE FOR GFR 1.28 MG/DL (0.70-1.30); GLOMERULAR FILTRATION RATE 56.9 (>35); MAGNESIUM LEVEL 2.2 MG/DL (1.8-2.4); POTASSIUM SERUM 4.9 MMOL/L (3.5-5.1); TOTAL PROTEIN 6.5 G/DL (5.7-8.2)
== END ==
LOC: M PLALAB 15:29
PROVIDERS: ATTEND Registered Nurse
DX: I50.32 Chronic diastolic (congestive) heart failure (principal)

== ENCOUNTER → 2024-07-13 | Outpatient (CLI) | payer MEDICARE, OTHER | LOC: M EKG 12:17 | PROVIDERS: ATTEND Registered Nurse | DX: I48.0 Paroxysmal atrial fibrillation (principal) ==

== ENCOUNTER → 2024-07-17 | Outpatient (CLI) | payer MEDICARE, OTHER | LOC: M PLALAB 15:22 → M PLAIMG 15:22 | PROVIDERS: ATTEND Internal Medicine Pulmonary Disease | DX: R06.02 Shortness of breath (principal) ==

== ENCOUNTER → 2024-08-16 | Outpatient (CLI) | payer MEDICARE, OTHER | LOC: M ONCR 11:15 | PROVIDERS: ATTEND General Practice | DX: C34.32 Malignant neoplasm of lower lobe, left bronchus or lung (principal); Z92.3 Personal history of irradiation ==

== ENCOUNTER → 2024-08-27 | Outpatient (CLI) | payer MEDICARE, OTHER ==
[2024-08-27 14:30] LABS: ALBUMIN 3.2 G/DL (3.2-5.2); BILIRUBIN,TOTAL 0.7 MG/DL (0.3-1.2); CALCIUM LEVEL 9.6 MG/DL (8.3-10.6); CREATININE FOR GFR 1.48 MG/DL (0.70-1.30); GLOMERULAR FILTRATION RATE 48.1 (>35); POTASSIUM SERUM 4.2 MMOL/L (3.5-5.1); TOTAL PROTEIN 6.6 G/DL (5.7-8.2)
== END ==
LOC: M ONCM 13:12
PROVIDERS: ATTEND General Practice
DX: C34.32 Malignant neoplasm of lower lobe, left bronchus or lung (principal)

== ENCOUNTER → 2024-09-03 | Outpatient (CLI) | payer MEDICARE, OTHER ==
[~2024-09-03] MED LIST changes: +ISOVUE-370 76% 100ML VIAL As Ordered ONE; +PRED5TA PO
== END ==
LOC: M RAD 08:19
PROVIDERS: ATTEND General Practice
DX: C34.32 Malignant neoplasm of lower lobe, left bronchus or lung (principal)

== ENCOUNTER → 2024-09-04 | Outpatient (CLI) | payer MEDICARE, OTHER ==
[~2024-09-04] MED LIST changes: -ISOVUE-370 76% 100ML VIAL As Ordered ONE
== END ==
LOC: M ONCR 08:25
PROVIDERS: ATTEND General Practice
DX: C34.32 Malignant neoplasm of lower lobe, left bronchus or lung (principal); Z87.891 Personal history of nicotine dependence; Z92.3 Personal history of irradiation; Z88.0 Allergy status to penicillin; Z88.1 Allergy status to other antibiotic agents; Z88.2 Allergy status to sulfonamides; Z88.6 Allergy status to analgesic agent; Z91.011 Allergy to milk products; Z79.51 Long term (current) use of inhaled steroids; Z79.01 Long term (current) use of anticoagulants; Z79.52 Long term (current) use of systemic steroids; Z79.899 Other long term (current) drug therapy

== ENCOUNTER → 2024-09-27 | Outpatient (CLI) | payer MEDICARE, OTHER ==
[2024-09-27 15:55] LABS: BASO # 0.1 10^3/uL (0.0-0.2); BASO % 0.5 % (0.0-1.0); EOS # 0.1 10^3/uL (0.0-0.5); EOS % 0.9 % (0.0-3.0); HEMOGLOBIN 14.3 g/dl (13.5-17.5); LYMPH # 0.6 10^3/uL (1.5-5.0); MEAN CORPUSCULAR HEMOGLOBIN 28.9 pg (27.0-33.0); MEAN CORPUSCULAR HGB CONC 31.8 g/dl (32.0-36.5); MEAN CORPUSCULAR VOLUME 91.1 fl (80.0-96.0); MONO # 0.5 10^3/uL (0.0-0.8); MONO % 3.8 % (2.0-8.0); NEUTROPHILS # 11.3 10^3/uL (1.5-8.5); NEUTROPHILS % 88.3 % (36.0-66.0); PLATELET COUNT, AUTOMATED 299 10^3/uL (150-450); RED BLOOD COUNT 4.94 10^6/uL (4.30-6.10); WHITE BLOOD COUNT 12.8 10^3/uL (4.0-10.0)
[2024-09-27 16:17] LABS: C REACTIVE PROTEIN QUANTITATIV 2.84 MG/DL (<1.0)
[2024-09-27 16:19] LABS: BILIRUBIN,TOTAL 0.8 MG/DL (0.3-1.2); CHOLESTEROL RISK RATIO 3.56 (<5); CREATININE FOR GFR 1.43 MG/DL (0.70-1.30); DIGOXIN LEVEL 1.1 NG/ML (0.8-2.0); HDL CHOLESTEROL 35.3 MG/DL (>40); LDL CHOLESTEROL 46.1 MG/DL (<100); NON-HDL-C 90.7 MG/DL; POTASSIUM SERUM 3.9 MMOL/L (3.5-5.1); TOTAL PROTEIN 6.1 G/DL (5.7-8.2)
[2024-09-27 16:22] LABS: THYROID STIMULATING HORMONE 4.592 uIU/ML (0.55-4.78)
[2024-09-27 16:24] LABS: FREE T4 1.31 NG/DL (0.89-1.76)
[2024-09-27 16:36] LABS: HEMOGLOBIN A1c 5.6 % (4.0-6.0)
== END ==
LOC: M PLALAB 13:04
PROVIDERS: ATTEND Student in an Organized Health Care Education/Training Program
DX: I48.0 Paroxysmal atrial fibrillation (principal); I71.43 Infrarenal abdominal aortic aneurysm, without rupture; I73.9 Peripheral vascular disease, unspecified; J45.909 Unspecified asthma, uncomplicated; I10 Essential (primary) hypertension; J44.9 Chronic obstructive pulmonary disease, unspecified; D17.30 Benign lipomatous neoplasm of skin and subcutaneous tissue of unspecified sites; R60.0 Localized edema; Z87.01 Personal history of pneumonia (recurrent); C34.92 Malignant neoplasm of unspecified part of left bronchus or lung; Z79.899 Other long term (current) drug therapy

== ENCOUNTER → 2024-10-29 | Outpatient (CLI) | payer MEDICARE, OTHER ==
[~2024-10-29] MED LIST changes: -FLOM0.4C39 PO; -PRED50TA PO; +PRED50TA57 PO; +TAMS-18 PO
== END ==
LOC: M RAD 12:57
PROVIDERS: ATTEND Internal Medicine Pulmonary Disease
DX: R91.8 Other nonspecific abnormal finding of lung field (principal); J90 Pleural effusion, not elsewhere classified; J18.9 Pneumonia, unspecified organism

== ENCOUNTER 2025-02-07 10:55 | Inpatient (IN) | payer MEDICARE, OTHER ==
[~2025-02-07] VITALS: Ht 185.4 cm; Wt 88.4 kg
[2025-02-07] MEDS: IPRATROPIUM 0.5 MG/ALBUTEROL 2.5 MG INH SOL UD 3 ML NEB PRN (11:29)
[2025-02-07 11:30] LABS: VENOUS BASE EXCESS -2.2 (-2.0-2.0); VENOUS HCO3 23.3 MMOL/L (23.0-27.0); VENOUS O2 SATURATION 57.1 % (60.0-80.0); VENOUS PARTIAL PRESSURE CO2 42.6 mmHg (38.0-50.0); VENOUS PARTIAL PRESSURE O2 31.2 mmHg (30.0-50.0); VENOUS PH 7.356 UNITS (7.330-7.430); VENOUS STANDARD HCO3 21.5 MMOL/L; VENOUS TOTAL CO2 24.6 MMOL/L (24.0-28.0)
[2025-02-07 11:38] LABS: PLATELET COUNT, AUTOMATED 244 10^3/uL (150-450)
[2025-02-07 12:45] LABS: ATYPICAL LYMPH 1 % (0-5); BASOPHILS 2 % (0-1); EOSINOPHILS 5 % (0-3); LYMPHOCYTES 10 % (16-44); MONOCYTES 3 % (0-5); NEUTROPHILS 77 % (28-66); PLATELET ESTIMATE NORMAL (NORMAL)
[2025-02-07 12:55] LABS: ALT/SGPT 52.0 U/L (7.0-40); AST/SGOT 27.0 U/L (<34); CALCIUM LEVEL 8.7 MG/DL (8.3-10.6); CARBON DIOXIDE LEVEL 23.0 MMOL/L (20-31); CHLORIDE LEVEL 106.0 MMOL/L (98-107); CREATININE FOR GFR 1.44 MG/DL (0.70-1.30); GLOMERULAR FILTRATION RATE 47.6 (>35); POTASSIUM SERUM 4.7 MMOL/L (3.5-5.1); SODIUM LEVEL 144.0 MMOL/L (136-145)
[2025-02-07 13:21] LABS: DIGOXIN LEVEL 1.2 NG/ML (0.8-2.0)
[2025-02-07] MEDS ORDERED: ISOVUE-370 76% 100 ML VIAL As Ordered ONE (13:27)
[2025-02-07] MEDS ORDERED: [UNRECOGNIZED DRUG - OTHER] PO (14:55)
[2025-02-07] MEDS ORDERED: MONT10TA97 PO (14:55)
[2025-02-07] MEDS ORDERED: MUCI1TAB16 PO (14:55)
[2025-02-07] MEDS ORDERED: HOME MED LIST COMPLETE! XX SCH (15:00)
[2025-02-07] MEDS: MEROPENEM 1 GM in IV 1 EA IV ONE (16:33)
[2025-02-07] MEDS: NS 0.9% IV ONE (16:33)
[2025-02-07] MEDS: [UNRECOGNIZED DRUG - OTHER] IV ONE (16:33)
[2025-02-07] MEDS ORDERED: ACETAMINOPHEN 500 MG TAB PO PRN (17:40)
[2025-02-07] MEDS ORDERED: TORSEMIDE 20 MG TAB PO PRN (17:40)
[2025-02-07 19:20] VITALS: BP 182/80; TEMP 97.9; O2SAT 95
[2025-02-07 20:00] VITALS: BP 152/80; TEMP 96.8; O2SAT 95
[2025-02-07] MEDS: CEFEPIME HCL 2 GM in DEXTROSE 5% (D5W) ADV/MINI-BAG 50 ML IV SCH (20:43)
[2025-02-07] MEDS: ATORVASTATIN 20 MG TAB PO SCH (20:44)
[2025-02-07] MEDS: APIXABAN 2.5 MG TAB PO SCH (20:44)
[2025-02-07] MEDS: TAMSULOSIN 0.4 MG CAP PO SCH (20:44)
[2025-02-07] MEDS: FINASTERIDE 5 MG TAB PO SCH (20:44)
[2025-02-07] MEDS: NS (Normal Saline) 0.9% 1,000 ML IV ONE (21:52)
[2025-02-07] MEDS: FLUTICASONE PROPIONATE 0.05% NASAL SPRAY 16 GM NARES SCH (23:00)
[2025-02-08 04:00] VITALS: BP 152/72; TEMP 96.8; O2SAT 96
[2025-02-08 06:29] LABS: PLATELET COUNT, AUTOMATED 238 10^3/uL (150-450)
[2025-02-08 06:56] LABS: ALT/SGPT 40.0 U/L (7.0-40); AST/SGOT 19.0 U/L (<34); CALCIUM LEVEL 8.5 MG/DL (8.3-10.6); CARBON DIOXIDE LEVEL 20.0 MMOL/L (20-31); CHLORIDE LEVEL 110.0 MMOL/L (98-107); CREATININE FOR GFR 1.23 MG/DL (0.70-1.30); GLOMERULAR FILTRATION RATE 57.5 (>35); MAGNESIUM LEVEL 2.2 MG/DL (1.8-2.4); POTASSIUM SERUM 4.9 MMOL/L (3.5-5.1); SODIUM LEVEL 144.0 MMOL/L (136-145)
[2025-02-08] MEDS ORDERED: LEVALBUTEROL 1.25 MG 0.5ML CONCENTRATE NEB INH PRN (08:00)
[2025-02-08] MEDS ORDERED: IPRATROPIUM 0.5 MG/2.5 ML (0.02%) SOLN NEB INH PRN (08:00)
[2025-02-08] MEDS: guaiFENesin ER TABLET 600 MG TAB PO SCH (08:32)
[2025-02-08] MEDS: LORATADINE 10 MG TAB PO SCH (08:32)
[2025-02-08] MEDS: MONTELUKAST 10 MG TAB PO SCH (08:32)
[2025-02-08] MEDS: PANTOPRAZOLE 40MG VIAL IV SCH (08:33)
[2025-02-08] MEDS: MULTIVITAMINS/MINERALS THERAP 1 TAB PO SCH (08:33)
[2025-02-08] MEDS: DIGOXIN 0.125 MG TAB PO SCH (08:33)
[2025-02-08] MEDS: METOPROLOL SUCC. 25 MG *XL* TAB PO SCH (08:34)
[2025-02-08] MEDS ORDERED: ENOXAPARIN 40 MG/0.4 ML SYRINGE (J1650 PER 10MG) SC SCH (09:00)
[2025-02-08 09:16] LABS: C REACTIVE PROTEIN QUANTITATIV 4.46 MG/DL (<1.0)
[2025-02-08 12:17] VITALS: BP 155/87; TEMP 96.6; O2SAT 94
[2025-02-08 20:34] VITALS: BP 162/90; TEMP 96.8; O2SAT 94
[2025-02-09 03:39] VITALS: BP 154/85; TEMP 97.2; O2SAT 96
[2025-02-09] MEDS ORDERED: LEVALBUTEROL 1.25 MG 0.5ML CONCENTRATE NEB INH PRN (08:50)
[2025-02-09 09:46] LABS: BASO # 0.0 10^3/uL (0.0-0.2); BASO % 0.2 % (0.0-1.0); EOS # 0.0 10^3/uL (0.0-0.5); EOS % 0.0 % (0.0-3.0); LYMPH # 0.5 10^3/uL (1.5-5.0); LYMPH % 2.5 % (24.0-44.0); MONO # 0.5 10^3/uL (0.0-0.8); MONO % 2.8 % (2.0-8.0); NEUTROPHILS # 17.6 10^3/uL (1.5-8.5); NEUTROPHILS % 92.5 % (36.0-66.0); PLATELET COUNT, AUTOMATED 274 10^3/uL (150-450)
[2025-02-09] MEDS: ADVAIR HFA 230/21 MCG INHALER INH SCH (09:51)
[2025-02-09] MEDS: IPRATROPIUM 0.5 MG/ALBUTEROL 2.5 MG INH SOL UD 3 ML NEB SCH (09:51)
[2025-02-09 10:13] LABS: CALCIUM LEVEL 8.7 MG/DL (8.3-10.6); CARBON DIOXIDE LEVEL 17.0 MMOL/L (20-31); CHLORIDE LEVEL 110.0 MMOL/L (98-107); CREATININE FOR GFR 1.25 MG/DL (0.70-1.30); GLOMERULAR FILTRATION RATE 56.4 (>35); POTASSIUM SERUM 4.4 MMOL/L (3.5-5.1); SODIUM LEVEL 142.0 MMOL/L (136-145)
[2025-02-09] MEDS: TORSEMIDE 20 MG TAB PO SCH (10:51)
[2025-02-09 12:01] VITALS: BP 155/79; TEMP 96.8; O2SAT 97
[2025-02-09 20:26] VITALS: BP 130/74; TEMP 98; O2SAT 94
[2025-02-10 03:45] VITALS: BP 136/75; TEMP 98.6; O2SAT 95
[2025-02-10 06:21] LABS: BASO # 0.0 10^3/uL (0.0-0.2); BASO % 0.2 % (0.0-1.0); EOS # 0.0 10^3/uL (0.0-0.5); EOS % 0.0 % (0.0-3.0); LYMPH # 0.2 10^3/uL (1.5-5.0); LYMPH % 1.3 % (24.0-44.0); MONO # 0.9 10^3/uL (0.0-0.8); MONO % 5.1 % (2.0-8.0); NEUTROPHILS # 15.5 10^3/uL (1.5-8.5); NEUTROPHILS % 91.5 % (36.0-66.0); PLATELET COUNT, AUTOMATED 259 10^3/uL (150-450)
[2025-02-10 06:47] LABS: CALCIUM LEVEL 8.3 MG/DL (8.3-10.6); CARBON DIOXIDE LEVEL 20.0 MMOL/L (20-31); CHLORIDE LEVEL 104.0 MMOL/L (98-107); CREATININE FOR GFR 1.6 MG/DL (0.70-1.30); GLOMERULAR FILTRATION RATE 42.0 (>35); POTASSIUM SERUM 4.2 MMOL/L (3.5-5.1); SODIUM LEVEL 140.0 MMOL/L (136-145)
[2025-02-10] MEDS: PANTOPRAZOLE 40MG TAB PO SCH (08:05)
[2025-02-10] MEDS: NS 500 ML IV ONE (11:12)
[2025-02-10] MEDS: DOCUSATE SODIUM 100 MG CAPSULE PO SCH (11:20)
[2025-02-10] MEDS: IPRATROPIUM 0.5 MG/ALBUTEROL 2.5 MG INH SOL UD 3 ML NEB SCH (11:24)
[2025-02-10 12:03] VITALS: BP 139/76; TEMP 96.5; O2SAT 97
[2025-02-10 12:56] VITALS: TEMP 96.9
[2025-02-10 20:02] VITALS: BP 144/82; TEMP 97.9; O2SAT 95
[2025-02-11] VITALS (7 sets, daily range): BP systolic 147–152; BP diastolic 56–72; TEMP 96.8–97.7; O2SAT 94–97
[2025-02-11 06:27] LABS: BASO # 0.1 10^3/uL (0.0-0.2); BASO % 0.3 % (0.0-1.0); EOS # 0.0 10^3/uL (0.0-0.5); EOS % 0.0 % (0.0-3.0); LYMPH # 0.2 10^3/uL (1.5-5.0); LYMPH % 1.3 % (24.0-44.0); MONO # 0.9 10^3/uL (0.0-0.8); MONO % 5.6 % (2.0-8.0); NEUTROPHILS # 14.5 10^3/uL (1.5-8.5); NEUTROPHILS % 90.1 % (36.0-66.0); PLATELET COUNT, AUTOMATED 256 10^3/uL (150-450)
[2025-02-11 06:52] LABS: CALCIUM LEVEL 8.3 MG/DL (8.3-10.6); CARBON DIOXIDE LEVEL 19.0 MMOL/L (20-31); CHLORIDE LEVEL 103.0 MMOL/L (98-107); CREATININE FOR GFR 1.79 MG/DL (0.70-1.30); GLOMERULAR FILTRATION RATE 36.7 (>35); POTASSIUM SERUM 4.0 MMOL/L (3.5-5.1); SODIUM LEVEL 139.0 MMOL/L (136-145)
[2025-02-12 03:41] VITALS: BP 148/72; TEMP 97.5; O2SAT 95
[2025-02-12 06:20] LABS: BASO # 0.1 10^3/uL (0.0-0.2); BASO % 0.5 % (0.0-1.0); EOS # 0.0 10^3/uL (0.0-0.5); EOS % 0.0 % (0.0-3.0); LYMPH # 0.2 10^3/uL (1.5-5.0); LYMPH % 1.4 % (24.0-44.0); MONO # 0.9 10^3/uL (0.0-0.8); MONO % 5.8 % (2.0-8.0); NEUTROPHILS # 13.4 10^3/uL (1.5-8.5); NEUTROPHILS % 88.0 % (36.0-66.0); PLATELET COUNT, AUTOMATED 228 10^3/uL (150-450)
[2025-02-12 06:46] LABS: CALCIUM LEVEL 8.6 MG/DL (8.3-10.6); CARBON DIOXIDE LEVEL 22.0 MMOL/L (20-31); CHLORIDE LEVEL 104.0 MMOL/L (98-107); CREATININE FOR GFR 1.59 MG/DL (0.70-1.30); GLOMERULAR FILTRATION RATE 42.3 (>35); POTASSIUM SERUM 4.3 MMOL/L (3.5-5.1); SODIUM LEVEL 140.0 MMOL/L (136-145)
[2025-02-12 08:31] VITALS: BP 153/74
[2025-02-12 08:33] VITALS: O2SAT 92
[2025-02-12] MEDS: DOXYCYCLINE HYCLATE 100 MG TABLET PO SCH (08:36)
[2025-02-12] MEDS ORDERED: TORSEMIDE 20 MG TAB PO SCH (09:00)
[2025-02-12 11:49] VITALS: BP 143/92; TEMP 96.6; O2SAT 95
[2025-02-12] MEDS ORDERED: OMEP-173 PO (12:42)
[2025-02-12] MEDS ORDERED: CEFD300CAP PO (12:42)
[2025-02-12] MEDS ORDERED: DOXY100T PO (12:42)
[2025-02-12] MEDS ORDERED: PRED10TA2 PO (12:42)
[2025-02-12] MEDS ORDERED: CEFDINIR 300 MG CAP PO SCH (21:00)
[2025-02-14 00:17] LABS: MYCOPLASMA PNEUMONIAE IGG 1.47 (<=0.90); MYCOPLASMA PNEUMONIAE IGM 90.0 U/mL (<770)
== END 2025-02-12 14:15 | disposition home health service (06) | DRG 871 ==
LOC: EDBD 10:55 → M ED 10:55 → M ED INP 17:28 → M MSPAV 18:56
PROVIDERS: ADMIT Student in an Organized Health Care Education/Training Program; ATTEND Internal Medicine Nephrology
DX: A41.9 Sepsis, unspecified organism (principal); J96.21 Acute and chronic respiratory failure with hypoxia; J18.9 Pneumonia, unspecified organism; C34.90 Malignant neoplasm of unspecified part of unspecified bronchus or lung; J44.0 Chronic obstructive pulmonary disease with (acute) lower respiratory infection; D84.9 Immunodeficiency, unspecified; I24.89 Other forms of acute ischemic heart disease; E87.20 Acidosis, unspecified; I12.9 Hypertensive chronic kidney disease with stage 1 through stage 4 chronic kidney disease, or unspecified chronic kidney disease; I27.20 Pulmonary hypertension, unspecified; N18.30 Chronic kidney disease, stage 3 unspecified; I48.91 Unspecified atrial fibrillation; I25.10 Atherosclerotic heart disease of native coronary artery without angina pectoris; N40.0 Benign prostatic hyperplasia without lower urinary tract symptoms; I08.0 Rheumatic disorders of both mitral and aortic valves; I27.81 Cor pulmonale (chronic); Z79.01 Long term (current) use of anticoagulants; J45.909 Unspecified asthma, uncomplicated; R73.9 Hyperglycemia, unspecified; Z88.0 Allergy status to penicillin; Z88.2 Allergy status to sulfonamides; Z88.8 Allergy status to other drugs, medicaments and biological substances; Z91.011 Allergy to milk products; Z79.899 Other long term (current) drug therapy; Z79.52 Long term (current) use of systemic steroids; Z92.3 Personal history of irradiation; Z95.1 Presence of aortocoronary bypass graft; Z87.891 Personal history of nicotine dependence

== ENCOUNTER 2025-02-21 10:49 | Inpatient (IN) | payer MEDICARE, OTHER ==
[~2025-02-21] VITALS: Ht 185.4 cm; Wt 86.0 kg
[~2025-02-21 10:49] MED LIST changes: +CEFD300CAP PO; +DOXY100T PO; +MUCI1TAB16 PO; +OMEP-173 PO; +[UNRECOGNIZED DRUG - OTHER] PO
[2025-02-21] MEDS ORDERED: IPRATROPIUM 0.5 MG/ALBUTEROL 2.5 MG INH SOL UD 3 ML NEB PRN (11:40)
[2025-02-21 11:50] LABS: BASO # 0.0 10^3/uL (0.0-0.2); BASO % 0.3 % (0.0-1.0); EOS # 0.3 10^3/uL (0.0-0.5); EOS % 2.2 % (0.0-3.0); LYMPH # 0.4 10^3/uL (1.5-5.0); LYMPH % 2.8 % (24.0-44.0); MONO # 0.7 10^3/uL (0.0-0.8); MONO % 5.2 % (2.0-8.0); NEUTROPHILS # 12.4 10^3/uL (1.5-8.5); NEUTROPHILS % 87.2 % (36.0-66.0); PLATELET COUNT, AUTOMATED 164 10^3/uL (150-450)
[2025-02-21] MEDS ORDERED: DOXY100C3 PO (11:58)
[2025-02-21] MEDS ORDERED: OMEP-173 PO (11:58)
[2025-02-21] MEDS ORDERED: CEFD1CAP9 PO (11:58)
[2025-02-21] MEDS ORDERED: HOME MED LIST COMPLETE! XX SCH (12:00)
[2025-02-21 12:07] LABS: VENOUS BASE EXCESS 1.3 (-2.0-2.0); VENOUS HCO3 26.0 MMOL/L (23.0-27.0); VENOUS O2 SATURATION 43.9 % (60.0-80.0); VENOUS PARTIAL PRESSURE CO2 41.6 mmHg (38.0-50.0); VENOUS PARTIAL PRESSURE O2 23.2 mmHg (30.0-50.0); VENOUS PH 7.414 UNITS (7.330-7.430); VENOUS STANDARD HCO3 24.2 MMOL/L; VENOUS TOTAL CO2 27.3 MMOL/L (24.0-28.0)
[2025-02-21 12:10] LABS: CK-MB VALUE MASS 4.0 NG/ML (<3.6)
[2025-02-21 12:13] LABS: ALT/SGPT 47.0 U/L (7.0-40); AST/SGOT 23.0 U/L (<34); CALCIUM LEVEL 8.8 MG/DL (8.3-10.6); CARBON DIOXIDE LEVEL 27.0 MMOL/L (20-31); CHLORIDE LEVEL 101.0 MMOL/L (98-107); CREATININE FOR GFR 1.67 MG/DL (0.70-1.30); DIGOXIN LEVEL 1.1 NG/ML (0.8-2.0); GLOMERULAR FILTRATION RATE 39.9 (>35); POTASSIUM SERUM 4.1 MMOL/L (3.5-5.1); SODIUM LEVEL 142.0 MMOL/L (136-145)
[2025-02-21 12:18] LABS: CPK CREATINE PHOSPHOKINASE 41.0 U/L (46-171); MB/CK RELATIVE INDEX 9.75 (< OR =4)
[2025-02-21 12:23] LABS: INR 1.08
[2025-02-21 13:14] LABS: CK-MB VALUE MASS 4.5 NG/ML (<3.6)
[2025-02-21 13:18] LABS: CPK CREATINE PHOSPHOKINASE 40.0 U/L (46-171); MB/CK RELATIVE INDEX 11.25 (< OR =4)
[2025-02-21] MEDS ORDERED: ISOVUE-370 76% 100 ML VIAL As Ordered ONE (14:17)
[2025-02-21] MEDS: NS 0.9% IV STA (14:24)
[2025-02-21] MEDS: [UNRECOGNIZED DRUG - OTHER] IV STA (14:24)
[2025-02-21] MEDS: CEFEPIME HCL 2 GM in DEXTROSE 5% (D5W) ADV/MINI-BAG 50 ML IV ONE (14:29)
[2025-02-21] MEDS: NS (Normal Saline) 0.9% 2,450 ML in IV 1 EA IV ONE (17:47)
[2025-02-21] MEDS: BUDESONIDE 0.5 MG/2 ML INHALATION SUSPENSION NEB SCH (20:29)
[2025-02-21] MEDS: GLYCOPYRROLATE INJ 0.2 MG/ML 2 ML VIAL NEB SCH (20:29)
[2025-02-21] MEDS: ALBUTEROL SULFATE 2.5 MG/0.5 ML INH CONCENTRATE NEB SOLN NEB SCH (20:29)
[2025-02-21] MEDS: SODIUM CHLORIDE HYPERTONIC 3% 4ML NEB SOL INH SCH (20:30)
[2025-02-21] MEDS ORDERED: CEFDINIR 300 MG CAP PO SCH (21:00)
[2025-02-21] MEDS: ATORVASTATIN 20 MG TAB PO SCH (21:17)
[2025-02-21] MEDS: OMEPRAZOLE 20MG CAP PO SCH (21:17)
[2025-02-21] MEDS: guaiFENesin ER TABLET 600 MG TAB PO SCH (21:18)
[2025-02-21] MEDS: TAMSULOSIN 0.4 MG CAP PO SCH (21:18)
[2025-02-21] MEDS: DOXYCYCLINE HYCLATE 100 MG TABLET PO SCH (21:18)
[2025-02-21] MEDS: FINASTERIDE 5 MG TAB PO SCH (21:18)
[2025-02-21] MEDS: APIXABAN 2.5 MG TAB PO SCH (21:18)
[2025-02-21] MEDS: CEFPODOXIME PROXETIL 200 MG TABLET PO SCH (21:18)
[2025-02-21] MEDS: FLUTICASONE PROPIONATE 0.05% NASAL SPRAY 16 GM NARES SCH (21:18)
[2025-02-21] MEDS: **hydrALAZINE HCL** 25 MG TAB PO SCH (23:50)
[2025-02-22 03:02] VITALS: BP 170/84; TEMP 97.7; O2SAT 95
[2025-02-22 04:47] VITALS: BP 150/70; TEMP 98.1; O2SAT 94
[2025-02-22 08:55] LABS: BASO # 0.0 10^3/uL (0.0-0.2); BASO % 0.2 % (0.0-1.0); EOS # 0.0 10^3/uL (0.0-0.5); EOS % 0.0 % (0.0-3.0); LYMPH # 0.3 10^3/uL (1.5-5.0); LYMPH % 2.5 % (24.0-44.0); MONO # 0.4 10^3/uL (0.0-0.8); MONO % 3.8 % (2.0-8.0); NEUTROPHILS # 9.1 10^3/uL (1.5-8.5); NEUTROPHILS % 91.9 % (36.0-66.0); PLATELET COUNT, AUTOMATED 145 10^3/uL (150-450)
[2025-02-22 09:11] LABS: CALCIUM LEVEL 8.9 MG/DL (8.3-10.6); CARBON DIOXIDE LEVEL 21.0 MMOL/L (20-31); CHLORIDE LEVEL 105.0 MMOL/L (98-107); CREATININE FOR GFR 1.64 MG/DL (0.70-1.30); GLOMERULAR FILTRATION RATE 40.7 (>35); POTASSIUM SERUM 3.9 MMOL/L (3.5-5.1); SODIUM LEVEL 141.0 MMOL/L (136-145)
[2025-02-22] MEDS: METOPROLOL SUCC. 25 MG *XL* TAB PO SCH (09:16)
[2025-02-22] MEDS: amLODIPine 10 MG TAB PO SCH (09:16)
[2025-02-22] MEDS: DIGOXIN 0.125 MG TAB PO SCH (09:17)
[2025-02-22] MEDS: LORATADINE 10 MG TAB PO SCH (09:17)
[2025-02-22] MEDS: MONTELUKAST 10 MG TAB PO SCH (09:17)
[2025-02-22 12:18] VITALS: BP 140/68; TEMP 98.2; O2SAT 98
[2025-02-22] MEDS: ALBUTEROL SULFATE 2.5 MG/0.5 ML INH CONCENTRATE NEB SOLN NEB SCH (19:10)
[2025-02-22] MEDS: SODIUM CHLORIDE HYPERTONIC 3% 4ML NEB SOL INH SCH (19:10)
[2025-02-22 19:46] VITALS: BP 153/80; TEMP 98.4; O2SAT 93
[2025-02-23 04:24] VITALS: BP 132/52; TEMP 97.9; O2SAT 95
[2025-02-23 06:39] LABS: BASO # 0.0 10^3/uL (0.0-0.2); BASO % 0.1 % (0.0-1.0); EOS # 0.0 10^3/uL (0.0-0.5); EOS % 0.0 % (0.0-3.0); LYMPH # 0.2 10^3/uL (1.5-5.0); LYMPH % 1.5 % (24.0-44.0); MONO # 0.6 10^3/uL (0.0-0.8); MONO % 4.2 % (2.0-8.0); NEUTROPHILS # 13.3 10^3/uL (1.5-8.5); NEUTROPHILS % 92.5 % (36.0-66.0); PLATELET COUNT, AUTOMATED 154 10^3/uL (150-450)
[2025-02-23 07:15] LABS: CALCIUM LEVEL 8.8 MG/DL (8.3-10.6); CARBON DIOXIDE LEVEL 22.0 MMOL/L (20-31); CHLORIDE LEVEL 105.0 MMOL/L (98-107); CREATININE FOR GFR 1.67 MG/DL (0.70-1.30); GLOMERULAR FILTRATION RATE 39.9 (>35); POTASSIUM SERUM 4.4 MMOL/L (3.5-5.1); SODIUM LEVEL 140.0 MMOL/L (136-145)
[2025-02-23 09:39] VITALS: O2SAT 94
[2025-02-23 12:45] VITALS: BP 132/70; TEMP 97.9; O2SAT 93
[2025-02-23 18:34] VITALS: BP 154/79
[2025-02-23 19:31] VITALS: BP 114/60; TEMP 98.1; O2SAT 93
[2025-02-24 03:53] VITALS: BP 138/59; TEMP 98.1; O2SAT 96
[2025-02-24 06:44] LABS: BASO # 0.0 10^3/uL (0.0-0.2); BASO % 0.1 % (0.0-1.0); EOS # 0.0 10^3/uL (0.0-0.5); EOS % 0.0 % (0.0-3.0); LYMPH # 0.2 10^3/uL (1.5-5.0); LYMPH % 1.7 % (24.0-44.0); MONO # 0.4 10^3/uL (0.0-0.8); MONO % 3.9 % (2.0-8.0); NEUTROPHILS # 10.5 10^3/uL (1.5-8.5); NEUTROPHILS % 92.4 % (36.0-66.0); PLATELET COUNT, AUTOMATED 141 10^3/uL (150-450)
[2025-02-24 07:16] LABS: CALCIUM LEVEL 8.8 MG/DL (8.3-10.6); CARBON DIOXIDE LEVEL 22.0 MMOL/L (20-31); CHLORIDE LEVEL 104.0 MMOL/L (98-107); CREATININE FOR GFR 1.76 MG/DL (0.70-1.30); GLOMERULAR FILTRATION RATE 37.4 (>35); POTASSIUM SERUM 4.8 MMOL/L (3.5-5.1); SODIUM LEVEL 139.0 MMOL/L (136-145)
[2025-02-24] MEDS ORDERED: GLUCOSE 4 GM CHEW PO PRN (08:15)
[2025-02-24] MEDS ORDERED: DEXTROSE 50% 50 ML SYRINGE IV PRN (08:15)
[2025-02-24] MEDS ORDERED: GLUCAGON INJ 1 MG VIAL SC PRN (08:15)
[2025-02-24] MEDS: amLODIPine 5 MG TAB PO SCH (09:17)
[2025-02-24] MEDS: NS 500 ML IV ONE (09:18)
[2025-02-24] MEDS: LanTUS (INSULIN GLARGINE INJ) 1 UNITS/0.01 ML SC SCH (09:18)
[2025-02-24 12:00] VITALS: TEMP 97.9; O2SAT 95
[2025-02-24] MEDS: INSULIN LISPRO (NovoLOG) PER UNIT SC SCH ×2 (13:08→20:43)
[2025-02-24 20:25] VITALS: BP 142/70; TEMP 98.2; O2SAT 94
[2025-02-25 00:35] VITALS: BP 152/82; TEMP 98.1; O2SAT 94
[2025-02-25 03:52] VITALS: BP 158/80; TEMP 98.1; O2SAT 94
[2025-02-25 06:59] LABS: BASO # 0.0 10^3/uL (0.0-0.2); BASO % 0.2 % (0.0-1.0); EOS # 0.0 10^3/uL (0.0-0.5); EOS % 0.0 % (0.0-3.0); LYMPH # 0.3 10^3/uL (1.5-5.0); LYMPH % 2.0 % (24.0-44.0); MONO # 0.6 10^3/uL (0.0-0.8); MONO % 4.7 % (2.0-8.0); NEUTROPHILS # 11.2 10^3/uL (1.5-8.5); NEUTROPHILS % 90.1 % (36.0-66.0); PLATELET COUNT, AUTOMATED 130 10^3/uL (150-450)
[2025-02-25 07:16] LABS: CALCIUM LEVEL 8.7 MG/DL (8.3-10.6); CARBON DIOXIDE LEVEL 23.0 MMOL/L (20-31); CHLORIDE LEVEL 103.0 MMOL/L (98-107); CREATININE FOR GFR 1.55 MG/DL (0.70-1.30); GLOMERULAR FILTRATION RATE 43.6 (>35); POTASSIUM SERUM 4.6 MMOL/L (3.5-5.1); SODIUM LEVEL 139.0 MMOL/L (136-145)
[2025-02-25 09:26] VITALS: O2SAT 96
[2025-02-25 12:00] VITALS: BP 164/76; TEMP 97.5; O2SAT 95
[2025-02-25 15:33] LABS: ESTIMATED AVERAGE GLUCOSE 200.0 MG/DL (60-110)
[2025-02-25 20:40] VITALS: BP 138/66; TEMP 97; O2SAT 95
[2025-02-26 03:35] VITALS: BP 146/74; TEMP 97.7; O2SAT 96
[2025-02-26 06:31] LABS: PLATELET COUNT, AUTOMATED 146 10^3/uL (150-450)
[2025-02-26 06:55] LABS: ATYPICAL LYMPH 1 % (0-5); EOSINOPHILS 1 % (0-3); LYMPHOCYTES 3 % (16-44); MONOCYTES 6 % (0-5); NEUTROPHILS 88 % (28-66)
[2025-02-26 06:56] LABS: PLATELET ESTIMATE NORMAL (NORMAL)
[2025-02-26 06:58] LABS: CALCIUM LEVEL 8.7 MG/DL (8.3-10.6); CARBON DIOXIDE LEVEL 24.0 MMOL/L (20-31); CHLORIDE LEVEL 105.0 MMOL/L (98-107); CREATININE FOR GFR 1.53 MG/DL (0.70-1.30); GLOMERULAR FILTRATION RATE 44.3 (>35); POTASSIUM SERUM 4.1 MMOL/L (3.5-5.1); SODIUM LEVEL 140.0 MMOL/L (136-145)
[2025-02-26 07:16] VITALS: O2SAT 95
[2025-02-26] MEDS ORDERED: PILL CUTTER 1 EACH XX ONE (08:38)
[2025-02-26] MEDS ORDERED: ALBUTEROL SULFATE 2.5 MG/0.5 ML INH CONCENTRATE NEB SOLN NEB PRN (11:25)
[2025-02-26 12:00] VITALS: BP 135/61; TEMP 97.7; O2SAT 95
[2025-02-26] MEDS: FUROSEMIDE 20 MG/2 ML VIAL IV ONE (12:07)
[2025-02-26 20:31] VITALS: BP 150/67; TEMP 97.9; O2SAT 94
[2025-02-27] VITALS (9 sets, daily range): BP systolic 142–154; BP diastolic 62–74; TEMP 97.2–98.1; O2SAT 89–96
[2025-02-27 06:43] LABS: BASO # 0.1 10^3/uL (0.0-0.2); BASO % 0.4 % (0.0-1.0); EOS # 0.0 10^3/uL (0.0-0.5); EOS % 0.0 % (0.0-3.0); LYMPH # 0.2 10^3/uL (1.5-5.0); LYMPH % 2.0 % (24.0-44.0); MONO # 0.2 10^3/uL (0.0-0.8); MONO % 1.7 % (2.0-8.0); NEUTROPHILS # 11.0 10^3/uL (1.5-8.5); NEUTROPHILS % 90.0 % (36.0-66.0); PLATELET COUNT, AUTOMATED 127 10^3/uL (150-450)
[2025-02-27 07:10] LABS: CALCIUM LEVEL 8.2 MG/DL (8.3-10.6); CARBON DIOXIDE LEVEL 25.0 MMOL/L (20-31); CHLORIDE LEVEL 103.0 MMOL/L (98-107); CREATININE FOR GFR 1.5 MG/DL (0.70-1.30); GLOMERULAR FILTRATION RATE 45.3 (>35); MAGNESIUM LEVEL 2.1 MG/DL (1.8-2.4); POTASSIUM SERUM 4.7 MMOL/L (3.5-5.1); SODIUM LEVEL 139.0 MMOL/L (136-145)
[2025-02-27] MEDS ORDERED: predniSONE 10 MG TAB PO SCH (09:00)
[2025-02-27] MEDS: SODIUM CHLORIDE NASAL 0.65% SPRAY BTL (OCEAN) SCH (21:08)
[2025-02-27] MEDS: NYSTATIN 500,000 UNITS/5 ML SUSP UDC SS SCH (21:08)
[2025-02-28] VITALS (7 sets, daily range): BP systolic 93–160; BP diastolic 71–80; TEMP 97.7–98.1; O2SAT 92–96
[2025-02-28 06:47] LABS: CALCIUM LEVEL 7.9 MG/DL (8.3-10.6); CARBON DIOXIDE LEVEL 24.0 MMOL/L (20-31); CHLORIDE LEVEL 105.0 MMOL/L (98-107); CREATININE FOR GFR 1.5 MG/DL (0.70-1.30); GLOMERULAR FILTRATION RATE 45.3 (>35); MAGNESIUM LEVEL 2.2 MG/DL (1.8-2.4); POTASSIUM SERUM 4.4 MMOL/L (3.5-5.1); SODIUM LEVEL 139.0 MMOL/L (136-145)
[2025-03-01 03:59] VITALS: BP 158/78; TEMP 97.9; O2SAT 91
[2025-03-01 07:14] VITALS: O2SAT 95
[2025-03-01 07:53] LABS: CALCIUM LEVEL 8.1 MG/DL (8.3-10.6); CARBON DIOXIDE LEVEL 25.0 MMOL/L (20-31); CHLORIDE LEVEL 105.0 MMOL/L (98-107); CREATININE FOR GFR 1.48 MG/DL (0.70-1.30); GLOMERULAR FILTRATION RATE 46.1 (>35); MAGNESIUM LEVEL 2.3 MG/DL (1.8-2.4); POTASSIUM SERUM 4.8 MMOL/L (3.5-5.1); SODIUM LEVEL 140.0 MMOL/L (136-145)
[2025-03-01 08:30] VITALS: BP 155/77; TEMP 97.7; O2SAT 96
[2025-03-01 10:23] VITALS: BP 155/77
[2025-03-01 12:00] VITALS: BP 155/77; TEMP 97.5; O2SAT 98
[2025-03-01] MEDS ORDERED: LANC1COM MC (12:13)
[2025-03-01] MEDS ORDERED: BUDE0.5S6 NEB (12:13)
[2025-03-01] MEDS ORDERED: PERF20NE2 INH (12:13)
[2025-03-01] MEDS ORDERED: GLYC5INJ NEB (12:13)
[2025-03-01] MEDS ORDERED: GLUCMIS7 XX (12:13)
[2025-03-01] MEDS ORDERED: METF850T4 PO (12:13)
[2025-03-01] MEDS ORDERED: PRED20TA PO (12:23)
[2025-03-01] MEDS ORDERED: PRED10TA2 PO (12:23)
[2025-03-01] MEDS ORDERED: SPIR12.9 INH (14:26)
== END 2025-03-01 17:52 | disposition home or self-care (01) | DRG 191 ==
LOC: M ED 10:49 → M ED INP 17:27 → UNDOADMIN 17:27 → M MSPAV 17:43 → M ED INP 02-22 02:52 → UNDODISIN 03-01 15:15
PROVIDERS: ADMIT Internal Medicine Nephrology; ATTEND Student in an Organized Health Care Education/Training Program
DX: J44.1 Chronic obstructive pulmonary disease with (acute) exacerbation (principal); I13.0 Hypertensive heart and chronic kidney disease with heart failure and stage 1 through stage 4 chronic kidney disease, or unspecified chronic kidney disease; J96.11 Chronic respiratory failure with hypoxia; J70.1 Chronic and other pulmonary manifestations due to radiation; E87.20 Acidosis, unspecified; J45.909 Unspecified asthma, uncomplicated; I50.810 Right heart failure, unspecified; I27.81 Cor pulmonale (chronic); N18.30 Chronic kidney disease, stage 3 unspecified; I27.20 Pulmonary hypertension, unspecified; I73.9 Peripheral vascular disease, unspecified; E78.00 Pure hypercholesterolemia, unspecified; E78.5 Hyperlipidemia, unspecified; J20.9 Acute bronchitis, unspecified; E11.22 Type 2 diabetes mellitus with diabetic chronic kidney disease; I48.0 Paroxysmal atrial fibrillation; Z99.81 Dependence on supplemental oxygen; E87.70 Fluid overload, unspecified; Z79.01 Long term (current) use of anticoagulants; Z92.3 Personal history of irradiation; Z79.899 Other long term (current) drug therapy; Z79.52 Long term (current) use of systemic steroids; Z88.0 Allergy status to penicillin; Z88.2 Allergy status to sulfonamides; Z91.011 Allergy to milk products; Z88.8 Allergy status to other drugs, medicaments and biological substances; E04.1 Nontoxic single thyroid nodule; I08.0 Rheumatic disorders of both mitral and aortic valves; Z85.118 Personal history of other malignant neoplasm of bronchus and lung; Z87.891 Personal history of nicotine dependence

== ENCOUNTER 2025-03-03 13:36 | Observation (INO) | payer MEDICARE, OTHER ==
[~2025-03-03] VITALS: Ht 185.4 cm; Wt 84.2 kg
[~2025-03-03 13:36] MED LIST changes: +BUDE0.5S6 NEB; +GLUCMIS7 XX; +GLYC5INJ NEB; +LANC1COM MC; +METF850T4 PO; +PERF20NE2 INH; +SPIR12.9 INH
[2025-03-03 14:35] LABS: PLATELET COUNT, AUTOMATED 195 10^3/uL (150-450)
[2025-03-03 15:04] LABS: CALCIUM LEVEL 7.9 MG/DL (8.3-10.6); CARBON DIOXIDE LEVEL 24.0 MMOL/L (20-31); CHLORIDE LEVEL 103.0 MMOL/L (98-107); CREATININE FOR GFR 1.44 MG/DL (0.70-1.30); GLOMERULAR FILTRATION RATE 47.6 (>35); POTASSIUM SERUM 4.4 MMOL/L (3.5-5.1); SODIUM LEVEL 139.0 MMOL/L (136-145)
[2025-03-03 15:25] LABS: EOSINOPHILS 2 % (0-3); LYMPHOCYTES 4 % (16-44); MONOCYTES 3 % (0-5); MYELOCYTES 2 % (0-0); NEUTROPHILS 85 % (28-66)
[2025-03-03 15:26] LABS: PLATELET ESTIMATE NORMAL (NORMAL)
[2025-03-03] MEDS ORDERED: BUDE0.5S6 NEB (16:04)
[2025-03-03] MEDS ORDERED: METF850T4 PO (16:04)
[2025-03-03] MEDS ORDERED: FORM20VI2 NEB (16:04)
[2025-03-03] MEDS ORDERED: HOME MED LIST COMPLETE! XX SCH (16:05)
[2025-03-03] MEDS ORDERED: IPRATROPIUM 0.5 MG/ALBUTEROL 2.5 MG INH SOL UD 3 ML INH PRN (17:05)
[2025-03-03] MEDS ORDERED: ACETAMINOPHEN 500 MG TAB PO PRN (17:05)
[2025-03-03] MEDS ORDERED: predniSONE 10 MG TAB PO SCH (17:05)
[2025-03-03 19:01] VITALS: BP 159/86; TEMP 98.2; O2SAT 93
[2025-03-03 19:51] VITALS: BP 164/80; TEMP 98.2; O2SAT 92
[2025-03-03] MEDS: BUDESONIDE 0.5 MG/2 ML INHALATION SUSPENSION NEB SCH (20:35)
[2025-03-03] MEDS: BISACODYL 10 MG SUPP PR SCH (21:00)
[2025-03-03] MEDS: predniSONE 20 MG TAB PO SCH (22:36)
[2025-03-03] MEDS: APIXABAN 2.5 MG TAB PO SCH (22:36)
[2025-03-03] MEDS: TAMSULOSIN 0.4 MG CAP PO SCH (22:36)
[2025-03-03] MEDS: OMEPRAZOLE 20MG CAP PO SCH (22:36)
[2025-03-03] MEDS: ATORVASTATIN 20 MG TAB PO SCH (22:36)
[2025-03-03] MEDS: FLUTICASONE PROPIONATE 0.05% NASAL SPRAY 16 GM NARES SCH (22:37)
[2025-03-03] MEDS: SENNOSIDES/DOCUSATE SODIUM 8.6 MG/50MG TAB PO SCH (22:37)
[2025-03-03] MEDS: FINASTERIDE 5 MG TAB PO SCH (22:37)
[2025-03-04 05:23] VITALS: BP 150/61; TEMP 97.3; O2SAT 97
[2025-03-04 06:38] LABS: BASO # 0.1 10^3/uL (0.0-0.2); BASO % 0.6 % (0.0-1.0); EOS # 0.0 10^3/uL (0.0-0.5); EOS % 0.0 % (0.0-3.0); LYMPH # 0.2 10^3/uL (1.5-5.0); LYMPH % 1.9 % (24.0-44.0); MONO # 0.3 10^3/uL (0.0-0.8); MONO % 3.3 % (2.0-8.0); NEUTROPHILS # 7.5 10^3/uL (1.5-8.5); NEUTROPHILS % 88.1 % (36.0-66.0); PLATELET COUNT, AUTOMATED 163 10^3/uL (150-450)
[2025-03-04 07:00] LABS: CALCIUM LEVEL 7.6 MG/DL (8.3-10.6); CARBON DIOXIDE LEVEL 22.0 MMOL/L (20-31); CHLORIDE LEVEL 105.0 MMOL/L (98-107); CREATININE FOR GFR 1.49 MG/DL (0.70-1.30); GLOMERULAR FILTRATION RATE 45.7 (>35); MAGNESIUM LEVEL 2.1 MG/DL (1.8-2.4); POTASSIUM SERUM 4.5 MMOL/L (3.5-5.1); SODIUM LEVEL 138.0 MMOL/L (136-145)
[2025-03-04] MEDS: TIOTROPIUM BROM 2.5MCG/ACTUATION 4GM INH INH SCH (08:24)
[2025-03-04] MEDS: MONTELUKAST 10 MG TAB PO SCH (08:58)
[2025-03-04] MEDS: LORATADINE 10 MG TAB PO SCH (08:58)
[2025-03-04] MEDS: guaiFENesin ER TABLET 600 MG TAB PO SCH (08:59)
[2025-03-04] MEDS: METOPROLOL SUCC. 25 MG *XL* TAB PO SCH (09:01)
[2025-03-04] MEDS: DIGOXIN 0.125 MG TAB PO SCH (09:09)
[2025-03-04 12:00] VITALS: BP 146/63; TEMP 98; O2SAT 96
[2025-03-04 14:38] VITALS: BP 126/66; TEMP 97.3; O2SAT 95
[2025-03-04 20:00] VITALS: BP 131/75; TEMP 97.5; O2SAT 95
[2025-03-05 04:00] VITALS: BP 153/80; TEMP 97.7; O2SAT 95
[2025-03-05 07:01] LABS: CALCIUM LEVEL 8.8 MG/DL (8.3-10.6); CARBON DIOXIDE LEVEL 22.0 MMOL/L (20-31); CHLORIDE LEVEL 104.0 MMOL/L (98-107); CREATININE FOR GFR 1.47 MG/DL (0.70-1.30); GLOMERULAR FILTRATION RATE 46.5 (>35); MAGNESIUM LEVEL 2.1 MG/DL (1.8-2.4); POTASSIUM SERUM 4.6 MMOL/L (3.5-5.1); SODIUM LEVEL 137.0 MMOL/L (136-145)
[2025-03-05] MEDS: predniSONE 20 MG TAB PO SCH (09:25)
[2025-03-05 12:06] VITALS: BP 162/71; TEMP 97.5; O2SAT 95
[2025-03-05 12:55] LABS: CALCIUM LEVEL 8.1 MG/DL (8.3-10.6); CARBON DIOXIDE LEVEL 19.0 MMOL/L (20-31); CHLORIDE LEVEL 105.0 MMOL/L (98-107); CREATININE FOR GFR 1.39 MG/DL (0.70-1.30); GLOMERULAR FILTRATION RATE 49.7 (>35); POTASSIUM SERUM 5.0 MMOL/L (3.5-5.1); SODIUM LEVEL 135.0 MMOL/L (136-145)
[2025-03-05 19:07] LABS: CALCIUM LEVEL 8.6 MG/DL (8.3-10.6); CARBON DIOXIDE LEVEL 22.0 MMOL/L (20-31); CHLORIDE LEVEL 102.0 MMOL/L (98-107); CREATININE FOR GFR 1.38 MG/DL (0.70-1.30); GLOMERULAR FILTRATION RATE 50.1 (>35); POTASSIUM SERUM 4.7 MMOL/L (3.5-5.1); SODIUM LEVEL 134.0 MMOL/L (136-145)
[2025-03-05 20:18] VITALS: BP 151/73; TEMP 97.3; O2SAT 94
[2025-03-05] MEDS: METOPROLOL TART 12.5 MG PER 1/2 TAB PO ONE (23:33)
[2025-03-06 01:13] LABS: CALCIUM LEVEL 8.5 MG/DL (8.3-10.6); CARBON DIOXIDE LEVEL 23.0 MMOL/L (20-31); CHLORIDE LEVEL 102.0 MMOL/L (98-107); CREATININE FOR GFR 1.42 MG/DL (0.70-1.30); GLOMERULAR FILTRATION RATE 48.4 (>35); POTASSIUM SERUM 4.6 MMOL/L (3.5-5.1); SODIUM LEVEL 135.0 MMOL/L (136-145)
[2025-03-06 04:35] VITALS: BP 141/65; TEMP 97.3; O2SAT 95
[2025-03-06 07:21] LABS: CALCIUM LEVEL 8.2 MG/DL (8.3-10.6); CARBON DIOXIDE LEVEL 25.0 MMOL/L (20-31); CHLORIDE LEVEL 105.0 MMOL/L (98-107); CREATININE FOR GFR 1.39 MG/DL (0.70-1.30); GLOMERULAR FILTRATION RATE 49.7 (>35); MAGNESIUM LEVEL 2.0 MG/DL (1.8-2.4); POTASSIUM SERUM 4.1 MMOL/L (3.5-5.1); SODIUM LEVEL 136.0 MMOL/L (136-145)
[2025-03-06 12:00] VITALS: BP 141/60; TEMP 97.5; O2SAT 93
[2025-03-06 13:34] LABS: CALCIUM LEVEL 8.3 MG/DL (8.3-10.6); CARBON DIOXIDE LEVEL 22.0 MMOL/L (20-31); CHLORIDE LEVEL 104.0 MMOL/L (98-107); CREATININE FOR GFR 1.39 MG/DL (0.70-1.30); GLOMERULAR FILTRATION RATE 49.7 (>35); POTASSIUM SERUM 4.4 MMOL/L (3.5-5.1); SODIUM LEVEL 135.0 MMOL/L (136-145)
[2025-03-06] MEDS ORDERED: BISA10SU PR (17:42)
[2025-03-06] MEDS ORDERED: PRED10TA2 PO (17:42)
[2025-03-06] MEDS ORDERED: DOCU8.6T PO (17:42)
[2025-03-06 18:58] LABS: CALCIUM LEVEL 8.1 MG/DL (8.3-10.6); CARBON DIOXIDE LEVEL 20.0 MMOL/L (20-31); CHLORIDE LEVEL 101.0 MMOL/L (98-107); CREATININE FOR GFR 1.35 MG/DL (0.70-1.30); GLOMERULAR FILTRATION RATE 51.5 (>35); POTASSIUM SERUM 4.8 MMOL/L (3.5-5.1); SODIUM LEVEL 133.0 MMOL/L (136-145)
[2025-03-06 20:46] VITALS: BP 153/75; TEMP 97.9; O2SAT 92
[2025-03-07 00:46] LABS: CALCIUM LEVEL 8.1 MG/DL (8.3-10.6); CARBON DIOXIDE LEVEL 24.0 MMOL/L (20-31); CHLORIDE LEVEL 102.0 MMOL/L (98-107); CREATININE FOR GFR 1.36 MG/DL (0.70-1.30); GLOMERULAR FILTRATION RATE 51.0 (>35); POTASSIUM SERUM 4.6 MMOL/L (3.5-5.1); SODIUM LEVEL 135.0 MMOL/L (136-145)
[2025-03-07 04:00] VITALS: BP 139/58; TEMP 97.5; O2SAT 87
[2025-03-07 09:00] VITALS: BP 155/74
[2025-03-07 12:00] VITALS: TEMP 97.5; O2SAT 96
[2025-03-08] MEDS ORDERED: predniSONE 10 MG TAB PO SCH (09:00)
[2025-03-11] MEDS ORDERED: predniSONE 20 MG TAB PO SCH (09:00)
[2025-03-14] MEDS ORDERED: predniSONE 10 MG TAB PO SCH (09:00)
== END 2025-03-07 12:32 ==
LOC: EDBD 13:36 → M ED 13:36 → M ED INP 13:37 → M MSPAV 18:52
PROVIDERS: ADMIT Student in an Organized Health Care Education/Training Program; ATTEND Internal Medicine
DX: R29.6 Repeated falls (principal); R54 Age-related physical debility; M25.512 Pain in left shoulder; K59.09 Other constipation; J98.11 Atelectasis; J96.11 Chronic respiratory failure with hypoxia; J70.1 Chronic and other pulmonary manifestations due to radiation; I27.0 Primary pulmonary hypertension; J45.909 Unspecified asthma, uncomplicated; I12.9 Hypertensive chronic kidney disease with stage 1 through stage 4 chronic kidney disease, or unspecified chronic kidney disease; E11.9 Type 2 diabetes mellitus without complications; I48.91 Unspecified atrial fibrillation; I72.8 Aneurysm of other specified arteries; I25.10 Atherosclerotic heart disease of native coronary artery without angina pectoris; E78.5 Hyperlipidemia, unspecified; N18.30 Chronic kidney disease, stage 3 unspecified; Z79.01 Long term (current) use of anticoagulants; Z79.84 Long term (current) use of oral hypoglycemic drugs; Z79.899 Other long term (current) drug therapy; Z79.52 Long term (current) use of systemic steroids; Z92.3 Personal history of irradiation; Z85.118 Personal history of other malignant neoplasm of bronchus and lung
CPT/HCPCS: 36415; 71045; 73030; 80048; 82040; 83735; 85025; 87426; 93005; 94640; 97116; 97161; 97530; 99285; G0378; J7512